=== PATIENT | female | born 1945 | race Caucasian/White ===

== ENCOUNTER 2017-08-25 03:32 | Inpatient (IN) | payer MEDICARE ==
[2017-08-25 04:12] LABS: BASO % 0.3 % (0.0-1.0); EOS # 0.1 10^3/uL (0.0-0.50); EOS % 0.5 % (0.0-3.0); HEMATOCRIT 39.1 % (36.0-47.0); HEMOGLOBIN 13.8 g/dl (12.0-15.5); IMMATURE GRANULOCYTE % 0.3 % (0-3.0); LYMPH # 2.1 10^3/uL (1.5-4.5); MEAN CORPUSCULAR HEMOGLOBIN 30.8 pg (27.0-33.0); MEAN CORPUSCULAR HGB CONC 35.3 g/dl (32.0-36.5); MEAN CORPUSCULAR VOLUME 87.3 fl (80.0-96.0); MONO # 0.8 10^3/uL (0.0-0.8); MONO % 8.3 % (0.0-5.0); NEUTROPHILS # 6.7 10^3/uL (1.8-7.7); NEUTROPHILS % 68.6 % (36.0-66.0); PLATELET COUNT, AUTOMATED 292 10^3/uL (150-450); RED BLOOD COUNT 4.48 10^6/uL (4.00-5.40); RED CELL DISTRIBUTION WIDTH 12.1 % (11.5-14.5); WHITE BLOOD COUNT 9.7 10^3/uL (4.0-10.0)
[2017-08-25 04:22] LABS: INR 0.88
[2017-08-25 04:23] LABS: PARTIAL THROMBOPLASTIN TIME 26.7 SECONDS (26.8-37.9)
[2017-08-25 04:47] LABS: ALBUMIN 3.5 GM/DL (3.2-5.2); ALBUMIN/GLOBULIN RATIO 1.21 (1.00-1.93); ALKALINE PHOSPHATASE 103 U/L (45-117); ALT/SGPT 22 U/L (12-78); ANION GAP 10 MEQ/L (8-16); AST/SGOT 11 U/L (7-37); BILIRUBIN,DIRECT 0.2 MG/DL (0.0-0.2); BILIRUBIN,TOTAL 0.5 MG/DL (0.2-1.0); BLOOD UREA NITROGEN 14 MG/DL (7-18); CALCIUM LEVEL 8.7 MG/DL (8.8-10.2); CARBON DIOXIDE LEVEL 26 MEQ/L (21-32); CHLORIDE LEVEL 102 MEQ/L (98-107); CK-MB VALUE MASS 1.1 NG/ML (<3.6); CPK CREATINE PHOSPHOKINASE 25 U/L (26-192); CREATININE FOR GFR 0.54 MG/DL (0.55-1.30); GLOMERULAR FILTRATION RATE > 60.0 (>39); GLUCOSE, FASTING 168 MG/DL (70-100); LIPASE 92 U/L (73-393); POTASSIUM SERUM 3.8 MEQ/L (3.5-5.1); SODIUM LEVEL 138 MEQ/L (136-145); TOTAL PROTEIN 6.4 GM/DL (6.4-8.2); TROPONIN I < 0.02 NG/ML (< 0.10)
[2017-08-25] MEDS: ONDANSETRON 4MG/2ML VIAL (J2405) IV ×2 (05:34→08:42)
[2017-08-25] MEDS: QUINAPRIL 20 MG TAB PO (06:45)
[2017-08-25] MEDS: NS 1,000 ML IV (06:45)
[2017-08-25 07:08] LABS: FREE T4 1.55 NG/DL (0.76-1.46)
[2017-08-25 07:39] LABS: KETONE, URINE AUTO RFX 1+ mg/dL (NEGATIVE); LEUKOCYTE ESTERASE UR AUTO RFX NEGATIVE (NEGATIVE); MUCUS, URINE RFX SMALL (NEGATIVE); NITRITE, URINE AUTO RFX NEGATIVE (NEGATIVE); RBC, URINE AUTO RFX 0 /HPF (0-3); SPECIFIC GRAVITY UR AUTO RFX 1.014 (1.002-1.035); SQUAM EPITHELIAL CELL UR AURFX 0 /HPF (0-6); WBC, URINE AUTO RFX 2 /HPF (0-3)
[2017-08-25 08:35] LABS: CPK CREATINE PHOSPHOKINASE 41 U/L (26-192); TROPONIN I < 0.02 NG/ML (< 0.10)
[2017-08-25 08:36] LABS: CK-MB VALUE MASS < 1.0 NG/ML (<3.6); MB/CK RELATIVE INDEX 2.43 (< OR =4)
[2017-08-25] MEDS: GABAPENTIN 300 MG CAP PO (08:42)
[2017-08-25] MEDS ORDERED: GLIMEPIRIDE 2 MG TAB PO (09:00)
[2017-08-25] MEDS: diltiaZEM **CD** 180 MG CAP PO (09:38)
[2017-08-25] MEDS: cloNIDine 0.2 MG TAB PO (09:38)
[2017-08-25] MEDS ORDERED: GLUCOSE 4 GM CHEW TABLET PO (12:15)
[2017-08-25] MEDS ORDERED: GLUCAGON FOR INJ 1 MG VIAL (J1610) SC (12:15)
[2017-08-25] MEDS ORDERED: DEXTROSE 50% 50 ML SYRINGE IV (12:15)
[2017-08-25] MEDS ORDERED: SLF 3 ML SYR IV (12:45)
[2017-08-25] MEDS ORDERED: ISOVUE-370 76% 100ML VIAL (Q9967) As Ordered (13:08)
[2017-08-25 13:12] LABS: CPK CREATINE PHOSPHOKINASE 23 U/L (26-192); TROPONIN I < 0.02 NG/ML (< 0.10)
[2017-08-25 13:13] LABS: CK-MB VALUE MASS < 1.0 NG/ML (<3.6); MB/CK RELATIVE INDEX 4.34 (< OR =4)
[2017-08-25 13:19] LABS: TOTAL 25(OH) VITAMIN D 63.1 NG/ML (30.0-100.0); VITAMIN B12 LEVEL 743 PG/ML
[2017-08-25 13:22] LABS: FOLATE 15.1 NG/ML
[2017-08-25 13:37] LABS: ESTIMATED AVERAGE GLUCOSE 183 MG/DL (60-110)
[2017-08-25 14:18] LABS: BEDSIDE GLUCOSE 192 MG/DL (83-110)
[2017-08-25] MEDS: HEPARIN SOD (PORCINE) 5000 UNITS/ML VIAL SC ×2 (14:25→21:06)
[2017-08-25] MEDS: OCUVITE 1 TAB PO (14:25)
[2017-08-25] MEDS: CALCIUM/VITAMIN D 500 MG TAB PO ×2 (14:25→21:06)
[2017-08-25] MEDS: SLF 3 ML SYR IV ×2 (14:26→21:13)
[2017-08-25] MEDS: LEVOTHYROXINE 75MCG TABLET (0.075MG) PO (14:26)
[2017-08-25] MEDS: HumaLOG INSULIN (NovoLOG) PER UNIT SC ×3 (14:26→20:22)
[2017-08-25 17:03] LABS: BEDSIDE GLUCOSE 183 MG/DL (83-110)
[2017-08-25] MEDS ORDERED: HumaLOG INSULIN (NovoLOG) PER UNIT SC (17:30)
[2017-08-25] MEDS: KETOROLAC 30 MG/ML VIAL (J1885) IV (17:50)
[2017-08-25 18:40] LABS: CPK CREATINE PHOSPHOKINASE 24 U/L (26-192); TROPONIN I < 0.02 NG/ML (< 0.10)
[2017-08-25 18:42] LABS: CK-MB VALUE MASS < 1.0 NG/ML (<3.6); MB/CK RELATIVE INDEX 4.16 (< OR =4)
[2017-08-25 20:19] LABS: BEDSIDE GLUCOSE 80 MG/DL (83-110)
[2017-08-25] MEDS ORDERED: GABAPENTIN 100 MG CAP PO (21:00)
[2017-08-25] MEDS: ANALGESIC BALM CRM 120 GM TOP (21:05)
[2017-08-25] MEDS: LATANOPROST 0.005% OPHTH SOLN 2.5 ML OU (21:06)
[2017-08-25] MEDS: GABAPENTIN 100 MG CAP PO (21:06)
[2017-08-26 00:35] LABS: CK-MB VALUE MASS < 1.0 NG/ML (<3.6); CPK CREATINE PHOSPHOKINASE 23 U/L (26-192); MB/CK RELATIVE INDEX 4.34 (< OR =4); TROPONIN I < 0.02 NG/ML (< 0.10)
[2017-08-26] MEDS: KETOROLAC 30 MG/ML VIAL (J1885) IV ×3 (03:08→20:08)
[2017-08-26 05:36] LABS: BASO % 0.4 % (0.0-1.0); EOS # 0.1 10^3/uL (0.0-0.50); EOS % 0.7 % (0.0-3.0); HEMATOCRIT 39.2 % (36.0-47.0); HEMOGLOBIN 13.5 g/dl (12.0-15.5); IMMATURE GRANULOCYTE % 0.4 % (0-3.0); LYMPH # 1.9 10^3/uL (1.5-4.5); LYMPH % 21.5 % (24.0-44.0); MEAN CORPUSCULAR HEMOGLOBIN 30.7 pg (27.0-33.0); MEAN CORPUSCULAR HGB CONC 34.4 g/dl (32.0-36.5); MEAN CORPUSCULAR VOLUME 89.1 fl (80.0-96.0); MONO # 0.8 10^3/uL (0.0-0.8); MONO % 8.8 % (0.0-5.0); NEUTROPHILS # 6.1 10^3/uL (1.8-7.7); NEUTROPHILS % 68.2 % (36.0-66.0); PLATELET COUNT, AUTOMATED 268 10^3/uL (150-450); RED CELL DISTRIBUTION WIDTH 12.3 % (11.5-14.5)
[2017-08-26] MEDS: LEVOTHYROXINE 75MCG TABLET (0.075MG) PO (05:42)
[2017-08-26] MEDS: HEPARIN SOD (PORCINE) 5000 UNITS/ML VIAL SC ×3 (05:43→21:01)
[2017-08-26] MEDS: SLF 3 ML SYR IV ×3 (05:43→21:01)
[2017-08-26 05:57] LABS: ANION GAP 7 MEQ/L (8-16); BLOOD UREA NITROGEN 15 MG/DL (7-18); CARBON DIOXIDE LEVEL 29 MEQ/L (21-32); CHLORIDE LEVEL 105 MEQ/L (98-107); CREATININE FOR GFR 0.59 MG/DL (0.55-1.30); GLOMERULAR FILTRATION RATE > 60.0 (>39); GLUCOSE, FASTING 82 MG/DL (70-100); POTASSIUM SERUM 3.8 MEQ/L (3.5-5.1); SODIUM LEVEL 141 MEQ/L (136-145)
[2017-08-26] MEDS: HumaLOG INSULIN (NovoLOG) PER UNIT SC ×4 (07:30→21:00)
[2017-08-26] MEDS ORDERED: tiZANidine 4 MG TAB PO (08:45)
[2017-08-26] MEDS: tiZANidine 4 MG TAB PO (08:59)
[2017-08-26] MEDS: OCUVITE 1 TAB PO (09:00)
[2017-08-26] MEDS ORDERED: PILL CRUSHER/CUTTER 1 EACH XX (09:00)
[2017-08-26] MEDS: GABAPENTIN 100 MG CAP PO ×2 (09:01→20:07)
[2017-08-26] MEDS: diltiaZEM **CD** 180 MG CAP PO (09:01)
[2017-08-26] MEDS: CALCIUM/VITAMIN D 500 MG TAB PO ×2 (09:01→20:07)
[2017-08-26] MEDS: ANALGESIC BALM CRM 120 GM TOP ×5 (09:01→20:11)
[2017-08-26 11:52] LABS: BEDSIDE GLUCOSE 197 MG/DL (83-110)
[2017-08-26] MEDS: ONDANSETRON 4MG/2ML VIAL (J2405) IV (15:34)
[2017-08-26 17:14] LABS: BEDSIDE GLUCOSE 130 MG/DL (83-110)
[2017-08-26] MEDS: SENOKOT S TAB PO (20:07)
[2017-08-26] MEDS: BISACODYL 5 MG TAB PO (20:07)
[2017-08-26] MEDS: LATANOPROST 0.005% OPHTH SOLN 2.5 ML OU (20:10)
[2017-08-26] MEDS: QUINAPRIL 20 MG TAB PO (20:10)
[2017-08-26 20:25] LABS: BEDSIDE GLUCOSE 197 MG/DL (83-110)
[2017-08-26] MEDS: traMADol 50 MG TAB PO (22:43)
[2017-08-27] MEDS: ACETAMINOPHEN TAB 650MG DOSE (2X325MG) PO ×2 (01:22→15:45)
[2017-08-27] MEDS: LEVOTHYROXINE 75MCG TABLET (0.075MG) PO (05:12)
[2017-08-27] MEDS: SLF 3 ML SYR IV ×3 (05:12→22:01)
[2017-08-27] MEDS: HEPARIN SOD (PORCINE) 5000 UNITS/ML VIAL SC ×3 (05:12→22:00)
[2017-08-27] MEDS: KETOROLAC 30 MG/ML VIAL (J1885) IV ×3 (05:12→22:00)
[2017-08-27 06:41] LABS: BEDSIDE GLUCOSE 151 MG/DL (83-110)
[2017-08-27] MEDS: DULoxetine 30 MG CAP (CYMBALTA) PO (07:19)
[2017-08-27] MEDS: ALPRAZolam 0.25 MG TAB PO (07:19)
[2017-08-27 07:54] LABS: ANION GAP 10 MEQ/L (8-16); BLOOD UREA NITROGEN 16 MG/DL (7-18); CALCIUM LEVEL 10.1 MG/DL (8.8-10.2); CARBON DIOXIDE LEVEL 29 MEQ/L (21-32); CHLORIDE LEVEL 101 MEQ/L (98-107); CREATININE FOR GFR 0.58 MG/DL (0.55-1.30); GLOMERULAR FILTRATION RATE > 60.0 (>39); GLUCOSE, FASTING 153 MG/DL (70-100); POTASSIUM SERUM 3.8 MEQ/L (3.5-5.1); SODIUM LEVEL 140 MEQ/L (136-145)
[2017-08-27] MEDS: HumaLOG INSULIN (NovoLOG) PER UNIT SC ×4 (08:47→21:00)
[2017-08-27] MEDS: OCUVITE 1 TAB PO (08:47)
[2017-08-27] MEDS: CALCIUM/VITAMIN D 500 MG TAB PO ×2 (08:47→21:59)
[2017-08-27] MEDS: GABAPENTIN 100 MG CAP PO ×2 (08:47→21:57)
[2017-08-27] MEDS: ANALGESIC BALM CRM 120 GM TOP ×4 (08:51→21:59)
[2017-08-27 11:45] LABS: BEDSIDE GLUCOSE 297 MG/DL (83-110)
[2017-08-27] MEDS: **hydrALAZINE** 10 MG TAB PO (17:42)
[2017-08-27 17:51] LABS: BEDSIDE GLUCOSE 92 MG/DL (83-110)
[2017-08-27] MEDS: traMADol 50 MG TAB PO (18:13)
[2017-08-27 20:45] LABS: BEDSIDE GLUCOSE 191 MG/DL (83-110)
[2017-08-27] MEDS: QUINAPRIL 20 MG TAB PO (21:58)
[2017-08-27] MEDS: LATANOPROST 0.005% OPHTH SOLN 2.5 ML OU (21:59)
[2017-08-28] MEDS: **hydrALAZINE** 10 MG TAB PO ×2 (00:41→05:18)
[2017-08-28] MEDS: LEVOTHYROXINE 75MCG TABLET (0.075MG) PO (05:18)
[2017-08-28] MEDS: SLF 3 ML SYR IV (05:19)
[2017-08-28] MEDS: HEPARIN SOD (PORCINE) 5000 UNITS/ML VIAL SC (05:19)
[2017-08-28 05:34] LABS: ANION GAP 9 MEQ/L (8-16); BLOOD UREA NITROGEN 20 MG/DL (7-18); CALCIUM LEVEL 9.3 MG/DL (8.8-10.2); CARBON DIOXIDE LEVEL 29 MEQ/L (21-32); CHLORIDE LEVEL 103 MEQ/L (98-107); CREATININE FOR GFR 0.54 MG/DL (0.55-1.30); GLOMERULAR FILTRATION RATE > 60.0 (>39); GLUCOSE, FASTING 124 MG/DL (70-100); POTASSIUM SERUM 3.6 MEQ/L (3.5-5.1); SODIUM LEVEL 141 MEQ/L (136-145)
[2017-08-28] MEDS: ONDANSETRON 4MG/2ML VIAL (J2405) IV (07:44)
[2017-08-28] MEDS: HumaLOG INSULIN (NovoLOG) PER UNIT SC ×2 (07:45→12:56)
[2017-08-28] MEDS: CALCIUM/VITAMIN D 500 MG TAB PO (09:08)
[2017-08-28] MEDS: GABAPENTIN 100 MG CAP PO (09:08)
[2017-08-28] MEDS: OCUVITE 1 TAB PO (09:09)
[2017-08-28] MEDS: DULoxetine 30 MG CAP (CYMBALTA) PO (09:09)
[2017-08-28] MEDS: **hydrALAZINE HCL** 25 MG TAB PO (09:10)
[2017-08-28] MEDS: ANALGESIC BALM CRM 120 GM TOP (09:11)
[2017-08-28 12:24] LABS: BEDSIDE GLUCOSE 232 MG/DL (83-110)
[2017-08-28] MEDS: traMADol 50 MG TAB PO (12:56)
== END 2017-08-28 13:45 | disposition home health service (06) | DRG 305 ==
LOC: M ED 03:32 → M ED INP 09:31 → M PCU 11:55
DX: I16.0 Hypertensive urgency (principal); M79.7 Fibromyalgia; E11.40 Type 2 diabetes mellitus with diabetic neuropathy, unspecified; M54.9 Dorsalgia, unspecified; K59.00 Constipation, unspecified; R63.4 Abnormal weight loss; G89.29 Other chronic pain; M81.0 Age-related osteoporosis without current pathological fracture; R94.31 Abnormal electrocardiogram [ECG] [EKG]; E03.9 Hypothyroidism, unspecified; I10 Essential (primary) hypertension; H40.9 Unspecified glaucoma; M94.0 Chondrocostal junction syndrome [Tietze]; Z79.84 Long term (current) use of oral hypoglycemic drugs; Z79.899 Other long term (current) drug therapy; Z88.0 Allergy status to penicillin; Z88.5 Allergy status to narcotic agent

== ENCOUNTER 2017-08-30 08:46 | Emergency (ER) | payer MEDICARE ==
[2017-08-30 09:59] LABS: BASO % 0.2 % (0.0-1.0); EOS % 0.2 % (0.0-3.0); HEMATOCRIT 37.9 % (36.0-47.0); IMMATURE GRANULOCYTE % 0.5 % (0-3.0); LYMPH # 1.3 10^3/uL (1.5-4.5); LYMPH % 10.1 % (24.0-44.0); MEAN CORPUSCULAR HEMOGLOBIN 30.7 pg (27.0-33.0); MEAN CORPUSCULAR HGB CONC 34.3 g/dl (32.0-36.5); MEAN CORPUSCULAR VOLUME 89.6 fl (80.0-96.0); MONO # 0.8 10^3/uL (0.0-0.8); MONO % 5.8 % (0.0-5.0); NEUTROPHILS # 10.7 10^3/uL (1.8-7.7); NEUTROPHILS % 83.2 % (36.0-66.0); PLATELET COUNT, AUTOMATED 258 10^3/uL (150-450); RED BLOOD COUNT 4.23 10^6/uL (4.00-5.40); WHITE BLOOD COUNT 12.9 10^3/uL (4.0-10.0)
[2017-08-30 10:17] LABS: INR 0.85; PROTHROMBIN TIME 11.7 SECONDS (12.1-14.4)
[2017-08-30 10:18] LABS: PARTIAL THROMBOPLASTIN TIME 26.2 SECONDS (25.4-37.6)
[2017-08-30 10:22] LABS: ALBUMIN 3.2 GM/DL (3.2-5.2); ALKALINE PHOSPHATASE 95 U/L (45-117); ALT/SGPT 56 U/L (12-78); ANION GAP 11 MEQ/L (8-16); AST/SGOT 46 U/L (7-37); BILIRUBIN,DIRECT 0.1 MG/DL (0.0-0.2); BILIRUBIN,TOTAL 0.5 MG/DL (0.2-1.0); BLOOD UREA NITROGEN 11 MG/DL (7-18); CALCIUM LEVEL 8.8 MG/DL (8.8-10.2); CARBON DIOXIDE LEVEL 27 MEQ/L (21-32); CHLORIDE LEVEL 99 MEQ/L (98-107); CK-MB VALUE MASS < 1.0 NG/ML (<3.6); CPK CREATINE PHOSPHOKINASE 38 U/L (26-192); CREATININE FOR GFR 0.55 MG/DL (0.55-1.30); GLOMERULAR FILTRATION RATE > 60.0 (>39); GLUCOSE, FASTING 178 MG/DL (70-100); LIPASE 58 U/L (73-393); MB/CK RELATIVE INDEX 2.63 (< OR =4); SODIUM LEVEL 137 MEQ/L (136-145); TOTAL PROTEIN 6.1 GM/DL (6.4-8.2); TROPONIN I < 0.02 NG/ML (< 0.10)
[2017-08-30] MEDS: ONDANSETRON 4MG/2ML VIAL (J2405) IV (11:26)
[2017-08-30] MEDS: GABAPENTIN 100 MG CAP PO (11:33)
[2017-08-30] MEDS: traMADol 50 MG TAB PO (11:34)
[2017-08-30] MEDS: NS 500 ML IV (12:00)
== END 2017-08-30 14:40 | disposition home or self-care (01) ==
LOC: M ED 08:46
DX: R11.10 Vomiting, unspecified (principal); R53.1 Weakness; E11.9 Type 2 diabetes mellitus without complications; I10 Essential (primary) hypertension; G62.9 Polyneuropathy, unspecified; M79.7 Fibromyalgia; M81.0 Age-related osteoporosis without current pathological fracture; H40.9 Unspecified glaucoma; G89.29 Other chronic pain; M54.9 Dorsalgia, unspecified; Z79.899 Other long term (current) drug therapy; Z79.890 Hormone replacement therapy; Z88.0 Allergy status to penicillin; Z88.5 Allergy status to narcotic agent
CPT/HCPCS: J2405

== ENCOUNTER 2017-09-04 19:00 | Inpatient (IN) | payer MEDICARE ==
[2017-09-04 21:21] LABS: BASO # 0.1 10^3/uL (0.0-0.2); BASO % 0.2 % (0.0-1.0); HEMATOCRIT 44.1 % (36.0-47.0); HEMOGLOBIN 15.3 g/dl (12.0-15.5); IMMATURE GRANULOCYTE % 0.7 % (0-3.0); LYMPH # 1.6 10^3/uL (1.5-4.5); LYMPH % 6.4 % (24.0-44.0); MEAN CORPUSCULAR HEMOGLOBIN 31.5 pg (27.0-33.0); MEAN CORPUSCULAR HGB CONC 34.7 g/dl (32.0-36.5); MEAN CORPUSCULAR VOLUME 90.7 fl (80.0-96.0); MONO # 1.7 10^3/uL (0.0-0.8); MONO % 6.9 % (0.0-5.0); NEUTROPHILS # 20.6 10^3/uL (1.8-7.7); NEUTROPHILS % 85.8 % (36.0-66.0); PLATELET COUNT, AUTOMATED 331 10^3/uL (150-450); RED BLOOD COUNT 4.86 10^6/uL (4.00-5.40); RED CELL DISTRIBUTION WIDTH 12.4 % (11.5-14.5); WHITE BLOOD COUNT 24.1 10^3/uL (4.0-10.0)
[2017-09-04 21:37] LABS: LACTIC ACID SEPSIS PROTOCOL 1.3 MMOL/L (0.4-2.0)
[2017-09-04 21:37] LABS: ALBUMIN 3.8 GM/DL (3.2-5.2); ALBUMIN/GLOBULIN RATIO 1.06 (1.00-1.93); ALKALINE PHOSPHATASE 119 U/L (45-117); ALT/SGPT 58 U/L (12-78); ANION GAP 11 MEQ/L (8-16); AST/SGOT 21 U/L (7-37); BILIRUBIN,DIRECT 0.2 MG/DL (0.0-0.2); BILIRUBIN,TOTAL 0.7 MG/DL (0.2-1.0); BLOOD UREA NITROGEN 20 MG/DL (7-18); CALCIUM LEVEL 9.8 MG/DL (8.8-10.2); CARBON DIOXIDE LEVEL 27 MEQ/L (21-32); CHLORIDE LEVEL 95 MEQ/L (98-107); CK-MB VALUE MASS < 1.0 NG/ML (<3.6); CPK CREATINE PHOSPHOKINASE 31 U/L (26-192); CREATININE FOR GFR 0.85 MG/DL (0.55-1.30); GLOMERULAR FILTRATION RATE > 60.0 (>39); GLUCOSE, FASTING 201 MG/DL (70-100); LIPASE 71 U/L (73-393); MB/CK RELATIVE INDEX 3.22 (< OR =4); POTASSIUM SERUM 3.4 MEQ/L (3.5-5.1); SODIUM LEVEL 133 MEQ/L (136-145); TOTAL PROTEIN 7.4 GM/DL (6.4-8.2); TROPONIN I < 0.02 NG/ML (< 0.10)
[2017-09-04] MEDS: NS 500 ML IV (21:49)
[2017-09-04 22:04] LABS: INR 0.81; PROTHROMBIN TIME 11.3 SECONDS (12.1-14.4)
[2017-09-04 22:05] LABS: PARTIAL THROMBOPLASTIN TIME 25.2 SECONDS (25.4-37.6)
[2017-09-04 22:45] LABS: BEDSIDE GLUCOSE 226 MG/DL (83-110)
[2017-09-05] MEDS: SENOKOT S TAB PO (00:42)
[2017-09-05] MEDS: ACETAMINOPHEN TAB 650MG DOSE (2X325MG) PO (01:22)
[2017-09-05] MEDS: NS 1,000 ML IV (01:22)
[2017-09-05] MEDS ORDERED: ACETAMINOPHEN 325 MG TAB PO (02:15)
[2017-09-05] MEDS: QUINAPRIL 20 MG TAB PO ×2 (04:38→20:42)
[2017-09-05] MEDS: LATANOPROST 0.005% OPHTH SOLN 2.5 ML OU ×2 (04:38→20:42)
[2017-09-05] MEDS: traMADol 50 MG TAB PO ×2 (04:39→19:06)
[2017-09-05] MEDS ORDERED: DEXTROSE 50% 50 ML SYRINGE IV (05:15)
[2017-09-05] MEDS ORDERED: GLUCOSE 4 GM CHEW TABLET PO (05:15)
[2017-09-05] MEDS ORDERED: GLUCAGON FOR INJ 1 MG VIAL (J1610) SC (05:15)
[2017-09-05] MEDS: ONDANSETRON 4 MG TAB (S0181) PO (05:56)
[2017-09-05 07:56] LABS: BEDSIDE GLUCOSE 175 MG/DL (83-110)
[2017-09-05] MEDS: HumaLOG INSULIN (NovoLOG) PER UNIT SC ×3 (09:12→19:02)
[2017-09-05] MEDS: GABAPENTIN 100 MG CAP PO ×2 (09:12→20:41)
[2017-09-05] MEDS: LEVOTHYROXINE 75MCG TABLET (0.075MG) PO (09:12)
[2017-09-05] MEDS: DULoxetine 30 MG CAP (CYMBALTA) PO (09:12)
[2017-09-05] MEDS: **hydrALAZINE HCL** 25 MG TAB PO ×2 (09:13→20:41)
[2017-09-05 09:34] LABS: HEMATOCRIT 38.5 % (36.0-47.0); HEMOGLOBIN 13.2 g/dl (12.0-15.5); MEAN CORPUSCULAR HEMOGLOBIN 31.1 pg (27.0-33.0); MEAN CORPUSCULAR HGB CONC 34.3 g/dl (32.0-36.5); MEAN CORPUSCULAR VOLUME 90.8 fl (80.0-96.0); PLATELET COUNT, AUTOMATED 285 10^3/uL (150-450); RED BLOOD COUNT 4.24 10^6/uL (4.00-5.40); RED CELL DISTRIBUTION WIDTH 12.4 % (11.5-14.5); WHITE BLOOD COUNT 13.4 10^3/uL (4.0-10.0)
[2017-09-05 09:59] LABS: URIC ACID 3.9 MG/DL (2.6-6.0)
[2017-09-05 10:09] LABS: ERYTHROCYTE SEDIMENTATION RATE 15 mm/hr (0-30)
[2017-09-05 12:26] LABS: BEDSIDE GLUCOSE 114 MG/DL (83-110)
[2017-09-05 17:26] LABS: BEDSIDE GLUCOSE 150 MG/DL (83-110)
[2017-09-05] MEDS: BISACODYL 5 MG TAB PO (19:06)
[2017-09-05 21:43] LABS: BEDSIDE GLUCOSE 87 MG/DL (83-110)
[2017-09-06 06:20] LABS: BEDSIDE GLUCOSE 79 MG/DL (83-110)
[2017-09-06] MEDS: HumaLOG INSULIN (NovoLOG) PER UNIT SC ×3 (07:30→18:31)
[2017-09-06] MEDS: **hydrALAZINE HCL** 25 MG TAB PO ×2 (08:36→20:24)
[2017-09-06] MEDS: LEVOTHYROXINE 75MCG TABLET (0.075MG) PO (08:37)
[2017-09-06] MEDS: GABAPENTIN 100 MG CAP PO ×2 (08:37→20:23)
[2017-09-06] MEDS: DULoxetine 30 MG CAP (CYMBALTA) PO (08:37)
[2017-09-06 12:07] LABS: BEDSIDE GLUCOSE 172 MG/DL (83-110)
[2017-09-06 17:56] LABS: BEDSIDE GLUCOSE 115 MG/DL (83-110)
[2017-09-06] MEDS: ACETAMINOPHEN TAB 650MG DOSE (2X325MG) PO (20:23)
[2017-09-06] MEDS: LATANOPROST 0.005% OPHTH SOLN 2.5 ML OU (20:23)
[2017-09-06] MEDS: BISACODYL 5 MG TAB PO (20:23)
[2017-09-06] MEDS: QUINAPRIL 20 MG TAB PO (20:53)
[2017-09-06] MEDS: traMADol 50 MG TAB PO (23:17)
[2017-09-07] MEDS: traMADol 50 MG TAB PO ×3 (05:18→22:19)
[2017-09-07 06:15] LABS: BEDSIDE GLUCOSE 119 MG/DL (83-110)
[2017-09-07] MEDS: HumaLOG INSULIN (NovoLOG) PER UNIT SC ×3 (07:30→18:43)
[2017-09-07] MEDS: GABAPENTIN 100 MG CAP PO ×2 (08:43→22:19)
[2017-09-07] MEDS: IBUPROFEN 400 MG TAB PO (08:43)
[2017-09-07] MEDS: DULoxetine 30 MG CAP (CYMBALTA) PO (08:44)
[2017-09-07] MEDS: **hydrALAZINE HCL** 25 MG TAB PO ×2 (08:44→22:20)
[2017-09-07] MEDS: LEVOTHYROXINE 75MCG TABLET (0.075MG) PO (08:44)
[2017-09-07 11:31] LABS: BEDSIDE GLUCOSE 116 MG/DL (83-110)
[2017-09-07 11:37] LABS: BEDSIDE GLUCOSE 183 MG/DL (83-110)
[2017-09-07 16:53] LABS: BEDSIDE GLUCOSE 135 MG/DL (83-110)
[2017-09-07 19:50] LABS: BEDSIDE GLUCOSE 175 MG/DL (83-110)
[2017-09-07] MEDS: QUINAPRIL 20 MG TAB PO (22:18)
[2017-09-07] MEDS: LATANOPROST 0.005% OPHTH SOLN 2.5 ML OU (22:19)
[2017-09-08 07:25] LABS: BEDSIDE GLUCOSE 148 MG/DL (83-110)
[2017-09-08] MEDS: HumaLOG INSULIN (NovoLOG) PER UNIT SC ×3 (08:54→18:11)
[2017-09-08] MEDS: **hydrALAZINE HCL** 25 MG TAB PO ×2 (08:55→20:27)
[2017-09-08] MEDS: GABAPENTIN 100 MG CAP PO ×2 (08:56→20:27)
[2017-09-08] MEDS: LEVOTHYROXINE 75MCG TABLET (0.075MG) PO (08:56)
[2017-09-08] MEDS: DULoxetine 30 MG CAP (CYMBALTA) PO (08:56)
[2017-09-08 11:34] LABS: BEDSIDE GLUCOSE 187 MG/DL (83-110)
[2017-09-08] MEDS: traMADol 50 MG TAB PO ×2 (11:58→18:11)
[2017-09-08] MEDS: BISACODYL 5 MG TAB PO (12:30)
[2017-09-08 16:58] LABS: BEDSIDE GLUCOSE 131 MG/DL (83-110)
[2017-09-08 20:20] LABS: BEDSIDE GLUCOSE 212 MG/DL (83-110)
[2017-09-08] MEDS: QUINAPRIL 20 MG TAB PO (20:27)
[2017-09-08] MEDS: ACETAMINOPHEN TAB 650MG DOSE (2X325MG) PO (20:28)
[2017-09-08] MEDS: LATANOPROST 0.005% OPHTH SOLN 2.5 ML OU (20:30)
[2017-09-09] MEDS: traMADol 50 MG TAB PO ×2 (02:23→19:41)
[2017-09-09 05:39] LABS: BEDSIDE GLUCOSE 161 MG/DL (83-110)
[2017-09-09] MEDS: ONDANSETRON 4 MG TAB (S0181) PO (08:23)
[2017-09-09] MEDS: HumaLOG INSULIN (NovoLOG) PER UNIT SC ×3 (08:28→17:20)
[2017-09-09 08:32] LABS: HEMATOCRIT 35.7 % (36.0-47.0); HEMOGLOBIN 12.4 g/dl (12.0-15.5); MEAN CORPUSCULAR HGB CONC 34.7 g/dl (32.0-36.5); MEAN CORPUSCULAR VOLUME 89.3 fl (80.0-96.0); PLATELET COUNT, AUTOMATED 295 10^3/uL (150-450); RED CELL DISTRIBUTION WIDTH 12.4 % (11.5-14.5); WHITE BLOOD COUNT 7.5 10^3/uL (4.0-10.0)
[2017-09-09 09:00] LABS: ANION GAP 11 MEQ/L (8-16); BLOOD UREA NITROGEN 9 MG/DL (7-18); CALCIUM LEVEL 8.8 MG/DL (8.8-10.2); CARBON DIOXIDE LEVEL 25 MEQ/L (21-32); CHLORIDE LEVEL 103 MEQ/L (98-107); CREATININE FOR GFR 0.45 MG/DL (0.55-1.30); GLOMERULAR FILTRATION RATE > 60.0 (>39); GLUCOSE, FASTING 173 MG/DL (70-100); MAGNESIUM LEVEL 1.6 MG/DL (1.8-2.4); POTASSIUM SERUM 3.7 MEQ/L (3.5-5.1); SODIUM LEVEL 139 MEQ/L (136-145)
[2017-09-09] MEDS: LEVOTHYROXINE 75MCG TABLET (0.075MG) PO (09:38)
[2017-09-09] MEDS: GABAPENTIN 100 MG CAP PO ×2 (09:38→20:54)
[2017-09-09] MEDS: DULoxetine 30 MG CAP (CYMBALTA) PO (09:38)
[2017-09-09] MEDS: **hydrALAZINE HCL** 25 MG TAB PO ×2 (09:39→20:54)
[2017-09-09] MEDS: BISACODYL 5 MG TAB PO (09:39)
[2017-09-09] MEDS: MOM 30ML SUSPENSION UDC PO (09:40)
[2017-09-09] MEDS: FLEET ENEMA PR (09:41)
[2017-09-09 11:41] LABS: BEDSIDE GLUCOSE 228 MG/DL (83-110)
[2017-09-09] MEDS: MAG SULF 1GM/100ML (MAG RUN) 1 GM in APPROPRIATE DILUENT 1 EA IV (13:48)
[2017-09-09 17:03] LABS: BEDSIDE GLUCOSE 125 MG/DL (83-110)
[2017-09-09 20:23] LABS: BEDSIDE GLUCOSE 182 MG/DL (83-110)
[2017-09-09] MEDS: ENOXAPARIN 40 MG/0.4 ML SYRINGE (J1650) SC (20:55)
[2017-09-09] MEDS: QUINAPRIL 20 MG TAB PO (20:55)
[2017-09-09] MEDS: LATANOPROST 0.005% OPHTH SOLN 2.5 ML OU (20:55)
[2017-09-09] MEDS: ACETAMINOPHEN TAB 650MG DOSE (2X325MG) PO (20:59)
[2017-09-10] MEDS: traMADol 50 MG TAB PO ×3 (03:53→23:25)
[2017-09-10] MEDS: ONDANSETRON 4 MG TAB (S0181) PO (06:02)
[2017-09-10 06:55] LABS: BEDSIDE GLUCOSE 214 MG/DL (83-110)
[2017-09-10] MEDS: HumaLOG INSULIN (NovoLOG) PER UNIT SC ×3 (08:55→17:19)
[2017-09-10] MEDS: **hydrALAZINE HCL** 25 MG TAB PO (08:57)
[2017-09-10] MEDS: GABAPENTIN 100 MG CAP PO (08:58)
[2017-09-10] MEDS: DULoxetine 30 MG CAP (CYMBALTA) PO (08:58)
[2017-09-10] MEDS: LEVOTHYROXINE 75MCG TABLET (0.075MG) PO (08:58)
[2017-09-10] MEDS: MAGNESIUM CITRATE 300 ML BTL PO ×2 (08:59→12:34)
[2017-09-10 10:19] LABS: HEMATOCRIT 36.4 % (36.0-47.0); HEMOGLOBIN 12.4 g/dl (12.0-15.5); MEAN CORPUSCULAR HEMOGLOBIN 31.2 pg (27.0-33.0); MEAN CORPUSCULAR HGB CONC 34.1 g/dl (32.0-36.5); MEAN CORPUSCULAR VOLUME 91.5 fl (80.0-96.0); PLATELET COUNT, AUTOMATED 300 10^3/uL (150-450); RED BLOOD COUNT 3.98 10^6/uL (4.00-5.40); RED CELL DISTRIBUTION WIDTH 12.6 % (11.5-14.5); WHITE BLOOD COUNT 6.2 10^3/uL (4.0-10.0)
[2017-09-10 10:44] LABS: ALBUMIN 2.8 GM/DL (3.2-5.2); ALBUMIN/GLOBULIN RATIO 0.93 (1.00-1.93); ALKALINE PHOSPHATASE 103 U/L (45-117); ALT/SGPT 26 U/L (12-78); ANION GAP 9 MEQ/L (8-16); AST/SGOT 11 U/L (7-37); BILIRUBIN,TOTAL 0.3 MG/DL (0.2-1.0); BLOOD UREA NITROGEN 8 MG/DL (7-18); CALCIUM LEVEL 8.6 MG/DL (8.8-10.2); CARBON DIOXIDE LEVEL 30 MEQ/L (21-32); CHLORIDE LEVEL 102 MEQ/L (98-107); CREATININE FOR GFR 0.73 MG/DL (0.55-1.30); GLUCOSE, FASTING 228 MG/DL (70-100); POTASSIUM SERUM 3.8 MEQ/L (3.5-5.1); SODIUM LEVEL 141 MEQ/L (136-145); TOTAL PROTEIN 5.8 GM/DL (6.4-8.2)
[2017-09-10 10:45] LABS: GLOMERULAR FILTRATION RATE > 60.0 (>39)
[2017-09-10 11:29] LABS: BEDSIDE GLUCOSE 159 MG/DL (83-110)
[2017-09-10] MEDS: DOCUSATE SODIUM 100 MG CAP PO ×2 (15:30→20:10)
[2017-09-10 16:51] LABS: BEDSIDE GLUCOSE 137 MG/DL (83-110)
[2017-09-10 20:03] LABS: BEDSIDE GLUCOSE 156 MG/DL (83-110)
[2017-09-10] MEDS: ENOXAPARIN 40 MG/0.4 ML SYRINGE (J1650) SC (20:11)
[2017-09-10] MEDS: LATANOPROST 0.005% OPHTH SOLN 2.5 ML OU (20:12)
[2017-09-10] MEDS: QUINAPRIL 20 MG TAB PO (20:12)
[2017-09-10] MEDS: ACETAMINOPHEN TAB 650MG DOSE (2X325MG) PO (21:02)
[2017-09-11 07:40] LABS: BEDSIDE GLUCOSE 185 MG/DL (83-110)
[2017-09-11] MEDS: HumaLOG INSULIN (NovoLOG) PER UNIT SC ×3 (09:23→16:48)
[2017-09-11] MEDS: ACETAMINOPHEN TAB 650MG DOSE (2X325MG) PO (09:24)
[2017-09-11] MEDS: DULoxetine 30 MG CAP (CYMBALTA) PO (09:24)
[2017-09-11] MEDS: amLODIPine 5 MG TAB PO ×2 (09:24→12:39)
[2017-09-11] MEDS: LEVOTHYROXINE 75MCG TABLET (0.075MG) PO (09:30)
[2017-09-11 11:36] LABS: HEMATOCRIT 40.6 % (36.0-47.0); HEMOGLOBIN 13.3 g/dl (12.0-15.5); MEAN CORPUSCULAR HEMOGLOBIN 30.5 pg (27.0-33.0); MEAN CORPUSCULAR HGB CONC 32.8 g/dl (32.0-36.5); MEAN CORPUSCULAR VOLUME 93.1 fl (80.0-96.0); PLATELET COUNT, AUTOMATED 349 10^3/uL (150-450); RED BLOOD COUNT 4.36 10^6/uL (4.00-5.40); RED CELL DISTRIBUTION WIDTH 12.6 % (11.5-14.5); WHITE BLOOD COUNT 9.2 10^3/uL (4.0-10.0)
[2017-09-11 11:47] LABS: BEDSIDE GLUCOSE 237 MG/DL (83-110)
[2017-09-11 11:59] LABS: ANION GAP 8 MEQ/L (8-16); BLOOD UREA NITROGEN 10 MG/DL (7-18); CALCIUM LEVEL 9.1 MG/DL (8.8-10.2); CARBON DIOXIDE LEVEL 34 MEQ/L (21-32); CHLORIDE LEVEL 99 MEQ/L (98-107); CREATININE FOR GFR 0.87 MG/DL (0.55-1.30); GLOMERULAR FILTRATION RATE > 60.0 (>39); GLUCOSE, FASTING 212 MG/DL (70-100); POTASSIUM SERUM 3.8 MEQ/L (3.5-5.1); SODIUM LEVEL 141 MEQ/L (136-145)
[2017-09-11] MEDS: IBUPROFEN 400 MG TAB PO ×2 (12:37→21:34)
[2017-09-11] MEDS: traMADol 50 MG TAB PO ×2 (15:02→23:12)
[2017-09-11 16:36] LABS: BEDSIDE GLUCOSE 137 MG/DL (83-110)
[2017-09-11] MEDS: GABAPENTIN 100 MG CAP PO (17:30)
[2017-09-11 20:57] LABS: BEDSIDE GLUCOSE 155 MG/DL (83-110)
[2017-09-11] MEDS: ENOXAPARIN 40 MG/0.4 ML SYRINGE (J1650) SC (21:33)
[2017-09-11] MEDS: QUINAPRIL 20 MG TAB PO (21:36)
[2017-09-11] MEDS: LATANOPROST 0.005% OPHTH SOLN 2.5 ML OU (21:36)
[2017-09-12 06:29] LABS: BEDSIDE GLUCOSE 167 MG/DL (83-110)
[2017-09-12] MEDS: GABAPENTIN 100 MG CAP PO ×2 (07:49→21:16)
[2017-09-12] MEDS: ACETAMINOPHEN TAB 650MG DOSE (2X325MG) PO ×2 (07:49→16:14)
[2017-09-12] MEDS: BISACODYL 5 MG TAB PO (07:49)
[2017-09-12] MEDS: DULoxetine 30 MG CAP (CYMBALTA) PO (07:49)
[2017-09-12] MEDS: LEVOTHYROXINE 75MCG TABLET (0.075MG) PO (07:49)
[2017-09-12] MEDS: traMADol 50 MG TAB PO ×2 (07:50→16:14)
[2017-09-12] MEDS: amLODIPine 10 MG TAB PO (07:51)
[2017-09-12] MEDS: HumaLOG INSULIN (NovoLOG) PER UNIT SC ×3 (07:52→18:06)
[2017-09-12 09:35] LABS: HEMATOCRIT 36.1 % (36.0-47.0); HEMOGLOBIN 12.1 g/dl (12.0-15.5); MEAN CORPUSCULAR HGB CONC 33.5 g/dl (32.0-36.5); MEAN CORPUSCULAR VOLUME 92.6 fl (80.0-96.0); PLATELET COUNT, AUTOMATED 311 10^3/uL (150-450); RED CELL DISTRIBUTION WIDTH 12.7 % (11.5-14.5); WHITE BLOOD COUNT 6.4 10^3/uL (4.0-10.0)
[2017-09-12 10:00] LABS: ANION GAP 8 MEQ/L (8-16); BLOOD UREA NITROGEN 8 MG/DL (7-18); CALCIUM LEVEL 8.7 MG/DL (8.8-10.2); CARBON DIOXIDE LEVEL 31 MEQ/L (21-32); CHLORIDE LEVEL 101 MEQ/L (98-107); CREATININE FOR GFR 0.67 MG/DL (0.55-1.30); GLOMERULAR FILTRATION RATE > 60.0 (>39); GLUCOSE, FASTING 205 MG/DL (70-100); MAGNESIUM LEVEL 1.6 MG/DL (1.8-2.4); POTASSIUM SERUM 3.5 MEQ/L (3.5-5.1); SODIUM LEVEL 140 MEQ/L (136-145)
[2017-09-12 11:31] LABS: BEDSIDE GLUCOSE 143 MG/DL (83-110)
[2017-09-12] MEDS: MAG SULF 1GM/100ML (MAG RUN) 1 GM in APPROPRIATE DILUENT 1 EA IV (12:33)
[2017-09-12] MEDS: IBUPROFEN 400 MG TAB PO (12:35)
[2017-09-12 17:07] LABS: BEDSIDE GLUCOSE 236 MG/DL (83-110)
[2017-09-12 20:05] LABS: BEDSIDE GLUCOSE 101 MG/DL (83-110)
[2017-09-12] MEDS: ENOXAPARIN 40 MG/0.4 ML SYRINGE (J1650) SC (21:00)
[2017-09-12] MEDS: QUINAPRIL 20 MG TAB PO (21:16)
[2017-09-12] MEDS: LATANOPROST 0.005% OPHTH SOLN 2.5 ML OU (21:17)
[2017-09-13] MEDS: traMADol 50 MG TAB PO ×2 (00:13→09:19)
[2017-09-13] MEDS: HumaLOG INSULIN (NovoLOG) PER UNIT SC ×2 (07:30→13:23)
[2017-09-13 07:40] LABS: HEMATOCRIT 38.5 % (36.0-47.0); HEMOGLOBIN 12.6 g/dl (12.0-15.5); MEAN CORPUSCULAR HEMOGLOBIN 30.6 pg (27.0-33.0); MEAN CORPUSCULAR HGB CONC 32.7 g/dl (32.0-36.5); MEAN CORPUSCULAR VOLUME 93.4 fl (80.0-96.0); PLATELET COUNT, AUTOMATED 313 10^3/uL (150-450); RED BLOOD COUNT 4.12 10^6/uL (4.00-5.40); RED CELL DISTRIBUTION WIDTH 12.6 % (11.5-14.5)
[2017-09-13 07:57] LABS: ANION GAP 7 MEQ/L (8-16); BLOOD UREA NITROGEN 10 MG/DL (7-18); CALCIUM LEVEL 8.6 MG/DL (8.8-10.2); CARBON DIOXIDE LEVEL 32 MEQ/L (21-32); CHLORIDE LEVEL 101 MEQ/L (98-107); CREATININE FOR GFR 0.57 MG/DL (0.55-1.30); GLOMERULAR FILTRATION RATE > 60.0 (>39); GLUCOSE, FASTING 160 MG/DL (70-100); POTASSIUM SERUM 3.6 MEQ/L (3.5-5.1); SODIUM LEVEL 140 MEQ/L (136-145)
[2017-09-13] MEDS: DULoxetine 30 MG CAP (CYMBALTA) PO (09:18)
[2017-09-13] MEDS: LEVOTHYROXINE 75MCG TABLET (0.075MG) PO (09:19)
[2017-09-13] MEDS: BISACODYL 5 MG TAB PO (09:20)
[2017-09-13] MEDS: GABAPENTIN 100 MG CAP PO (09:20)
[2017-09-13] MEDS: amLODIPine 10 MG TAB PO (09:20)
[2017-09-13] MEDS: IBUPROFEN 400 MG TAB PO (11:03)
[2017-09-13 11:39] LABS: BEDSIDE GLUCOSE 221 MG/DL (83-110)
== END 2017-09-13 16:00 | disposition home health service (06) | DRG 392 ==
LOC: M ED INP 09-05 02:02 → M MS5PR 09-05 13:20 → M ED 19:00
DX: K59.03 Drug induced constipation (principal); M81.0 Age-related osteoporosis without current pathological fracture; M79.7 Fibromyalgia; E03.9 Hypothyroidism, unspecified; E11.9 Type 2 diabetes mellitus without complications; T40.2X5A Adverse effect of other opioids, initial encounter; M19.90 Unspecified osteoarthritis, unspecified site; R42 Dizziness and giddiness; I10 Essential (primary) hypertension; Z79.84 Long term (current) use of oral hypoglycemic drugs; Z86.79 Personal history of other diseases of the circulatory system; Z79.899 Other long term (current) drug therapy; Z95.828 Presence of other vascular implants and grafts; Z88.0 Allergy status to penicillin; Z88.5 Allergy status to narcotic agent

== ENCOUNTER 2017-09-17 10:00 | Observation (INO) | payer MEDICARE ==
[2017-09-17] MEDS: NS 1,000 ML IV ×4 (10:04)
[2017-09-17 10:38] LABS: BASO % 0.5 % (0.0-1.0); EOS % 0.1 % (0.0-3.0); HEMATOCRIT 39.8 % (36.0-47.0); HEMOGLOBIN 13.6 g/dl (12.0-15.5); IMMATURE GRANULOCYTE % 0.2 % (0-3.0); LYMPH # 1.5 10^3/uL (1.5-4.5); LYMPH % 18.7 % (24.0-44.0); MEAN CORPUSCULAR HEMOGLOBIN 31.1 pg (27.0-33.0); MEAN CORPUSCULAR HGB CONC 34.2 g/dl (32.0-36.5); MEAN CORPUSCULAR VOLUME 91.1 fl (80.0-96.0); MONO # 0.7 10^3/uL (0.0-0.8); NEUTROPHILS % 72.5 % (36.0-66.0); PLATELET COUNT, AUTOMATED 288 10^3/uL (150-450); RED BLOOD COUNT 4.37 10^6/uL (4.00-5.40); RED CELL DISTRIBUTION WIDTH 12.5 % (11.5-14.5); WHITE BLOOD COUNT 8.2 10^3/uL (4.0-10.0)
[2017-09-17 10:48] LABS: INR 0.85; PROTHROMBIN TIME 11.7 SECONDS (12.1-14.4)
[2017-09-17] MEDS: KETOROLAC 30 MG/ML VIAL (J1885) IV ×8 (11:02→21:10)
[2017-09-17 11:32] LABS: ALBUMIN/GLOBULIN RATIO 1.07 (1.00-1.93); ALKALINE PHOSPHATASE 135 U/L (45-117); ALT/SGPT 28 U/L (12-78); ANION GAP 11 MEQ/L (8-16); AST/SGOT 17 U/L (7-37); BILIRUBIN,DIRECT 0.1 MG/DL (0.0-0.2); BILIRUBIN,TOTAL 0.4 MG/DL (0.2-1.0); BLOOD UREA NITROGEN 8 MG/DL (7-18); CALCIUM LEVEL 8.5 MG/DL (8.8-10.2); CARBON DIOXIDE LEVEL 26 MEQ/L (21-32); CHLORIDE LEVEL 104 MEQ/L (98-107); CK-MB VALUE MASS < 1.0 NG/ML (<3.6); CPK CREATINE PHOSPHOKINASE 18 U/L (26-192); GLOMERULAR FILTRATION RATE > 60.0 (>39); GLUCOSE, FASTING 191 MG/DL (70-100); LIPASE 83 U/L (73-393); MB/CK RELATIVE INDEX 5.55 (< OR =4); POTASSIUM SERUM 3.5 MEQ/L (3.5-5.1); SODIUM LEVEL 141 MEQ/L (136-145); TOTAL PROTEIN 5.8 GM/DL (6.4-8.2); TROPONIN I < 0.02 NG/ML (< 0.10)
[2017-09-17] MEDS ORDERED: ISOVUE-370 76% 100ML VIAL (Q9967) As Ordered ×4 (13:26)
[2017-09-17] MEDS ORDERED: BISACODYL 5 MG TAB PO ×4 (15:00)
[2017-09-17] MEDS ORDERED: GLUCAGON FOR INJ 1 MG VIAL (J1610) SC ×4 (15:30)
[2017-09-17] MEDS ORDERED: DEXTROSE 50% 50 ML SYRINGE IV ×4 (15:30)
[2017-09-17] MEDS ORDERED: GLUCOSE 4 GM CHEW TABLET PO ×4 (15:30)
[2017-09-17] MEDS ORDERED: traMADol 50 MG TAB PO ×4 (15:30)
[2017-09-17] MEDS: HumaLOG INSULIN (NovoLOG) PER UNIT SC ×8 (17:30→21:20)
[2017-09-17] MEDS: MIRALAX *UNIT DOSE* 17GM PACKET PO ×4 (17:53)
[2017-09-17] MEDS: DULoxetine 30 MG CAP (CYMBALTA) PO ×4 (17:53)
[2017-09-17] MEDS: PANTOPRAZOLE 40MG INJ (PROTONIX) (C9113) IV ×4 (17:53)
[2017-09-17] MEDS: amLODIPine 10 MG TAB PO ×4 (17:53)
[2017-09-17] MEDS: CelecoXIB (CeleBREX) 100 MG CAP PO ×4 (17:54)
[2017-09-17 20:31] LABS: BEDSIDE GLUCOSE 267 MG/DL (83-110)
[2017-09-17] MEDS: SENOKOT S TAB PO ×4 (21:07)
[2017-09-17] MEDS: GABAPENTIN 100 MG CAP PO ×4 (21:08)
[2017-09-17] MEDS: QUINAPRIL 20 MG TAB PO ×4 (21:08)
[2017-09-17 22:46] LABS: CPK CREATINE PHOSPHOKINASE 19 U/L (26-192); TROPONIN I < 0.02 NG/ML (< 0.10)
[2017-09-17 22:47] LABS: CK-MB VALUE MASS < 1.0 NG/ML (<3.6); MB/CK RELATIVE INDEX 5.26 (< OR =4)
[2017-09-18] MEDS: LEVOTHYROXINE 75MCG TABLET (0.075MG) PO ×4 (06:15)
[2017-09-18 06:38] LABS: BASO # 0.1 10^3/uL (0.0-0.2); BASO % 0.7 % (0.0-1.0); EOS # 0.1 10^3/uL (0.0-0.50); HEMOGLOBIN 12.2 g/dl (12.0-15.5); IMMATURE GRANULOCYTE % 0.2 % (0-3.0); LYMPH # 1.6 10^3/uL (1.5-4.5); LYMPH % 18.8 % (24.0-44.0); MEAN CORPUSCULAR HEMOGLOBIN 30.7 pg (27.0-33.0); MEAN CORPUSCULAR HGB CONC 33.9 g/dl (32.0-36.5); MEAN CORPUSCULAR VOLUME 90.7 fl (80.0-96.0); MONO # 0.9 10^3/uL (0.0-0.8); MONO % 10.5 % (0.0-5.0); NEUTROPHILS # 5.7 10^3/uL (1.8-7.7); NEUTROPHILS % 68.8 % (36.0-66.0); PLATELET COUNT, AUTOMATED 289 10^3/uL (150-450); RED BLOOD COUNT 3.97 10^6/uL (4.00-5.40); RED CELL DISTRIBUTION WIDTH 12.7 % (11.5-14.5); WHITE BLOOD COUNT 8.3 10^3/uL (4.0-10.0)
[2017-09-18] MEDS: KETOROLAC 30 MG/ML VIAL (J1885) IV ×8 (06:48→16:58)
[2017-09-18 06:57] LABS: ANION GAP 9 MEQ/L (8-16); BLOOD UREA NITROGEN 16 MG/DL (7-18); CARBON DIOXIDE LEVEL 27 MEQ/L (21-32); CHLORIDE LEVEL 104 MEQ/L (98-107); GLOMERULAR FILTRATION RATE > 60.0 (>39); GLUCOSE, FASTING 134 MG/DL (70-100); POTASSIUM SERUM 3.6 MEQ/L (3.5-5.1); SODIUM LEVEL 140 MEQ/L (136-145)
[2017-09-18] MEDS: PANTOPRAZOLE 40MG INJ (PROTONIX) (C9113) IV ×4 (08:55)
[2017-09-18] MEDS: ONDANSETRON 4MG/2ML VIAL (J2405) IV ×4 (08:56)
[2017-09-18] MEDS: ENOXAPARIN 40 MG/0.4 ML SYRINGE (J1650) SC ×4 (08:56)
[2017-09-18] MEDS: HumaLOG INSULIN (NovoLOG) PER UNIT SC ×16 (08:57→21:00)
[2017-09-18] MEDS ORDERED: DULoxetine 30 MG CAP (CYMBALTA) PO ×4 (09:00)
[2017-09-18] MEDS: MIRALAX *UNIT DOSE* 17GM PACKET PO ×4 (09:00)
[2017-09-18] MEDS: predniSONE 10 MG TAB PO ×4 (10:59)
[2017-09-18] MEDS: DULoxetine 30 MG CAP (CYMBALTA) PO ×4 (11:00)
[2017-09-18] MEDS: CelecoXIB (CeleBREX) 100 MG CAP PO ×4 (11:01)
[2017-09-18] MEDS: GLIMEPIRIDE 2 MG TAB PO ×4 (11:02)
[2017-09-18] MEDS: SENOKOT S TAB PO ×8 (11:03→21:01)
[2017-09-18] MEDS: GABAPENTIN 100 MG CAP PO ×8 (11:03→21:01)
[2017-09-18] MEDS: amLODIPine 10 MG TAB PO ×4 (11:03)
[2017-09-18 11:43] LABS: BEDSIDE GLUCOSE 244 MG/DL (83-110)
[2017-09-18 16:57] LABS: BEDSIDE GLUCOSE 277 MG/DL (83-110)
[2017-09-18] MEDS: QUINAPRIL 20 MG TAB PO ×4 (21:02)
[2017-09-18] MEDS: traMADol 50 MG TAB PO ×4 (21:03)
[2017-09-18] MEDS: PILL CRUSHER/CUTTER 1 EACH XX ×4 (21:03)
[2017-09-18 21:04] LABS: BEDSIDE GLUCOSE 245 MG/DL (83-110)
[2017-09-19] MEDS: traMADol 50 MG TAB PO ×8 (04:30→21:28)
[2017-09-19] MEDS: LEVOTHYROXINE 75MCG TABLET (0.075MG) PO ×4 (04:31)
[2017-09-19 06:54] LABS: BASO % 0.2 % (0.0-1.0); EOS % 0.1 % (0.0-3.0); HEMATOCRIT 35.2 % (36.0-47.0); HEMOGLOBIN 12.2 g/dl (12.0-15.5); IMMATURE GRANULOCYTE % 0.4 % (0-3.0); LYMPH # 2.2 10^3/uL (1.5-4.5); LYMPH % 18.1 % (24.0-44.0); MEAN CORPUSCULAR HGB CONC 34.7 g/dl (32.0-36.5); MEAN CORPUSCULAR VOLUME 89.6 fl (80.0-96.0); MONO # 1.1 10^3/uL (0.0-0.8); MONO % 8.8 % (0.0-5.0); NEUTROPHILS # 8.9 10^3/uL (1.8-7.7); NEUTROPHILS % 72.4 % (36.0-66.0); PLATELET COUNT, AUTOMATED 297 10^3/uL (150-450); RED BLOOD COUNT 3.93 10^6/uL (4.00-5.40); RED CELL DISTRIBUTION WIDTH 12.6 % (11.5-14.5); WHITE BLOOD COUNT 12.3 10^3/uL (4.0-10.0)
[2017-09-19 07:13] LABS: ANION GAP 9 MEQ/L (8-16); BLOOD UREA NITROGEN 19 MG/DL (7-18); CALCIUM LEVEL 9.3 MG/DL (8.8-10.2); CARBON DIOXIDE LEVEL 27 MEQ/L (21-32); CHLORIDE LEVEL 103 MEQ/L (98-107); CREATININE FOR GFR 0.61 MG/DL (0.55-1.30); GLOMERULAR FILTRATION RATE > 60.0 (>39); GLUCOSE, FASTING 155 MG/DL (70-100); POTASSIUM SERUM 3.7 MEQ/L (3.5-5.1); SODIUM LEVEL 139 MEQ/L (136-145)
[2017-09-19] MEDS: ENOXAPARIN 40 MG/0.4 ML SYRINGE (J1650) SC ×4 (09:08)
[2017-09-19] MEDS: HumaLOG INSULIN (NovoLOG) PER UNIT SC ×16 (09:09→21:00)
[2017-09-19] MEDS: MIRALAX *UNIT DOSE* 17GM PACKET PO ×4 (09:09)
[2017-09-19] MEDS: CelecoXIB (CeleBREX) 100 MG CAP PO ×4 (09:10)
[2017-09-19] MEDS: amLODIPine 10 MG TAB PO ×4 (09:11)
[2017-09-19] MEDS: DULoxetine 30 MG CAP (CYMBALTA) PO ×4 (09:12)
[2017-09-19] MEDS: GLIMEPIRIDE 2 MG TAB PO ×4 (09:12)
[2017-09-19] MEDS: PANTOPRAZOLE 40MG TAB (PROTONIX) PO ×4 (09:13)
[2017-09-19] MEDS: GABAPENTIN 100 MG CAP PO ×8 (09:13→21:26)
[2017-09-19] MEDS: predniSONE 10 MG TAB PO ×4 (09:13)
[2017-09-19] MEDS: SENOKOT S TAB PO ×8 (09:14→21:00)
[2017-09-19] MEDS: BISACODYL 10 MG SUPP PR ×4 (13:24)
[2017-09-19 21:02] LABS: BEDSIDE GLUCOSE 208 MG/DL (83-110)
[2017-09-19] MEDS: QUINAPRIL 20 MG TAB PO ×4 (21:26)
[2017-09-20 02:21] LABS: BEDSIDE GLUCOSE 291 MG/DL (83-110)
[2017-09-20 02:21] LABS: BEDSIDE GLUCOSE 120 MG/DL (83-110)
[2017-09-20] MEDS: LEVOTHYROXINE 75MCG TABLET (0.075MG) PO ×4 (05:24)
[2017-09-20] MEDS: traMADol 50 MG TAB PO ×8 (05:24→16:40)
[2017-09-20 06:05] LABS: BASO % 0.1 % (0.0-1.0); EOS % 0.1 % (0.0-3.0); HEMATOCRIT 35.1 % (36.0-47.0); IMMATURE GRANULOCYTE % 0.4 % (0-3.0); LYMPH # 2.2 10^3/uL (1.5-4.5); LYMPH % 19.4 % (24.0-44.0); MEAN CORPUSCULAR HEMOGLOBIN 31.3 pg (27.0-33.0); MEAN CORPUSCULAR HGB CONC 34.2 g/dl (32.0-36.5); MEAN CORPUSCULAR VOLUME 91.4 fl (80.0-96.0); NEUTROPHILS # 7.9 10^3/uL (1.8-7.7); PLATELET COUNT, AUTOMATED 271 10^3/uL (150-450); RED BLOOD COUNT 3.84 10^6/uL (4.00-5.40); RED CELL DISTRIBUTION WIDTH 12.8 % (11.5-14.5); WHITE BLOOD COUNT 11.1 10^3/uL (4.0-10.0)
[2017-09-20 06:20] LABS: ANION GAP 7 MEQ/L (8-16); CALCIUM LEVEL 9.2 MG/DL (8.8-10.2); CARBON DIOXIDE LEVEL 29 MEQ/L (21-32); CHLORIDE LEVEL 103 MEQ/L (98-107); CREATININE FOR GFR 0.61 MG/DL (0.55-1.30); GLOMERULAR FILTRATION RATE > 60.0 (>39); GLUCOSE, FASTING 137 MG/DL (70-100); POTASSIUM SERUM 3.8 MEQ/L (3.5-5.1); SODIUM LEVEL 139 MEQ/L (136-145)
[2017-09-20 06:28] LABS: BLOOD UREA NITROGEN 29 MG/DL (7-18)
[2017-09-20] MEDS ORDERED: SENOKOT S TAB PO ×4 (08:00)
[2017-09-20] MEDS ORDERED: MIRALAX *UNIT DOSE* 17GM PACKET PO ×4 (08:00)
[2017-09-20] MEDS: ENOXAPARIN 40 MG/0.4 ML SYRINGE (J1650) SC ×4 (09:30)
[2017-09-20] MEDS: DULoxetine 30 MG CAP (CYMBALTA) PO ×4 (09:31)
[2017-09-20] MEDS: HumaLOG INSULIN (NovoLOG) PER UNIT SC ×16 (09:31→21:17)
[2017-09-20] MEDS: CelecoXIB (CeleBREX) 100 MG CAP PO ×4 (09:31)
[2017-09-20] MEDS: GLIMEPIRIDE 2 MG TAB PO ×4 (09:32)
[2017-09-20] MEDS: GABAPENTIN 100 MG CAP PO ×8 (09:32→21:18)
[2017-09-20] MEDS: predniSONE 10 MG TAB PO ×4 (09:32)
[2017-09-20] MEDS: PANTOPRAZOLE 40MG TAB (PROTONIX) PO ×4 (09:32)
[2017-09-20] MEDS: amLODIPine 10 MG TAB PO ×4 (09:33)
[2017-09-20 11:42] LABS: BEDSIDE GLUCOSE 154 MG/DL (83-110)
[2017-09-20 16:52] LABS: BEDSIDE GLUCOSE 258 MG/DL (83-110)
[2017-09-20 20:32] LABS: BEDSIDE GLUCOSE 235 MG/DL (83-110)
[2017-09-20] MEDS: QUINAPRIL 20 MG TAB PO ×4 (21:00)
[2017-09-21] MEDS: LEVOTHYROXINE 75MCG TABLET (0.075MG) PO ×4 (05:34)
[2017-09-21 07:03] LABS: BASO % 0.2 % (0.0-1.0); HEMATOCRIT 33.8 % (36.0-47.0); HEMOGLOBIN 11.6 g/dl (12.0-15.5); IMMATURE GRANULOCYTE % 0.4 % (0-3.0); LYMPH # 2.6 10^3/uL (1.5-4.5); LYMPH % 25.2 % (24.0-44.0); MEAN CORPUSCULAR HEMOGLOBIN 30.8 pg (27.0-33.0); MEAN CORPUSCULAR HGB CONC 34.3 g/dl (32.0-36.5); MEAN CORPUSCULAR VOLUME 89.7 fl (80.0-96.0); MONO # 1.1 10^3/uL (0.0-0.8); MONO % 10.3 % (0.0-5.0); NEUTROPHILS # 6.7 10^3/uL (1.8-7.7); NEUTROPHILS % 63.9 % (36.0-66.0); PLATELET COUNT, AUTOMATED 280 10^3/uL (150-450); RED BLOOD COUNT 3.77 10^6/uL (4.00-5.40); RED CELL DISTRIBUTION WIDTH 12.6 % (11.5-14.5); WHITE BLOOD COUNT 10.5 10^3/uL (4.0-10.0)
[2017-09-21 07:24] LABS: ANION GAP 7 MEQ/L (8-16); BLOOD UREA NITROGEN 25 MG/DL (7-18); CALCIUM LEVEL 8.8 MG/DL (8.8-10.2); CARBON DIOXIDE LEVEL 28 MEQ/L (21-32); CHLORIDE LEVEL 104 MEQ/L (98-107); CREATININE FOR GFR 0.56 MG/DL (0.55-1.30); GLOMERULAR FILTRATION RATE > 60.0 (>39); GLUCOSE, FASTING 131 MG/DL (70-100); POTASSIUM SERUM 3.6 MEQ/L (3.5-5.1); SODIUM LEVEL 139 MEQ/L (136-145)
[2017-09-21] MEDS: ENOXAPARIN 40 MG/0.4 ML SYRINGE (J1650) SC ×4 (08:38)
[2017-09-21] MEDS: traMADol 50 MG TAB PO ×8 (08:38→17:17)
[2017-09-21] MEDS: HumaLOG INSULIN (NovoLOG) PER UNIT SC ×16 (08:41→21:00)
[2017-09-21] MEDS: GLIMEPIRIDE 2 MG TAB PO ×4 (08:42)
[2017-09-21] MEDS: CelecoXIB (CeleBREX) 100 MG CAP PO ×4 (08:49)
[2017-09-21] MEDS: DULoxetine 30 MG CAP (CYMBALTA) PO ×4 (08:49)
[2017-09-21] MEDS: amLODIPine 10 MG TAB PO ×4 (08:50)
[2017-09-21] MEDS: predniSONE 10 MG TAB PO ×4 (08:50)
[2017-09-21] MEDS: GABAPENTIN 100 MG CAP PO ×8 (08:50→21:00)
[2017-09-21] MEDS: PANTOPRAZOLE 40MG TAB (PROTONIX) PO ×4 (08:50)
[2017-09-21 11:51] LABS: BEDSIDE GLUCOSE 228 MG/DL (83-110)
[2017-09-21 16:42] LABS: BEDSIDE GLUCOSE 300 MG/DL (83-110)
[2017-09-21] MEDS: QUINAPRIL 20 MG TAB PO ×4 (20:59)
[2017-09-22 03:28] LABS: BEDSIDE GLUCOSE 210 MG/DL (83-110)
[2017-09-22] MEDS: traMADol 50 MG TAB PO ×4 (05:26)
[2017-09-22] MEDS: LEVOTHYROXINE 75MCG TABLET (0.075MG) PO ×4 (05:27)
[2017-09-22 06:55] LABS: BASO % 0.1 % (0.0-1.0); EOS % 0.1 % (0.0-3.0); HEMATOCRIT 35.4 % (36.0-47.0); IMMATURE GRANULOCYTE % 0.5 % (0-3.0); LYMPH # 2.4 10^3/uL (1.5-4.5); LYMPH % 25.5 % (24.0-44.0); MEAN CORPUSCULAR HEMOGLOBIN 31.3 pg (27.0-33.0); MEAN CORPUSCULAR HGB CONC 33.9 g/dl (32.0-36.5); MEAN CORPUSCULAR VOLUME 92.4 fl (80.0-96.0); MONO # 1.1 10^3/uL (0.0-0.8); MONO % 11.6 % (0.0-5.0); NEUTROPHILS # 5.9 10^3/uL (1.8-7.7); NEUTROPHILS % 62.2 % (36.0-66.0); PLATELET COUNT, AUTOMATED 272 10^3/uL (150-450); RED BLOOD COUNT 3.83 10^6/uL (4.00-5.40); RED CELL DISTRIBUTION WIDTH 12.7 % (11.5-14.5); WHITE BLOOD COUNT 9.4 10^3/uL (4.0-10.0)
[2017-09-22 07:13] LABS: ANION GAP 6 MEQ/L (8-16); BLOOD UREA NITROGEN 21 MG/DL (7-18); CALCIUM LEVEL 8.9 MG/DL (8.8-10.2); CARBON DIOXIDE LEVEL 30 MEQ/L (21-32); CHLORIDE LEVEL 105 MEQ/L (98-107); CREATININE FOR GFR 0.56 MG/DL (0.55-1.30); GLOMERULAR FILTRATION RATE > 60.0 (>39); GLUCOSE, FASTING 124 MG/DL (70-100); POTASSIUM SERUM 3.4 MEQ/L (3.5-5.1); SODIUM LEVEL 141 MEQ/L (136-145)
[2017-09-22] MEDS: HumaLOG INSULIN (NovoLOG) PER UNIT SC ×4 (08:48)
[2017-09-22] MEDS: ENOXAPARIN 40 MG/0.4 ML SYRINGE (J1650) SC ×4 (08:49)
[2017-09-22] MEDS: PANTOPRAZOLE 40MG TAB (PROTONIX) PO ×4 (08:51)
[2017-09-22] MEDS: GLIMEPIRIDE 2 MG TAB PO ×4 (08:52)
[2017-09-22] MEDS: CelecoXIB (CeleBREX) 100 MG CAP PO ×4 (08:52)
[2017-09-22] MEDS: DULoxetine 30 MG CAP (CYMBALTA) PO ×4 (08:52)
[2017-09-22] MEDS: GABAPENTIN 100 MG CAP PO ×4 (08:53)
[2017-09-22] MEDS: predniSONE 10 MG TAB PO ×4 (08:53)
[2017-09-22] MEDS: amLODIPine 10 MG TAB PO ×4 (08:53)
== END 2017-09-22 11:28 ==
LOC: M MS5PR 09-20 12:00 → M ED 10:00 → M ED INP 14:55 → M MS5PR 16:20
PROVIDERS: Internal Medicine Nephrology
DX: G89.29 Other chronic pain (principal); M54.14 Radiculopathy, thoracic region; M43.12 Spondylolisthesis, cervical region; R53.83 Other fatigue; M81.0 Age-related osteoporosis without current pathological fracture; Z86.73 Personal history of transient ischemic attack (TIA), and cerebral infarction without residual deficits; Z88.0 Allergy status to penicillin; Z88.8 Allergy status to other drugs, medicaments and biological substances; R07.89 Other chest pain; I10 Essential (primary) hypertension; E11.21 Type 2 diabetes mellitus with diabetic nephropathy; E03.9 Hypothyroidism, unspecified; Z79.899 Other long term (current) drug therapy
CPT/HCPCS: C9113

== ENCOUNTER → 2017-09-28 | Outpatient (REF) ==
[2017-09-28 10:10] LABS: HEMATOCRIT 38.1 % (36.0-47.0); HEMOGLOBIN 12.8 g/dl (12.0-15.5); MEAN CORPUSCULAR HEMOGLOBIN 31.1 pg (27.0-33.0); MEAN CORPUSCULAR HGB CONC 33.6 g/dl (32.0-36.5); MEAN CORPUSCULAR VOLUME 92.7 fl (80.0-96.0); PLATELET COUNT, AUTOMATED 307 10^3/uL (150-450); RED BLOOD COUNT 4.11 10^6/uL (4.00-5.40); RED CELL DISTRIBUTION WIDTH 12.7 % (11.5-14.5); WHITE BLOOD COUNT 10.3 10^3/uL (4.0-10.0)
[2017-09-28 11:10] LABS: ANION GAP 10 MEQ/L (8-16); BLOOD UREA NITROGEN 23 MG/DL (7-18); CALCIUM LEVEL 8.9 MG/DL (8.8-10.2); CARBON DIOXIDE LEVEL 29 MEQ/L (21-32); CHLORIDE LEVEL 100 MEQ/L (98-107); CREATININE FOR GFR 0.72 MG/DL (0.55-1.30); GLOMERULAR FILTRATION RATE > 60.0 (>39); GLUCOSE, FASTING 263 MG/DL (70-100); POTASSIUM SERUM 3.8 MEQ/L (3.5-5.1); SODIUM LEVEL 139 MEQ/L (136-145)
== END ==
DX: I10 Essential (primary) hypertension (principal)

== ENCOUNTER 2017-11-22 08:57 | Inpatient (IN) | payer MEDICARE, OTHER ==
[2017-11-22] MEDS: NS 1,000 ML IV (09:50)
[2017-11-22 10:00] LABS: BASO # 0.1 10^3/uL (0.0-0.2); BASO % 0.8 % (0.0-1.0); EOS % 0.1 % (0.0-3.0); HEMATOCRIT 44.2 % (36.0-47.0); HEMOGLOBIN 15.1 g/dl (12.0-15.5); IMMATURE GRANULOCYTE % 0.1 % (0-3.0); LYMPH # 1.6 10^3/uL (1.5-4.5); MEAN CORPUSCULAR HEMOGLOBIN 31.4 pg (27.0-33.0); MEAN CORPUSCULAR HGB CONC 34.2 g/dl (32.0-36.5); MEAN CORPUSCULAR VOLUME 91.9 fl (80.0-96.0); MONO # 0.5 10^3/uL (0.0-0.8); MONO % 6.9 % (0.0-5.0); NEUTROPHILS # 5.5 10^3/uL (1.8-7.7); NEUTROPHILS % 71.1 % (36.0-66.0); PLATELET COUNT, AUTOMATED 267 10^3/uL (150-450); RED BLOOD COUNT 4.81 10^6/uL (4.00-5.40); RED CELL DISTRIBUTION WIDTH 12.3 % (11.5-14.5); WHITE BLOOD COUNT 7.8 10^3/uL (4.0-10.0)
[2017-11-22 10:01] LABS: BEDSIDE GLUCOSE 186 MG/DL (83-110)
[2017-11-22 10:17] LABS: INR 0.89; PROTHROMBIN TIME 12.1 SECONDS (12.1-14.4)
[2017-11-22 10:18] LABS: PARTIAL THROMBOPLASTIN TIME 28.7 SECONDS (25.4-37.6)
[2017-11-22 10:19] LABS: LACTIC ACID SEPSIS PROTOCOL 1.4 MMOL/L (0.4-2.0)
[2017-11-22 11:21] LABS: KETONE, URINE AUTO RFX 1+ mg/dL (NEGATIVE); LEUKOCYTE ESTERASE UR AUTO RFX NEGATIVE (NEGATIVE); MUCUS, URINE RFX SMALL (NEGATIVE); NITRITE, URINE AUTO RFX NEGATIVE (NEGATIVE); RBC, URINE AUTO RFX 0 /HPF (0-3); SPECIFIC GRAVITY UR AUTO RFX 1.003 (1.002-1.035); SQUAM EPITHELIAL CELL UR AURFX 0 /HPF (0-6); WBC, URINE AUTO RFX 4 /HPF (0-3)
[2017-11-22 11:37] LABS: BEDSIDE GLUCOSE 177 MG/DL (83-110)
[2017-11-22 11:59] LABS: ANION GAP 8 MEQ/L (8-16); BLOOD UREA NITROGEN 10 MG/DL (7-18); CALCIUM LEVEL 8.7 MG/DL (8.8-10.2); CARBON DIOXIDE LEVEL 29 MEQ/L (21-32); CHLORIDE LEVEL 104 MEQ/L (98-107); CK-MB VALUE MASS < 1.0 NG/ML (<3.6); CPK CREATINE PHOSPHOKINASE 18 U/L (26-192); FREE T4 1.43 NG/DL (0.76-1.46); GLOMERULAR FILTRATION RATE > 60.0 (>39); GLUCOSE, FASTING 180 MG/DL (70-100); MAGNESIUM LEVEL 1.5 MG/DL (1.8-2.4); MB/CK RELATIVE INDEX 5.56 (< OR =4); POTASSIUM SERUM 3.6 MEQ/L (3.5-5.1); SODIUM LEVEL 141 MEQ/L (136-145); TROPONIN I < 0.02 NG/ML (< 0.10)
[2017-11-22] MEDS: MORPHINE 2 MG/ML 1ML SYRINGE (J2270) IV (12:02)
[2017-11-22] MEDS: MAG SULF 1GM/100ML (MAG RUN) 1 GM in APPROPRIATE DILUENT 1 EA IV (14:06)
[2017-11-22] MEDS ORDERED: GLUCAGON FOR INJ 1 MG VIAL (J1610) SC (16:00)
[2017-11-22] MEDS ORDERED: DEXTROSE 50% 50 ML SYRINGE IV (16:00)
[2017-11-22] MEDS ORDERED: GLUCOSE 4 GM CHEW TABLET PO (16:00)
[2017-11-22 18:04] LABS: BEDSIDE GLUCOSE 181 MG/DL (83-110)
[2017-11-22] MEDS: amLODIPine 5 MG TAB PO (18:09)
[2017-11-22] MEDS: traMADol 50 MG TAB PO (18:10)
[2017-11-22] MEDS: hydrALAZINE INJ 20 MG/ML VIAL IV (18:10)
[2017-11-22] MEDS: HumaLOG INSULIN (NovoLOG) PER UNIT SC ×2 (18:14→21:18)
[2017-11-22] MEDS ORDERED: E-Z-PAQUE 96% w/w SUSP 176GM BTL As Ordered (18:29)
[2017-11-22] MEDS ORDERED: E-Z-GAS II EFFERVESCENT PACKET (SODIUM BICARB./CITRIC ACID/SIMETHICONE) As Ordered (18:29)
[2017-11-22] MEDS ORDERED: E-Z-HD 98% w/w 340GM SUSP BTL As Ordered (18:30)
[2017-11-22] MEDS: LABETALOL HCL 100 MG/20 ML VIAL IV (20:00)
[2017-11-22] MEDS: **hydrALAZINE HCL** 25 MG TAB PO (20:00)
[2017-11-22 20:24] LABS: ERYTHROCYTE SEDIMENTATION RATE 5 mm/hr (0-30)
[2017-11-22 20:26] LABS: CPK CREATINE PHOSPHOKINASE 19 U/L (26-192)
[2017-11-22] MEDS: QUINAPRIL 20 MG TAB PO (21:17)
[2017-11-22] MEDS: GABAPENTIN 100 MG CAP PO (21:18)
[2017-11-22] MEDS: LATANOPROST 0.005% OPHTH SOLN 2.5 ML OU (21:18)
[2017-11-22] MEDS: DULoxetine 30 MG CAP (CYMBALTA) PO (21:18)
[2017-11-22 21:20] LABS: BEDSIDE GLUCOSE 208 MG/DL (83-110)
[2017-11-22] MEDS: ACETAMINOPHEN TAB 650MG DOSE (2X325MG) PO (21:22)
[2017-11-23] MEDS: traMADol 50 MG TAB PO (05:54)
[2017-11-23] MEDS: LEVOTHYROXINE 75MCG TABLET (0.075MG) PO (05:55)
[2017-11-23 07:05] LABS: HEMATOCRIT 45.4 % (36.0-47.0); HEMOGLOBIN 14.9 g/dl (12.0-15.5); MEAN CORPUSCULAR HEMOGLOBIN 30.8 pg (27.0-33.0); MEAN CORPUSCULAR HGB CONC 32.8 g/dl (32.0-36.5); MEAN CORPUSCULAR VOLUME 93.8 fl (80.0-96.0); PLATELET COUNT, AUTOMATED 298 10^3/uL (150-450); RED BLOOD COUNT 4.84 10^6/uL (4.00-5.40); RED CELL DISTRIBUTION WIDTH 12.3 % (11.5-14.5); WHITE BLOOD COUNT 9.8 10^3/uL (4.0-10.0)
[2017-11-23 07:21] LABS: ANION GAP 11 MEQ/L (8-16); BLOOD UREA NITROGEN 7 MG/DL (7-18); CALCIUM LEVEL 9.5 MG/DL (8.8-10.2); CARBON DIOXIDE LEVEL 26 MEQ/L (21-32); CHLORIDE LEVEL 104 MEQ/L (98-107); CREATININE FOR GFR 0.55 MG/DL (0.55-1.30); GLOMERULAR FILTRATION RATE > 60.0 (>39); GLUCOSE, FASTING 179 MG/DL (70-100); MAGNESIUM LEVEL 1.7 MG/DL (1.8-2.4); POTASSIUM SERUM 3.3 MEQ/L (3.5-5.1); SODIUM LEVEL 141 MEQ/L (136-145)
[2017-11-23] MEDS: HumaLOG INSULIN (NovoLOG) PER UNIT SC ×4 (08:10→20:51)
[2017-11-23] MEDS: VITAMIN D 1,000 INTERNATIONAL UNITS TABLET PO (08:10)
[2017-11-23] MEDS: DULoxetine 30 MG CAP (CYMBALTA) PO (08:10)
[2017-11-23] MEDS: MIRALAX *UNIT DOSE* 17GM PACKET PO (08:11)
[2017-11-23] MEDS: ENOXAPARIN 40 MG/0.4 ML SYRINGE (J1650) SC (08:11)
[2017-11-23] MEDS: OCUVITE 1 TAB PO (08:11)
[2017-11-23 11:53] LABS: BEDSIDE GLUCOSE 185 MG/DL (83-110)
[2017-11-23] MEDS: POTASSIUM CHLORIDE 10 MEQ SR TABLET PO (12:04)
[2017-11-23] MEDS: ONDANSETRON 4MG/2ML VIAL (J2405) IV (12:27)
[2017-11-23] MEDS: MAG SULF 1GM/100ML (MAG RUN) 1 GM in APPROPRIATE DILUENT 1 EA IV (12:27)
[2017-11-23] MEDS: CARBAMIDE PEROXIDE 6.5% OTIC SOLN 15ML AU ×2 (12:43→20:49)
[2017-11-23 17:12] LABS: BEDSIDE GLUCOSE 188 MG/DL (83-110)
[2017-11-23] MEDS: ACETAMINOPHEN TAB 650MG DOSE (2X325MG) PO (17:34)
[2017-11-23 20:08] LABS: BEDSIDE GLUCOSE 298 MG/DL (83-110)
[2017-11-23] MEDS: QUINAPRIL 20 MG TAB PO (20:50)
[2017-11-23] MEDS: GABAPENTIN 100 MG CAP PO (20:50)
[2017-11-23] MEDS: LATANOPROST 0.005% OPHTH SOLN 2.5 ML OU (20:50)
[2017-11-23] MEDS: MECLIZINE 12.5 MG TAB PO (21:05)
[2017-11-24] MEDS: traMADol 50 MG TAB PO ×2 (00:25→17:13)
[2017-11-24] MEDS: LEVOTHYROXINE 75MCG TABLET (0.075MG) PO (05:52)
[2017-11-24 05:57] LABS: HEMATOCRIT 40.5 % (36.0-47.0); HEMOGLOBIN 13.2 g/dl (12.0-15.5); MEAN CORPUSCULAR HEMOGLOBIN 30.9 pg (27.0-33.0); MEAN CORPUSCULAR HGB CONC 32.6 g/dl (32.0-36.5); MEAN CORPUSCULAR VOLUME 94.8 fl (80.0-96.0); PLATELET COUNT, AUTOMATED 244 10^3/uL (150-450); RED BLOOD COUNT 4.27 10^6/uL (4.00-5.40); RED CELL DISTRIBUTION WIDTH 12.5 % (11.5-14.5); WHITE BLOOD COUNT 7.1 10^3/uL (4.0-10.0)
[2017-11-24 06:26] LABS: ANION GAP 8 MEQ/L (8-16); BLOOD UREA NITROGEN 11 MG/DL (7-18); CALCIUM LEVEL 9.3 MG/DL (8.8-10.2); CARBON DIOXIDE LEVEL 30 MEQ/L (21-32); CHLORIDE LEVEL 105 MEQ/L (98-107); CREATININE FOR GFR 0.55 MG/DL (0.55-1.30); GLOMERULAR FILTRATION RATE > 60.0 (>39); GLUCOSE, FASTING 131 MG/DL (70-100); POTASSIUM SERUM 4.2 MEQ/L (3.5-5.1); SODIUM LEVEL 143 MEQ/L (136-145)
[2017-11-24] MEDS: DULoxetine 30 MG CAP (CYMBALTA) PO (07:50)
[2017-11-24] MEDS: VITAMIN D 1,000 INTERNATIONAL UNITS TABLET PO (07:50)
[2017-11-24] MEDS: OCUVITE 1 TAB PO (07:50)
[2017-11-24] MEDS: HumaLOG INSULIN (NovoLOG) PER UNIT SC ×4 (07:50→21:00)
[2017-11-24] MEDS: ENOXAPARIN 40 MG/0.4 ML SYRINGE (J1650) SC (07:50)
[2017-11-24] MEDS: MIRALAX *UNIT DOSE* 17GM PACKET PO (07:51)
[2017-11-24] MEDS: CARBAMIDE PEROXIDE 6.5% OTIC SOLN 15ML AU ×2 (07:51→20:48)
[2017-11-24 08:01] LABS: MAGNESIUM LEVEL 1.8 MG/DL (1.8-2.4)
[2017-11-24] MEDS: MECLIZINE 12.5 MG TAB PO ×2 (11:08→20:47)
[2017-11-24 12:54] LABS: BEDSIDE GLUCOSE 356 MG/DL (83-110)
[2017-11-24 12:54] LABS: BEDSIDE GLUCOSE 366 MG/DL (83-110)
[2017-11-24 17:15] LABS: BEDSIDE GLUCOSE 127 MG/DL (83-110)
[2017-11-24] MEDS: QUINAPRIL 20 MG TAB PO (20:45)
[2017-11-24] MEDS: GABAPENTIN 100 MG CAP PO (20:46)
[2017-11-24 20:49] LABS: BEDSIDE GLUCOSE 191 MG/DL (83-110)
[2017-11-24] MEDS: LATANOPROST 0.005% OPHTH SOLN 2.5 ML OU (20:49)
[2017-11-25] MEDS: LEVOTHYROXINE 75MCG TABLET (0.075MG) PO (06:14)
[2017-11-25 06:30] LABS: HEMATOCRIT 40.5 % (36.0-47.0); HEMOGLOBIN 13.3 g/dl (12.0-15.5); MEAN CORPUSCULAR HEMOGLOBIN 30.6 pg (27.0-33.0); MEAN CORPUSCULAR HGB CONC 32.8 g/dl (32.0-36.5); MEAN CORPUSCULAR VOLUME 93.3 fl (80.0-96.0); PLATELET COUNT, AUTOMATED 222 10^3/uL (150-450); RED BLOOD COUNT 4.34 10^6/uL (4.00-5.40); RED CELL DISTRIBUTION WIDTH 12.3 % (11.5-14.5); WHITE BLOOD COUNT 6.4 10^3/uL (4.0-10.0)
[2017-11-25 06:53] LABS: ANION GAP 8 MEQ/L (8-16); BLOOD UREA NITROGEN 17 MG/DL (7-18); CALCIUM LEVEL 9.3 MG/DL (8.8-10.2); CARBON DIOXIDE LEVEL 27 MEQ/L (21-32); CHLORIDE LEVEL 106 MEQ/L (98-107); CREATININE FOR GFR 0.55 MG/DL (0.55-1.30); GLOMERULAR FILTRATION RATE > 60.0 (>39); GLUCOSE, FASTING 149 MG/DL (70-100); POTASSIUM SERUM 3.8 MEQ/L (3.5-5.1); SODIUM LEVEL 141 MEQ/L (136-145)
[2017-11-25] MEDS: HumaLOG INSULIN (NovoLOG) PER UNIT SC ×4 (07:42→21:30)
[2017-11-25] MEDS: DULoxetine 30 MG CAP (CYMBALTA) PO (07:43)
[2017-11-25] MEDS: MECLIZINE 12.5 MG TAB PO ×2 (07:43→21:30)
[2017-11-25] MEDS: VITAMIN D 1,000 INTERNATIONAL UNITS TABLET PO (07:43)
[2017-11-25] MEDS: OCUVITE 1 TAB PO (07:43)
[2017-11-25] MEDS: ENOXAPARIN 40 MG/0.4 ML SYRINGE (J1650) SC (07:44)
[2017-11-25] MEDS: traMADol 50 MG TAB PO ×2 (07:44→17:33)
[2017-11-25] MEDS: MIRALAX *UNIT DOSE* 17GM PACKET PO (07:44)
[2017-11-25] MEDS: CARBAMIDE PEROXIDE 6.5% OTIC SOLN 15ML AU ×2 (07:45→21:31)
[2017-11-25 11:28] LABS: BEDSIDE GLUCOSE 288 MG/DL (83-110)
[2017-11-25] MEDS: SODIUM CHLORIDE NASAL 0.65% SPRAY BTL (OCEAN) ×2 (14:44→17:58)
[2017-11-25 16:24] LABS: BEDSIDE GLUCOSE 216 MG/DL (83-110)
[2017-11-25 21:16] LABS: BEDSIDE GLUCOSE 108 MG/DL (83-110)
[2017-11-25] MEDS: GABAPENTIN 100 MG CAP PO (21:30)
[2017-11-25] MEDS: QUINAPRIL 20 MG TAB PO (21:30)
[2017-11-25] MEDS: LATANOPROST 0.005% OPHTH SOLN 2.5 ML OU (21:31)
[2017-11-26] MEDS: SODIUM CHLORIDE NASAL 0.65% SPRAY BTL (OCEAN) ×3 (00:02→07:53)
[2017-11-26 03:58] LABS: BEDSIDE GLUCOSE 144 MG/DL (83-110)
[2017-11-26] MEDS: LEVOTHYROXINE 75MCG TABLET (0.075MG) PO (05:26)
[2017-11-26 06:49] LABS: HEMATOCRIT 40.3 % (36.0-47.0); HEMOGLOBIN 13.2 g/dl (12.0-15.5); MEAN CORPUSCULAR HEMOGLOBIN 30.9 pg (27.0-33.0); MEAN CORPUSCULAR HGB CONC 32.8 g/dl (32.0-36.5); MEAN CORPUSCULAR VOLUME 94.4 fl (80.0-96.0); PLATELET COUNT, AUTOMATED 231 10^3/uL (150-450); RED BLOOD COUNT 4.27 10^6/uL (4.00-5.40); RED CELL DISTRIBUTION WIDTH 12.4 % (11.5-14.5); WHITE BLOOD COUNT 7.4 10^3/uL (4.0-10.0)
[2017-11-26 07:00] LABS: ANION GAP 8 MEQ/L (8-16); BLOOD UREA NITROGEN 18 MG/DL (7-18); CALCIUM LEVEL 9.1 MG/DL (8.8-10.2); CARBON DIOXIDE LEVEL 28 MEQ/L (21-32); CHLORIDE LEVEL 104 MEQ/L (98-107); CREATININE FOR GFR 0.63 MG/DL (0.55-1.30); GLOMERULAR FILTRATION RATE > 60.0 (>39); GLUCOSE, FASTING 162 MG/DL (70-100); POTASSIUM SERUM 4.1 MEQ/L (3.5-5.1); SODIUM LEVEL 140 MEQ/L (136-145)
[2017-11-26] MEDS: VITAMIN D 1,000 INTERNATIONAL UNITS TABLET PO (07:50)
[2017-11-26] MEDS: OCUVITE 1 TAB PO (07:50)
[2017-11-26] MEDS: HumaLOG INSULIN (NovoLOG) PER UNIT SC ×2 (07:51→11:24)
[2017-11-26] MEDS: MECLIZINE 12.5 MG TAB PO (07:51)
[2017-11-26] MEDS: DULoxetine 30 MG CAP (CYMBALTA) PO (07:51)
[2017-11-26] MEDS: MIRALAX *UNIT DOSE* 17GM PACKET PO (07:52)
[2017-11-26] MEDS: CARBAMIDE PEROXIDE 6.5% OTIC SOLN 15ML AU (07:52)
[2017-11-26] MEDS: ENOXAPARIN 40 MG/0.4 ML SYRINGE (J1650) SC (07:52)
[2017-11-26 11:18] LABS: BEDSIDE GLUCOSE 233 MG/DL (83-110)
[2017-11-26] MEDS: traMADol 50 MG TAB PO (14:54)
== END 2017-11-26 15:43 | disposition home health service (06) | DRG 305 ==
LOC: M MSPAV 11-23 12:16 → M ED 08:57 → M ED INP 17:57
DX: I16.0 Hypertensive urgency (principal); M81.0 Age-related osteoporosis without current pathological fracture; E11.40 Type 2 diabetes mellitus with diabetic neuropathy, unspecified; E03.9 Hypothyroidism, unspecified; M79.7 Fibromyalgia; K59.03 Drug induced constipation; T40.4X5A Adverse effect of other synthetic narcotics, initial encounter; M19.90 Unspecified osteoarthritis, unspecified site; R13.10 Dysphagia, unspecified; M47.892 Other spondylosis, cervical region; I10 Essential (primary) hypertension; E83.42 Hypomagnesemia; M51.34 Other intervertebral disc degeneration, thoracic region; M94.0 Chondrocostal junction syndrome [Tietze]; E87.6 Hypokalemia; R53.1 Weakness; Z79.84 Long term (current) use of oral hypoglycemic drugs; Z79.891 Long term (current) use of opiate analgesic; Z79.899 Other long term (current) drug therapy; Z88.0 Allergy status to penicillin

== ENCOUNTER 2018-02-09 13:49 | Inpatient (IN) | payer MEDICARE ==
[2018-02-09 14:53] LABS: BASO % 0.4 % (0.0-1.0); EOS % 0.1 % (0.0-3.0); HEMATOCRIT 41.6 % (36.0-47.0); HEMOGLOBIN 14.1 g/dl (12.0-15.5); IMMATURE GRANULOCYTE % 0.5 % (0-3.0); LYMPH # 1.4 10^3/uL (1.5-4.5); LYMPH % 14.6 % (24.0-44.0); MEAN CORPUSCULAR HEMOGLOBIN 30.5 pg (27.0-33.0); MEAN CORPUSCULAR HGB CONC 33.9 g/dl (32.0-36.5); MONO # 0.5 10^3/uL (0.0-0.8); NEUTROPHILS # 7.8 10^3/uL (1.8-7.7); NEUTROPHILS % 79.4 % (36.0-66.0); PLATELET COUNT, AUTOMATED 217 10^3/uL (150-450); RED BLOOD COUNT 4.62 10^6/uL (4.00-5.40); RED CELL DISTRIBUTION WIDTH 11.7 % (11.5-14.5); WHITE BLOOD COUNT 9.8 10^3/uL (4.0-10.0)
[2018-02-09 15:29] LABS: ANION GAP 11 MEQ/L (8-16); BLOOD UREA NITROGEN 15 MG/DL (7-18); CALCIUM LEVEL 9.3 MG/DL (8.8-10.2); CARBON DIOXIDE LEVEL 25 MEQ/L (21-32); CHLORIDE LEVEL 103 MEQ/L (98-107); CK-MB VALUE MASS < 1.0 NG/ML (<3.6); CPK CREATINE PHOSPHOKINASE 27 U/L (26-192); CREATININE FOR GFR 0.62 MG/DL (0.55-1.30); FREE T4 1.49 NG/DL (0.76-1.46); GLOMERULAR FILTRATION RATE > 60.0 (>39); GLUCOSE, FASTING 212 MG/DL (70-100); MAGNESIUM LEVEL 1.5 MG/DL (1.8-2.4); POTASSIUM SERUM 3.4 MEQ/L (3.5-5.1); SODIUM LEVEL 139 MEQ/L (136-145); TROPONIN I < 0.02 NG/ML (< 0.10)
[2018-02-09] MEDS: ONDANSETRON 4MG/2ML VIAL (J2405) IV (16:17)
[2018-02-09] MEDS: MECLIZINE 25 MG TABLET PO (16:17)
[2018-02-09] MEDS: MAG SULF 1GM/100ML (MAG RUN) 1 GM in APPROPRIATE DILUENT 1 EA IV (16:44)
[2018-02-09] MEDS: POTASSIUM CHLORIDE 10 MEQ SR TABLET PO (16:44)
[2018-02-09] MEDS: LORazepam 0.5 MG TAB PO (17:13)
[2018-02-09 18:31] LABS: BEDSIDE GLUCOSE 187 MG/DL (83-110)
[2018-02-09] MEDS ORDERED: ISOVUE-370 76% 100ML VIAL (Q9967) As Ordered (20:19)
[2018-02-09] MEDS ORDERED: ONDANSETRON 4MG/2ML VIAL (J2405) IV (21:45)
[2018-02-09] MEDS: SENOKOT S TAB PO (22:22)
[2018-02-09] MEDS: QUINAPRIL 20 MG TAB PO (22:35)
[2018-02-09] MEDS: ACETAMINOPHEN TAB 650MG DOSE (2X325MG) PO (22:35)
[2018-02-10] MEDS: LEVOTHYROXINE 75MCG TABLET (0.075MG) PO (05:23)
[2018-02-10] MEDS: HEPARIN SOD (PORCINE) 5000 UNITS/ML VIAL SC ×3 (05:24→21:15)
[2018-02-10] MEDS: OCUVITE 1 TAB PO ×2 (09:51→20:41)
[2018-02-10] MEDS: VITAMIN D 1,000 INTERNATIONAL UNITS TABLET PO (09:52)
[2018-02-10] MEDS: GLIMEPIRIDE 2 MG TAB PO (09:52)
[2018-02-10] MEDS: SENOKOT S TAB PO ×2 (09:53→20:41)
[2018-02-10 11:10] LABS: ANION GAP 8 MEQ/L (8-16); BLOOD UREA NITROGEN 14 MG/DL (7-18); CARBON DIOXIDE LEVEL 29 MEQ/L (21-32); CHLORIDE LEVEL 103 MEQ/L (98-107); CREATININE FOR GFR 0.76 MG/DL (0.55-1.30); GLOMERULAR FILTRATION RATE > 60.0 (>39); GLUCOSE, FASTING 199 MG/DL (70-100); MAGNESIUM LEVEL 1.8 MG/DL (1.8-2.4); POTASSIUM SERUM 3.7 MEQ/L (3.5-5.1); SODIUM LEVEL 140 MEQ/L (136-145)
[2018-02-10] MEDS: QUINAPRIL 20 MG TAB PO (20:40)
[2018-02-10] MEDS: LATANOPROST 0.005% OPHTH SOLN 2.5 ML OU (21:27)
[2018-02-11] MEDS: HEPARIN SOD (PORCINE) 5000 UNITS/ML VIAL SC ×3 (05:44→22:13)
[2018-02-11] MEDS: LEVOTHYROXINE 75MCG TABLET (0.075MG) PO (05:44)
[2018-02-11 06:26] LABS: BEDSIDE GLUCOSE 102 MG/DL (83-110)
[2018-02-11 07:17] LABS: BASO % 0.6 % (0.0-1.0); EOS # 0.1 10^3/uL (0.0-0.50); EOS % 0.7 % (0.0-3.0); HEMATOCRIT 42.2 % (36.0-47.0); HEMOGLOBIN 14.1 g/dl (12.0-15.5); IMMATURE GRANULOCYTE % 0.1 % (0-3.0); LYMPH # 2.9 10^3/uL (1.5-4.5); LYMPH % 43.1 % (24.0-44.0); MEAN CORPUSCULAR HEMOGLOBIN 30.7 pg (27.0-33.0); MEAN CORPUSCULAR HGB CONC 33.4 g/dl (32.0-36.5); MEAN CORPUSCULAR VOLUME 91.7 fl (80.0-96.0); MONO # 0.6 10^3/uL (0.0-0.8); MONO % 9.2 % (0.0-5.0); NEUTROPHILS # 3.1 10^3/uL (1.8-7.7); NEUTROPHILS % 46.3 % (36.0-66.0); PLATELET COUNT, AUTOMATED 235 10^3/uL (150-450); RED CELL DISTRIBUTION WIDTH 11.9 % (11.5-14.5); WHITE BLOOD COUNT 6.8 10^3/uL (4.0-10.0)
[2018-02-11 07:47] LABS: ALBUMIN 3.3 GM/DL (3.2-5.2); ALKALINE PHOSPHATASE 107 U/L (45-117); ALT/SGPT 16 U/L (12-78); ANION GAP 5 MEQ/L (8-16); AST/SGOT 14 U/L (7-37); BILIRUBIN,TOTAL 0.4 MG/DL (0.2-1.0); BLOOD UREA NITROGEN 18 MG/DL (7-18); CALCIUM LEVEL 9.1 MG/DL (8.8-10.2); CARBON DIOXIDE LEVEL 31 MEQ/L (21-32); CHLORIDE LEVEL 104 MEQ/L (98-107); CREATININE FOR GFR 0.67 MG/DL (0.55-1.30); GLOMERULAR FILTRATION RATE > 60.0 (>39); GLUCOSE, FASTING 108 MG/DL (70-100); POTASSIUM SERUM 3.9 MEQ/L (3.5-5.1); SODIUM LEVEL 140 MEQ/L (136-145); TOTAL PROTEIN 6.3 GM/DL (6.4-8.2)
[2018-02-11] MEDS: GLIMEPIRIDE 2 MG TAB PO (07:52)
[2018-02-11] MEDS: OCUVITE 1 TAB PO ×2 (07:52→20:09)
[2018-02-11] MEDS: VITAMIN D 1,000 INTERNATIONAL UNITS TABLET PO (07:52)
[2018-02-11] MEDS: SENOKOT S TAB PO ×2 (07:53→20:10)
[2018-02-11] MEDS: MECLIZINE 12.5 MG TAB PO (14:23)
[2018-02-11] MEDS: LATANOPROST 0.005% OPHTH SOLN 2.5 ML OU (20:09)
[2018-02-11] MEDS: QUINAPRIL 20 MG TAB PO (20:09)
[2018-02-11] MEDS: ACETAMINOPHEN TAB 650MG DOSE (2X325MG) PO (20:15)
[2018-02-12] MEDS: ACETAMINOPHEN TAB 650MG DOSE (2X325MG) PO ×3 (01:17→20:43)
[2018-02-12] MEDS: HEPARIN SOD (PORCINE) 5000 UNITS/ML VIAL SC ×3 (05:25→20:41)
[2018-02-12] MEDS: LEVOTHYROXINE 75MCG TABLET (0.075MG) PO (05:25)
[2018-02-12] MEDS: OCUVITE 1 TAB PO ×2 (08:17→20:41)
[2018-02-12] MEDS: GLIMEPIRIDE 2 MG TAB PO (08:17)
[2018-02-12] MEDS: VITAMIN D 1,000 INTERNATIONAL UNITS TABLET PO (08:17)
[2018-02-12] MEDS: MECLIZINE 12.5 MG TAB PO (08:22)
[2018-02-12] MEDS: SENOKOT S TAB PO ×2 (09:00→20:43)
[2018-02-12] MEDS: QUINAPRIL 20 MG TAB PO (20:42)
[2018-02-12] MEDS: LATANOPROST 0.005% OPHTH SOLN 2.5 ML OU (20:43)
[2018-02-13] MEDS: ACETAMINOPHEN TAB 650MG DOSE (2X325MG) PO (02:43)
[2018-02-13] MEDS: HEPARIN SOD (PORCINE) 5000 UNITS/ML VIAL SC ×3 (05:39→20:29)
[2018-02-13] MEDS: LEVOTHYROXINE 75MCG TABLET (0.075MG) PO (05:39)
[2018-02-13] MEDS: MECLIZINE 12.5 MG TAB PO (06:30)
[2018-02-13] MEDS: VITAMIN D 1,000 INTERNATIONAL UNITS TABLET PO (08:12)
[2018-02-13] MEDS: OCUVITE 1 TAB PO ×2 (08:13→20:29)
[2018-02-13] MEDS: GLIMEPIRIDE 2 MG TAB PO (08:13)
[2018-02-13] MEDS: SENOKOT S TAB PO ×2 (08:13→20:31)
[2018-02-13] MEDS: LATANOPROST 0.005% OPHTH SOLN 2.5 ML OU (20:29)
[2018-02-13] MEDS: QUINAPRIL 20 MG TAB PO (20:30)
[2018-02-14] MEDS: ACETAMINOPHEN TAB 650MG DOSE (2X325MG) PO ×2 (00:04→05:37)
[2018-02-14] MEDS: HEPARIN SOD (PORCINE) 5000 UNITS/ML VIAL SC (05:36)
[2018-02-14] MEDS: LEVOTHYROXINE 75MCG TABLET (0.075MG) PO (05:37)
[2018-02-14] MEDS: SENOKOT S TAB PO (09:00)
[2018-02-14] MEDS: VITAMIN D 1,000 INTERNATIONAL UNITS TABLET PO (09:03)
[2018-02-14] MEDS: OCUVITE 1 TAB PO (09:04)
[2018-02-14] MEDS: GLIMEPIRIDE 2 MG TAB PO (09:04)
[2018-02-14 21:44] LABS: BEDSIDE GLUCOSE 188 MG/DL (83-110)
[2018-02-14 21:44] LABS: BEDSIDE GLUCOSE 144 MG/DL (83-110)
[2018-02-14 21:44] LABS: BEDSIDE GLUCOSE 156 MG/DL (83-110)
[2018-02-14 21:44] LABS: BEDSIDE GLUCOSE 90 MG/DL (83-110)
[2018-02-14 21:44] LABS: BEDSIDE GLUCOSE 178 MG/DL (83-110)
[2018-02-14 21:44] LABS: BEDSIDE GLUCOSE 95 MG/DL (83-110)
== END 2018-02-14 12:48 | disposition home or self-care (01) | DRG 74 ==
LOC: M ED 13:49 → M ED INP 21:41 → M MSPAV 23:27
DX: G90.01 Carotid sinus syncope (principal); M79.7 Fibromyalgia; M19.90 Unspecified osteoarthritis, unspecified site; E11.9 Type 2 diabetes mellitus without complications; I10 Essential (primary) hypertension; E03.9 Hypothyroidism, unspecified; G89.29 Other chronic pain; R42 Dizziness and giddiness; M54.2 Cervicalgia; M94.0 Chondrocostal junction syndrome [Tietze]; H40.9 Unspecified glaucoma; Z88.0 Allergy status to penicillin; Z88.5 Allergy status to narcotic agent

== ENCOUNTER 2018-07-31 14:27 | Emergency (ER) | payer MEDICARE ==
[~2018-07-31 14:27] MED LIST: AMLO10TA5 PO; ASPE10LO TOP; BENG1CRE EX; CALC1TAB21 PO; CARD120C3 PO; CART120C PO; CELE100C PO; CELE1CAP7 PO; COMB0.2S OU; CYMB1CAP5 PO; Combigan; D 50CAP PO; DILT1CAP3 PO; DULO30CA9 PO; GABA-1171 PO; GABA-843 PO; GLIM4TAB PO; HYDR-3910 PO; HYDR25TA PO; IBUP200T45 PO; LATA0.0013; LATA0.0013 OU; LEVO75TA4 PO; MECL12.575 PO; MIRA3350 PO; OCUVTAB PO; PRED10TA2 PO; PRESCAP PO; PRESCAP4 PO; QUIN1TAB4 PO; TRAM50TA2 PO; TYLE325T5 PO; XALA0.007 OU; ZOFR4TAB14 PO
[2018-07-31] MEDS ORDERED: JARD1TAB PO (14:51)
[2018-07-31] MEDS ORDERED: SERT-155 PO (14:51)
[2018-07-31 16:40] LABS: BASO % 0.5 % (0.0-1.0); EOS % 0.1 % (0.0-3.0); HEMOGLOBIN 15.1 g/dl (12.0-15.5); LYMPH # 2.3 10^3/uL (1.5-4.5); LYMPH % 26.6 % (24.0-44.0); MEAN CORPUSCULAR HEMOGLOBIN 30.3 pg (27.0-33.0); MEAN CORPUSCULAR HGB CONC 33.6 g/dl (32.0-36.5); MEAN CORPUSCULAR VOLUME 90.4 fl (80.0-96.0); MONO # 0.6 10^3/uL (0.0-0.8); MONO % 7.6 % (0.0-5.0); NEUTROPHILS # 5.5 10^3/uL (1.8-7.7); NEUTROPHILS % 64.8 % (36.0-66.0); PLATELET COUNT, AUTOMATED 271 10^3/uL (150-450); RED BLOOD COUNT 4.98 10^6/uL (4.00-5.40); WHITE BLOOD COUNT 8.5 10^3/uL (4.0-10.0)
[2018-07-31 17:08] LABS: BLOOD UREA NITROGEN 17 MG/DL (7-18); CALCIUM LEVEL 9.7 MG/DL (8.8-10.2); CARBON DIOXIDE LEVEL 24 MEQ/L (21-32); CHLORIDE LEVEL 104 MEQ/L (98-107); CK-MB VALUE MASS < 1.0 NG/ML (<3.6); CPK CREATINE PHOSPHOKINASE 20 U/L (26-192); CREATININE FOR GFR 0.49 MG/DL (0.55-1.30); GLOMERULAR FILTRATION RATE > 60.0 (>39); GLUCOSE, FASTING 78 MG/DL (70-100); POTASSIUM SERUM 4.1 MEQ/L (3.5-5.1); SODIUM LEVEL 142 MEQ/L (136-145); TROPONIN I < 0.02 NG/ML (< 0.10)
[2018-07-31] MEDS ORDERED: NS 500 ML IV ONE (17:30)
[2018-07-31] MEDS ORDERED: ACETAMINOPHEN 325 MG TAB PO ONE (18:30)
[2018-07-31 19:33] VITALS: BP 159/70
--- NOTE | 2018-07-31 19:47 | ECGEPIP ---
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
== END 2018-07-31 19:34 | disposition home or self-care (01) ==
LOC: M ED 14:27 → EDBD 14:27 → M ED 19:34
DX: M79.10 Myalgia, unspecified site (principal); F33.9 Major depressive disorder, recurrent, unspecified; F41.9 Anxiety disorder, unspecified; M79.7 Fibromyalgia; Z79.899 Other long term (current) drug therapy; Z88.0 Allergy status to penicillin; Z88.5 Allergy status to narcotic agent; Z87.891 Personal history of nicotine dependence

== ENCOUNTER → 2018-08-05 | Outpatient (REF) | payer MEDICARE ==
[~2018-08-05] MED LIST changes: +JARD1TAB PO; +SERT-155 PO
== END ==
LOC: M LAB REF 12:50
PROVIDERS: ATTEND Nurse Practitioner Adult Health
DX: E11.65 Type 2 diabetes mellitus with hyperglycemia (principal); E83.52 Hypercalcemia

== ENCOUNTER → 2018-08-22 | Outpatient (REF) | payer MEDICARE ==
[~2018-08-22] MED LIST changes: +ACET-907 PO; +ASPE16CR TOP; +CALC1TAB74 PO; +LYRI75CA PO
[2018-09-06 10:06] LABS: ACETYLCHOLINE RCPTOR BINDING A < 0.03 nmol/L (0.00-0.24); ACETYLCHOLINE RCPTOR BLOCK AB 18 % (0-25); ACETYLCHOLINE RCPTOR MODULATIN <12 % (0-20)
== END ==
LOC: M LAB REF 12:58
PROVIDERS: ATTEND Nurse Practitioner Adult Health
DX: E83.10 Disorder of iron metabolism, unspecified (principal)

== ENCOUNTER 2018-08-24 09:25 | Inpatient (IN) | payer MEDICARE ==
[~2018-08-24] VITALS: Ht 165.1 cm; Wt 50.0 kg
[~2018-08-24 09:25] MED LIST changes: -ACET-907 PO; -ASPE16CR TOP; -CALC1TAB74 PO; -LYRI75CA PO
[2018-08-24 11:02] LABS: BASO % 0.3 % (0.0-1.0); EOS % 0.1 % (0.0-3.0); HEMATOCRIT 42.1 % (36.0-47.0); HEMOGLOBIN 14.2 g/dl (12.0-15.5); LYMPH # 1.6 10^3/uL (1.5-4.5); LYMPH % 20.4 % (24.0-44.0); MEAN CORPUSCULAR HEMOGLOBIN 31.3 pg (27.0-33.0); MEAN CORPUSCULAR HGB CONC 33.7 g/dl (32.0-36.5); MEAN CORPUSCULAR VOLUME 92.7 fl (80.0-96.0); MONO # 0.6 10^3/uL (0.0-0.8); MONO % 7.7 % (0.0-5.0); NEUTROPHILS # 5.6 10^3/uL (1.8-7.7); NEUTROPHILS % 71.2 % (36.0-66.0); PLATELET COUNT, AUTOMATED 246 10^3/uL (150-450); RED BLOOD COUNT 4.54 10^6/uL (4.00-5.40); WHITE BLOOD COUNT 7.9 10^3/uL (4.0-10.0)
[2018-08-24 11:13] LABS: INR 0.87; PROTHROMBIN TIME 11.5 SECONDS (11.8-14.0)
[2018-08-24 11:14] LABS: PARTIAL THROMBOPLASTIN TIME 25.7 SECONDS (25.0-38.4)
[2018-08-24] MEDS ORDERED: ACETAMINOPHEN TAB 650MG DOSE (2X325MG) PO ONE (11:15)
[2018-08-24 11:31] LABS: ALBUMIN 3.5 GM/DL (3.2-5.2); ALT/SGPT 16 U/L (12-78); BILIRUBIN,DIRECT 0.2 MG/DL (0.0-0.2); BILIRUBIN,TOTAL 0.5 MG/DL (0.2-1.0); CK-MB VALUE MASS < 1.0 NG/ML (<3.6); CPK CREATINE PHOSPHOKINASE 30 U/L (26-192); MB/CK RELATIVE INDEX 3.33 (< OR =4); TOTAL PROTEIN 6.3 GM/DL (6.4-8.2); TROPONIN I < 0.02 NG/ML (< 0.10)
--- NOTE | 2018-08-24 11:59 | REP ---
Clinical: Chest pain . Comparison: 02/09/2018 . Technique: AP and lateral. Findings: The mediastinum and cardiac silhouette are normal. The lung loo are clear and without acute consolidation, effusion, or pneumothorax. The skeletal structures are intact and normal. Impression: 1. No acute cardiopulmonary process. Electronically Signed by Thompson Lopez MD 08/24/2018 11:50 A
[2018-08-24] MEDS ORDERED: KETOROLAC 30 MG/ML VIAL (J1885) As Ordered ONE (12:26)
[2018-08-24] MEDS ORDERED: KETOROLAC 30 MG/ML VIAL (J1885) IV ONE (12:30)
[2018-08-24] MEDS ORDERED: ASPE16CR TOP (16:37)
[2018-08-24] MEDS ORDERED: ACET-907 PO (16:37)
[2018-08-24] MEDS ORDERED: CALC1TAB74 PO (16:37)
[2018-08-24 18:33] VITALS: BP 170/84
[2018-08-24] MEDS: NS 1,000 ML IV SCH ×2 (18:51→20:14)
--- NOTE | 2018-08-24 19:03 | HPEPDOC ---
[facility] Medical History & Physical Date of Admission Aug 24, 2018 Date of Service: Aug 24, 2018 History and Physical CHIEF COMPLAINT: generalized body pain HISTORY OF PRESENT ILLNESS: Pt is 73 y/o F with Hx of fibromyalgia for 25 years, today she felt severe 8/10 generalized body pain that she can not distinguish originating from muscle, bone, joint or tendons. She presented to ED with depressed mood being tearful stating not able to return to home since she can not take care of herself. Upon my encounter, pt is AAOx3, no acute distress denies any headache or trauma. Denies any abdominal pain, chest pain or respiratory distress. She reports generalized weakness more on LE to the extend that she is not able to stand on her feet. Pt lives alone with no support at home. PAST MEDICAL HISTORY: 1. Fibromyalgia. 2. Osteoarthritis. 3. Type 2 diabetes. 4. Hypertension. 5. Hypothyroidism. 6. Chronic neck and back pain. 7. Costochondritis. 8. Glaucoma. 9. Old T11 compression fracture and degenerative disc disease. PAST SURGICAL HISTORY: 1. Colonoscopy. 2. Cervical surgery. ALLERGIES: Allergic to CODEINE and PENICILLIN. 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 She is a FULL CODE. She never . She does not have any children. FAMILY HISTORY: Mother from stroke and father from myocardial infarction. MEDICATIONS: Reviewed. ROS: 10 point negative except HPI PHYSICAL EXAMINATION: GENERAL: She is awake, alert and oriented x3. She is not in acute distress. HEENT: Atraumatic. Pupils equal, round, reactive to light. No jaundice. Extraocular muscles are intact. Ears, nose and throat normal. Mouth: Mucosa is dry. NECK: No jugular venous distention (JVD). No bruits. LUNGS: Clear. No wheezing, no crackles. HEART: S1, S2, regular, no murmur. ABDOMEN: Soft, positive bowel sounds, nontender. LOWER EXTREMITIES: No edema in bilateral lower extremities. NEUROLOGIC: Nonfocal. SKIN: No rash. PSYCHIATRIC: No acute psychosis. LABORATORY DATA: See below. IMAGING: Vital Signs Date Time Temp Pulse Resp B/P (MAP) Pulse Ox O2 Delivery O2 Flow Rate FiO2 08/24/18 22:49 160/80 08/24/18 18:33 96.9 87 17 170/84 (112) 99 08/24/18 18:21 97.8 08/24/18 17:29 70 18 161/80 (107) 99 Room Air 08/24/18 17:25 70 99 08/24/18 17:10 71 100 08/24/18 16:55 82 100 08/24/18 16:40 73 18 100 Room Air 08/24/18 16:25 74 99 08/24/18 16:10 80 99 08/24/18 15:55 79 100 08/24/18 15:40 89 08/24/18 15:25 90 08/24/18 15:10 76 100 08/24/18 15:00 133/64 (87) 08/24/18 14:55 82 100 08/24/18 14:40 83 99 08/24/18 14:30 153/68 (96) 08/24/18 14:10 78 98 08/24/18 14:01 155/68 (97) 08/24/18 13:55 84 100 08/24/18 13:40 71 100 08/24/18 13:30 98.0 08/24/18 13:30 174/74 (107) 08/24/18 13:25 73 100 08/24/18 13:10 75 99 08/24/18 13:00 166/75 (105) 08/24/18 12:55 75 100 08/24/18 12:52 175/76 (109) 08/24/18 12:40 71 100 08/24/18 12:25 74 99 08/24/18 12:10 76 99 08/24/18 11:55 72 99 08/24/18 11:54 165/73 (103) 08/24/18 11:40 76 08/24/18 11:25 73 08/24/18 11:10 76 97 08/24/18 10:55 72 99 08/24/18 10:40 74 98 08/24/18 10:30 157/71 (99) 08/24/18 10:25 72 99 08/24/18 10:15 141/62 (88) 08/24/18 10:10 75 99 08/24/18 10:00 150/67 (94) 08/24/18 09:55 73 99 08/24/18 09:45 167/70 (102) 08/24/18 09:40 74 99 08/24/18 09:36 98.3 81 17 168/71 (103) 100 Room Air 08/24/18 09:34 168/ (103) Laboratory Tests 08/24/18 10:46: White Blood Count 7.9, Red Blood Count 4.54, Hemoglobin 14.2, Hematocrit 42.1, Mean Corpuscular Volume 92.7, Mean Corpuscular Hemoglobin 31.3, Mean Corpuscular Hemoglobin Concent 33.7, Red Cell Distribution Width 14.0, Platelet Count 246, Neutrophils (%) (Auto) 71.2H, Lymphocytes (%) (Auto) 20.4L, Monocytes (%) (Auto) 7.7H, Eosinophils (%) (Auto) 0.1, Basophils (%) (Auto) 0.3, Neutrophils # (Auto) 5.6, Lymphocytes # (Auto) 1.6, Monocytes # (Auto) 0.6, Eosinophils # (Auto) 0.0, Basophils # (Auto) 0.0, Immature Granulocyte % (Auto) 0.3, Nucleated Red Blood Cells % (auto) 0.0, Prothrombin Time 11.5L, Prothromb Time International Ratio 0.87, Activated Partial Thromboplast Time 25.7, Aspartate Amino Transf (AST/SGOT) 15, Alanine Aminotransferase (ALT/SGPT) 16, Alkaline Phosphatase 99, Total Bilirubin 0.5, Direct Bilirubin 0.2, Total Creatine Kinase 30, Creatine Kinase MB < 1.0, Creatine Kinase MB Relative Index 3.33, Troponin I < 0.02, Total Protein 6.3L, Albumin 3.5, Albumin/Globulin Ratio 1.25 08/24/18 10:53: POC Glucose (Misc Panel) 135H, POC Sodium (Misc Panel) 140, POC Potassium (Misc Panel) 3.5, POC Chloride (Misc Panel) 100, POC Total CO2 (Misc Panel) 23.0, POC Blood Urea Nitrogen (Misc Panel 18, POC Ionized Calcium (Misc Panel) 4.8, POC Creatinine (Misc Panel) 0.5L, POC Hematocrit (Misc Panel) 42.0 08/24/18 21:00: Bedside Glucose (Misc Panel) 200H Current Medications Medications (Trade) Dose Ordered Sig/Julia Route PRN Reason Start Time Stop Time Status Last Admin Dose Admin Ketorolac Tromethamine (ToRADol) 15 mg Q6HP PRN IV Pain 08/24/18 16:15 08/29/18 16:14 08/24/18 20:14 15 MG Quinapril HCl (Accupril) 40 mg QPM PO 08/24/18 21:00 08/24/18 22:49 40 MG Sertraline HCl (Zoloft) 50 mg QHS PO 08/24/18 21:00 08/24/18 20:12 50 MG Sodium Chloride 1,000 ml @ 100 mls/hr Q10H IV 08/24/18 16:15 08/24/18 20:14 100 MLS/HR MICROBIOLOGY: Please see below. A/P 1-Admission for social reason pt not able to be independent at home refusing to be discharged from ED. 2-Generalized pain/weakness LE sec to fibromyalgia pain control on NSAIDS PRN 3-Hypothyroidism 4-T2DM 5-HTN SW/CM Consult in AM PT/OT Vital Signs Vital Signs Date Time Temp Pulse Resp B/P (MAP) Pulse Ox O2 Delivery O2 Flow Rate FiO2 08/24/18 18:33 96.9 87 17 170/84 (112) 99 08/24/18 17:29 Room Air Laboratory Data Labs 24H Laboratory Tests 2 08/24/18 10:46: Immature Granulocyte % (Auto) 0.3, White Blood Count 7.9, Red Blood Count 4.54, Hemoglobin 14.2, Hematocrit 42.1, Mean Corpuscular Volume 92.7, Mean Corpuscular Hemoglobin 31.3, Mean Corpuscular Hemoglobin Concent 33.7, Red Cell Distribution Width 14.0, Platelet Count 246, Neutrophils (%) (Auto) 71.2H, Lymphocytes (%) (Auto) 20.4L, Monocytes (%) (Auto) 7.7H, Eosinophils (%) (Auto) 0.1, Basophils (%) (Auto) 0.3, Neutrophils # (Auto) 5.6, Lymphocytes # (Auto) 1.6, Monocytes # (Auto) 0.6, Eosinophils # (Auto) 0.0, Basophils # (Auto) 0.0, Nucleated Red Blood Cells % (auto) 0.0, Prothrombin Time 11.5L, Prothromb Time International Ratio 0.87, Activated Partial Thromboplast Time 25.7, Aspartate Amino Transf (AST/SGOT) 15, Alanine Aminotransferase (ALT/SGPT) 16, Alkaline Phosphatase 99, Total Bilirubin 0.5, Direct Bilirubin 0.2, Total Creatine Kinase 30, Creatine Kinase MB < 1.0, Creatine Kinase MB Relative Index 3.33, Troponin I < 0.02, Total Protein 6.3L, Albumin 3.5, Albumin/Globulin Ratio 1.25 08/24/18 10:53: POC Glucose (Misc Panel) 135H, POC Sodium (Misc Panel) 140, POC Potassium (Misc Panel) 3.5, POC Chloride (Misc Panel) 100, POC Total CO2 (Misc Panel) 23.0, POC Blood Urea Nitrogen (Misc Panel 18, POC Ionized Calcium (Misc Panel) 4.8, POC Creatinine (Misc Panel) 0.5L, POC Hematocrit (Misc Panel) 42.0 CBC/BMP Laboratory Tests 08/24/18 10:46 Red Blood Count 4.54, Mean Corpuscular Volume 92.7, Mean Corpuscular Hemoglobin 31.3, Mean Corpuscular Hemoglobin Concent 33.7, Red Cell Distribution Width 14.0, Neutrophils (%) (Auto) 71.2 H, Lymphocytes (%) (Auto) 20.4 L, Monocytes (%) (Auto) 7.7 H, Eosinophils (%) (Auto) 0.1, Basophils (%) (Auto) 0.3, Neutrophils # (Auto) 5.6, Lymphocytes # (Auto) 1.6, Monocytes # (Auto) 0.6, Eosinophils # (Auto) 0.0, Basophils # (Auto) 0.0 Home Medications Scheduled Brimonidine Tartrate/Timolol (Combigan 0.2%-0.5% Eye Drops) 1 Shantelle Shantelle, 1 DROP OU BID PATIENT HAS BEEN OUT OF THIS MEDICATION FOR ABOUT 3 WEEKS. Calcium Carbonate/Vitamin D3 (Calcium 600-Vit D3 400 Tablet) 1 Each Tablet, 1 TAB PO BID Cholecalciferol (Vitamin D3) (Vitamin D3) 5,000 Unit Cap, 5,000 UNIT PO DAILY Empagliflozin (Jardiance) 10 Mg Tablet, 5 MG PO DAILY PATIENT STATES SHE CUTS IN HALF DEPENDING ON WHAT SHE EATS Glimepiride (Glimepiride) 4 Mg Tab, 4 MG PO DAILY PATIENT HAS NOT BEEN TAKING DUE TO POOR FOOD INTAKE Latanoprost (Xalatan) 0.005 % Shantelle, 1 DROP OU QHS Levothyroxine Sodium (Levothyroxine Sodium) 75 Mcg Tab, 75 MCG PO DAILY Quinapril Hcl (Quinapril HCl) 40 Mg Tab, 40 MG PO QPM Sertraline HCl (Sertraline HCl) 50 Mg Tablet, 50 MG PO QHS Vit A/Vit C/Vit E/Zinc/Copper (Preservision Areds Softgel) 1 Cap Cap, 1 CAP PO BID Scheduled PRN Acetaminophen (Tylenol) 325 Mg Tablet, 650 MG PO Q6H PRN for PAIN Lidocaine HCl (Aspercreme) 4% Cream..g., 1 DOSE TOP TID PRN for PAIN APPLY TO SHOULDERS AND NECK Allergies Coded Allergies: Penicillins (Verified Allergy, Intermediate, hives, 08/24/18) codeine (Verified Adverse Reaction, Mild, n/v, 08/24/18) A-FIB/CHADSVASC A-FIB History Current/History of A-Fib/PAF?: NANETTE Delcid MD Aug 24, 2018 19:03
[2018-08-24] MEDS: SERTRALINE HCL 50 MG TAB PO SCH (20:12)
[2018-08-24] MEDS: KETOROLAC 30 MG/ML VIAL (J1885) IV PRN (20:14)
--- NOTE | 2018-08-24 21:43 | ECGEPIP ---
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
[2018-08-24 22:00] VITALS: BP 150/72
[2018-08-24] MEDS: QUINAPRIL 20 MG TAB PO SCH (22:49)
[2018-08-25] MEDS: ALPRAZolam 0.5 MG TAB PO PRN (02:04)
[2018-08-25 06:00] VITALS: BP 130/62
[2018-08-25] MEDS: NS 1,000 ML IV SCH (06:37)
[2018-08-25] MEDS: LEVOTHYROXINE 75MCG TABLET (0.075MG) PO SCH (06:38)
[2018-08-25] MEDS: GLIMEPIRIDE 2 MG TAB PO SCH (08:49)
[2018-08-25] MEDS: KETOROLAC 30 MG/ML VIAL (J1885) IV PRN ×3 (08:51→22:51)
--- NOTE | 2018-08-25 11:29 | IPNPDOC ---
Text Note Date of Service The patient was seen on 08/25/18. NOTE Pt was seen and examined at bedside. Pt denies any acute distress. Pt states she is not able to stand on her feet and not possible for her to walk independent. Pt is fearful of being alone at home. Continues to complain of generalized body pain and aches. PHE: GENERAL: She is awake, alert and oriented x3. She is not in acute distress. HEENT: Atraumatic. Pupils equal, round, reactive to light. No jaundice. Extraocular muscles are intact. Ears, nose and throat normal. Mouth: Mucosa is dry. NECK: No jugular venous distention (JVD). No bruits. LUNGS: Clear. No wheezing, no crackles. HEART: S1, S2, regular, no murmur. ABDOMEN: Soft, positive bowel sounds, nontender. LOWER EXTREMITIES: No edema in bilateral lower extremities. NEUROLOGIC: Nonfocal. SKIN: No rash. PSYCHIATRIC: No acute psychosis. Vital Signs Date Time Temp Pulse Resp B/P (MAP) Pulse Ox O2 Delivery O2 Flow Rate FiO2 08/25/18 06:00 97.1 68 15 130/62 (84) 100 08/24/18 22:49 160/80 08/24/18 22:00 97.9 73 15 150/72 (98) 100 08/24/18 18:33 96.9 87 17 170/84 (112) 99 08/24/18 18:21 97.8 08/24/18 17:29 70 18 161/80 (107) 99 Room Air 08/24/18 17:25 70 99 08/24/18 17:10 71 100 08/24/18 16:55 82 100 08/24/18 16:40 73 18 100 Room Air 08/24/18 16:25 74 99 08/24/18 16:10 80 99 08/24/18 15:55 79 100 08/24/18 15:40 89 08/24/18 15:25 90 08/24/18 15:10 76 100 08/24/18 15:00 133/64 (87) 08/24/18 14:55 82 100 08/24/18 14:40 83 99 08/24/18 14:30 153/68 (96) 08/24/18 14:10 78 98 08/24/18 14:01 155/68 (97) 08/24/18 13:55 84 100 08/24/18 13:40 71 100 08/24/18 13:30 98.0 08/24/18 13:30 174/74 (107) 08/24/18 13:25 73 100 08/24/18 13:10 75 99 08/24/18 13:00 166/75 (105) 08/24/18 12:55 75 100 08/24/18 12:52 175/76 (109) 08/24/18 12:40 71 100 08/24/18 12:25 74 99 08/24/18 12:10 76 99 08/24/18 11:55 72 99 08/24/18 11:54 165/73 (103) 08/24/18 11:40 76 Intake & Output 08/25/18 06:00 Intake Total 520 ml Balance 520 ml Laboratory Tests 08/24/18 21:00: Bedside Glucose (Misc Panel) 200H Current Medications Medications (Trade) Dose Ordered Sig/Julia Route PRN Reason Start Time Stop Time Status Last Admin Dose Admin Alprazolam (Xanax) 0.5 mg TID PRN PO ANxiety 08/24/18 16:15 08/25/18 02:04 0.5 MG Glimepiride (Amaryl) 4 mg DAILY@0730 PO 08/25/18 07:30 08/25/18 08:49 4 MG Ketorolac Tromethamine (ToRADol) 15 mg Q6HP PRN IV Pain 08/24/18 16:15 08/29/18 16:14 08/25/18 08:51 15 MG Levothyroxine Sodium (Synthroid) 75 mcg DAILY@0600 PO 08/25/18 06:00 08/25/18 06:38 75 MCG Quinapril HCl (Accupril) 40 mg QPM PO 08/24/18 21:00 08/24/18 22:49 40 MG Sertraline HCl (Zoloft) 50 mg QHS PO 08/24/18 21:00 08/24/18 20:12 50 MG Sodium Chloride 1,000 ml @ 100 mls/hr Q10H IV 08/24/18 16:15 08/25/18 06:37 100 MLS/HR A/P 1-Admission for social reason pt not able to be independent at home refusing to be discharged from ED. 2-Generalized pain/weakness LE sec to fibromyalgia pain control on NSAIDS PRN 3-Hypothyroidism: cont levothyroxin 75 mcg 4-T2DM 5-HTN SW/CM Consult in AM PT/OT evaluation and treatment Disposition: Pt require intermediate placement secondary to incapable of performing activities of daily living independently. VS,Fishbone, I+O VS, Fishbone, I+O Vital Signs Date Time Temp Pulse Resp B/P (MAP) Pulse Ox O2 Delivery O2 Flow Rate FiO2 08/25/18 06:00 97.1 68 15 130/62 (84) 100 08/24/18 17:29 Room Air I&O- Last 24 Hours up to 6 AM 08/25/18 06:00 Intake Total 520 ml Balance 520 ml NANETTE IRVING MD Aug 25, 2018 11:29
[2018-08-25] MEDS ORDERED: ANALGESIC BALM CRM 120 GM TOP PRN (12:15)
[2018-08-25 14:00] VITALS: BP 147/75
[2018-08-25 22:00] VITALS: BP 155/75
[2018-08-25] MEDS: SERTRALINE HCL 50 MG TAB PO SCH (22:47)
[2018-08-25] MEDS: QUINAPRIL 20 MG TAB PO SCH (22:49)
[2018-08-26] MEDS: ALPRAZolam 0.5 MG TAB PO PRN ×2 (01:46→20:07)
[2018-08-26] MEDS: ACETAMINOPHEN TAB 650MG DOSE (2X325MG) PO PRN ×3 (01:50→20:07)
[2018-08-26 06:00] VITALS: BP 147/72
[2018-08-26] MEDS: LEVOTHYROXINE 75MCG TABLET (0.075MG) PO SCH (06:01)
[2018-08-26] MEDS: KETOROLAC 30 MG/ML VIAL (J1885) IV PRN ×3 (06:02→23:36)
[2018-08-26] MEDS: GLIMEPIRIDE 2 MG TAB PO SCH (08:15)
[2018-08-26 14:00] VITALS: BP 132/70
[2018-08-26] MEDS: SERTRALINE HCL 50 MG TAB PO SCH (20:06)
[2018-08-26] MEDS: QUINAPRIL 20 MG TAB PO SCH (20:06)
[2018-08-26 22:00] VITALS: BP 148/79
--- NOTE | 2018-08-26 22:31 | IPNPDOC ---
Text Note Date of Service The patient was seen on 08/26/18. NOTE Pt was seen and examined at bedside. No overnights events reported. Pt denies any new complaints. PHE: GENERAL: She is awake, alert and oriented x3. She is not in acute distress. HEENT: Atraumatic. Pupils equal, round, reactive to light. No jaundice. Extraocular muscles are intact. Ears, nose and throat normal. Mouth: Mucosa is dry. NECK: No jugular venous distention (JVD). No bruits. LUNGS: Clear. No wheezing, no crackles. HEART: S1, S2, regular, no murmur. ABDOMEN: Soft, positive bowel sounds, nontender. LOWER EXTREMITIES: No edema in bilateral lower extremities. NEUROLOGIC: Nonfocal. SKIN: No rash. PSYCHIATRIC: No acute psychosis. Vital Signs Date Time Temp Pulse Resp B/P (MAP) Pulse Ox O2 Delivery O2 Flow Rate FiO2 08/26/18 20:06 169/82 08/26/18 14:00 97.0 76 18 132/70 (90) 100 08/26/18 06:00 97.8 66 14 147/72 (97) 99 08/25/18 22:49 155/75 Intake & Output 08/26/18 06:00 Intake Total 1070 ml Balance 1070 ml Current Medications Medications (Trade) Dose Ordered Sig/Julia Route PRN Reason Start Time Stop Time Status Last Admin Dose Admin Acetaminophen (Tylenol Tab) 650 mg Q4HP PRN PO PAIN OR FEVER 08/26/18 00:00 08/26/18 20:07 650 MG Alprazolam (Xanax) 0.5 mg TID PRN PO ANxiety 08/24/18 16:15 08/26/18 20:07 0.5 MG Glimepiride (Amaryl) 4 mg DAILY@0730 PO 08/25/18 07:30 08/26/18 08:15 4 MG Ketorolac Tromethamine (ToRADol) 15 mg Q6HP PRN IV Pain 08/24/18 16:15 08/29/18 16:14 08/26/18 15:44 15 MG Levothyroxine Sodium (Synthroid) 75 mcg DAILY@0600 PO 08/25/18 06:00 08/26/18 06:01 75 MCG Quinapril HCl (Accupril) 40 mg QPM PO 08/24/18 21:00 08/26/18 20:06 40 MG Sertraline HCl (Zoloft) 50 mg QHS PO 08/24/18 21:00 08/26/18 20:06 50 MG A/P 1-Admission for social reason pt not able to be independent at home refusing to be discharged from ED. 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 VS,Fishbone, I+O VS, Fishbone, I+O Vital Signs Date Time Temp Pulse Resp B/P (MAP) Pulse Ox O2 Delivery O2 Flow Rate FiO2 08/26/18 20:06 169/82 08/26/18 14:00 97.0 76 18 100 08/24/18 17:29 Room Air I&O- Last 24 Hours up to 6 AM 08/26/18 06:00 Intake Total 1070 ml Balance 1070 ml NANETTE IRVING MD Aug 26, 2018 22:31
[2018-08-27] MEDS: ACETAMINOPHEN TAB 650MG DOSE (2X325MG) PO PRN ×2 (03:35→20:04)
[2018-08-27 06:00] VITALS: BP 152/78
[2018-08-27] MEDS: LEVOTHYROXINE 75MCG TABLET (0.075MG) PO SCH (06:26)
[2018-08-27] MEDS: HEPARIN SOD (PORCINE) 5000 UNITS/ML VIAL SQ SCH ×3 (06:26→21:19)
[2018-08-27] MEDS: KETOROLAC 30 MG/ML VIAL (J1885) IV PRN ×2 (06:26→14:40)
[2018-08-27] MEDS: GLIMEPIRIDE 2 MG TAB PO SCH (08:41)
[2018-08-27 14:00] VITALS: BP 180/80
[2018-08-27] MEDS: SERTRALINE HCL 50 MG TAB PO SCH (20:02)
[2018-08-27] MEDS: ALPRAZolam 0.5 MG TAB PO PRN (20:03)
[2018-08-27] MEDS: QUINAPRIL 20 MG TAB PO SCH (20:03)
[2018-08-27 22:00] VITALS: BP 155/81
--- NOTE | 2018-08-27 23:11 | IPNPDOC ---
Text Note Date of Service The patient was seen on 08/27/18. NOTE Pt was seen and examined at bedside. Pt complains of paresthesia and burning sensation around her epigastric and upper quadrants areas. Denies any N/V. Denies ay change in BM. PHE: GENERAL: She is awake, alert and oriented x3. She is not in acute distress. HEENT: Atraumatic. Pupils equal, round, reactive to light. No jaundice. Extraocular muscles are intact. Ears, nose and throat normal. Mouth: Mucosa is dry. NECK: No jugular venous distention (JVD). No bruits. LUNGS: Clear. No wheezing, no crackles. HEART: S1, S2, regular, no murmur. ABDOMEN: Soft, positive bowel sounds, nontender. LOWER EXTREMITIES: No edema in bilateral lower extremities. NEUROLOGIC:Nonfocal. SKIN: No rash. PSYCHIATRIC: No acute psychosis. Vital Signs Date Time Temp Pulse Resp B/P (MAP) Pulse Ox O2 Delivery O2 Flow Rate FiO2 08/26/18 20:06 169/82 08/26/18 14:00 97.0 76 18 132/70 (90) 100 08/26/18 06:00 97.8 66 14 147/72 (97) 99 08/25/18 22:49 155/75 Intake & Output 08/26/18 06:00 Intake Total 1070 ml Balance 1070 ml Current Medications Medications (Trade) Dose Ordered Sig/Julia Route PRN Reason Start Time Stop Time Status Last Admin Dose Admin Acetaminophen (Tylenol Tab) 650 mg Q4HP PRN PO PAIN OR FEVER 08/26/18 00:00 08/26/18 20:07 650 MG Alprazolam (Xanax) 0.5 mg TID PRN PO ANxiety 08/24/18 16:15 08/26/18 20:07 0.5 MG Glimepiride (Amaryl) 4 mg DAILY@0730 PO 08/25/18 07:30 08/26/18 08:15 4 MG Ketorolac Tromethamine (ToRADol) 15 mg Q6HP PRN IV Pain 08/24/18 16:15 08/29/18 16:14 08/26/18 15:44 15 MG Levothyroxine Sodium (Synthroid) 75 mcg DAILY@0600 PO 08/25/18 06:00 08/26/18 06:01 75 MCG Quinapril HCl (Accupril) 40 mg QPM PO 08/24/18 21:00 08/26/18 20:06 40 MG Sertraline HCl (Zoloft) 50 mg QHS PO 08/24/18 21:00 08/26/18 20:06 50 MG A/P 1-Admission for social reason pt not able to be independent at home refusing to be discharged from ED, signed paperwork. 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 VS,Fishbone, I+O VS, Fishbone, I+O Vital Signs Date Time Temp Pulse Resp B/P (MAP) Pulse Ox O2 Delivery O2 Flow Rate FiO2 08/27/18 22:00 97.3 70 18 155/81 (105) 99 08/24/18 17:29 Room Air I&O- Last 24 Hours up to 6 AM 08/27/18 06:00 Intake Total 750 ml Output Total 100 ml Balance 650 ml NANETTE IRVING MD Aug 27, 2018 23:11
[2018-08-28] MEDS: ACETAMINOPHEN TAB 650MG DOSE (2X325MG) PO PRN ×2 (01:17→05:30)
[2018-08-28] MEDS: KETOROLAC 30 MG/ML VIAL (J1885) IV PRN ×3 (03:55→17:52)
[2018-08-28] MEDS: LEVOTHYROXINE 75MCG TABLET (0.075MG) PO SCH (05:30)
[2018-08-28] MEDS: HEPARIN SOD (PORCINE) 5000 UNITS/ML VIAL SQ SCH ×3 (05:30→20:08)
[2018-08-28 06:00] VITALS: BP 154/81
[2018-08-28] MEDS: GLIMEPIRIDE 2 MG TAB PO SCH (08:17)
[2018-08-28] MEDS ORDERED: GABAPENTIN 100 MG CAP PO SCH (09:00)
[2018-08-28] MEDS: PREGABALIN 75 MG CAP(LYRICA) PO SCH ×2 (10:09→20:03)
[2018-08-28 14:00] VITALS: BP 170/74
--- NOTE | 2018-08-28 19:19 | IPNPDOC ---
Text Note Date of Service The patient was seen on 08/28/18. NOTE Pt was seen and examined at bedside. No overnights events. No new complaints. Continues to complain of generalized body aches and burning sensation. Pt walks with assistance to bathroom. No dizziness or lightheadedness. PHE: GENERAL: She is awake, alert and oriented x3. She is not in acute distress. HEENT: Atraumatic. Pupils equal, round, reactive to light. No jaundice. Extraocular muscles are intact. Ears, nose and throat normal. Mouth: Mucosa is dry. NECK: No jugular venous distention (JVD). No bruits. LUNGS: Clear. No wheezing, no crackles. HEART: S1, S2, regular, no murmur. ABDOMEN: Soft, positive bowel sounds, nontender. LOWER EXTREMITIES: No edema in bilateral lower extremities. NEUROLOGIC:Nonfocal. SKIN: No rash. PSYCHIATRIC: No acute psychosis. Vital Signs Date Time Temp Pulse Resp B/P (MAP) Pulse Ox O2 Delivery O2 Flow Rate FiO2 08/26/18 20:06 169/82 08/26/18 14:00 97.0 76 18 132/70 (90) 100 08/26/18 06:00 97.8 66 14 147/72 (97) 99 08/25/18 22:49 155/75 Intake & Output 08/26/18 06:00 Intake Total 1070 ml Balance 1070 ml Current Medications Medications (Trade) Dose Ordered Sig/Julia Route PRN Reason Start Time Stop Time Status Last Admin Dose Admin Acetaminophen (Tylenol Tab) 650 mg Q4HP PRN PO PAIN OR FEVER 08/26/18 00:00 08/26/18 20:07 650 MG Alprazolam (Xanax) 0.5 mg TID PRN PO ANxiety 08/24/18 16:15 08/26/18 20:07 0.5 MG Glimepiride (Amaryl) 4 mg DAILY@0730 PO 08/25/18 07:30 08/26/18 08:15 4 MG Ketorolac Tromethamine (ToRADol) 15 mg Q6HP PRN IV Pain 08/24/18 16:15 08/29/18 16:14 08/26/18 15:44 15 MG Levothyroxine Sodium (Synthroid) 75 mcg DAILY@0600 PO 08/25/18 06:00 08/26/18 06:01 75 MCG Quinapril HCl (Accupril) 40 mg QPM PO 08/24/18 21:00 08/26/18 20:06 40 MG Sertraline HCl (Zoloft) 50 mg QHS PO 08/24/18 21:00 08/26/18 20:06 50 MG A/P 1-Admission for social reason pt not able to be independent at home refusing to be discharged from ED. Pt has signed paperwork. 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 VS,Fishbone, I+O VS, Fishbone, I+O Vital Signs Date Time Temp Pulse Resp B/P (MAP) Pulse Ox O2 Delivery O2 Flow Rate FiO2 08/28/18 14:00 97.1 72 17 170/74 (106) 99 08/24/18 17:29 Room Air I&O- Last 24 Hours up to 6 AM 08/28/18 06:00 Intake Total 630 ml Output Total 300 ml Balance 330 ml NANETTE IRVING MD Aug 28, 2018 19:19
[2018-08-28 20:03] VITALS: BP 159/80
[2018-08-28] MEDS: SERTRALINE HCL 50 MG TAB PO SCH (20:03)
[2018-08-28] MEDS: QUINAPRIL 20 MG TAB PO SCH (20:03)
[2018-08-28] MEDS: ALPRAZolam 0.5 MG TAB PO PRN (20:03)
[2018-08-28 22:00] VITALS: BP 159/80
[2018-08-29] MEDS: LEVOTHYROXINE 75MCG TABLET (0.075MG) PO SCH (05:13)
[2018-08-29] MEDS: HEPARIN SOD (PORCINE) 5000 UNITS/ML VIAL SQ SCH (05:17)
[2018-08-29 06:00] VITALS: BP 154/82
[2018-08-29] MEDS: GLIMEPIRIDE 2 MG TAB PO SCH (08:57)
[2018-08-29] MEDS: PREGABALIN 75 MG CAP(LYRICA) PO SCH (08:57)
[2018-08-29] MEDS ORDERED: SENNA 8.6 MG TAB (SENOKOT) PO SCH (09:00)
[2018-08-29] MEDS ORDERED: DOCUSATE SODIUM 100 MG CAP PO SCH (09:00)
[2018-08-29] MEDS ORDERED: SENNA 8.6 MG TAB (SENOKOT) PO PRN (10:30)
[2018-08-29] MEDS ORDERED: BISACODYL 5 MG TAB PO SCH (10:30)
[2018-08-29] MEDS ORDERED: LYRI75CA PO (12:34)
--- NOTE | 2018-08-30 20:57 | DS.PDOC ---
Discharge Summary General Date of Admission Aug 24, 2018 at 16:06 Date of Discharge August, Attending Physician: NANETTE IRVING MD Discharge Summary PROCEDURES PERFORMED DURING STAY: None ADMITTING DIAGNOSES: 1. Admission for social reason 2. Generalized pain/weakness 3. Hypothyroidism 4. T2DM 5. HTN DISCHARGE DIAGNOSES: 1. As above COMPLICATIONS/CHIEF COMPLAINT: Myalgia. HISTORY OF PRESENT ILLNESS: [As per initial H&P]. Pt is 73 y/o F with Hx of fibromyalgia for 25 years, today she felt severe 8/10 generalized body pain that she can not distinguish originating from muscle, bone, joint or tendons. She presented to ED with depressed mood being tearful stating not able to return to home since she can not take care of herself. Upon my encounter, pt is AAOx3, no acute distress denies any headache or trauma. Denies any abdominal pain, chest pain or respiratory distress. She reports gen eralized weakness more on LE to the extend that she is not able to stand on her feet. Pt lives alone with no support at home. PAST MEDICAL HISTORY: 1. Fibromyalgia. 2. Osteoarthritis. 3. Type 2 diabetes. 4. Hypertension. 5. Hypothyroidism. 6. Chronic neck and back pain. 7. Costochondritis. 8. Glaucoma. 9. Old T11 compression fracture and degenerative disc disease. HOSPITAL COURSE: -Generalized pain/paresthesia sec to fibromyalgia , pain control on NSAIDS PRN, Lyrica was added, Pt refused Gabapentin since she states it gives her hallucinations. Pain was better controlled -Hypothyroidism:On levothyroxin 75 mcg -T2DM on home med Glimepiride 4mg daily -HTN on Quinapril DISCHARGE MEDICATIONS: Please see below. ALLERGIES: Please see below. PHYSICAL EXAMINATION ON DISCHARGE: VITAL SIGNS: Please see below. GENERAL: She is awake, alert and oriented x3. She is not in acute distress. HEENT: Atraumatic. Pupils equal, round, reactive to light. No jaundice. Extraocular muscles are intact. Ears, nose and throat normal. Mouth: Mucosa is dry. NECK: No jugular venous distention (JVD). No bruits. LUNGS: Clear. No wheezing, no crackles. HEART: S1, S2, regular, no murmur. ABDOMEN: Soft, positive bowel sounds, nontender. LOWER EXTREMITIES: No edema in bilateral lower extremities. NEUROLOGIC:Nonfocal. SKIN: No rash. PSYCHIATRIC: No acute psychosis. LABORATORY DATA: Please see below. IMAGING: CXR on 08/24/2018 Comparison: 02/09/2018 . Technique: AP and lateral. Findings: The mediastinum and cardiac silhouette are normal. The lung loo are clear and without acute consolidation, effusion, or pneumothorax. The skeletal structures are intact and normal. Impression: 1. No acute cardiopulmonary process. PROGNOSIS: Fair ACTIVITY: As tolerated,. DIET: Diabetic, low slat DISCHARGE PLAN: DISPOSITION: 01 Home, Self-Care. DISCHARGE INSTRUCTIONS: 1. Follow With PCP 2. Diabetic/low salt diet ITEMS TO FOLLOWUP ON ON OUTPATIENT: 1. Follow with PCP DISCHARGE CONDITION: Stable, afebrile, pain was better controlled with Lyrica TIME SPENT ON DISCHARGE: Greater than 20 minutes. Vital Signs/I&Os Vital Signs Date Time Temp Pulse Resp B/P (MAP) Pulse Ox O2 Delivery O2 Flow Rate FiO2 08/29/18 06:00 96.8 74 20 154/82 (106) 98 08/24/18 17:29 Room Air I&O- Last 24 Hours up to 6 AM 08/30/18 06:00 Intake Total 300 ml Balance 300 ml Discharge Medications Scheduled Brimonidine Tartrate/Timolol (Combigan 0.2%-0.5% Eye Drops) 1 Shantelle Shantelle, 1 DROP OU BID, (Reported) PATIENT HAS BEEN OUT OF THIS MEDICATION FOR ABOUT 3 WEEKS. Calcium Carbonate/Vitamin D3 (Calcium 600-Vit D3 400 Tablet) 1 Each Tablet, 1 TAB PO BID, (Reported) Cholecalciferol (Vitamin D3) (Vitamin D3) 5,000 Unit Cap, 5,000 UNIT PO DAILY, (Reported) Empagliflozin (Jardiance) 10 Mg Tablet, 5 MG PO DAILY, (Reported) PATIENT STATES SHE CUTS IN HALF DEPENDING ON WHAT SHE EATS Glimepiride (Glimepiride) 4 Mg Tab, 4 MG PO DAILY, (Reported) PATIENT HAS NOT BEEN TAKING DUE TO POOR FOOD INTAKE Latanoprost (Xalatan) 0.005 % Shantelle, 1 DROP OU QHS, (Reported) Levothyroxine Sodium (Levothyroxine Sodium) 75 Mcg Tab, 75 MCG PO DAILY, (Reported) Pregabalin (Lyrica) 75 Mg Capsule, 75 MG PO BID Quinapril Hcl (Quinapril HCl) 40 Mg Tab, 40 MG PO QPM, (Reported) Sertraline HCl (Sertraline HCl) 50 Mg Tablet, 50 MG PO QHS, (Reported) Vit A/Vit C/Vit E/Zinc/Copper (Preservision Areds Softgel) 1 Cap Cap, 1 CAP PO BID, (Reported) Scheduled PRN Acetaminophen (Tylenol) 325 Mg Tablet, 650 MG PO Q6H PRN for PAIN, (Reported) Lidocaine HCl (Aspercreme) 4% Cream..g., 1 DOSE TOP TID PRN for PAIN, (Reported) APPLY TO SHOULDERS AND NECK Allergies Coded Allergies: Penicillins (Verified Allergy, Intermediate, hives, 08/24/18) codeine (Verified Adverse Reaction, Mild, n/v, 08/24/18) NANETTE IRVING MD Aug 30, 2018 20:39
== END 2018-08-29 14:12 | disposition home or self-care (01) | DRG 556 ==
LOC: EDBD 09:25 → M ED 09:25 → M ED INP 16:06 → M MSPAV 18:22
PROVIDERS: ADMIT Hospitalist; ATTEND Hospitalist
DX: M79.7 Fibromyalgia (principal); E83.10 Disorder of iron metabolism, unspecified; M19.90 Unspecified osteoarthritis, unspecified site; E11.9 Type 2 diabetes mellitus without complications; I10 Essential (primary) hypertension; R53.1 Weakness; R52 Pain, unspecified; E03.9 Hypothyroidism, unspecified; H40.9 Unspecified glaucoma; Z74.2 Need for assistance at home and no other household member able to render care; Z88.0 Allergy status to penicillin; Z88.5 Allergy status to narcotic agent; Z79.84 Long term (current) use of oral hypoglycemic drugs; Z79.899 Other long term (current) drug therapy

== ENCOUNTER → 2018-09-06 | Outpatient (REF) | payer MEDICARE ==
[~2018-09-06] MED LIST changes: +ACET-907 PO; +ASPE16CR TOP; +CALC1TAB74 PO; +LYRI75CA PO
[2018-09-06 18:45] LABS: PERCENT SATURATION 20.2 % (13.2-45.0)
== END ==
LOC: M LAB REF 16:39
PROVIDERS: ATTEND Nurse Practitioner Adult Health
DX: E83.110 Hereditary hemochromatosis (principal)

== ENCOUNTER 2020-12-22 08:47 | Emergency (ER) | payer MEDICARE ==
[~2020-12-22 08:47] MED LIST changes: -AMLO10TA5 PO; +AMLO1TAB25 PO; +GABA-282 PO; -GABA-843 PO; -GLIM4TAB PO; +GLIM4TAB5 PO; -IBUP200T45 PO; +IBUP200T46 PO; +MECL-136 PO; -MECL12.575 PO; -SERT-155 PO; +SERT50TA29 PO
--- OUTSIDE RECORDS SUMMARY | 2020-12-22 08:52 | CCD | Continuity of Care Document ---
Author Author Yareli Perez Organization Unknown Address [address] [facility] [address] [place] [address] Phone [phone] Care Team Providers Care Price Changer Name Role Phone Cecilio JoaquinVeronica DO AUTM [phone] Mary Kay Edwards ANP AUTM [phone] Problems Active Problems Provider Date Type 2 diabetes mellitus Reny Ontiveros D.O. Onset: 0 11/24/2011 Osteoporosis Reny Ontiveros D.O. Onset: 2011 Essential hypertension Reny Ontiveros D.O. Onset: Hypothyroidism Reny Ontiveros D.O. Onset: 2011 Pain in thoracic spine Reny Ontiveros D.O. Onset: Therapeutic opioid induced constipation SAM Edwards Onset: 09/14/2017 Foot-drop SAM Edwards Onset: 09/14/2017 Social History Type Date Description Comments Sex Unknown ETOH Use Occasionally consumes wine Tobacco Use Start: Unknown Patient has never smoked Allergies, Adverse Reactions, Alerts Active Allergies Criticality Reaction | Severity Comments Date Penicillin Unable to assess criticality Hives 05/13/2010 Codeine Unable to assess criticality N/V 05/13/2010 Metformin Unable to assess criticality Diarrhea 09/28/2014 Medications Active Medications SIG Qnty Indications Ordering Provide r Date Sertraline HCL 50mg Tablets 1 by mouth every day 90tabs SAM Perez 11/15/2020 Lyrica 75mg Capsules one tab at 8:30 am, one at 2:30 pm and one at 8:30pm dx: m79.7 90caps Mary Kay Haddad, [facility] 11/15/2020 Freestyle Britney 2/Sensor/Flash Glucose M onitoring System 2Sensor Misc reapply every 2 weeks 6units A dianne Nadege Catie, [facility] 11/15/2020 Glipizide 5mg Tablets take 1 tablet by mouth before breakfast and dinner each day 90tabs Mary Kay Haddad [facility] 11/15/2020 Fluticasone Propionate Nasal [place] 50mcg/Act Suspension 2 sprays each nostril 2 hours before bedtime 29.7ml Mary Kay Ochoa, [facility] 07/16/2020 Rosuvastatin Calcium 10mg Tablets 1 by mouth every day 90tabs Mary Kay Ochoa [facility] 07/16/2020 Jardiance 25mg Tablets 1 by mouth every day 90tabs Mary Kay Ochoa [facility] 06/12/2020 Amlodipine Besylate 2.5mg Tablets 1 by mouth every day 90tabs Mary Kay Ochoa [facility] 04/11/2020 Loratadine 10mg Capsules daily for one week then as needed nasal stuffiness 90caps R09.81 Mary Kay Ochoa [facility] 01/04/2020 Quinapril HCL 40mg Tablets take 1 tablet every night. 90tabs Mary Kay Ochoa [facility] 10/03/2019 Levothyroxine Sodium 50mcg Tablets take 1 tablet daily 90tabs Mary Kay Ochoa [facility] 09/14/2019 Combigan 0.2-0.5% Solution Conor Hood MD 08/29/2018 Calcium + D3 600-200 Tablets 1 by mouth twice a day Bambi Vaughn DO 02/15/2018 Vitamin D-3 5000Unit Tablets one every day by mouth 90tabs Bambi Vaughn DO 11/02/2017 Polyethylene Glycol 1000 Powder 17 gram in H2o qd PO prn Armando Roger [facility] 09/14/2017 Preservision Areds Capsules 1 by mouth bid 90caps Bambi Vaughn DO 09/14/2017 Latanoprost 0.005% Solution 1 drop both eyes every night at bedtime Armando Roger [facility] Ge100 Blood Glucose Monitoring System Device Use as Directed 1units Penny Saleem 04/24/2016 Ge100 Blood Glucose Test Strips S trips test twice a day and as directed dx: e11.65 90unAisha CabanOVeronica 04/24/2016 Lancets 30G 30G Misc test twice a day and as needed e11.65 90units Aisha SaleemO. 04/02 Acetaminophen 325mg Tablets 2 tabs by mouth as needed every 4 hours for pain or fever mdd=3 grams Unknown Aspercreme W/Lidocaine 4% Cream 2-4x/d as directed Unknown Vitamin C 500mg Chewtabs 2 by mouth every day Unknown History Medications Lyrica 50mg Capsules one tab at 8:30 am, one at 2:30 pm and one at 8:30pm dx: m79.7 90caps SAM Ríos 10/01/2020 - 11/15/2020 Glimepiride 2mg Tablets 1 by mouth twice daily 180tabs SAM Perez 07/16/2020 - Medications Administered in Office Medication SIG Qnty Indications Ordering Provider Date Covid-19 vaccine, Unspecified Inj ection Unknown 04/05/2020 Administration Of Flu Vaccine Inj ection Conor Hood MD 12/20/2019 Administration Of Flu Vaccine Inj ection SAM Perez 02/17/2019 Administration Of Flu Vaccine Inj ection En Saleem.O. 12/22 Administration Of Flu Vaccine Inj ection SAM Perez 12/01/2012 Administration Of Flu Vaccine Inj ection En Saleem.O. 11/23 Administration Of Flu Vaccine Inj ection Conor Hood MD 12/27/2003 Administration Of Flu Vaccine Inj ection SUMMER Nelson 01/11/2003 Immunizations CPT Code Status Date Vaccine Lot # [id number] Given 11/28/2020 Influenza Vaccin e Quadrivalent Preser/Antibiotic Free Im Use [id number] 11970 Given 12/20/2019 Influenza Vaccin e Quadrivalent Preser/Antibiotic Free Im Use [id number] 41107 Given 02/17/2019 Influenza Vaccin e Quadrivalent Preser/Antibiotic Free Im Use [id number] U-Flu Given 11/12/2017 Influenza,Unspecified Q2037 Given 12/23/2015 Fluvirin Virus Vaccine 25382 01 41315 Given 12/22/2015 Zostavax U-PneuC Given 02/07/2015 Prevnar 13 Q2037 Given 12/01/2012 Fluvirin Virus Vaccine 75009 01 Q2037 Given 11/24/2011 Fluvirin Virus Vaccine 37752 Given 11/26/2010 Pneumovax 23 18566 Given 11/14/2010 Pneumovax 23 06536 Given 12/27/2003 Influenza Virus Vaccine 01036 Given 01/11/2003 Influenza Virus Vaccine 07165 Given 12/14/2001 Influenza Virus Vaccine 98848 Given 11/30/2000 Influenza Virus Vaccine 56394 Given 01/07/1999 Influenza Virus Vaccine 25077 Given 01/07/1998 Pneumovax 23 85694 Given 01/07/1998 Influenza Virus Vaccine Vital Signs Date Vital Result Comment 11/28/2020 1:50pm BP Systolic 154 mmHg BP Diastolic 82 mmHg Heart Rate 73 /min Height 64 inches 5'4" Weight 139.00 lb O2 % BldC Oximetry 97 % BMI (Body Mass Index) 23.9 kg/m2 11/15/2020 1:06pm BP Systolic 170 mmHg BP Diastolic 70 mmHg Heart Rate 60 /min Height 64 inches 5'4" Weight 140.00 lb O2 % BldC Oximetry 92 % BMI (Body Mass Index) 24.0 kg/m2 Results Test Acquired Date Facility Test Result H/L Range Note Complete Blood Count 11/15/2020 [facility] Patternmaker Hand: [place] [address] [phone] WBC 7.8 x10*3/UL 4.1 - 10.9 RBC 5.08 x10*6/UL 4.20 - 6.30 Hemoglobin 15.4 g/dL 12.0 - 18.0 Hematocrit 46.3 % 37.0 - 51.0 MCV 91.2 fL 80.0 - 97.0 MCH 30.4 pg 26.0 - 32.0 MCHC 33.3 g/dL 31.0 - 38.0 RDW 13.0 % 11.6 - 13.7 PLT 256 x10*3/UL 140 - 440 MPV 8.3 FL 7.8 - 11.0 Lymph % 21.7 % 10.0 - 58.5 Mid % 5.7 % 1.7 - 9.3 Neut % 72.6 % 37.0 - 92.0 Lymph # 1.7 x10*3/UL 0.6 - 4.1 Mid # 0.4 x10*3/UL 0.1 - 0.6 Neut # 5.7 x10*3/UL 2.0 - 7.8 A1c 11/15/2020 [facility] , Patternmaker Hand: Dr Conor Hood [place], [place] [id number] [phone] Hba1c 7.4 % High <5.7 1 Est Avg Glucose 166 mg/dL High 60 - 110 Comprehensive Chem Profile 11/15/2020 [facility], Patternmaker Hand: [place] [address] [phone] Glucose 161 mg/dL High 74 - 99 2 BUN 24 mg/dL High 7 - 18 Creatinine 0.8 mg/dL 0.6 - 1.3 Sodium 141 mEq/L 136 - 145 Potassium 3.9 mEq/L 3.5 - 5.1 Chloride 103 mEq/L 98 - 107 Carbon Dioxide 36 mEq/L High 21 - 32 Calcium 10.0 mg/dL 8.5 - 10.1 Alk. Phosphatase 100 mg/dL 46 - 116 Total Bilirubin 0.5 mg/dL 0.2 - 1.0 Ast (Sgot) 14 U/L Low 15 - 37 Alt (SGPT) 27 U/L 12 - 78 Albumin 4.0 g/dL 3.4 - 5.0 Total Protein 7.3 g/dL 6.4 - 8.2 A/G Ratio 1.21 CALC 1.00 - 1.90 GFR >= 60 mL/min >60 GFR >= 60 mL/min >60 3 Laboratory test finding 11/15/2020 [facility], Patternmaker Hand: [place] [address] [phone] Thyroid Stimulating Hormone 2.16 uIU/mL 0.3 6 - 3.74 A1c 07/16/2020 [facility] , Patternmaker Hand: Dr Conor Hood [place] [id number] [phone] Hba1c 7.8 % High <5.7 4 Est Avg Glucose 177 mg/dL High 60 - 110 Basic Metabolic Panel 07/16/2020 [facility] Pattern[facility] Hand: Dr Conor Hood [place] [id number] [phone] Glucose 129 mg/dL High 74 - 99 5 BUN 24 mg/dL High 7 - 18 Creatinine 0.7 mg/dL 0.6 - 1.3 Sodium 139 mEq/L 136 - 145 Potassium 3.6 mEq/L 3.5 - 5.1 Chloride 101 mEq/L 98 - 107 Carbon Dioxide 34 mEq/L High 21 - 32 Calcium 9.6 mg/dL 8.5 - 10.1 GFR >= 60 mL/min >60 GFR >= 60 mL/min >60 6 Lipid Profile 07/16/2020 [facility] Patternmaker Hand: [place] [address] [phone] Cholesterol 289 mg/dL High 131 - 200 Triglycerides 113 mg/dL 30 - 150 HDL Cholesterol 84 mg/dL High 35 - 60 LDL (Calculated) 182 CALC High 50 - 159 Laboratory test finding 07/16/2020 [facility] Patternmaker Hand: [place] [address] [phone] Thyroid Stimulating Hormone 2.95 uIU/mL 0.3 6 - 3.74 1 Lab Result Notes: Pre-Diabetes 5.7 - 6.4 % Diabetes = or > 6.5% 2 100-125 mg/dL PRE-DIABET ES/FASTING >126 mg/dL DIABETES/FASTING 3 CHRONIC KIDNEY DISEASE STAGI NG PER NKF STAGE I & II GFR >= 60 NORMAL TO MILDLY DECREASED STAGE III GFR 30-59 MODERATELY DECREASED STAGE IV GFR 15-29 SEVERELY DECREASED STAGE V GFR <15 VERY LITTLE GFR LEFT ESRD GFR <15 ON LINE WELDER 4 Lab Result Notes: Pre-Diabetes 5.7 - 6.4 % Diabetes = or > 6.5% 5 100-125 mg/dL PRE-DIABET ES/FASTING >126 mg/dL DIABETES/FASTING 6 CHRONIC KIDNEY DISEASE STAGI NG PER NKF STAGE I & II GFR >= 60 NORMAL TO MILDLY DECREASED STAGE III GFR 30-59 MODERATELY DECREASED STAGE IV GFR 15-29 SEVERELY DECREASED STAGE V GFR <15 VERY LITTLE GFR LEFT ESRD GFR <15 ON [address] WELDER Procedures Date Code Description Status 11/15/2020 97220 Office/Outpatient Established Mo d MDM 30-39 Min Completed 07/16/2020 14337 Office/Outpatient Established Mo d MDM 30-39 Min Completed 01/13/2017 764772392 Diabetic Retinal Eye Exam Comple vickie 01/02/2016 897393276 Bone Mineral Density Test Comple [facility] 04/24/2015 [id number] Mammogram Completed 12/16/2012 [id number] Bone Mineral Density Test Comple vickie 12/06/2012 [id number] Colonoscopy Completed 07/29/2010 [id number] Bone Mineral Density Test Comple vickie 07/29/2010 [id number] Mammogram Completed 03/27/2008 [id number] Mammogram Completed 07/07/2006 [id number] Bone Mineral Density Test Comple [facility] Medical Devices Description No Information Available Encounters Type Date Location Provider Dx Diagnosis Office Visit 11/15/2020 2:00p [facility] Mary Kay Islas, REFERENCE INVESTIGATOR E11.65 Type 2 diabetes mellitus with hyperglyce chelsy E11.42 Type 2 diabetes mellitus wit h diabetic polyneuropathy E03.9 Hypothyroidism, unspecified M79.7 Fibromyalgia F41.9 Anxiety disorder, unspecifie d I10 Essential (primary) hyperten alley E11.649 Type 2 diabetes mellitus wit h hypoglycemia without coma E83.110 Hereditary hemochromatosis Office Visit 07/16/2020 11:00a [facility] 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 F41.9 Anxiety disorder, unspecifie d M79.7 Fibromyalgia E78.00 Pure hypercholesterolemia, u nspecified Assessments Date Code Description Provider 11/28/2020 E11.65 Type 2 diabetes mellitus with hy perglycemia SAM Perez 11/15/2020 E11.65 Type 2 diabetes mellitus with hy perglycemia SAM Perez 11/15/2020 E11.42 Type 2 diabetes mellitus with di abetic polyneuropathy KARLA PerezP 11/15/2020 E03.9 Hypothyroidism, unspecified Mary Kay Le [place], [facility] 11/15/2020 M79.7 Fibromyalgia Mary Kay Le [place], [facility] 11/15/2020 F41.9 Anxiety disorder, unspecified An n Le [place], [facility] 11/15/2020 I10 Essential (primary) hypertension Mary Kay Nadege [place], [facility] 11/15/2020 E11.649 Type 2 diabetes mellitus with hy poglycemia without coma Mary Kay Nadege [place], [facility] 11/15/2020 E83.110 Hereditary hemochromatosis Mary Kay L e [place], [facility] 07/16/2020 E11.65 Type 2 diabetes mellitus with hy perglycemia Mary Kay Le [place], [facility] 07/16/2020 E11.42 Type 2 diabetes mellitus with di abetic polyneuropathy Mary Kay Nadege [place], [facility] 07/16/2020 J30.2 Other seasonal allergic rhinitis Mary Kay Light [place], [facility] 07/16/2020 E03.9 Hypothyroidism, unspecified Mary Kay Le [place], [facility] 07/16/2020 I10 Essential (primary) hypertension Mary Kay Nadege [place], [facility] 07/16/2020 E83.110 Hereditary hemochromatosis Mary Kay L e [place], [facility] 07/16/2020 F41.9 Anxiety disorder, unspecified An n Le [place], [facility] 07/16/2020 M79.7 Fibromyalgia Mary Kay Nadege [place], [facility] 07/16/2020 E78.00 Pure hypercholesterolemia, unspe cified Mary Kay Light [place], [facility] Plan of Treatment No Information Available Functional Status Description No Information Available Mental Status Description No Information Available Referrals Description No Information Available
--- OUTSIDE RECORDS SUMMARY | 2020-12-22 08:52 | CCD | Continuity of Care Document ---
Author Author Yraeli Perez Organization Unknown Address [address] [facility] [address] [place] [address] Phone [phone] Care Team Providers Care Skin Specialist Name Role Phone Cecilio JoaquinVeronica DO AUTM [phone] Mary Kay Edwards ANP AUTM [phone] Problems Active Problems Provider Date Type 2 [...] Use Start: Unknown Patient has never smoked Allergies and adverse reactions Active Allergies Criticality Reaction | Severity Comments [...] 8:30pm dx: m79.7 90caps Mary Kay Haddad, [facility] 11/15/2020 Freestyle Britney 2/Sensor/Flash Glucose M onitoring System 2Sensor Misc reapply every 2 weeks 6units A dianne Ochoa, [facility] 11/15/2020 Glipizide 5mg Tablets take 1 tablet by mouth before breakfast and lunch each day 90tabs Mary Kay Ochoa [facility] 11/15/2020 Fluticasone Propionate Nasal Elizabeth 50mcg/Act Suspension 2 sprays each nostril 2 hours before bedtime 29.7ml Mary Kay Ochoa [facility] 07/16/2020 Rosuvastatin Calcium 10mg Tablets 1 by mouth every day 90tabs Mray Kay Ochoa [facility] 07/16/2020 Jardiance 25mg Tablets 1 by mouth every day 90tabs Mary Kay Ochoa [facility] 06/12/2020 Amlodipine Besylate 2.5mg Tablets 1 by mouth every day 90tabs Mary Kay Ochoa [facility] 04/11/2020 Loratadine 10mg Capsules daily for one week then as needed nasal stuffiness 90caps R09.81 Mary Kay Ochoa [facility] 01/04/2020 Quinapril HCL 40mg Tablets take 1 tablet every night. 90tabs Mary Kay Ochoa [facility] 10/03/2019 Levothyroxine Sodium 50mcg Tablets take 1 tablet daily 90tabs Mary Kay Ochoa [facility] 09/14/2019 Combigan 0.2-0.5% Solution Conor Hood MD 08/29/2018 Calcium + D3 600-200 Tablets 1 by mouth twice a day Bambi Vaughn DO 02/15/2018 Vitamin D-3 5000Unit Tablets one every day by mouth 90tabs Bambi Vaughn DO 11/02/2017 Polyethylene Glycol 1000 Powder 17 gram in H2o qd PO prn Armando Roger [facility] 09/14/2017 Preservision Areds Capsules 1 by mouth bid 90caps Bambi Vaughn DO 09/14/2017 Latanoprost 0.005% Solution 1 drop both eyes every night at bedtime Armando Roger [facility] Ge100 Blood Glucose Monitoring System Device Use as Directed 1units Penny Saleem 04/24/2016 Ge100 Blood Glucose Test Strips S trips test twice a day and as directed dx: e11.65 90units Aisha SaleemOVeronica 04/24/2016 Lancets 30G 30G Misc test twice [...] 8:30pm dx: m79.7 90caps Mary Kay Haddad, [facility] 10/01/2020 - 11/15/2020 Glimepiride 2mg Tablets 1 by mouth twice daily 180tabs Mary Kay Ochoa [facility] 07/16/2020 - Medications Administered in Office Medication SIG Qnty Indications Ordering Provider Date Administration Of Flu Vaccine Inj ection Mary Kay Ochoa [facility] 11/28/2020 Covid-19 vaccine, Unspecified Inj ection Unknown 04/05/2020 Administration Of Flu Vaccine Inj ection Conor Hood MD 12/20/2019 Administration Of Flu Vaccine Inj ection Mary Kay Ochoa [facility] 02/17/2019 Administration Of Flu Vaccine Inj ection En Saleem.O. 12/22 Administration Of Flu Vaccine Inj ection Mary Kay Ochoa [facility] 12/01/2012 Administration Of Flu Vaccine Inj ection En Saleem.O. 11/23 Administration Of Flu Vaccine Inj ection Conor Hood MD 12/27/2003 Administration Of Flu Vaccine Inj ection SUMMER Nelson 01/11/2003 Immunizations CPT Code Status Date Vaccine Lot # 57659 Given 11/28/2020 Influenza Vaccin e Quadrivalent Preser/Antibiotic Free Im Use [id number] 37432 Given 12/20/2019 Influenza Vaccin e Quadrivalent Preser/Antibiotic Free Im Use 528320 60146 Given 02/17/2019 Influenza Vaccin e Quadrivalent Preser/Antibiotic Free Im Use [id number] U-Flu Given 11/12/2017 Influenza,Unspecified Q2037 Given 12/23/2015 Fluvirin Virus Vaccine 89978 01 12461 Given 12/22/2015 Zostavax U-PneuC Given 02/07/2015 Prevnar 13 Q2037 Given 12/01/2012 Fluvirin Virus Vaccine 49138 01 Q2037 Given 11/24/2011 Fluvirin Virus Vaccine 89522 Given 11/26/2010 Pneumovax 23 98688 Given 11/14/2010 Pneumovax 23 22737 Given 12/27/2003 Influenza Virus Vaccine 16212 Given 01/11/2003 Influenza Virus Vaccine 81059 Given 12/14/2001 Influenza Virus Vaccine 13934 Given 11/30/2000 Influenza Virus Vaccine 10045 Given 01/07/1999 Influenza Virus Vaccine 69419 Given 01/07/1998 Pneumovax 23 81784 Given 01/07/1998 Influenza Virus Vaccine Vital Signs [...] H/L Range Note Complete Blood Count 11/15/2020 [facility] Elevators Inspector: [place] [address] [phone] WBC 7.8 x10*3/UL 4.1 - 10.9 RBC [...] 5.7 x10*3/UL 2.0 - 7.8 A1c 11/15/2020 [facility] , Elevators Inspector: [place] [address] [phone] Hba1c 7.4 % High <5.7 1 Est Avg Glucose 166 mg/dL High 60 - 110 Comprehensive Chem Profile 11/15/2020 [facility], Elevators Inspector: [place] [address] [phone] Glucose 161 mg/dL High 74 - 99 [...] mL/min >60 3 Laboratory test finding 11/15/2020 [facility], Elevators Inspector: [place] [address] [phone] Thyroid Stimulating Hormone 2.16 uIU/mL 0.3 6 - 3.74 A1c 07/16/2020 [facility] Elevators Inspector: Dr Conor [place] [id number] [phone] Hba1c 7.8 % High <5.7 4 Est Avg Glucose 177 mg/dL High 60 - 110 Basic Metabolic Panel 07/16/2020 [facility] Elevators Inspector: Dr Conor [place] [id number] [phone] Glucose 129 mg/dL High 74 - 99 [...] 60 mL/min >60 6 Lipid Profile 07/16/2020 [facility] , Elevators Inspector: Dr Conor [place] [address] [phone] Cholesterol 289 mg/dL High 131 - 200 Triglycerides 113 mg/dL 30 - 150 HDL Cholesterol 84 mg/dL High 35 - 60 LDL (Calculated) 182 CALC High 50 - 159 Laboratory test finding 07/16/2020 [facility], Elevators Inspector: Dr Conor [place] [address] [phone] Thyroid Stimulating Hormone 2.95 uIU/mL 0.3 6 [...] LITTLE GFR LEFT ESRD GFR <15 ON GATE ATTENDANT 4 Lab Result Notes: Pre-Diabetes 5.7 - [...] LITTLE GFR LEFT ESRD GFR <15 ON GATE ATTENDANT Procedures Date Code Description Status 11/28/2020 91137 Office/Outpatient Established Lo w MDM 20-29 Min Completed 11/15/2020 89290 Office/Outpatient Established Mo d MDM 30-39 Min Completed 07/16/2020 13064 Office/Outpatient Established Mo d MDM 30-39 Min Completed 01/13/2017 [id number] Diabetic Retinal Eye Exam Comple vickie 01/02/2016 182403338 Bone Mineral Density Test Comple [facility] 04/24/2015 02776974 Mammogram Completed 12/16/2012 [id number] Bone Mineral Density Test Comple [facility] 12/06/2012 [id number] Colonoscopy Completed 07/29/2010 058475873 Bone Mineral Density Test Comple [facility] 07/29/2010 [id number] Mammogram Completed 03/27/2008 [id number] Mammogram Completed 07/07/2006 173387051 Bone Mineral Density Test Comple [facility] Medical Devices Description No Information Available Encounters Type Date Location Provider Dx Diagnosis Office Visit 11/28/2020 1:40p [facility] Mary Kay Welsh ne, HOT IRON WORKER E11.65 Type 2 diabetes mellitus with hyperglyce chelsy Z23 Encounter for immunization Office Visit 11/15/2020 2:00p [facility] Mary Kay Islas, H[employer] IRON WORKER E11.65 Type 2 diabetes mellitus with hyperglyce chelsy E11.42 Type 2 diabetes mellitus wit h diabetic polyneuropathy E03.9 Hypothyroidism, unspecified M79.7 Fibromyalgia F41.9 Anxiety disorder, unspecifie d I10 Essential (primary) hyperten alley E11.649 Type 2 diabetes mellitus wit h hypoglycemia without coma E83.110 Hereditary hemochromatosis Office Visit 07/16/2020 11:00a [facility] Mary Kay Welsh ne, HOT IRON WORKER E11.65 Type 2 diabetes mellitus with hyperglyce chelsy E11.42 Type 2 diabetes mellitus wit h diabetic polyneuropathy J30.2 Other seasonal allergic rhin itis E03.9 Hypothyroidism, unspecified I10 Essential (primary) hyperten alley E83.110 Hereditary hemochromatosis F41.9 Anxiety disorder, unspecifie d M79.7 Fibromyalgia E78.00 Pure hypercholesterolemia, u nspecified Assessments Date Code Description Provider 11/28/2020 E11.65 Type 2 diabetes mellitus with hy perglycemia Mary Kay Ochoa, [facility] 11/28/2020 Z23 Encounter for immunization Mary Kay Haddad, [facility] 11/15/2020 E11.65 Type 2 diabetes mellitus with hy perglycemia Mary Kay Ochoa, [facility] 11/15/2020 E11.42 Type 2 diabetes mellitus with di abetic polyneuropathy Mary Kay Ochoa, [facility] 11/15/2020 E03.9 Hypothyroidism, unspecified Mary Kay Ochoa, [facility] 11/15/2020 M79.7 Fibromyalgia Mary Kay Ochoa, [facility] 11/15/2020 F41.9 Anxiety disorder, unspecified An n Nade[place], [facility] 11/15/2020 I10 Essential (primary) hypertension Mary Kay Ochoa, [facility] 11/15/2020 E11.649 Type 2 diabetes mellitus with hy poglycemia without coma Mary Kay Ochoa, [facility] 11/15/2020 E83.110 Hereditary hemochromatosis Mary Kay Haddad, [facility] 07/16/2020 E11.65 Type 2 diabetes mellitus with hy perglycemia Mary Kay Ochoa, [facility] 07/16/2020 E11.42 Type 2 diabetes mellitus with di abetic polyneuropathy Mary Kay Ochoa, [facility] 07/16/2020 J30.2 Other seasonal allergic rhinitis Mary Kay Ochoa, [facility] 07/16/2020 E03.9 Hypothyroidism, unspecified Mary Kay Ochoa, [facility] 07/16/2020 I10 Essential (primary) hypertension Mary Kay Ochoa, [facility] 07/16/2020 E83.110 Hereditary hemochromatosis Mary Kay Haddad, [facility] 07/16/2020 F41.9 Anxiety disorder, unspecified An n Nadege Haddad, [facility] 07/16/2020 M79.7 Fibromyalgia Mary Kay Ochoa, [facility] 07/16/2020 E78.00 Pure hypercholesterolemia, unspe cified SAM Perez Plan of Treatment Future Appointment(s):* 12/31/2020 10:00 am - SAM Perez at [facility] 11/28/2020 - SAM Perez* E11.65 Type 2 diabetes mellitus with hyperglycemia* Comments:* will change the time of the Glipizide to before breakfast and before lunch as she has persistent highs in the afternoon. * Z23 Encounter for immunization Functional Status Description No Information Available Mental Status Description No Information Available Referrals Description No Information Available
--- OUTSIDE RECORDS SUMMARY | 2020-12-22 08:52 | CCD | Continuity of Care Document ---
Author Author Yareli Perez Organization Unknown Address [address] [facility] [address] [place] [address] Phone [phone] Care Team Providers Care Extra Gang Supervisor Name Role Phone Cecilio JoaquinVeronica DO AUTM [phone] Mary Kay Edwards ANP AUTM [phone] Problems Active Problems Provider Date Type 2 [...] 8:30pm dx: m79.7 90caps Mary Kay Haddad, [facility] 11/15/2020 Freestyle [place] 2/Sensor/Flash Glucose M onitoring System 2Sensor Misc reapply every 2 weeks 6units A dianne Ochoa, [facility] 11/15/2020 Glipizide 5mg Tablets take 1 tablet by mouth before breakfast and lunch each day 90tabs Mary Kay Ochoa [facility] 11/15/2020 Fluticasone Propionate Nasal [place] 50mcg/Act Suspension 2 sprays each nostril 2 hours before bedtime 29.7ml Mary Kay Ochoa [facility] 07/16/2020 Rosuvastatin Calcium 10mg Tablets 1 by mouth every day 90tabs Mary Kay Ochoa [facility] 07/16/2020 Jardiance 25mg Tablets 1 by mouth every day 90tabs Mary Kay Ochoa [facility] 06/12/2020 Amlodipine Besylate 2.5mg Tablets 1 by mouth every day 90tabs Mary Kay Ochoa [facility] 04/11/2020 Loratadine 10mg Capsules daily for one week then as needed nasal stuffiness 90caps R09.81 Mary Kay Ochoa [facility] 01/04/2020 Quinapril HCL 40mg Tablets take 1 tablet every night. 90tabs Mary Kay Ochoa [facility] 10/03/2019 Levothyroxine Sodium 50mcg Tablets take 1 tablet daily 90tabs Mary Kay Ochoa [facility] 09/14/2019 Combigan 0.2-0.5% Solution Conor Hood MD 08/29/2018 Calcium + D3 600-200 Tablets 1 by mouth twice a day Bambi Vaughn DO 02/15/2018 Vitamin D-3 5000Unit Tablets one every day by mouth 90tabs Bambi Vaughn DO 11/02/2017 Polyethylene Glycol 1000 Powder 17 gram in H2o qd PO prn Armando Roger [facility] 09/14/2017 Preservision Areds Capsules 1 by mouth bid 90caps Bambi Vaughn DO 09/14/2017 Latanoprost 0.005% Solution 1 drop both eyes every night at bedtime Armando Roger [facility] Ge100 Blood Glucose Monitoring System Device Use [...] 8:30pm dx: m79.7 90caps Mary Kay Haddad, [facility] 10/01/2020 - 11/15/2020 Glimepiride 2mg Tablets 1 by mouth twice daily 180tabs Mary Kay Ochoa [facility] 07/16/2020 - Medications Administered in Office Medication SIG Qnty Indications Ordering Provider Date Administration Of Flu Vaccine Inj ection Mary Kay Ochoa [facility] 11/28/2020 Covid-19 vaccine, Unspecified Inj ection Unknown 04/05/2020 Administration Of Flu Vaccine Inj ection Conor Hood MD 12/20/2019 Administration Of Flu Vaccine Inj ection Mary Kay Ochoa [facility] 02/17/2019 Administration Of Flu Vaccine Inj ection En Saleem.O. 12/22 Administration Of Flu Vaccine Inj ection Mary Kay Ochoa [facility] 12/01/2012 Administration Of Flu Vaccine Inj ection En Saleem.O. 11/23 Administration Of Flu Vaccine Inj ection Cnoor Hood MD 12/27/2003 Administration Of Flu Vaccine Inj ection [facility] Nelson 01/11/2003 Immunizations CPT Code Status Date Vaccine Lot # 35944 Given 11/28/2020 Influenza Vaccin e Quadrivalent Preser/Antibiotic Free Im Use 203168 81769 Given 12/20/2019 Influenza Vaccin e Quadrivalent Preser/Antibiotic Free Im Use [id number] 76609 Given 02/17/2019 Influenza Vaccin e Quadrivalent Preser/Antibiotic Free Im Use 685374 U-Flu Given 11/12/2017 Influenza,Unspecified Q2037 Given 12/23/2015 Fluvirin Virus Vaccine 64642 01 46365 Given 12/22/2015 Zostavax U-PneuC Given 02/07/2015 Prevnar 13 Q2037 Given 12/01/2012 Fluvirin Virus Vaccine 61741 01 Q2037 Given 11/24/2011 Fluvirin Virus Vaccine 31790 Given 11/26/2010 Pneumovax 23 92306 Given 11/14/2010 Pneumovax 23 70793 Given 12/27/2003 Influenza Virus Vaccine 58140 Given 01/11/2003 Influenza Virus Vaccine 06946 Given 12/14/2001 Influenza Virus Vaccine 20033 Given 11/30/2000 Influenza Virus Vaccine 71126 Given 01/07/1999 Influenza Virus Vaccine 51678 Given 01/07/1998 Pneumovax 23 12379 Given 01/07/1998 Influenza Virus Vaccine Vital Signs [...] H/L Range Note Complete Blood Count 11/15/2020 [facility] Barrel Lathe Operator: [place] [address] [phone] WBC 7.8 x10*3/UL 4.1 - 10.9 RBC [...] 5.7 x10*3/UL 2.0 - 7.8 A1c 11/15/2020 [facility] , Barrel Lathe Operator: [place] [address] [phone] Hba1c 7.4 % High <5.7 1 Est Avg Glucose 166 mg/dL High 60 - 110 Comprehensive Chem Profile 11/15/2020 [facility], Barrel Lathe Operator: [place] [address] [phone] Glucose 161 mg/dL High 74 - 99 [...] mL/min >60 3 Laboratory test finding 11/15/2020 [facility], Barrel Lathe Operator: [place] [address] [phone] Thyroid Stimulating Hormone 2.16 uIU/mL 0.3 6 - 3.74 A1c 07/16/2020 [facility] Barrel Lathe Operator: Dr Conor Hood [place], [place] [address] [phone] Hba1c 7.8 % High <5.7 4 Est Avg Glucose 177 mg/dL High 60 - 110 Basic Metabolic Panel 07/16/2020 [facility] Barrel Lathe Operator: Dr Conor Hood [place], [place] [address] [phone] Glucose 129 mg/dL High 74 - 99 [...] 60 mL/min >60 6 Lipid Profile 07/16/2020 [facility] , Barrel Lathe Operator: Dr Conor Hood [place], [place] [address] [phone] Cholesterol 289 mg/dL High 131 - 200 Triglycerides 113 mg/dL 30 - 150 HDL Cholesterol 84 mg/dL High 35 - 60 LDL (Calculated) 182 CALC High 50 - 159 Laboratory test finding 07/16/2020 [facility], Barrel Lathe Operator: Dr Conor Hood [place] [address] [phone] Thyroid Stimulating Hormone 2.95 uIU/mL 0.3 6 [...] LITTLE GFR LEFT ESRD GFR <15 ON TANGIBLE PERSONAL PROPERTY APPRAISER 4 Lab Result Notes: Pre-Diabetes 5.7 - [...] LITTLE GFR LEFT ESRD GFR <15 ON TANGIBLE PERSONAL PROPERTY APPRAISER Procedures Date Code Description Status 11/28/2020 76232 Office/Outpatient Established Lo w MDM 20-29 Min Completed 11/15/2020 96771 Office/Outpatient Established Mo d MDM 30-39 Min Completed 07/16/2020 47126 Office/Outpatient Established Mo d MDM 30-39 Min Completed 01/13/2017 [id number] Diabetic Retinal Eye Exam Comple vickie 01/02/2016 907763374 Bone Mineral Density Test Comple [facility] 04/24/2015 54806957 Mammogram Completed 12/16/2012 [id number] Bone Mineral Density Test Comple [facility] 12/06/2012 [id number] Colonoscopy Completed 07/29/2010 732013458 Bone Mineral Density Test Comple [facility] 07/29/2010 [id number] Mammogram Completed 03/27/2008 65017910 Mammogram Completed 07/07/2006 339432832 Bone Mineral Density Test Comple [facility] Medical Devices Description No Information Available Encounters Type Date Location Provider Dx Diagnosis Office Visit 11/28/2020 1:40p [facility] Mary Kay Welsh ne, TAX DIRECTOR E11.65 Type 2 diabetes mellitus with hyperglyce chelsy Z23 Encounter for immunization Office Visit 11/15/2020 2:00p [facility] Mary Kay Islas, TAX DIRECTOR E11.65 Type 2 diabetes mellitus with hyperglyce chelsy E11.42 Type 2 diabetes mellitus wit h diabetic polyneuropathy E03.9 Hypothyroidism, unspecified M79.7 Fibromyalgia F41.9 Anxiety disorder, unspecifie d I10 Essential (primary) hyperten alley E11.649 Type 2 diabetes mellitus wit h hypoglycemia without coma E83.110 Hereditary hemochromatosis Office Visit 07/16/2020 11:00a [facility] Mary Kay Welsh ne, TAX DIRECTOR E11.65 Type 2 diabetes mellitus with hyperglyce chelsy E11.42 Type 2 diabetes mellitus wit h diabetic polyneuropathy J30.2 Other seasonal allergic rhin itis E03.9 Hypothyroidism, unspecified I10 Essential (primary) hyperten alley E83.110 Hereditary hemochromatosis F41.9 Anxiety disorder, unspecifie d M79.7 Fibromyalgia E78.00 Pure hypercholesterolemia, u nspecified Assessments Date Code Description Provider 11/28/2020 E11.65 Type 2 diabetes mellitus with hy perglycemia Mary Kay Ochoa, [facility] 11/28/2020 Z23 Encounter for immunization Mary Kay Haddad, [facility] 11/15/2020 E11.65 Type 2 diabetes mellitus with hy perglycemia Mary Kay Ochoa, [facility] 11/15/2020 E11.42 Type 2 diabetes mellitus with di abetic polyneuropathy Mary Kay Ochoa, [facility] 11/15/2020 E03.9 Hypothyroidism, unspecified Mary Kay Ochoa, [facility] 11/15/2020 M79.7 Fibromyalgia Mary Kay Ochoa, [facility] 11/15/2020 F41.9 Anxiety disorder, unspecified An n Nadege [place], [facility] 11/15/2020 I10 Essential (primary) hypertension Mary Kay Ochoa, [facility] 11/15/2020 E11.649 Type 2 diabetes mellitus with hy poglycemia without coma Mary Kay Ochoa, [facility] 11/15/2020 E83.110 Hereditary hemochromatosis Mary Kay Haddad, [facility] 07/16/2020 E11.65 Type 2 diabetes mellitus with hy perglycemia Mary Kay Ochoa, [facility] 07/16/2020 E11.42 Type 2 diabetes mellitus with di abetic polyneuropathy Mary Kay Ochoa, [facility] 07/16/2020 J30.2 Other seasonal allergic rhinitis Mary Kay Ochoa, [facility] 07/16/2020 E03.9 Hypothyroidism, unspecified Mary Kay Ochoa, [facility] 07/16/2020 I10 Essential (primary) hypertension Mary Kay Ochoa, [facility] 07/16/2020 E83.110 Hereditary hemochromatosis Mary Kay Haddad, [facility] 07/16/2020 F41.9 Anxiety disorder, unspecified An n Nadege Haddad, [facility] 07/16/2020 M79.7 Fibromyalgia Mary Kay Ochoa, [facility] 07/16/2020 E78.00 Pure hypercholesterolemia, unspe cified SAM Perez Plan of Treatment Future Appointment(s):* 12/31/2020 10:00 am - SAM Perez at [facility] 11/28/2020 - SAM Perez* E11.65 [...]
--- OUTSIDE RECORDS SUMMARY | 2020-12-22 08:52 | CCD | Continuity of Care Document ---
Author Author Yareli ENRIQUEZ PA Organization Unknown Address [address] [facility] [address] [place] [address] Phone [phone] Care Team Providers Care Unit Leader Name Role Phone Cecilio JoaquinVeronica DO AUTM [phone] Mary Kay Edwards AUTM [phone] Problems Active Problems Provider Date Type 2 diabetes mellitus Reny Ontiveros D.O. Onset: 0 11/24/2011 Osteoporosis Reny Ontiveros D.O. Onset: 2011 Essential hypertension Reny Ontiverso D.O. Onset: Hypothyroidism Reny Ontiveros D.O. Onset: [...] Indications Ordering Provide r Date Sertraline HCL 25mg Tablets 1 by mouth every day JERICHO Figueroa JR 021 Glipizide 5mg Tablets take 1 tablet by mouth before breakfast and lunch each day 90tabs SAM Perez 11/15/2020 Lyrica 75mg Capsules one tab at 8:30 am, one at 2:30 pm and one at 8:30pm dx: m79.7 90caps Mary Kay Suggs alyssa Catie, [facility] 11/15/2020 Freestyle Britney 2/Sensor/Flash Glucose M onitoring System 2Sensor Misc reapply every 2 weeks please bill under Part B 6units Mary Kay Ochoa, [facility] 11/15/2020 Fluticasone Propionate Nasal [place] 50mcg/Act Suspension 2 sprays each nostril 2 hours before bedtime 29.7ml Mary Kay Ochoa, [facility] 07/16/2020 Rosuvastatin Calcium 10mg Tablets 1 by mouth every day 90tabs Mary Kay Ochoa [facility] 07/16/2020 Jardiance 25mg Tablets 1 by mouth every day 90tabs Mary Kay Ochoa [facility] 06/12/2020 Amlodipine Besylate 2.5mg Tablets 1 by mouth every day 90tabs Mar yKay Ochoa [facility] 04/11/2020 Loratadine 10mg Capsules daily for one week then as needed nasal stuffiness 90caps R09.81 Mary Kay Ochoa [facility] 01/04/2020 Quinapril HCL 40mg Tablets take 1 tablet every night. 90tabs Mary Kay Ochoa [facility] 10/03/2019 Levothyroxine Sodium 50mcg Tablets take 1 tablet daily 90tabs Mary Kay Ochoa [facility] 09/14/2019 Combigan 0.2-0.5% Solution Conor Hood MD 08/29/2018 Calcium + D3 600-200 Tablets 1 by mouth twice a day Bambi Vaughn DO 02/15/2018 Vitamin D-3 5000Unit Tablets one every day by mouth 90tabs Bambi Vaughn DO 11/02/2017 Polyethylene Glycol 1000 Powder 17 gram in H2o qd PO prn Armando Roger [facility] 09/14/2017 Preservision Areds Capsules 1 by mouth bid 90caps Bambi Vaughn DO 09/14/2017 Latanoprost 0.005% Solution 1 drop both eyes every night at bedtime Armando Roger [facility] Ge100 Blood Glucose Monitoring System Device Use [...] by mouth every day Unknown History Medications Sertraline HCL 50mg Tablets 1 by mouth every day 90tabs Mary Kay Ochoa [facility] 11/15/2020 - Lyrica 50mg Capsules one tab at 8:30 am, one at 2:30 pm and one at 8:30pm dx: m79.7 90caps Mary Kay Haddad [facility] 10/01/2020 - 11/15/2020 Glimepiride 2mg Tablets 1 by mouth twice daily 180tabs Mary Kay Ochoa [facility] 07/16/2020 - Medications Administered in Office Medication SIG Qnty Indications Ordering Provider Date Administration Of Flu Vaccine Inj ection Mary Kay Ochoa [facility] 11/28/2020 Covid-19 vaccine, Unspecified Inj ection Unknown 04/05/2020 Administration Of Flu Vaccine Inj ection Conor Hood MD 12/20/2019 Administration Of Flu Vaccine Inj ection Mary Kay Ochoa [facility] 02/17/2019 Administration Of Flu Vaccine Inj ection Reny Ontiveros D.O. 12/22 Administration Of Flu Vaccine Inj ection SAM Perez 12/01/2012 Administration Of Flu Vaccine Inj ection Reny Ontiveros D.O. 11/23 Administration Of Flu Vaccine Inj ection Conor Hood MD 12/27/2003 Administration Of Flu Vaccine Inj ection SUMMER Nelson 01/11/2003 Immunizations CPT Code Status Date Vaccine Lot # 20267 Given 11/28/2020 Influenza Vaccin e Quadrivalent Preser/Antibiotic Free Im Use 153193 99097 Given 12/20/2019 Influenza Vaccin e Quadrivalent Preser/Antibiotic Free Im Use [id number] 21874 Given 02/17/2019 Influenza Vaccin e Quadrivalent Preser/Antibiotic Free Im Use 370338 U-Flu Given 11/12/2017 Influenza,Unspecified Q2037 Given 12/23/2015 Fluvirin Virus Vaccine 08734 01 71673 Given 12/22/2015 Zostavax U-PneuC Given 02/07/2015 Prevnar 13 Q2037 Given 12/01/2012 Fluvirin Virus Vaccine 49953 01 Q2037 Given 11/24/2011 Fluvirin Virus Vaccine 15243 Given 11/26/2010 Pneumovax 23 91342 Given 11/14/2010 Pneumovax 23 84468 Given 12/27/2003 Influenza Virus Vaccine 75997 Given 01/11/2003 Influenza Virus Vaccine 21354 Given 12/14/2001 Influenza Virus Vaccine 14562 Given 11/30/2000 Influenza Virus Vaccine 07278 Given 01/07/1999 Influenza Virus Vaccine 74951 Given 01/07/1998 Pneumovax 23 69000 Given 01/07/1998 Influenza Virus Vaccine Vital Signs Date Vital Result Comment 12/06/2020 2:45pm BP Systolic 150 mmHg BP Diastolic 80 mmHg Heart Rate 95 /min Height 64 inches 5'4" Weight 133.00 lb BMI (Body Mass Index) 22.8 kg/m2 11/28/2020 1:50pm BP Systolic 154 mmHg BP Diastolic 82 mmHg Heart Rate 73 /min Height 64 inches 5'4" Weight 139.00 lb O2 % BldC Oximetry 97 % BMI (Body Mass Index) 23.9 kg/m2 Results Test Acquired Date Facility Test Result H/L Range Note Complete Blood Count 11/15/2020 [facility] Picking Machine Operator: [place] [address] [phone] WBC 7.8 x10*3/UL 4.1 - 10.9 RBC [...] 5.7 x10*3/UL 2.0 - 7.8 A1c 11/15/2020 [facility] , Picking Machine Operator: [place] [address] [phone] Hba1c 7.4 % High <5.7 1 Est Avg Glucose 166 mg/dL High 60 - 110 Comprehensive Chem Profile 11/15/2020 [facility], Picking Machine Operator: [place] [address] [phone] Glucose 161 mg/dL High 74 - 99 [...] mL/min >60 3 Laboratory test finding 11/15/2020 [facility], Picking Machine Operator: Dr [place] [address] [phone] Thyroid Stimulating Hormone 2.16 uIU/mL 0.3 6 - 3.74 A1c 07/16/2020 [facility] Picking Machine Operator: [place] [address] [phone] Hba1c 7.8 % High <5.7 4 Est Avg Glucose 177 mg/dL High 60 - 110 Basic Metabolic Panel 07/16/2020 [facility] Picking Machine Operator: Dr Con[place] [address] [phone] Glucose 129 mg/dL High 74 - 99 [...] 60 mL/min >60 6 Lipid Profile 07/16/2020 [facility] Picking Machine Operator: Dr [place] [address] [phone] Cholesterol 289 mg/dL High 131 - 200 Triglycerides 113 mg/dL 30 - 150 HDL Cholesterol 84 mg/dL High 35 - 60 LDL (Calculated) 182 CALC High 50 - 159 Laboratory test finding 07/16/2020 [facility] Picking Machine Operator: [place] [address] [phone] Thyroid Stimulating Hormone 2.95 uIU/mL 0.3 6 [...] LITTLE GFR LEFT ESRD GFR <15 ON TOLL SERVICE OBSERVER 4 Lab Result Notes: Pre-Diabetes 5.7 - [...] LITTLE GFR LEFT ESRD GFR <15 ON TOLL SERVICE OBSERVER Procedures Date Code Description Status 12/06/2020 69484 Office/Outpatient Established Mo d MDM 30-39 Min Completed 11/28/2020 27127 Office/Outpatient Established Lo w MDM 20-29 Min Completed 11/15/2020 37828 Office/Outpatient Established Mo d MDM 30-39 Min Completed 07/16/2020 62572 Office/Outpatient Established Mo d MDM 30-39 Min Completed 01/13/2017 [id number] Diabetic Retinal Eye Exam Comple [facility] 01/02/2016 [id number] Bone Mineral Density Test Comple [facility] 04/24/2015 [id number] Mammogram Completed 12/16/2012 [id number] Bone Mineral Density Test Comple [facility] 12/06/2012 [id number] Colonoscopy Completed 07/29/2010 [id number] Bone Mineral Density Test Comple [facility] 07/29/2010 [id number] Mammogram Completed 03/27/2008 [id number] Mammogram Completed 07/07/2006 [id number] Bone Mineral Density Test Comple [facility] Medical Devices Description No Information Available Encounters Type Date Location Provider Dx Diagnosis Office Visit 12/06/2020 3:00p [facility] 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 Mary Kay Islas, ELECTRICAL MANUFACTURING ENGINEER E11.65 Type 2 diabetes mellitus with hyperglyce chelsy Z23 Encounter for immunization Office Visit 11/15/2020 2:00p [facility], [employer]LECTR[employer] MANUFACTURING ENGINEER E11.65 Type 2 diabetes mellitus with hyperglyce chelsy E11.42 Type 2 diabetes mellitus wit h diabetic polyneuropathy E03.9 Hypothyroidism, unspecified M79.7 Fibromyalgia F41.9 Anxiety disorder, unspecifie d I10 Essential (primary) [place] E11.649 Type 2 diabetes mellitus wit h hypoglycemia without coma E83.110 Hereditary hemochromatosis Office Visit 07/16/2020 11:00a [facility] Mary Kay Welsh ne, [facility] E11.65 Type 2 diabetes mellitus with hyperglyce chelsy E11.42 Type 2 diabetes mellitus wit h diabetic polyneuropathy J30.2 Other seasonal allergic rhin itis E03.9 Hypothyroidism, unspecified I10 Essential (primary) hyper[place] E83.110 Hereditary hemochromatosis F41.9 Anxiety disorder, unspecifie d M79.7 Fibromyalgia E78.00 Pure hypercholesterolemia, u nspecified Assessments Date Code Description Provider 12/06/2020 E11.65 Type 2 diabetes mellitus with hy perglycemia JERICHO Figueroa JR 12/06/2020 E11.42 Type 2 diabetes mellitus with di abetic polyneuropathy JERICHO Figueroa JR 12/06/2020 E03.9 Hypothyroidism, unspecified Robe JERICHO Gasca JR 12/06/2020 M79.7 Fibromyalgia JERICHO Jay JR 12/06/2020 F41.9 Anxiety disorder, unspecified Ro JERICHO Jim JR 12/06/2020 R60.0 Localized edema JERICHO Jay JR 11/28/2020 E11.65 Type 2 diabetes mellitus with hy perglycemia MaryK ay Ochoa, [facility] 11/28/2020 Z23 Encounter for immunization Mary Kay Haddad, [facility] 11/15/2020 E11.65 Type 2 diabetes mellitus with hy perglycemia Mary Kay Ochoa [facility] 11/15/2020 E11.42 Type 2 diabetes mellitus with di abetic polyneuropathy Mary Kay Ochoa [facility] 11/15/2020 E03.9 Hypothyroidism, unspecified Mary Kay Ochoa [facility] 11/15/2020 M79.7 Fibromyalgia Mary Kay Ochoa, [facility] 11/15/2020 F41.9 Anxiety disorder, unspecified An romi Ochoa, [facility] 11/15/2020 I10 Essential (primary) hypertension Mary Kay Ochoa [facility] 11/15/2020 E11.649 Type 2 diabetes mellitus with hy poglycemia without coma Mary Kay Ochoa [facility] 11/15/2020 E83.110 Hereditary hemochromatosis Mary Kay Haddad, [facility] 07/16/2020 E11.65 Type 2 diabetes mellitus with hy perglycemia Mary Kay Ochoa, [facility] 07/16/2020 E11.42 Type 2 diabetes mellitus with di abetic polyneuropathy Mary Kay Ochoa, [facility] 07/16/2020 J30.2 Other seasonal allergic rhinitis Mary Kay Ochoa, [facility] 07/16/2020 E03.9 Hypothyroidism, unspecified Mary Kay Ochoa, [facility] 07/16/2020 I10 Essential (primary) hypertension Mary Kay Ochoa, [facility] 07/16/2020 E83.110 Hereditary hemochromatosis Mary Kay Haddad, [facility] 07/16/2020 F41.9 Anxiety disorder, unspecified An romi Ochoa, [facility] 07/16/2020 M79.7 Fibromyalgia Mary Kay Ochoa, [facility] 07/16/2020 E78.00 Pure hypercholesterolemia, unspe cified SAM Perez Plan of Treatment Future Appointment(s):* 12/31/2020 10:00 am - SAM Perez at [facility] 12/06/2020 - JERICHO Figueroa JR* E11.65 Type 2 diabetes mellitus with hyperglycemia * E11.42 Type 2 diabetes mellitus with diabetic polyneuropathy * E03.9 Hypothyroidism, unspecified * M79.7 Fibromyalgia * F41.9 Anxiety disorder, unspecified * R60.0 Localized edema * All * New Medication:* Sertraline HCL 25 mg - 1 by mouth every day * Comments:* Total time spent with patient was 38 minutes. Patient verbalized understanding and agreement with all plans. Majority of visit was spent counseling the patient. Functional Status Description No Information Available Mental Status Description No Information Available Referrals Description No Information Available
--- OUTSIDE RECORDS SUMMARY | 2020-12-22 08:52 | CCD | Continuity of Care Document ---
Author Author Yareli ENRIQUEZ PA Organization Unknown Address [address] [facility] [address] [place] [address] Phone [phone] Care Team Providers Care Network Controller Name Role Phone Cecilio JoaquinVeronica DO AUTM [phone] Mary Kay Edwards AUTM [phone] Problems Active Problems Provider Date Type 2 [...] at 8:30pm dx: m79.7 90caps Mary Kay Es shha Catie, [facility] 11/15/2020 Freestyle Britney 2/Sensor/Flash Glucose M onitoring System 2Sensor Misc reapply every 2 weeks 6units A dianne Nadege Catie, [facility] 11/15/2020 Fluticasone Propionate Nasal [place] 50mcg/Act Suspension 2 sprays each nostril 2 hours before bedtime 29.7ml Mary Kay Ochoa [facility] 07/16/2020 Rosuvastatin Calcium 10mg Tablets 1 by mouth every day 90tabs Mary Kay Ochoa [facility] 07/16/2020 Jardiance 25mg Tablets 1 by mouth every day 90tabs Mary Kay Ochoa [facility] 06/12/2020 Amlodipine Besylate 2.5mg Tablets 1 by mouth every day 90tabs Mary Kay Ochoa [facility] 04/11/2020 Loratadine 10mg Capsules daily for one week then as needed nasal stuffiness 90caps R09.81 Mary Kay Ochoa [facility] 01/04/2020 Quinapril HCL 40mg Tablets take 1 tablet every night. 90tabs Mary Kay Ochoa [facility] 10/03/2019 Levothyroxine Sodium 50mcg Tablets take 1 tablet daily 90tabs Mary Kay Ochoa [facility] 09/14/2019 Combigan 0.2-0.5% Solution Conor Hood MD 08/29/2018 Calcium + D3 600-200 Tablets 1 by mouth twice a day Bambi Vaughn DO 02/15/2018 Vitamin D-3 5000Unit Tablets one every day by mouth 90tabs Bambi Vaughn DO 11/02/2017 Polyethylene Glycol 1000 Powder 17 gram in H2o qd PO prn Armando Roger [facility] 09/14/2017 Preservision Areds Capsules 1 by mouth bid 90caps Bambi Vaughn DO 09/14/2017 Latanoprost 0.005% Solution 1 drop both eyes every night at bedtime Armando Roger [facility] Ge100 Blood Glucose Monitoring System Device Use as Directed 1units Penny Saleem 04/24/2016 Ge100 Blood Glucose Test Strips S trips test twice a day and as directed dx: e11.65 90units Aisha SaleemOVeronica 04/24/2016 Lancets 30G 30G Misc test twice a day and as needed e11.65 90units En Saleem.O. 04/02 Acetaminophen 325mg Tablets 2 tabs by mouth as needed every 4 hours for pain or fever mdd=3 grams Unknown Aspercreme W/Lidocaine 4% Cream 2-4x/d as directed Unknown Vitamin C 500mg Chewtabs 2 by mouth every day Unknown History Medications Sertraline HCL 50mg Tablets 1 by mouth every day 90tabs Mary Kay Ochoa [facility] 11/15/2020 - Lyrica 50mg Capsules one tab at 8:30 am, one at 2:30 pm and one at 8:30pm dx: m79.7 90caps Mary Kay Haddad [facility] 10/01/2020 - 11/15/2020 Glimepiride 2mg Tablets 1 by mouth twice daily 180tabs KARLA PerezP 07/16/2020 - Medications Administered in Office Medication SIG Qnty Indications Ordering Provider Date Administration Of Flu Vaccine Inj ection KARLA PerezP 11/28/2020 Covid-19 vaccine, Unspecified Inj ection Unknown 04/05/2020 Administration Of Flu Vaccine Inj ection Conor Hood MD 12/20/2019 Administration Of Flu Vaccine Inj ection KARLA PerezP 02/17/2019 Administration Of Flu Vaccine Inj ection Reny Ontiveros, D.O. 12/22 Administration Of Flu Vaccine Inj ection SAM Perez 12/01/2012 Administration Of Flu Vaccine Inj ection Reny Ontiveros D.O. 11/23 Administration Of Flu Vaccine Inj ection Conor Hood MD 12/27/2003 Administration Of Flu Vaccine Inj ection SUMMER Nelson 01/11/2003 Immunizations CPT Code Status Date Vaccine Lot # [id number] Given 11/28/2020 Influenza Vaccin e Quadrivalent Preser/Antibiotic Free Im Use [id number] 40965 Given 12/20/2019 Influenza Vaccin e Quadrivalent Preser/Antibiotic Free Im Use [id number] 68538 Given 02/17/2019 Influenza Vaccin e Quadrivalent Preser/Antibiotic Free Im Use 684661 U-Flu Given 11/12/2017 Influenza,Unspecified Q2037 Given 12/23/2015 Fluvirin Virus Vaccine 26276 01 35725 Given 12/22/2015 Zostavax U-PneuC Given 02/07/2015 Prevnar 13 Q2037 Given 12/01/2012 Fluvirin Virus Vaccine 84670 01 Q2037 Given 11/24/2011 Fluvirin Virus Vaccine 87090 Given 11/26/2010 Pneumovax 23 06282 Given 11/14/2010 Pneumovax 23 27555 Given 12/27/2003 Influenza Virus Vaccine 13654 Given 01/11/2003 Influenza Virus Vaccine 82978 Given 12/14/2001 Influenza Virus Vaccine 74380 Given 11/30/2000 Influenza Virus Vaccine 30912 Given 01/07/1999 Influenza Virus Vaccine 23463 Given 01/07/1998 Pneumovax 23 28443 Given 01/07/1998 Influenza Virus Vaccine Vital Signs [...] H/L Range Note Complete Blood Count 11/15/2020 [facility] Roller Leveler Operator: [place] [address] [phone] WBC 7.8 x10*3/UL 4.1 - 10.9 RBC [...] 5.7 x10*3/UL 2.0 - 7.8 A1c 11/15/2020 [facility] Roller Leveler Operator: [place] [address] [phone] Hba1c 7.4 % High <5.7 1 Est Avg Glucose 166 mg/dL High 60 - 110 Comprehensive Chem Profile 11/15/2020 [facility] Roller Leveler Operator: [place] [address] [phone] Glucose 161 mg/dL High 74 - 99 [...] mL/min >60 3 Laboratory test finding 11/15/2020 [facility] Roller Leveler Operator: [place] [address] [phone] Thyroid Stimulating Hormone 2.16 uIU/mL 0.3 6 - 3.74 A1c 07/16/2020 [facility] Roller Leveler Operator: [place] [address] [phone] Hba1c 7.8 % High <5.7 4 Est Avg Glucose 177 mg/dL High 60 - 110 Basic Metabolic Panel 07/16/2020 [facility] Roller Leveler Operator: [place] [address] [phone] Glucose 129 mg/dL High 74 - 99 [...] 60 mL/min >60 6 Lipid Profile 07/16/2020 [facility] , Roller Leveler Operator: [place] [address] [phone] Cholesterol 289 mg/dL High 131 - 200 Triglycerides 113 mg/dL 30 - 150 HDL Cholesterol 84 mg/dL High 35 - 60 LDL (Calculated) 182 CALC High 50 - 159 Laboratory test finding 07/16/2020 [facility], Roller Leveler Operator: Dr Cnoor Hood [place], [place] [address] [phone] Thyroid Stimulating Hormone 2.95 uIU/mL 0.3 6 [...] LITTLE GFR LEFT ESRD GFR <15 ON WALL AND FLOOR TILER 4 Lab Result Notes: Pre-Diabetes 5.7 - [...] LITTLE GFR LEFT ESRD GFR <15 ON WALL AND FLOOR TILER Procedures Date Code Description Status 11/28/2020 12434 Office/Outpatient Established Lo w MDM 20-29 Min Completed 11/15/2020 17097 Office/Outpatient Established Mo d MDM 30-39 Min Completed 07/16/2020 47645 Office/Outpatient Established Mo d MDM 30-39 Min Completed 01/13/2017 [id number] Diabetic Retinal Eye Exam Comple [facility] 01/02/2016 622971584 Bone Mineral Density Test Comple [facility] 04/24/2015 [id number] Mammogram Completed 12/16/2012 [id number] Bone Mineral Density Test Comple vickie 12/06/2012 [id number] Colonoscopy Completed 07/29/2010 896389079 Bone Mineral Density Test Comple [facility] 07/29/2010 [id number] Mammogram Completed 03/27/2008 [id number] Mammogram Completed 07/07/2006 [id number] Bone Mineral Density Test Comple [facility] Medical Devices Description No Information Available Encounters Type Date Location Provider Dx Diagnosis Office Visit 11/28/2020 1:40p [facility] Mary Kay Islas, MINE CAR DISPATCHER E11.65 Type 2 diabetes mellitus with hyperglyce chelsy Z23 Encounter for immunization Office Visit 11/15/2020 2:00p [facility] Mary Kay Islas, MINE CAR DISPATCHER E11.65 Type 2 diabetes mellitus with hyperglyce chelsy E11.42 Type 2 diabetes mellitus wit h diabetic polyneuropathy E03.9 Hypothyroidism, unspecified M79.7 Fibromyalgia F41.9 Anxiety disorder, unspecifie d I10 Essential (primary) hyperten alley E11.649 Type 2 diabetes mellitus wit h hypoglycemia without coma E83.110 Hereditary hemochromatosis Office Visit 07/16/2020 11:00a [facility] Mary Kay Islas, MINE CAR DISPATCHER E11.65 Type 2 diabetes mellitus with hyperglyce chelsy E11.42 Type 2 diabetes mellitus wit h diabetic polyneuropathy J30.2 Other seasonal allergic rhin itis E03.9 Hypothyroidism, unspecified I10 Essential (primary) hyperten alley E83.110 Hereditary hemochromatosis F41.9 Anxiety disorder, unspecifie d M79.7 Fibromyalgia E78.00 Pure hypercholesterolemia, u nspecified Assessments Date Code Description Provider 11/28/2020 E11.65 Type 2 diabetes mellitus with hy perglycemia Mary Kay Ochoa, [facility] 11/28/2020 Z23 Encounter for immunization Mary Kay Haddad, [facility] 11/15/2020 E11.65 Type 2 diabetes mellitus with hy perglycemia Mary Kay Nadege [place], [facility] 11/15/2020 E11.42 Type 2 diabetes mellitus with di abetic polyneuropathy Mary Kay Nadege [place], [facility] 11/15/2020 E03.9 Hypothyroidism, unspecified Mary Kay Nadege [place], [facility] 11/15/2020 M79.7 Fibromyalgia Mary Kay Nadege [place], [facility] 11/15/2020 F41.9 Anxiety disorder, unspecified An n Nadege Haddad, [facility] 11/15/2020 I10 Essential (primary) hypertension Mary Kay Ochoa, [facility] 11/15/2020 E11.649 Type 2 diabetes mellitus with hy poglycemia without coma Mary Kay Nadege Haddad, [facility] 11/15/2020 E83.110 Hereditary hemochromatosis Mary Kay shah [place], [facility] 07/16/2020 E11.65 Type 2 diabetes mellitus with hy perglycemia Mary Kay Nadege [place], [facility] 07/16/2020 E11.42 Type 2 diabetes mellitus with di abetic polyneuropathy Mary Kay Nadege H[place], [facility] 07/16/2020 J30.2 Other seasonal allergic rhinitis Mary Kay Ochoa, [facility] 07/16/2020 E03.9 Hypothyroidism, unspecified Mary Kay Light [place], [facility] 07/16/2020 I10 Essential (primary) hypertension Mary Kay Nadege [place], [facility] 07/16/2020 E83.110 Hereditary hemochromatosis Mary Kay Suggs alyssa [place], [facility] 07/16/2020 F41.9 Anxiety disorder, unspecified An n Nadege [place], [facility] 07/16/2020 M79.7 Fibromyalgia Mary Kay Ochoa, [facility] 07/16/2020 E78.00 Pure hypercholesterolemia, unspe cified Mary Kay Ochoa [facility] Plan of Treatment Future Appointment(s):* 12/31/2020 10:00 am - SAM Perez at [facility] 12/06/2020 - Tanvir Enriquez JR, PA* All * New Medication:* Sertraline HCL 25 mg - 1 by mouth every day Functional Status Description No Information Available Mental Status Description No Information Available Referrals Description No Information Available
--- OUTSIDE RECORDS SUMMARY | 2020-12-22 08:53 | CCD ---
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 Name Role Phone LePine, M Mary Kay GEOSPATIAL PROGRAM MANAGEMENT OFFICER Unavailable Unavailable LePine, M Mary Kay GEOSPATIAL PROGRAM MANAGEMENT OFFICER Unavailable Unavailable LePine, M Mary Kay GEOSPATIAL PROGRAM MANAGEMENT OFFICER Unavailable Unavailable LePine, M Mary Kay GEOSPATIAL PROGRAM MANAGEMENT OFFICER Unavailable Unavailable LePine, M Mary Kay GEOSPATIAL PROGRAM MANAGEMENT OFFICER Unavailable Unavailable LePine, M Mary Kay GEOSPATIAL PROGRAM MANAGEMENT OFFICER Unavailable Unavailable LePine, M Mary Kay GEOSPATIAL PROGRAM MANAGEMENT OFFICER Unavailable Unavailable LePine, M Mary Kay GEOSPATIAL PROGRAM MANAGEMENT OFFICER Unavailable Unavailable LePine, M Mary Kay GEOSPATIAL PROGRAM MANAGEMENT OFFICER Unavailable Unavailable LePine, M Mary Kay GEOSPATIAL PROGRAM MANAGEMENT OFFICER Unavailable Unavailable LePine, M Mary Kay GEOSPATIAL PROGRAM MANAGEMENT OFFICER Unavailable Unavailable LePine, M Mary Kay GEOSPATIAL PROGRAM MANAGEMENT OFFICER Unavailable Unavailable LePine, M Mary Kay GEOSPATIAL PROGRAM MANAGEMENT OFFICER Unavailable Unavailable LePine, M Mary Kay GEOSPATIAL PROGRAM MANAGEMENT OFFICER Unavailable Unavailable LePine, M Mary Kay GEOSPATIAL PROGRAM MANAGEMENT OFFICER Unavailable Unavailable LePine, M Mary Kay GEOSPATIAL PROGRAM MANAGEMENT OFFICER Unavailable Unavailable LePine, M Mary Kay GEOSPATIAL PROGRAM MANAGEMENT OFFICER Unavailable Unavailable LePine, M Mary Kay GEOSPATIAL PROGRAM MANAGEMENT OFFICER Unavailable Unavailable LePine, M Mary Kay GEOSPATIAL PROGRAM MANAGEMENT OFFICER Unavailable Unavailable LePine, M Mary Kay GEOSPATIAL PROGRAM MANAGEMENT OFFICER Unavailable Unavailable LePine, M Mary Kay GEOSPATIAL PROGRAM MANAGEMENT OFFICER Unavailable Unavailable LePine, M Mary Kay GEOSPATIAL PROGRAM MANAGEMENT OFFICER Unavailable Unavailable LePine, M Mary Kay GEOSPATIAL PROGRAM MANAGEMENT OFFICER Unavailable Unavailable LePine, M Mary Kay GEOSPATIAL PROGRAM MANAGEMENT OFFICER Unavailable Unavailable LePine, M Mary Kay GEOSPATIAL PROGRAM MANAGEMENT OFFICER Unavailable Unavailable LePine, M Mary Kay GEOSPATIAL PROGRAM MANAGEMENT OFFICER Unavailable Unavailable LePine, M Mary Kay GEOSPATIAL PROGRAM MANAGEMENT OFFICER Unavailable Unavailable LePine, M Mary Kay GEOSPATIAL PROGRAM MANAGEMENT OFFICER Unavailable Unavailable LePine, M Mary Kay GEOSPATIAL PROGRAM MANAGEMENT OFFICER Unavailable Unavailable LePine, M Mary Kay GEOSPATIAL PROGRAM MANAGEMENT OFFICER Unavailable Unavailable LePine, M Mary Kay GEOSPATIAL PROGRAM MANAGEMENT OFFICER Unavailable Unavailable LePine, M Mary Kay GEOSPATIAL PROGRAM MANAGEMENT OFFICER Unavailable Unavailable LePine, M Mary Kay GEOSPATIAL PROGRAM MANAGEMENT OFFICER Unavailable Unavailable LePine, M Mary Kay GEOSPATIAL PROGRAM MANAGEMENT OFFICER Unavailable Unavailable LePine, M Mary Kay GEOSPATIAL PROGRAM MANAGEMENT OFFICER Unavailable Unavailable LePine, M Mary Kay GEOSPATIAL PROGRAM MANAGEMENT OFFICER Unavailable Unavailable LePine, M Mary Kay GEOSPATIAL PROGRAM MANAGEMENT OFFICER Unavailable Unavailable LePine, M Mary Kay GEOSPATIAL PROGRAM MANAGEMENT OFFICER Unavailable Unavailable LePine, M Mary Kay GEOSPATIAL PROGRAM MANAGEMENT OFFICER Unavailable Unavailable LePine, M Mary Kay GEOSPATIAL PROGRAM MANAGEMENT OFFICER Unavailable Unavailable LePine, M Mary Kay GEOSPATIAL PROGRAM MANAGEMENT OFFICER Unavailable Unavailable LePine, M Mary Kay GEOSPATIAL PROGRAM MANAGEMENT OFFICER Unavailable Unavailable LePine, M Mary Kay GEOSPATIAL PROGRAM MANAGEMENT OFFICER Unavailable Unavailable LePine, M Mary Kay GEOSPATIAL PROGRAM MANAGEMENT OFFICER Unavailable Unavailable LePine, M Mary Kay GEOSPATIAL PROGRAM MANAGEMENT OFFICER Unavailable Unavailable LePine, M Mary Kay GEOSPATIAL PROGRAM MANAGEMENT OFFICER Unavailable Unavailable LePine, M Mary Kay GEOSPATIAL PROGRAM MANAGEMENT OFFICER Unavailable Unavailable LePine, M Mary Kay GEOSPATIAL PROGRAM MANAGEMENT OFFICER Unavailable Unavailable LePine, M Mary Kay GEOSPATIAL PROGRAM MANAGEMENT OFFICER Unavailable Unavailable LePine, M Mary Kay GEOSPATIAL PROGRAM MANAGEMENT OFFICER Unavailable Unavailable LePine, M Mary Kay GEOSPATIAL PROGRAM MANAGEMENT OFFICER Unavailable Unavailable LePine, M Mary Kay GEOSPATIAL PROGRAM MANAGEMENT OFFICER Unavailable Unavailable LePine, M Mary Kay GEOSPATIAL PROGRAM MANAGEMENT OFFICER Unavailable Unavailable LePine, M Mary Kay GEOSPATIAL PROGRAM MANAGEMENT OFFICER Unavailable Unavailable LePine, M Mary Kay GEOSPATIAL PROGRAM MANAGEMENT OFFICER Unavailable Unavailable LePine, M Mary Kay GEOSPATIAL PROGRAM MANAGEMENT OFFICER Unavailable Unavailable PICKERAL JR, J MATEO PA-C Unavailable Unavailable PICKERAL JR, J MATEO PA-C Unavailable Unavailable PICKERAL JR, J MATEO PA-C Unavailable Unavailable PICKERAL JR, J MATEO PA-C Unavailable Unavailable PICKERAL JR, J MATEO PA-C Unavailable Unavailable PICKERAL JR, J MATEO PA-C Unavailable Unavailable PICKERAL JR, J MATEO PA-C Unavailable Unavailable PICKERAL JR, J MATEO PA-C Unavailable Unavailable PICKERAL JR, J MATEO PA-C Unavailable Unavailable PICKERAL JR, J MATEO PA-C Unavailable Unavailable PICKERAL JR, J MATEO PA-C Unavailable Unavailable PICKERAL JR, J MATEO PA-C Unavailable Unavailable PICKERAL JR, J MATEO PA-C Unavailable Unavailable PICKERAL JR, J MATEO PA-C Unavailable Unavailable PICKERAL JR, J MATEO PA-C Unavailable Unavailable PICKERAL JR, J MATEO PA-C Unavailable Unavailable PICKERAL JR, J MATEO PA-C Unavailable Unavailable PICKERAL JR, J MATEO PA-C Unavailable Unavailable PICKERAL JR, J MATEO PA-C Unavailable Unavailable PICKERAL JR, J MATEO PA-C Unavailable Unavailable PICKERAL JR, J MATEO PA-C Unavailable Unavailable PICKERAL JR, J MATEO PA-C Unavailable Unavailable PICKERAL JR, J MATEO PA-C Unavailable Unavailable PICKERAL JR, J MATEO PA-C Unavailable Unavailable PICKERAL JR, J MATEO PA-C Unavailable Unavailable PICKERAL JR, J MATEO PA-C Unavailable Unavailable PICKERAL JR, J MATEO PA-C Unavailable Unavailable Re-disclosure Warning The records that you are about to access may contain information from federally-assisted alcohol or drug abuse programs. If such information is present, then the following federally mandated warning applies: This information has been disclosed to you from records protected by federal confidentiality rules (42 CFR part 2). The federal rules prohibit you from making any further disclosure of this information unless further disclosure is expressly permitted by the written consent of the person to whom it pertains or as otherwise permitted by 42 CFR part 2. A general authorization for the release of medical or other information is NOT sufficient for this purpose. The Federal rules restrict any use of the information to criminally investigate or prosecute any alcohol or drug abuse patient.The records that you are about to access may contain highly sensitive health information, the redisclosure of which is protected by Article 27-F of the [facility] Public Health law. If you continue you may have access to information: Regarding HIV / AIDS; Provided by facilities licensed or operated by the [facility] Office of Mental Health; or Provided by the [facility] Office for People With Developmental Disabilities. If such information is present, then the following [facility] mandated warning applies: This information has been disclosed to you from confidential records which are protected by state law. State law prohibits you from making any further disclosure of this information without the specific written consent of the person to whom it pertains, or as otherwise permitted by law. Any unauthorized further disclosure in violation of state law may result in a fine or senior living sentence or both. A general authorization for the release of medical or other information is NOT sufficient authorization for further disc losure. Family History Family Member Name Family Member Gender Family Member Status Date o f Status Description Data Source(s) Unknown Male Problem [facility] ([facility]) Encounters Encounter Providers Location Date Indications Data Source(s ) Outpatient Attender: MATEO Garcia 1 03:00:00 PM EDT [facility] ([facility] ) Outpatient Attender: Mary Kay Garcia 11/28 01:40:00 PM EDT [facility] ([facility] ) Outpatient Attender: Mary Kay Garcia 11/15 02:00:00 PM EDT [facility] ([facility] ) Outpatient Attender: Mary Kay Garcia 07/16 11:00:00 AM EDT [facility] ([facility] ) Outpatient Attender: MATEO Garcia 0 05/15/2020 01:20:00 PM EDT [facility] ([facility] ) Outpatient Attender: Mary Kay Donavon Garcia 04/11 10:00:00 AM EST [facility] ([facility] ) Outpatient Attender: Mary Kay Raphael DRE Garcia 01/03 12:40:00 PM EST [facility] ([facility] ) Immunizations Vaccine Date Status Description Data Source(s) Influenza, injectable, MDCK, preservative free, mahogany valent 11/28/2020 01:53:00 PM EDT completed [facility] COVID-19 VACCINE Unknown 04/05/2020 12:00:00 AM EST completed [facility] Vaccine Series Complete: YESThis Data wa s Submitted to [facility] Via [employer]. COVID-19 VACCINE Moderna 03/21/2020 12:00:00 AM EST completed [facility] Vaccine Series Complete: NOThis Data was Submitted to [facility] Via [employer]. Influenza, injectable, MDCK, preservative free, mahogany valent 12/20/2019 01:25:00 PM EDT completed [facility]) Influenza, injectable, MDCK, preservative free, mahogany valent 12/20/2019 11:19:00 AM EDT completed [facility] ([facility]) Medications Medication Brand Name Start Date Product Form Dose Route Admi nistrative Instructions Pharmacy Instructions Status Indications Reaction Description Data Source(s) Sertraline 25 MG Oral Tablet Sertraline HCL 12/06/2020 12:00:00 AM EDT ORAL active [facility] ([facility]) Administration Of Flu Vaccine 11/28/2020 12:00:00 AM EDT completed [facility]) Medication administered onsite Sertraline 50 MG Oral Tablet Sertraline HCL 11/15/2020 12:00:00 AM EDT ORAL completed [facility] ([facility]) Glipizide 5 MG Oral Tablet Glipizide 11/15/2020 12:00:00 AM EDT ORAL active [facility] ([facility]) pregabalin 75 MG Oral Capsule [Lyrica] Lyrica 11/15/2020 12:00:00 A M EDT active [facility] ([facility]) Freestyle Britney 2/Sensor/Flash Glucose Monitoring System 11/15/2020 12:00:00 AM EDT active [facility] ([facility]) pregabalin 50 MG Oral Capsule [Lyrica] Lyrica 10/01/2020 12:00:00 A M EDT completed [facility] ([facility]) Fluticasone Propionate Nasal [place] Fluticasone Propionate Na marquise [place] 07/16/2020 12:00:00 AM EDT active [facility] ([facility]) glimepiride 2 MG Oral Tablet Glimepiride 07/16/2020 12:00:00 AM EDT ORAL completed [facility] ([facility]) Rosuvastatin calcium 10 MG Oral Tablet Rosuvastatin Calcium 07/16/2020 12:00:00 AM EDT ORAL active [facility] ([facility]) empagliflozin 25 MG Oral Tablet [Jardiance] Jardiance 06/12/2020 12:00:00 AM EDT ORAL active [facility] ([facility]) empagliflozin 10 MG Oral Tablet [Jardiance] Jardiance 05/28/2020 12:00:00 AM EDT ORAL completed [facility] ([facility]) Azithromycin 250 MG Oral Tablet Azithromycin 05/15/2020 12:00:00 AM EDT completed [facility] ([facility]) empagliflozin 25 MG Oral Tablet [Jardiance] Jardiance 04/12/2020 12:00:00 AM EST ORAL completed [facility] ([facility]) Amlodipine 2.5 MG Oral Tablet Amlodipine Besylate 04/11/2020 12:00: 00 AM EST ORAL active [facility] ([facility]) Covid-19 vaccine, Unspecified 04/05/2020 12:00:00 AM EST completed [facility]) Medication administered onsite Loratadine 10 MG Oral Capsule Loratadine 01/04/2020 12:00:00 AM EST active [facility] ([facility]) Fluticasone Propionate Nasal [place] 24- Hour Fluticason e Propionate Nasal [place] 24- Hour 01/04/2020 12:00:00 AM EST RESPIRATORY active [facility] ([facility]) Administration Of Flu Vaccine 12/20/2019 12:00:00 AM EDT completed [facility]) Medication administered onsite Insurance Providers Payer name Policy type / Coverage type Policy ID Covered libertarian ID Covered libertarian's relationship to siegel Policy Siegel Plan Information Medicare Natl Govt Servic Medicare Primary [id number] Self 4 [id number] Medicare Natl Govt Servic Medicare Primary [id number] Self 0 [id number] Medicare Natl Govt Servic Medicare Primary [id number] Self 4 [id number] Medicare Natl Govt Servic Medicare Primary [id number] Self 0 [id number] Medicare Natl Govt Servic Medicare Primary [id number] Self [id number] Medicare Natl Govt Servic Medicare Primary [id number] Self 0 [id number] Medicare Natl Govt Servic Medicare Primary [id number] Self 4 [id number] Medicare Natl Govt Servic Medicare Primary [id number] Self 0 [id number] Medicare Natl Govt Servic Medicare Primary [id number] Self 0 [id number] Medicare Natl Govt Servic Medicare Primary [id number] Self 0 [id number] Medicare Natl Govt Servic Medicare Primary [id number] Self 4 [id number] Medicare Natl Govt Servic Medicare Primary [id number] Self 0 [id number] Medicare Natl Govt Servic Medicare Primary [id number] Self Medicare Natl Govt Servic Medicare Primary [id number] Self [id number] Medicare Natl Govt Servic Medicare Primary [id number] Self [id number] Medicare Natl Govt Servic Medicare Primary [id number] Self 0 [id number] [facility] Medigap Part B [id number] [facility] OPTIONS C [id number] O [id number] [facility] Medigap Part B [id number] Self 3 [id number] [facility] [employer] Medig[employer] Part B [id number] Self 3 [id number] [facility] [facility] OPTIONS [id number] SP [id number] MEDICARE [id number] SP [id number] [facility] [employer] Medig[employer] Part B [id number] Self 3 [id number] [facility] [employer] Part B [id number] Self 3 [id number] [facility] [employer] Part B [id number] Self 3 [id number] [facility] [employer] Part B [id number] Self 3 [id number] [facility] [employer] Med[employer] Part B [id number] Self 3 [id number] [employer] Medigap Part B [id number] Self [facility] Opt Medigap Part B [id number] Self AARP O [id number] S [id number] 1 [id number] A [facility] [facility] Opt Medigap Part B [id number] Self 3 [id number] [employer] OPTIONS [id number] SP [id number] MEDICARE C [id number] S [id number] AARP O [id number] S [id number] [facility] Opt Medigap Part B [id number] Self [id number] [employer] Medigap Part B [id number] Self [id number] MEDICARE [id number] A [facility] [employer] Medigap Part B [id number] Self [id number] [facility] Part B [id number] Self [id number] [facility] Part B [id number] Self 3 [id number] MEDICARE C [id number] S [id number] A [facility] Part B [id number] Self 3 [id number] [facility] Part B [id number] Self 3 [id number] [facility] PART B C [id number] O 0 [id number] [facility] [id number] SP [id number] [facility] [id number] SP [id number] Problems, Conditions, and Diagnoses No Information Surgeries/Procedures Procedure Description Date Indications Data Source(s) OFFICE OUTPATIENT VISIT 25 MINUTES 12/06/2020 12:00:00 AM EDT [facility] ([facility]) OFFICE OUTPATIENT VISIT 15 MINUTES 11/28/2020 12:00:00 AM EDT [facility] ([facility]) OFFICE OUTPATIENT VISIT 25 MINUTES 11/15/2020 12:00:00 AM EDT [facility] ([facility]) OFFICE OUTPATIENT VISIT 25 MINUTES 07/16/2020 12:00:00 AM EDT [facility] ([facility]) Results ID Date Data Source [id number] 11/15/2020 02:57:00 PM EDT [facility] ([facility]) Name Value Range Interpretation Code Description Data Sudha rce(s) Supporting Document(s) Thyrotropin [Units/volume] in Serum or Plasma by Detec tion limit <= 0.05 mIU/L 2.16 uIU/mL 0.36-3.74 [facility] ([facility] ) ID Date Data Source [id number] 11/15/2020 02:57:00 PM EDT [facility] ([facility]) Name Value Range Interpretation Code Description Data Sudha rce(s) Supporting Document(s) Glucose [Mass/volume] in Serum or Plasma 161 mg/dL 74-99 [facility] ([facility]) 100-125 mg/dL PRE-DIABETES/FASTING >126 mg/dL DIABETES/FASTING Creatinine 0.8 mg/dL 0.6-1.3 [facility]) Urea nitrogen [Mass/volume] in Serum or Plasma 24 mg/dL 7-18 [facility] ([facility]) Sodium [Moles/volume] in Serum or Plasma 141 meq/L 136-145 [facility] ([facility]) Chloride [Moles/volume] in Serum or Plasma 103 meq/L 98-107 [facility] ([facility]) Carbon dioxide, total [Moles/volume] in Serum or Plasma 36 meq/L 21 -32 [facility] ([facility]) Potassium [Moles/volume] in Serum or Plasma 3.9 meq/L 3.5-5.1 [facility] ([facility]) Calcium [Mass/volume] in Serum or Plasma 10.0 mg/dL 8.5-10.1 [facility] ([facility]) Aspartate aminotransferase [Enzymatic activity/volume] in Serum or Plasma 14 U/L 15-37 [facility] Total Bilirubin 0.5 mg/dL 0.2-1.0 [facility] Alkaline phosphatase isoenzyme [Units/volume] in Serum or Pl asma 100 mg/dL 46-116 [facility] ([facility]) Albumin [Mass/volume] in Serum or Plasma 4.0 g/dL 3.4-5.0 [facility] ([facility]) Alanine aminotransferase [Enzymatic activity/volume] in Seru m or Plasma 27 U/L 12-78 [facility] ([facility]) Proteinase 3 Ab [Units/volume] in Serum 7.3 g/dL 6.4-8.2 [facility] ([facility]) A/G Ratio 1.21 CALC 1.00-1.90 [facility] ([facility]) Glomerular filtration rate/1.73 sq M pre dicted among blacks [Volume Rate/Area] in Serum or Plasma by Creatinine-based formula (MDRD) Laboratory test result [facility] <content>CHRONIC KIDNEY DISEASE STAGING PER NKF</content>
<content></content>
<content>STAGE I & II GFR >= 60 NORMAL TO MILDLY DECREASED</content>
<content>STAGE III GFR 30-59 MODERATELY DECREASED</content>
<content>STAGE IV GFR 15-29 SEVERELY DECREASED</content>
<content>STAGE V GFR <15 VERY LITTLE GFR LEFT</content>
<content>ESRD GFR <15 ON POWER TRANSFORMER REPAIRER</content>
<content></content> Glomerular filtration rate/1.73 sq M pre dicted among non-blacks [Volume Rate/Area] in Serum or Plasma by Creatinine-based formula (MDRD) Laboratory test result [facility] ([facility] ) ID Date Data Source [id number] 11/15/2020 02:57:00 PM EDT [facility] ([facility]) Name Value Range Interpretation Code Description Data Sudha rce(s) Supporting Document(s) Glucose mean value [Mass/volume] in Blood Estimated fr om glycated hemoglobin 166 mg/dL 60-110 [facility] ([facility] ) Hemoglobin A1c/Hemoglobin.total in Blood 7.4 % [facility] ([facility]) Lab Result Notes: Pre-Diabetes 5.7 - 6.4 % Diabetes = or > 6.5% ID Date Data Source [id number] 11/15/2020 02:57:00 PM EDT [facility]) Name Value Range Interpretation Code Description Data Sudha rce(s) Supporting Document(s) Leukocytes [#/volume] in Blood by Automated count 7.8 x10*3/UL 4.1-10 .9 [facility] Erythrocytes [#/volume] in Blood by Automated count 5.08 x10*6/UL 4.2 0-6.30 [facility] ([facility]) Hemoglobin [Mass/volume] in Blood 15.4 g/dL 12.0-18.0 [facility] Hematocrit [Volume Fraction] of Blood by Automated count 46.3 % 3 7.0-51.0 [facility] MCV 91.2 fL 80.0-97.0 [facility] ([facility]) MCH 30.4 pg 26.0-32.0 [facility] ([facility]) Erythrocyte distribution width [Ratio] by Automated count 13.0 % 11.6-13.7 [facility] MCHC 33.3 g/dL 31.0-38.0 [facility] ([facility]) MPV 8.3 FL 7.8-11.0 [facility] ([facility]) Platelets [#/volume] in Blood by Automated count 256 x10*3/UL 140-440 [facility] ([facility]) Lymph % 21.7 % 10.0-58.5 [facility] ([facility]) Lymph # 1.7 x10*3/UL 0.6-4.1 [facility] ([facility]) Mid % 5.7 % 1.7-9.3 [facility] ([facility]) Neut % 72.6 % 37.0-92.0 [facility] ([facility]) Neut # 5.7 x10*3/UL 2.0-7.8 [facility] ([facility]) Mid # 0.4 x10*3/UL 0.1-0.6 [facility] ([facility]) ID Date Data Source [id number] 11/15/2020 02:57:00 PM EDT [facility]) Name Value Range Interpretation Code Description Data Sudha rce(s) Supporting Document(s) Hemoglobin A1c/Hemoglobin.total in Blood Laboratory test result [facility] ID Date Data Source [id number] 07/16/2020 11:36:00 AM EDT [facility] ([facility]) Name Value Range Interpretation Code Description Data Sudha rce(s) Supporting Document(s) Thyrotropin [Units/volume] in Serum or Plasma by Detec tion limit <= 0.05 mIU/L 2.95 uIU/mL 0.36-3.74 [facility] ([facility] ) ID Date Data Source [id number] 07/16/2020 11:36:00 AM EDT [facility] ([facility]) Name Value Range Interpretation Code Description Data Sudha rce(s) Supporting Document(s) Triglyceride [Mass/volume] in Serum or Plasma 113 mg/dL 30-150 [facility] ([facility]) Cholesterol [Mass/volume] in Serum or Plasma 289 mg/dL 131-200 [facility] ([facility]) Cholesterol in LDL [Mass/volume] in Serum or Plasma by calcu lation 182 CALC 50-159 [facility] ([facility]) Cholesterol in HDL [Mass/volume] in Serum or Plasma 84 mg/dL 35-60 [facility] ([facility]) ID Date Data Source [id number] 07/16/2020 11:36:00 AM EDT [facility]) Name Value Range Interpretation Code Description Data Sudha rce(s) Supporting Document(s) Creatinine 0.7 mg/dL 0.6-1.3 [facility] ([facility] Glucose [Mass/volume] in Serum or Plasma 129 mg/dL 74-99 [facility] ([facility]) 100-125 mg/dL PRE-DIABETES/FASTING >126 mg/dL DIABETES/FASTING Urea nitrogen [Mass/volume] in Serum or Plasma 24 mg/dL 7-18 [facility] ([facility]) Potassium [Moles/volume] in Serum or Plasma 3.6 meq/L 3.5-5.1 [facility] ([facility]) Sodium [Moles/volume] in Serum or Plasma 139 meq/L 136-145 [facility] ([facility]) Calcium [Mass/volume] in Serum or Plasma 9.6 mg/dL 8.5-10.1 [facility] ([facility]) Chloride [Moles/volume] in Serum or Plasma 101 meq/L 98-107 [facility] ([facility]) Carbon dioxide, total [Moles/volume] in Serum or Plasma 34 meq/L 21 -32 [facility] Glomerular filtration rate/1.73 sq M pre dicted among non-blacks [Volume Rate/Area] in Serum or Plasma by Creatinine-based formula (MDRD) Laboratory test result [facility] ([facility] ) Glomerular filtration rate/1.73 sq M pre dicted among blacks [Volume Rate/Area] in Serum or Plasma by Creatinine-based formula (MDRD) Laboratory test result [facility] ([facility]) <content>CHRONIC KIDNEY DISEASE STAGING PER NKF</content>
<content></content>
<content>STAGE I & II GFR >= 60 NORMAL TO MILDLY DECREASED</content>
<content>STAGE III GFR 30-59 MODERATELY DECREASED</content>
<content>STAGE IV GFR 15-29 SEVERELY DECREASED</content>
<content>STAGE V GFR <15 VERY LITTLE GFR LEFT</content>
<content>ESRD GFR <15 ON POWER TRANSFORMER REPAIRER</content>
<content></content> ID Date Data Source [id number] 07/16/2020 11:36:00 AM EDT [facility] Name Value Range Interpretation Code Description Data Sudha rce(s) Supporting Document(s) Hemoglobin A1c/Hemoglobin.total in Blood 7.8 % [facility] ([facility]) Lab Result Notes: Pre-Diabetes 5.7 - 6.4 % Diabetes = or > 6.5% Glucose mean value [Mass/volume] in Blood Estimated fr om glycated hemoglobin 177 mg/dL 60-110 [facility] ([facility] ) ID Date Data Source [id number] 05/15/2020 01:19:00 PM EDT [facility]) Name Value Range Interpretation Code Description Data Sudha rce(s) Supporting Document(s) Urine Color [facility] Urine PH 5.0 units 5.0-9.0 [facility]) Specific gravity of Urine 1.015 1.005-1.030 [facility] Urine Appearance Laboratory test result Abnormal (applies to non-numeric results) [facility] ([facility]) Urine Blood Laboratory test result Abnormal (applies to non-numeric results) [facility] ([facility]) Urine Leukocytes Laboratory test result [facility] Urine Protein Laboratory test result 0-0 [facility] Glucose [Presence] in Urine Laboratory test result Abnormal (applies to non- numeric results) [facility]) Urine Nitrite Laboratory test result [facility] Bilirubin.total [Mass/volume] in Serum or Plasma Laboratory test resu lt [facility]) Urine Ketone Laboratory test result Abnormal (applies to non-numeric results) [facility] Urine Urobilinogen 0.2 mg/dL 0.2-1.0 [facility] ID Date Data Source [id number] 04/11/2020 11:44:00 AM EST [facility] ([facility]) Name Value Range Interpretation Code Description Data Sudha rce(s) Supporting Document(s) Thyrotropin [Units/volume] in Serum or Plasma by Detec tion limit <= 0.05 mIU/L 3.53 uIU/mL 0.36-3.74 [facility] ([facility] ID Date Data Source [id number] 04/11/2020 11:44:00 AM EST [facility] Name Value Range Interpretation Code Description Data Sudha rce(s) Supporting Document(s) Glucose [Mass/volume] in Serum or Plasma 168 mg/dL 74-99 [facility] ([facility]) 100-125 mg/dL PRE-DIABETES/FASTING >126 mg/dL DIABETES/FASTING Creatinine 0.7 mg/dL 0.6-1.3 [facility] ([facility]) Sodium [Moles/volume] in Serum or Plasma 144 meq/L 136-145 [facility] ([facility]) Urea nitrogen [Mass/volume] in Serum or Plasma 17 mg/dL 7-18 [facility] ([facility]) Potassium [Moles/volume] in Serum or Plasma 4.5 meq/L 3.5-5.1 [facility] ([facility]) Chloride [Moles/volume] in Serum or Plasma 104 meq/L 98-107 [facility] ([facility]) Carbon dioxide, total [Moles/volume] in Serum or Plasma 30 meq/L 21 -32 [facility] ([facility]) Calcium [Mass/volume] in Serum or Plasma 9.7 mg/dL 8.5-10.1 [facility] ([facility] Glomerular filtration rate/1.73 sq M pre dicted among non-blacks [Volume Rate/Area] in Serum or Plasma by Creatinine-based formula (MDRD) Laboratory test result [facility] Glomerular filtration rate/1.73 sq M pre dicted among blacks [Volume Rate/Area] in Serum or Plasma by Creatinine-based formula (MDRD) Laboratory test result [facility] ([facility]) <content>CHRONIC KIDNEY DISEASE STAGING PER NKF</content>
<content></content>
<content>STAGE I & II GFR >= 60 NORMAL TO MILDLY DECREASED</content>
<content>STAGE III GFR 30-59 MODERATELY DECREASED</content>
<content>STAGE IV GFR 15-29 SEVERELY DECREASED</content>
<content>STAGE V GFR <15 VERY LITTLE GFR LEFT</content>
<content>ESRD GFR <15 ON POWER TRANSFORMER REPAIRER</content>
<content></content> ID Date Data Source [id number] 04/11/2020 11:44:00 AM EST [facility] ([facility]) Name Value Range Interpretation Code Description Data Sudha rce(s) Supporting Document(s) Magnesium 1.9 mg/dL 1.8-2.4 [facility]) ID Date Data Source [id number] 04/11/2020 11:44:00 AM EST [facility] ([facility]) Name Value Range Interpretation Code Description Data Sudha rce(s) Supporting Document(s) Hemoglobin A1c/Hemoglobin.total in Blood 7.8 % [facility] Lab Result Notes: Pre-Diabetes 5.7 - 6.4 % Diabetes = or > 6.5% Glucose mean value [Mass/volume] in Blood Estimated fr om glycated hemoglobin 177 mg/dL 60-110 [facility] ([facility] ) ID Date Data Source [id number] 04/11/2020 11:44:00 AM EST [facility] ([facility]) Name Value Range Interpretation Code Description Data Sudha rce(s) Supporting Document(s) Leukocytes [#/volume] in Blood by Automated count 6.4 x10*3/UL 4.1-10 .9 [facility] ([facility]) Hemoglobin [Mass/volume] in Blood 16.3 g/dL 12.0-18.0 [facility] Erythrocytes [#/volume] in Blood by Automated count 5.34 x10*6/UL 4.2 0-6.30 [facility] ([facility] Hematocrit [Volume Fraction] of Blood by Automated count 48.0 % 3 7.0-51.0 [facility] ([facility] MCV 89.9 fL 80.0-97.0 [facility] MCH 30.6 pg 26.0-32.0 [facility] ([facility]) Erythrocyte distribution width [Ratio] by Automated count 12.7 % 11.6-13.7 [facility] ([facility] MCHC 34.0 g/dL 31.0-38.0 [facility] ([facility]) MPV 8.8 FL 7.8-11.0 [facility] ([facility]) Platelets [#/volume] in Blood by Automated count 249 x10*3/UL 140-440 [facility] ([facility]) Lymph % 25.5 % 10.0-58.5 [facility] Neut % 68.0 % 37.0-92.0 [facility] Mid % 6.5 % 1.7-9.3 [facility] Lymph # 1.6 x10*3/UL 0.6-4.1 [facility] ([facility]) Neut # 4.4 x10*3/UL 2.0-7.8 [facility] ([facility]) Mid # 0.4 x10*3/UL 0.1-0.6 [facility] ([facility]) ID Date Data Source [id number] 12/20/2019 10:11:00 AM EDT [facility] ([facility]) Name Value Range Interpretation Code Description Data Sudha rce(s) Supporting Document(s) Thyrotropin [Units/volume] in Serum or Plasma by Detec tion limit <= 0.05 mIU/L 3.32 uIU/mL 0.36-3.74 [facility] ([facility] ) ID Date Data Source [id number] 12/20/2019 10:11:00 AM EDT [facility] ([facility]) Name Value Range Interpretation Code Description Data Sudha rce(s) Supporting Document(s) Urea nitrogen [Mass/volume] in Serum or Plasma 23 mg/dL 7-18 [facility] ([facility]) Glucose [Mass/volume] in Serum or Plasma 190 mg/dL 74-99 [facility] ([facility]) 100-125 mg/dL PRE-DIABETES/FASTING >126 mg/dL DIABETES/FASTING Sodium [Moles/volume] in Serum or Plasma 142 meq/L 136-145 [facility] ([facility]) Creatinine 0.8 mg/dL 0.6-1.3 [facility] ([facility]) Carbon dioxide, total [Moles/volume] in Serum or Plasma 33 meq/L 21 -32 [facility] ([facility]) Potassium [Moles/volume] in Serum or Plasma 4.1 meq/L 3.5-5.1 [facility] ([facility]) Chloride [Moles/volume] in Serum or Plasma 102 meq/L 98-107 [facility] ([facility]) Calcium [Mass/volume] in Serum or Plasma 9.4 mg/dL 8.5-10.1 [facility] ([facility]) Glomerular filtration rate/1.73 sq M pre dicted among non-blacks [Volume Rate/Area] in Serum or Plasma by Creatinine-based formula (MDRD) Laboratory test result [facility] ([facility] ) Glomerular filtration rate/1.73 sq M pre dicted among blacks [Volume Rate/Area] in Serum or Plasma by Creatinine-based formula (MDRD) Laboratory test result [facility] ([facility]) <content>CHRONIC KIDNEY DISEASE STAGING PER NKF</content>
<content></content>
<content>STAGE I & II GFR >= 60 NORMAL TO MILDLY DECREASED</content>
<content>STAGE III GFR 30-59 MODERATELY DECREASED</content>
<content>STAGE IV GFR 15-29 SEVERELY DECREASED</content>
<content>STAGE V GFR <15 VERY LITTLE GFR LEFT</content>
<content>ESRD GFR <15 ON POWER TRANSFORMER REPAIRER</content>
<content></content> Procedure Social History No Information Vital Signs ID Date Data Source UNK Name Value Range Interpretation Code Description Data Source(s) Heart rate 95 /min 95 /min [facility] ([facility]) Systolic blood pressure 150 mm[Hg] 150 mm[Hg] [facility] ([facility]) Body weight 133.00 [lb_av] 133.00 [lb_av] [facility] Body mass index (BMI) [Ratio] 22.8 kg/m2 22.8 k g/m2 [facility] ([facility]) Diastolic blood pressure 80 mm[Hg] 80 mm[Hg] [facility] ([facility]) Body height 64 [in_i] 64 [in_i] [facility] ([facility]) 5'4" Heart rate 73 /min 73 /min [facility] ([facility]) Systolic blood pressure 154 mm[Hg] 154 mm[Hg] [facility] ([facility]) Diastolic blood pressure 82 mm[Hg] 82 mm[Hg] [facility] ([facility]) Body height 64 [in_i] 64 [in_i] [facility] ([facility]) 5'4" Body weight 139.00 [lb_av] 139.00 [lb_av] [facility] ([facility]) Oxygen saturation in Arterial blood by Pulse oximetry 97 % 97 % [facility] ([facility]) Body mass index (BMI) [Ratio] 23.9 kg/m2 23.9 k g/m2 [facility] ([facility]) Heart rate 60 /min 60 /min [facility] ([facility]) Body height 64 [in_i] 64 [in_i] [facility] ([facility]) 5'4" Body weight 140.00 [lb_av] 140.00 [lb_av] [facility] ([facility]) Oxygen saturation in Arterial blood by Pulse oximetry 92 % 92 % [facility] ([facility]) Body mass index (BMI) [Ratio] 24.0 kg/m2 24.0 k g/m2 [facility] ([facility]) Diastolic blood pressure 70 mm[Hg] 70 mm[Hg] [facility] ([facility]) Systolic blood pressure 170 mm[Hg] 170 mm[Hg] [facility] ([facility]) Heart rate 60 /min 60 /min [facility] ([facility]) Body height 64 [in_i] 64 [in_i] [facility] ([facility]) 5'4" Body weight 140.00 [lb_av] 140.00 [lb_av] [facility] ([facility]) Oxygen saturation in Arterial blood by Pulse oximetry 92 % 92 % [facility] ([facility]) Body mass index (BMI) [Ratio] 24.0 kg/m2 24.0 k g/m2 [facility] ([facility]) Systolic blood pressure 158 mm[Hg] 158 mm[Hg] [facility] ([facility]) Diastolic blood pressure 84 mm[Hg] 84 mm[Hg] [facility] ([facility]) Heart rate 85 /min 85 /min [facility] ([facility]) Body weight 146.00 [lb_av] 146.00 [lb_av] [facility] ([facility]) Oxygen saturation in Arterial blood by Pulse oximetry 98 % 98 % [facility] ([facility]) Diastolic blood pressure 86 mm[Hg] 86 mm[Hg] [facility] ([facility]) Body mass index (BMI) [Ratio] 24.9 kg/m2 24.9 k g/m2 [facility] ([facility]) Systolic blood pressure 180 mm[Hg] 180 mm[Hg] [facility] ([facility]) Body height 64 [in_i] 64 [in_i] [facility] ([facility]) 5'4" Body weight 145.00 [lb_av] 145.00 [lb_av] [facility] ([facility]) Body height 64 [in_i] 64 [in_i] [facility] ([facility]) 5'4" Body weight 150.00 [lb_av] 150.00 [lb_av] [facility] ([facility]) Systolic blood pressure 180 mm[Hg] 180 mm[Hg] [facility] ([facility]) Diastolic blood pressure 80 mm[Hg] 80 mm[Hg] [facility] ([facility]) Systolic blood pressure 184 mm[Hg] 184 mm[Hg] [facility] ([facility]) Diastolic blood pressure 80 mm[Hg] 80 mm[Hg] [facility] ([facility]) Heart rate 85 /min 85 /min [facility] ([facility]) Oxygen saturation in Arterial blood by Pulse oximetry 95 % 95 % [facility] ([facility]) Body mass index (BMI) [Ratio] 25.7 kg/m2 25.7 k g/m2 [facility] ([facility]) Systolic blood pressure 178 mm[Hg] 178 mm[Hg] [facility] ([facility]) Diastolic blood pressure 88 mm[Hg] 88 mm[Hg] [facility] ([facility]) Systolic blood pressure 170 mm[Hg] 170 mm[Hg] [facility] ([facility]) Heart rate 78 /min 78 /min [facility] ([facility]) Diastolic blood pressure 88 mm[Hg] 88 mm[Hg] [facility] ([facility]) Body height 64 [in_i] 64 [in_i] [facility] ([facility]) 5'4" Body weight 148.00 [lb_av] 148.00 [lb_av] [facility] ([facility]) Body mass index (BMI) [Ratio] 25.4 kg/m2 25.4 k g/m2 [facility] ([facility]) Oxygen saturation in Arterial blood by Pulse oximetry 99 % 99 % [facility] ([facility]) Systolic blood pressure 130 mm[Hg] 130 mm[Hg] M [facility] ([facility]) Diastolic blood pressure 72 mm[Hg] 72 mm[Hg] [facility] ([facility]) Heart rate 70 /min 70 /min [facility] ([facility]) Body height 64 [in_i] 64 [in_i] [facility] ([facility]) 5'4" Body weight 144.38 [lb_av] 144.38 [lb_av] [facility] ([facility]) Oxygen saturation in Arterial blood by Pulse oximetry 95 % 95 % [facility] ([facility]) Air Body mass index (BMI) [Ratio] 24.8 kg/m2 24.8 k g/m2 [facility] ([facility])
--- OUTSIDE RECORDS SUMMARY | 2020-12-22 08:53 | CCD | Continuity of Care Document ---
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 Role Phone Cecilio JoaquinVeronica DO AUTM [phone] Mary Kay Edwards ANP AUTM [phone] Problems Active Problems Provider Date Type 2 [...] 8:30pm dx: m79.7 90caps Mary Kay Haddad, [facility] 11/15/2020 Freestyle Britney 2/Sensor/Flash Glucose M onitoring System 2Sensor Misc reapply every 2 weeks 2units A dianne Nadege Catie, [facility] 11/15/2020 Glipizide 5mg Tablets take 1 tablet by mouth before breakfast and dinner each day 90tabs Mary Kay Haddad [facility] 11/15/2020 Fluticasone Propionate Nasal [place] 50mcg/Act Suspension 2 sprays each nostril 2 hours before bedtime 29.7ml Mary Kay Ochoa, [facility] 07/16/2020 Rosuvastatin Calcium 10mg Tablets 1 by mouth every day 90tabs Mary Kay Ochoa [facility] 07/16/2020 Jardiance 25mg Tablets 1 by mouth every day 90tabs Mary Kay Ochoa [facility] 06/12/2020 Amlodipine Besylate 2.5mg Tablets 1 by mouth every day 90tabs Mary Kay Ochoa [facility] 04/11/2020 Loratadine 10mg Capsules daily for one week then as needed nasal stuffiness 90caps R09.81 Mary Kay Ochoa [facility] 01/04/2020 Quinapril HCL 40mg Tablets take 1 tablet every night. 90tabs Mary Kay Ochoa [facility] 10/03/2019 Levothyroxine Sodium 50mcg Tablets take 1 tablet daily 90tabs Mary Kay Ochoa [facility] 09/14/2019 Combigan 0.2-0.5% Solution Conor Hood MD 08/29/2018 Calcium + D3 600-200 Tablets 1 by mouth twice a day Bambi Vaughn DO 02/15/2018 Vitamin D-3 5000Unit Tablets one every day by mouth 90tabs Bambi Vaughn DO 11/02/2017 Polyethylene Glycol 1000 Powder 17 gram in H2o qd PO prn Armando Roger [facility] 09/14/2017 Preservision Areds Capsules 1 by mouth bid 90caps Bambi Vaughn DO 09/14/2017 Latanoprost 0.005% Solution 1 drop both eyes every night at bedtime Armando Roger [facility] Ge100 Blood Glucose Monitoring System Device Use as Directed 1units Penny Saleem 04/24/2016 Ge100 Blood Glucose Test Strips S trips test twice a day and as directed dx: e11.65 90units Aisha [facility] 04/24/2016 Lancets 30G 30G Misc test twice a day and as needed e11.65 90units Aisha [facility] 04/02 Acetaminophen 325mg Tablets 2 tabs by mouth as needed every 4 hours for pain or fever mdd=3 grams Unknown Aspercreme W/Lidocaine 4% Cream 2-4x/d as directed Unknown Vitamin C 500mg Chewtabs 2 by mouth every day Unknown History Medications Lyrica 50mg Capsules one tab at 8:30 am, one at 2:30 pm and one at 8:30pm dx: m79.7 90caps Mary Kay Haddad, [facility] 10/01/2020 - 11/15/2020 Glimepiride 2mg Tablets 1 by mouth twice daily 180tabs Mary Kay Ochoa [facility] 07/16/2020 - Jardiance 10mg Tablets 1 by mouth every day 90tabs Mary Kay Ochoa [facility] 05/28/2020 - Medications Administered in Office Medication SIG Qnty Indications Ordering Provider Date Covid-19 vaccine, Unspecified Inj ection Unknown 04/05/2020 Administration Of Flu Vaccine Inj ection Conor Hood MD 12/20/2019 Administration Of Flu Vaccine Inj ection KARLA PerezP 02/17/2019 Administration Of Flu Vaccine Inj ection En [facility] 12/22 Administration Of Flu Vaccine Inj ection SAM Perez 12/01/2012 Administration Of Flu Vaccine Inj ection Aisha [facility] 11/23 Administration Of Flu Vaccine Inj ection Conor Hood MD 12/27/2003 Administration Of Flu Vaccine Inj ection SUMMER Nelson 01/11/2003 Immunizations CPT Code Status Date Vaccine Lot # [id number] Given 12/20/2019 Influenza Vaccin e Quadrivalent Preser/Antibiotic Free Im Use [id number] 79103 Given 02/17/2019 Influenza Vaccin e Quadrivalent Preser/Antibiotic Free Im Use [id number] U-Flu Given 11/12/2017 Influenza,Unspecified Q2037 Given 12/23/2015 Fluvirin Virus Vaccine 09000 01 67687 Given 12/22/2015 Zostavax U-PneuC Given 02/07/2015 Prevnar 13 Q2037 Given 12/01/2012 Fluvirin Virus Vaccine 80535 01 Q2037 Given 11/24/2011 Fluvirin Virus Vaccine 97519 Given 11/26/2010 Pneumovax 23 85031 Given 11/14/2010 Pneumovax 23 32974 Given 12/27/2003 Influenza Virus Vaccine 57771 Given 01/11/2003 Influenza Virus Vaccine 33186 Given 12/14/2001 Influenza Virus Vaccine 86214 Given 11/30/2000 Influenza Virus Vaccine 48947 Given 01/07/1999 Influenza Virus Vaccine 48645 Given 01/07/1998 Pneumovax 23 46299 Given 01/07/1998 Influenza Virus Vaccine Vital Signs Date Vital Result Comment 11/15/2020 2:03pm Heart Rate 60 /min Height 64 inches 5'4" Weight 140.00 lb O2 % BldC Oximetry 92 % BMI (Body Mass Index) 24.0 kg/m2 07/16/2020 10:54am BP Systolic 158 mmHg BP Diastolic 84 mmHg Heart Rate 85 /min Weight 146.00 lb O2 % BldC Oximetry 98 % Results Test Acquired Date Facility Test Result H/L Range Note Laboratory test finding 11/15/2020 [facility] Engineer: JOSÉ LUIS Sheikh [id number] [phone] A1c <pending> Laboratory test finding 11/15/2020 [facility] [employer]ing Systems Engineer: JOSÉ LUIS Sheikh [id number] [phone] TSH <pending> A1c 07/16/2020 [facility] Consulting Systems Engineer: JOSÉ LUIS Sheikh 13227 [phone] Hba1c 7.8 % High <5.7 1 Est Avg Glucose 177 mg/dL High 60 - 110 Basic Metabolic Panel 07/16/2020 [facility] [employer]ing Systems Engineer: JOSÉ LUIS Sheikh [id number] [phone] Glucose 129 mg/dL High 74 - 99 2 BUN 24 mg/dL High 7 - 18 Creatinine 0.7 mg/dL 0.6 - 1.3 Sodium 139 mEq/L 136 - 145 Potassium 3.6 mEq/L 3.5 - 5.1 Chloride 101 mEq/L 98 - 107 Carbon Dioxide 34 mEq/L High 21 - 32 Calcium 9.6 mg/dL 8.5 - 10.1 GFR >= 60 mL/min >60 GFR >= 60 mL/min >60 3 Lipid Profile 07/16/2020 [facility] Consulting Systems Engineer: [place] [address] [phone] Cholesterol 289 mg/dL High 131 - 200 Triglycerides 113 mg/dL 30 - 150 HDL Cholesterol 84 mg/dL High 35 - 60 LDL (Calculated) 182 CALC High 50 - 159 Laboratory test finding 07/16/2020 [facility] Consulting Systems Engineer: [place] [address] [phone] Thyroid Stimulating Hormone 2.95 uIU/mL 0.3 6 [...] LITTLE GFR LEFT ESRD GFR <15 ON BRANCH CUSTOMER SERVICE REPRESENTATIVE Procedures Date Code Description Status 11/15/2020 52846 Office/Outpatient Established Mo d MDM 30-39 Min Completed 07/16/2020 35085 Office/Outpatient Established Mo d MDM 30-39 Min Completed 01/13/2017 [id number] Diabetic Retinal Eye Exam Comple [facility] 01/02/2016 [id number] Bone Mineral Density Test Comple [facility] 04/24/2015 [id number] Mammogram Completed 12/16/2012 [id number] Bone Mineral Density Test Comple [facility] 12/06/2012 [id number] Colonoscopy Completed 07/29/2010 [id number] Bone Mineral Density Test Comple [facility] 07/29/2010 [id number] Mammogram Completed 03/27/2008 [id number] Mammogram Completed 07/07/2006 [id number] Bone Mineral Density Test Comple [facility] Description No Information Available Encounters Type Date Location Provider Dx Diagnosis Office Visit 11/15/2020 2:00p [facility] Mary Kay Welsh ne, [facility] E11.65 Type 2 diabetes mellitus with hyperglyce chelsy E11.42 Type 2 diabetes mellitus wit h diabetic polyneuropathy E03.9 Hypothyroidism, unspecified M79.7 Fibromyalgia F41.9 Anxiety disorder, unspecifie d Office Visit 07/16/2020 11:00a [facility] [place], [facility] E11.65 Type 2 diabetes mellitus with hyperglyce chelsy E11.42 Type 2 diabetes mellitus wit h diabetic polyneuropathy J30.2 Other seasonal allergic rhin itis E03.9 Hypothyroidism, unspecified I10 Essential (primary) hyperten alley E83.110 Hereditary hemochromatosis F41.9 Anxiety disorder, unspecifie d M79.7 Fibromyalgia E78.00 Pure hypercholesterolemia, u nspecified Assessments Date Code Description Provider 11/15/2020 E11.65 Type 2 diabetes mellitus with hy perglycemia Mary Kay Nadege Clayton, [facility] 11/15/2020 E11.42 Type 2 diabetes mellitus with di abetic polyneuropathy Mary Kay Nadege Clayton, [facility] 11/15/2020 E03.9 Hypothyroidism, unspecified Mary Kay Le Clayton, [facility] 11/15/2020 M79.7 Fibromyalgia Mary Kay Le Clayton, [facility] 11/15/2020 F41.9 Anxiety disorder, unspecified An n Le Clayton, [facility] 07/16/2020 E11.65 Type 2 diabetes mellitus with hy perglycemia Mary Kay Le Clayton, [facility] 07/16/2020 E11.42 Type 2 diabetes mellitus with di abetic polyneuropathy Mary Kay Le Clayton, [facility] 07/16/2020 J30.2 Other seasonal allergic rhinitis Mary Kay Le Clayton, [facility] 07/16/2020 E03.9 Hypothyroidism, unspecified Mary Kay Le Clayton, [facility] 07/16/2020 I10 Essential (primary) hypertension Mary Kay Le Clayton, [facility] 07/16/2020 E83.110 Hereditary hemochromatosis Mary Kay shah Clayton, [facility] 07/16/2020 F41.9 Anxiety disorder, unspecified An n Le Clayton, [facility] 07/16/2020 M79.7 Fibromyalgia SAM Perez 07/16/2020 E78.00 Pure hypercholesterolemia, unspe cified SAM Perez Plan of Treatment 11/15/2020 - SAM Perez* E11.65 Type 2 diabetes mellitus with hyperglycemia* Comments:* Diet and exercise discussed. * E11.42 Type 2 diabetes mellitus with diabetic polyneuropathy * E03.9 Hypothyroidism, unspecified* Comments:* Clinically and chemically euthyroid. * M79.7 Fibromyalgia * F41.9 Anxiety disorder, unspecified * All * New Medication:* Glipizide 5 mg - take 1 tablet by mouth before breakfast and dinner each day * Sertraline HCL 50 mg - 1 by mouth every day * Lyrica 75 mg - one tab at 8:30 am, one at 2:30 pm and one at 8:30pm dx: m79.7 * Freestyle Britney 2/Sensor/Flash Glucose Monitoring System 2 Sensor - reapply every 2 weeks Functional Status Description No Information Available Mental Status Description No Information Available Referrals Description No Information Available
--- OUTSIDE RECORDS SUMMARY | 2020-12-22 08:53 | CCD | Continuity of Care Document ---
Author Author Yareli Perez Organization Unknown Address [address] [facility] [address] [place] [address] Phone [phone] Care Team Providers Care Event Technician Name Role Phone Cecilio JoaquinVeronica DO AUTM [phone] Mary Kay Edwards ANP AUTM [phone] Problems Active Problems Provider Date Type 2 [...] 8:30pm dx: m79.7 90caps Mary Kay Haddad, [facility] 11/15/2020 Freestyle Britney 2/Sensor/Flash Glucose M onitoring System 2Sensor Misc reapply every 2 weeks 2units A dianne Nadege Catie, [facility] 11/15/2020 Glipizide 5mg Tablets take 1 tablet by mouth before breakfast and dinner each day 90tabs Mary Kay Haddad [facility] 11/15/2020 Fluticasone Propionate Nasal [place] 50mcg/Act Suspension 2 sprays each nostril 2 hours before bedtime 29.7ml Mary Kay Ochoa, [facility] 07/16/2020 Rosuvastatin Calcium 10mg Tablets 1 by mouth every day 90tabs Mary Kay Ochoa [facility] 07/16/2020 Jardiance 25mg Tablets 1 by mouth every day 90tabs Mary Kay Ochoa [facility] 06/12/2020 Amlodipine Besylate 2.5mg Tablets 1 by mouth every day 90tabs Mary Kay Ochoa [facility] 04/11/2020 Loratadine 10mg Capsules daily for one week then as needed nasal stuffiness 90caps R09.81 Mary Kay Ochoa [facility] 01/04/2020 Quinapril HCL 40mg Tablets take 1 tablet every night. 90tabs Mary Kay Ochoa [facility] 10/03/2019 Levothyroxine Sodium 50mcg Tablets take 1 tablet daily 90tabs Mary Kay Ochoa [facility] 09/14/2019 Combigan 0.2-0.5% Solution Conor Hood MD 08/29/2018 Calcium + D3 600-200 Tablets 1 by mouth twice a day Bambi Vaughn DO 02/15/2018 Vitamin D-3 5000Unit Tablets one every day by mouth 90tabs Bambi Vaughn DO 11/02/2017 Polyethylene Glycol 1000 Powder 17 gram in H2o qd PO prn Armando Roger [facility] 09/14/2017 Preservision Areds Capsules 1 by mouth bid 90caps Bambi Vaughn DO 09/14/2017 Latanoprost 0.005% Solution 1 drop both eyes every night at bedtime Armando Roger [facility] Ge100 Blood Glucose Monitoring System Device [...] 8:30pm dx: m79.7 90caps Mary Kay Haddad, [facility] 10/01/2020 - 11/15/2020 Glimepiride 2mg Tablets 1 by mouth twice daily 180tabs Mary Kay Ochoa [facility] 07/16/2020 - Jardiance 10mg Tablets 1 by mouth every day 90tabs Mary Kay Ochoa [facility] 05/28/2020 - Medications Administered in Office Medication [...] CPT Code Status Date Vaccine Lot # [id number] Given 12/20/2019 Influenza Vaccin e Quadrivalent Preser/Antibiotic Free Im Use [id number] 68527 Given 02/17/2019 Influenza Vaccin e Quadrivalent Preser/Antibiotic Free Im Use 164631 U-Flu Given 11/12/2017 Influenza,Unspecified Q2037 Given 12/23/2015 Fluvirin Virus Vaccine 74051 01 89727 Given 12/22/2015 Zostavax U-PneuC Given 02/07/2015 Prevnar 13 Q2037 Given 12/01/2012 Fluvirin Virus Vaccine 53872 01 Q2037 Given 11/24/2011 Fluvirin Virus Vaccine 91402 Given 11/26/2010 Pneumovax 23 09159 Given 11/14/2010 Pneumovax 23 51018 Given 12/27/2003 Influenza Virus Vaccine 08356 Given 01/11/2003 Influenza Virus Vaccine 59310 Given 12/14/2001 Influenza Virus Vaccine 80258 Given 11/30/2000 Influenza Virus Vaccine 26781 Given 01/07/1999 Influenza Virus Vaccine 93827 Given 01/07/1998 Pneumovax 23 49212 Given 01/07/1998 Influenza Virus Vaccine Vital Signs [...] H/L Range Note Complete Blood Count 11/15/2020 [facility] Ambulance Assistant: [place] [address] [phone] WBC 7.8 x10*3/UL 4.1 - 10.9 RBC [...] 5.7 x10*3/UL 2.0 - 7.8 A1c 11/15/2020 [facility] , Ambulance Assistant: [place] [address] [phone] Hba1c 7.4 % High <5.7 1 Est Avg Glucose 166 mg/dL High 60 - 110 Comprehensive Chem Profile 11/15/2020 [facility] Ambulance Assistant: [place] [address] [phone] Glucose 161 mg/dL High 74 - 99 [...] mL/min >60 3 Laboratory test finding 11/15/2020 [facility] Ambulance Assistant: [place] [address] [phone] Thyroid Stimulating Hormone 2.16 uIU/mL 0.3 6 - 3.74 A1c 07/16/2020 [facility] , Ambulance Assistant: [place] [address] [phone] Hba1c 7.8 % High <5.7 4 Est Avg Glucose 177 mg/dL High 60 - 110 Basic Metabolic Panel 07/16/2020 [facility] Amb[facility] Assistant: [place] Con[place] [address] [phone] Glucose 129 mg/dL High 74 - 99 [...] 60 mL/min >60 6 Lipid Profile 07/16/2020 [facility] Amb[facility] Assistant: [place] [address] [phone] Cholesterol 289 mg/dL High 131 - 200 Triglycerides 113 mg/dL 30 - 150 HDL Cholesterol 84 mg/dL High 35 - 60 LDL (Calculated) 182 CALC High 50 - 159 Laboratory test finding 07/16/2020 [facility] Ambulance Assistant: [place] [address] [phone] Thyroid Stimulating Hormone 2.95 uIU/mL 0.3 6 [...] LITTLE GFR LEFT ESRD GFR <15 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 4 Lab Result Notes: Pre-Diabetes 5.7 - [...] LITTLE GFR LEFT ESRD GFR <15 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 Procedures Date Code Description Status 11/15/2020 48994 Office/Outpatient Established Mo d MDM 30-39 Min Completed 07/16/2020 71538 Office/Outpatient Established Mo d MDM 30-39 Min Completed 01/13/2017 [id number] Diabetic Retinal Eye Exam Comple [facility] 01/02/2016 [id number] Bone Mineral Density Test Comple vickie 04/24/2015 [id number] Mammogram Completed 12/16/2012 [id number] Bone Mineral Density Test Comple vickie 12/06/2012 [id number] Colonoscopy Completed 07/29/2010 [id number] Bone Mineral Density Test Comple vickie 07/29/2010 [id number] Mammogram Completed 03/27/2008 [id number] Mammogram Completed 07/07/2006 [id number] Bone Mineral Density Test Comple [employer] Description No Information Available Encounters Type Date Location Provider Dx Diagnosis Office Visit 11/15/2020 2:00p [facility] Mary Kay Islas, [facility] E11.65 Type 2 diabetes mellitus with hyperglyce chelsy E11.42 Type 2 diabetes mellitus wit h diabetic polyneuropathy E03.9 Hypothyroidism, unspecified M79.7 Fibromyalgia F41.9 Anxiety disorder, unspecifie d Office Visit 07/16/2020 11:00a [facility] Mary Kay Islas, [facility] E11.65 Type 2 diabetes mellitus with hyperglyce chelsy E11.42 Type 2 diabetes mellitus wit h diabetic polyneuropathy J30.2 Other seasonal allergic rhin itis E03.9 Hypothyroidism, unspecified I10 Essential (primary) hyperten alley E83.110 Hereditary hemochromatosis F41.9 Anxiety disorder, unspecifie d M79.7 Fibromyalgia E78.00 Pure hypercholesterolemia, u nspecified Assessments Date Code Description Provider 11/15/2020 E11.65 Type 2 diabetes mellitus with hy perglycemia Mary Kay Ochoa [facility] 11/15/2020 E11.42 Type 2 diabetes mellitus with di abetic polyneuropathy KARLA PerezP 11/15/2020 E03.9 Hypothyroidism, unspecified KARLA PerezP 11/15/2020 M79.7 Fibromyalgia KARLA PerezP 11/15/2020 F41.9 Anxiety disorder, unspecified An romi Ochoa [facility] 07/16/2020 E11.65 Type 2 diabetes mellitus with hy perglycemia Mary Kay Ochoa, [facility] 07/16/2020 E11.42 Type 2 diabetes mellitus with di abetic polyneuropathy Mary Kay Ochoa, [facility] 07/16/2020 J30.2 Other seasonal allergic rhinitis Mary Kay Ochoa, [facility] 07/16/2020 E03.9 Hypothyroidism, unspecified Mary Kay Ochoa, [facility] 07/16/2020 I10 Essential (primary) hypertension Mary Kay Ochoa, [facility] 07/16/2020 E83.110 Hereditary hemochromatosis Mary Kay Haddad, [facility] 07/16/2020 F41.9 Anxiety disorder, unspecified An romi Ochoa, [facility] 07/16/2020 M79.7 Fibromyalgia Mary Kay Ochoa, [facility] 07/16/2020 E78.00 Pure hypercholesterolemia, unspe cified SAM Perez Plan of Treatment Future Appointment(s):* 11/28/2020 1:40 pm - SAM Perez at [facility] 11/15/2020 - SAM Perez* E11.65 Type 2 [...]
[2020-12-22] MEDS ORDERED: LEVO50TA5 (08:58)
[2020-12-22] MEDS ORDERED: ROSU10TA6 (08:59)
[2020-12-22] MEDS ORDERED: GLIP5TAB8 (08:59)
[2020-12-22] MEDS ORDERED: QUIN40TA26 (08:59)
[2020-12-22] MEDS ORDERED: JARD1TAB3 (08:59)
[2020-12-22] MEDS ORDERED: AMLO2.5T3 (08:59)
[2020-12-22] MEDS ORDERED: NS 500 ML IV ONE ×2 (09:10→10:20)
[2020-12-22] MEDS ORDERED: ACETAMINOPHEN 500 MG TAB PO ONE (09:15)
[2020-12-22] MEDS: NS 1,000 ML IV SCH ×2 (09:23→10:14)
[2020-12-22 09:27] LABS: BASO % 0.4 % (0.0-1.0); EOS % 0.1 % (0.0-3.0); HEMATOCRIT 48.6 % (36.0-47.0); HEMOGLOBIN 15.6 g/dl (12.0-15.5); LYMPH # 1.7 10^3/uL (1.5-5.0); LYMPH % 22.9 % (24.0-44.0); MEAN CORPUSCULAR HEMOGLOBIN 30.5 pg (27.0-33.0); MEAN CORPUSCULAR HGB CONC 32.1 g/dl (32.0-36.5); MEAN CORPUSCULAR VOLUME 94.9 fl (80.0-96.0); MONO # 0.5 10^3/uL (0.0-0.8); MONO % 6.9 % (2.0-8.0); NEUTROPHILS % 69.3 % (36.0-66.0); PLATELET COUNT, AUTOMATED 235 10^3/uL (150-450); RED BLOOD COUNT 5.12 10^6/uL (4.00-5.40); WHITE BLOOD COUNT 7.2 10^3/uL (4.0-10.0)
--- OUTSIDE RECORDS SUMMARY | 2020-12-22 09:37 | CCD ---
Author Author [facility] Organization [facility] Address Unknown Phone Unavailable Care Team Providers Care Senior Instructor Name Role Phone LePine, M Mary Kay CUSTOMS APPRAISER Unavailable Unavailable LePine, M Mary Kay CUSTOMS APPRAISER Unavailable Unavailable LePine, M Mary Kay CUSTOMS APPRAISER Unavailable Unavailable LePine, M Mary Kay CUSTOMS APPRAISER Unavailable Unavailable LePine, M Mary Kay CUSTOMS APPRAISER Unavailable Unavailable LePine, M Mary Kay CUSTOMS APPRAISER Unavailable Unavailable LePine, M Mary Kay CUSTOMS APPRAISER Unavailable Unavailable LePine, M Mary Kay CUSTOMS APPRAISER Unavailable Unavailable LePine, M Mary Kay CUSTOMS APPRAISER Unavailable Unavailable LePine, M Mary Kay CUSTOMS APPRAISER Unavailable Unavailable LePine, M Mary Kay CUSTOMS APPRAISER Unavailable Unavailable LePine, M Mary Kay CUSTOMS APPRAISER Unavailable Unavailable LePine, M Mary Kay CUSTOMS APPRAISER Unavailable Unavailable LePine, M Mary Kay CUSTOMS APPRAISER Unavailable Unavailable LePine, M Mary Kay CUSTOMS APPRAISER Unavailable Unavailable LePine, M Mary Kay CUSTOMS APPRAISER Unavailable Unavailable LePine, M Mary Kay CUSTOMS APPRAISER Unavailable Unavailable LePine, M Mary Kay CUSTOMS APPRAISER Unavailable Unavailable LePine, M Mary Kay CUSTOMS APPRAISER Unavailable Unavailable LePine, M Mary Kay CUSTOMS APPRAISER Unavailable Unavailable LePine, M Mary Kay CUSTOMS APPRAISER Unavailable Unavailable LePine, M Mary Kay CUSTOMS APPRAISER Unavailable Unavailable LePine, M Mary Kay CUSTOMS APPRAISER Unavailable Unavailable LePine, M Mary Kay CUSTOMS APPRAISER Unavailable Unavailable LePine, M Mary Kay CUSTOMS APPRAISER Unavailable Unavailable LePine, M Mary Kay CUSTOMS APPRAISER Unavailable Unavailable LePine, M Mary Kay CUSTOMS APPRAISER Unavailable Unavailable LePine, M Mary Kay CUSTOMS APPRAISER Unavailable Unavailable LePine, M Mary Kay CUSTOMS APPRAISER Unavailable Unavailable LePine, M Mary Kay CUSTOMS APPRAISER Unavailable Unavailable LePine, M Mary Kay CUSTOMS APPRAISER Unavailable Unavailable LePine, M Mary Kay CUSTOMS APPRAISER Unavailable Unavailable LePine, M Mary Kay CUSTOMS APPRAISER Unavailable Unavailable LePine, M Mary Kay CUSTOMS APPRAISER Unavailable Unavailable LePine, M Mary Kay CUSTOMS APPRAISER Unavailable Unavailable LePine, M Mary Kay CUSTOMS APPRAISER Unavailable Unavailable LePine, M Mary Kay CUSTOMS APPRAISER Unavailable Unavailable LePine, M Mary Kay CUSTOMS APPRAISER Unavailable Unavailable LePine, M Mary Kay CUSTOMS APPRAISER Unavailable Unavailable LePine, M Mary Kay CUSTOMS APPRAISER Unavailable Unavailable LePine, M Mary Kay CUSTOMS APPRAISER Unavailable Unavailable LePine, M Mary Kay CUSTOMS APPRAISER Unavailable Unavailable LePine, M Mary Kay CUSTOMS APPRAISER Unavailable Unavailable LePine, M Mary Kay CUSTOMS APPRAISER Unavailable Unavailable LePine, M Mary Kay CUSTOMS APPRAISER Unavailable Unavailable LePine, M Mary Kay CUSTOMS APPRAISER Unavailable Unavailable LePine, M Mary Kay CUSTOMS APPRAISER Unavailable Unavailable LePine, M Mary Kay CUSTOMS APPRAISER Unavailable Unavailable LePine, M Mary Kay CUSTOMS APPRAISER Unavailable Unavailable LePine, M Mary Kay CUSTOMS APPRAISER Unavailable Unavailable LePine, M Mary Kay CUSTOMS APPRAISER Unavailable Unavailable LePine, M Mary Kay CUSTOMS APPRAISER Unavailable Unavailable LePine, M Mary Kay CUSTOMS APPRAISER Unavailable Unavailable LePine, M Mary Kay CUSTOMS APPRAISER Unavailable Unavailable LePine, M Mary Kay CUSTOMS APPRAISER Unavailable Unavailable LePine, M Mary Kay CUSTOMS APPRAISER Unavailable Unavailable PICKERAL JR, J MATEO PA-C [...] is protected by Article 27-F of the [facility] Public Health law. If you continue you may have access to information: Regarding HIV / AIDS; Provided by facilities licensed or operated by the [facility] Office of Mental Health; or Provided by the [facility] Office for People With Developmental Disabilities. If such information is present, then the following [facility] mandated warning applies: This information has been [...] law may result in a fine or retirement sentence or both. A general authorization for the release of medical or other information is NOT sufficient authorization for further disc losure. Family History Family Member Name Family Member Gender Family Member Status Date o f Status Description Data Source(s) Unknown Male Problem [facility] ([facility]) Encounters Encounter Providers Location Date Indications Data Source(s ) Outpatient Attender: MATEO Garcia 1 03:00:00 PM EDT [facility] ([facility] ) Outpatient Attender: Mary Kay Garcia 11/28 01:40:00 PM EDT [facility] ([facility] ) Outpatient Attender: Mary Kay Garcia 11/15 02:00:00 PM EDT [facility] ([facility] ) Outpatient Attender: Mary Kay Garcia 07/16 11:00:00 AM EDT [facility] ([facility] ) Outpatient Attender: MATEO Garcia 0 05/15/2020 01:20:00 PM EDT [facility] ([facility] ) Outpatient Attender: Mary Kay Donavon Garcia 04/11 10:00:00 AM EST [facility] ([facility] ) Outpatient Attender: Mary Kay Rapheal DRE Garcia 01/03 12:40:00 PM EST [facility] ([facility] ) Immunizations Vaccine Date Status Description Data Source(s) Influenza, injectable, MDCK, preservative free, mahogany valent 11/28/2020 01:53:00 PM EDT completed [facility]) COVID-19 VACCINE Unknown 04/05/2020 12:00:00 AM EST completed [facility] Vaccine Series Complete: YESThis Data wa s Submitted to [facility] Via [employer]. COVID-19 VACCINE Moderna 03/21/2020 12:00:00 AM EST completed [facility] Vaccine Series Complete: NOThis Data was Submitted to [facility] Via [employer]. Influenza, injectable, MDCK, preservative free, mahogany valent 12/20/2019 01:25:00 PM EDT completed [facility] ([facility]) Influenza, injectable, MDCK, preservative free, mahogany valent 12/20/2019 11:19:00 AM EDT completed [facility] ([facility]) Medications Medication Brand Name Start Date Product Form Dose Route Admi nistrative Instructions Pharmacy Instructions Status Indications Reaction Description Data Source(s) Sertraline 25 MG Oral Tablet Sertraline HCL 12/06/2020 12:00:00 AM EDT ORAL active [facility] ([facility]) Administration Of Flu Vaccine 11/28/2020 12:00:00 AM EDT completed [facility] ([facility]) Medication administered onsite Sertraline 50 MG Oral Tablet Sertraline HCL 11/15/2020 12:00:00 AM EDT ORAL completed [facility] ([facility]) Glipizide 5 MG Oral Tablet Glipizide 11/15/2020 12:00:00 AM EDT ORAL active [facility] ([facility]) pregabalin 75 MG Oral Capsule [Lyrica] Lyrica 11/15/2020 12:00:00 A M EDT active [facility] ([facility]) Freestyle Britney 2/Sensor/Flash Glucose Monitoring System 11/15/2020 12:00:00 AM EDT active [facility] ([facility]) pregabalin 50 MG Oral Capsule [Lyrica] Lyrica 10/01/2020 12:00:00 A M EDT completed [facility] ([facility]) Fluticasone Propionate Nasal [place] Fluticasone Propionate Na marquise [place] 07/16/2020 12:00:00 AM EDT active [facility] ([facility]) glimepiride 2 MG Oral Tablet Glimepiride 07/16/2020 12:00:00 AM EDT ORAL completed [facility] ([facility]) Rosuvastatin calcium 10 MG Oral Tablet Rosuvastatin Calcium 07/16/2020 12:00:00 AM EDT ORAL active [facility] ([facility]) empagliflozin 25 MG Oral Tablet [Jardiance] Jardiance 06/12/2020 12:00:00 AM EDT ORAL active [facility] ([facility]) empagliflozin 10 MG Oral Tablet [Jardiance] Jardiance 05/28/2020 12:00:00 AM EDT ORAL completed [facility] ([facility]) Azithromycin 250 MG Oral Tablet Azithromycin 05/15/2020 12:00:00 AM EDT completed [facility] ([facility]) empagliflozin 25 MG Oral Tablet [Jardiance] Jardiance 04/12/2020 12:00:00 AM EST ORAL completed [facility] ([facility]) Amlodipine 2.5 MG Oral Tablet Amlodipine Besylate 04/11/2020 12:00: 00 AM EST ORAL active [facility] ([facility]) Covid-19 vaccine, Unspecified 04/05/2020 12:00:00 AM EST completed [facility] Medication administered onsite Loratadine 10 MG Oral Capsule Loratadine 01/04/2020 12:00:00 AM EST active [facility] ([facility]) Fluticasone Propionate Nasal [place] 24- Hour Fluticason e Propionate Nasal [place] 24- Hour 01/04/2020 12:00:00 AM EST RESPIRATORY active [facility] ([facility]) Administration Of Flu Vaccine 12/20/2019 12:00:00 AM EDT completed [facility] ([facility]) Medication administered onsite Insurance Providers Payer name Policy type / Coverage type Policy ID Covered republican ID Covered republican's relationship to siegel Policy Siegel Plan Information Medicare Natl Govt Servic Medicare Primary [id number] Self 4 [id number] Medicare Natl Govt Servic Medicare Primary [id number] Self 0 [id number] Medicare Natl Govt Servic Medicare Primary [id number] Self 4 [id number] Medicare Natl Govt Servic Medicare Primary [id number] Self 0 [id number] Medicare Natl Govt Servic Medicare Primary [id number] Self [id number] Medicare Natl Govt Servic Medicare Primary [id number] Self 0 [id number] Medicare Natl Govt Servic Medicare Primary [id number] Self 4 [id number] Medicare Natl Govt Servic Medicare Primary [id number] Self 0 [id number] Medicare Natl Govt Servic Medicare Primary [id number] Self 0 [id number] Medicare Natl Govt Servic Medicare Primary [id number] Self 0 [id number] Medicare Natl Govt Servic Medicare Primary [id number] Self 4 [id number] Medicare Natl Govt Servic Medicare Primary [id number] Self 0 [id number] Medicare Natl Govt Servic Medicare Primary [id number] Self Medicare Natl Govt Servic Medicare Primary [id number] Self [id number] Medicare Natl Govt Servic Medicare Primary [id number] Self [id number] Medicare Natl Govt Servic Medicare Primary [id number] Self 0 [id number] [facility] [facility] [employer] Medigap Part B [id number] Self 3 [id number] OPTIONS C [id number] O [id number] [facility] [employer] Medig[employer] Part B [id number] Self 3 [id number] [facility] [facility] [employer] Medig[employer] Part B [id number] Self 3 [id number] [employer] OPTIONS [id number] SP [id number] MEDICARE [id number] SP [id number] [facility] [employer] Medigap Part B [id number] Self 3 [id number] [facility] [employer] Med[employer] Part B [id number] Self 3 [id number] [facility] [employer] Part B [id number] Self 3 [id number] [facility] [facility] [employer] Part B [id number] Self 3 [id number] [facility] [facility] [employer] Med[employer] Part B [id number] Self 3 [id number] [employer] Medigap Part B [id number] Self [facility] [facility] Opt Medigap Part B [id number] Self AARP O [id number] S [id number] 9 [id number] 1 [id number] A [facility] Medigap Part B [id number] Self 3 [id number] [employer] OPTIONS [id number] SP [id number] MEDICARE C [id number] S [id number] AARP O [id number] S [id number] [employer] [facility] [employer] Medigap Part B [id number] Self [id number] [employer] Medigap Part B [id number] Self [id number] MEDICARE [id number] A [employer] Medigap Part B [id number] Self [id number] [facility] Part B [id number] Self [id number] [facility] Part B [id number] Self 3 [id number] MEDICARE C [id number] S [id number] A [facility] Part B [id number] Self 3 [id number] [facility] Part B [id number] Self 3 [id number] [facility] PART B C [id number] O [id number] [facility] [id number] SP [id number] [facility] [id number] SP [id number] Problems, Conditions, and Diagnoses No Information Surgeries/Procedures Procedure Description Date Indications Data Source(s) OFFICE OUTPATIENT VISIT 25 MINUTES 12/06/2020 12:00:00 AM EDT [facility] ([facility]) OFFICE OUTPATIENT VISIT 15 MINUTES 11/28/2020 12:00:00 AM EDT [facility] ([facility]) OFFICE OUTPATIENT VISIT 25 MINUTES 11/15/2020 12:00:00 AM EDT [facility] ([facility]) OFFICE OUTPATIENT VISIT 25 MINUTES 07/16/2020 12:00:00 AM EDT [facility] ([facility]) Results ID Date Data Source [id number] 11/15/2020 02:57:00 PM EDT [facility] ([facility]) Name Value Range Interpretation Code Description Data Sudha rce(s) Supporting Document(s) Thyrotropin [Units/volume] in Serum or Plasma by Detec tion limit <= 0.05 mIU/L 2.16 uIU/mL 0.36-3.74 [facility] ([facility] ) ID Date Data Source [id number] 11/15/2020 02:57:00 PM EDT [facility] ([facility]) Name Value Range Interpretation Code Description Data Sudha rce(s) Supporting Document(s) Glucose [Mass/volume] in Serum or Plasma 161 mg/dL 74-99 [facility] ([facility]) 100-125 mg/dL PRE-DIABETES/FASTING >126 mg/dL DIABETES/FASTING Creatinine 0.8 mg/dL 0.6-1.3 [facility] ([facility]) Urea nitrogen [Mass/volume] in Serum or Plasma 24 mg/dL 7-18 [facility] ([facility]) Sodium [Moles/volume] in Serum or Plasma 141 meq/L 136-145 [facility] ([facility]) Chloride [Moles/volume] in Serum or Plasma 103 meq/L 98-107 [facility] ([facility]) Carbon dioxide, total [Moles/volume] in Serum or Plasma 36 meq/L 21 -32 [facility] ([facility]) Potassium [Moles/volume] in Serum or Plasma 3.9 meq/L 3.5-5.1 [facility] ([facility]) Calcium [Mass/volume] in Serum or Plasma 10.0 mg/dL 8.5-10.1 [facility] ([facility]) Aspartate aminotransferase [Enzymatic activity/volume] in Serum or Plasma 14 U/L 15-37 [facility] Total Bilirubin 0.5 mg/dL 0.2-1.0 [facility] Alkaline phosphatase isoenzyme [Units/volume] in Serum or Pl asma 100 mg/dL 46-116 [facility] ([facility]) Albumin [Mass/volume] in Serum or Plasma 4.0 g/dL 3.4-5.0 [facility] ([facility]) Alanine aminotransferase [Enzymatic activity/volume] in Seru m or Plasma 27 U/L 12-78 [facility] ([facility]) Proteinase 3 Ab [Units/volume] in Serum 7.3 g/dL 6.4-8.2 [facility] ([facility]) A/G Ratio 1.21 CALC 1.00-1.90 [facility] [facility]) Glomerular filtration rate/1.73 sq M pre dicted among blacks [Volume Rate/Area] in Serum or Plasma by Creatinine-based formula (MDRD) Laboratory test result [facility] <content>CHRONIC KIDNEY DISEASE STAGING PER NKF</content>
<content></content>
<content>STAGE I & II GFR >= 60 NORMAL TO MILDLY DECREASED</content>
<content>STAGE III GFR 30-59 MODERATELY DECREASED</content>
<content>STAGE IV GFR 15-29 SEVERELY DECREASED</content>
<content>STAGE V GFR <15 VERY LITTLE GFR LEFT</content>
<content>ESRD GFR <15 ON LAND CLASSIFIER</content>
<content></content> Glomerular filtration rate/1.73 sq M pre dicted among non-blacks [Volume Rate/Area] in Serum or Plasma by Creatinine-based formula (MDRD) Laboratory test result [facility] ([facility] ) ID Date Data Source [id number] 11/15/2020 02:57:00 PM EDT [facility] ([facility]) Name Value Range Interpretation Code Description Data Sudha rce(s) Supporting Document(s) Glucose mean value [Mass/volume] in Blood Estimated fr om glycated hemoglobin 166 mg/dL 60-110 [facility] ([facility] ) Hemoglobin A1c/Hemoglobin.total in Blood 7.4 % [facility] ([facility]) Lab Result Notes: Pre-Diabetes 5.7 - 6.4 % Diabetes = or > 6.5% ID Date Data Source [id number] 11/15/2020 02:57:00 PM EDT [facility]) Name Value Range Interpretation Code Description Data Sudha rce(s) Supporting Document(s) Leukocytes [#/volume] in Blood by Automated count 7.8 x10*3/UL 4.1-10 .9 [facility] Erythrocytes [#/volume] in Blood by Automated count 5.08 x10*6/UL 4.2 0-6.30 [facility] ([facility]) Hemoglobin [Mass/volume] in Blood 15.4 g/dL 12.0-18.0 [facility] Hematocrit [Volume Fraction] of Blood by Automated count 46.3 % 3 7.0-51.0 [facility] MCV 91.2 fL 80.0-97.0 [facility] ([facility]) MCH 30.4 pg 26.0-32.0 [facility] ([facility]) Erythrocyte distribution width [Ratio] by Automated count 13.0 % 11.6-13.7 [facility] MCHC 33.3 g/dL 31.0-38.0 [facility] ([facility]) MPV 8.3 FL 7.8-11.0 [facility] ([facility]) Platelets [#/volume] in Blood by Automated count 256 x10*3/UL 140-440 [facility] ([facility]) Lymph % 21.7 % 10.0-58.5 [facility] ([facility]) Lymph # 1.7 x10*3/UL 0.6-4.1 [facility] ([facility]) Mid % 5.7 % 1.7-9.3 [facility] ([facility]) Neut % 72.6 % 37.0-92.0 [facility] ([facility]) Neut # 5.7 x10*3/UL 2.0-7.8 [facility] ([facility]) Mid # 0.4 x10*3/UL 0.1-0.6 [facility] ([facility]) ID Date Data Source [id number] 11/15/2020 02:57:00 PM [facility] Name Value Range Interpretation Code Description Data Sudha rce(s) Supporting Document(s) Hemoglobin A1c/Hemoglobin.total in Blood Laboratory test result [facility] ID Date Data Source [id number] 07/16/2020 11:36:00 AM EDT [facility] ([facility]) Name Value Range Interpretation Code Description Data Sudha rce(s) Supporting Document(s) Thyrotropin [Units/volume] in Serum or Plasma by Detec tion limit <= 0.05 mIU/L 2.95 uIU/mL 0.36-3.74 [facility] ([facility] ) ID Date Data Source [id number] 07/16/2020 11:36:00 AM EDT [facility] ([facility]) Name Value Range Interpretation Code Description Data Sudha rce(s) Supporting Document(s) Triglyceride [Mass/volume] in Serum or Plasma 113 mg/dL 30-150 [facility] ([facility]) Cholesterol [Mass/volume] in Serum or Plasma 289 mg/dL 131-200 [facility] ([facility]) Cholesterol in LDL [Mass/volume] in Serum or Plasma by calcu lation 182 CALC 50-159 [facility] ([facility]) Cholesterol in HDL [Mass/volume] in Serum or Plasma 84 mg/dL 35-60 [facility] ([facility]) ID Date Data Source [id number] 07/16/2020 11:36:00 AM ED[facility] Name Value Range Interpretation Code Description Data Sudha rce(s) Supporting Document(s) Creatinine 0.7 mg/dL 0.6-1.3 [facility] Glucose [Mass/volume] in Serum or Plasma 129 mg/dL 74-99 [facility] ([facility]) 100-125 mg/dL PRE-DIABETES/FASTING >126 mg/dL DIABETES/FASTING Urea nitrogen [Mass/volume] in Serum or Plasma 24 mg/dL 7-18 [facility] ([facility]) Potassium [Moles/volume] in Serum or Plasma 3.6 meq/L 3.5-5.1 [facility] ([facility]) Sodium [Moles/volume] in Serum or Plasma 139 meq/L 136-145 [facility] ([facility]) Calcium [Mass/volume] in Serum or Plasma 9.6 mg/dL 8.5-10.1 [facility] ([facility]) Chloride [Moles/volume] in Serum or Plasma 101 meq/L 98-107 [facility] ([facility]) Carbon dioxide, total [Moles/volume] in Serum or Plasma 34 meq/L 21 -32 [facility] Glomerular filtration rate/1.73 sq M pre dicted among non-blacks [Volume Rate/Area] in Serum or Plasma by Creatinine-based formula (MDRD) Laboratory test result [facility] ([facility] ) Glomerular filtration rate/1.73 sq M pre dicted among blacks [Volume Rate/Area] in Serum or Plasma by Creatinine-based formula (MDRD) Laboratory test result [facility] ([facility]) <content>CHRONIC KIDNEY DISEASE STAGING PER NKF</content>
<content></content>
<content>STAGE I & II GFR >= 60 NORMAL TO MILDLY DECREASED</content>
<content>STAGE III GFR 30-59 MODERATELY DECREASED</content>
<content>STAGE IV GFR 15-29 SEVERELY DECREASED</content>
<content>STAGE V GFR <15 VERY LITTLE GFR LEFT</content>
<content>ESRD GFR <15 ON LAND CLASSIFIER</content>
<content></content> ID Date Data Source [id number] 07/16/2020 11:36:00 AM EDT [facility] Name Value Range Interpretation Code Description Data Sudha rce(s) Supporting Document(s) Hemoglobin A1c/Hemoglobin.total in Blood 7.8 % [facility] ([facility]) Lab Result Notes: Pre-Diabetes 5.7 - 6.4 % Diabetes = or > 6.5% Glucose mean value [Mass/volume] in Blood Estimated fr om glycated hemoglobin 177 mg/dL 60-110 [facility] ([facility] ) ID Date Data Source [id number] 05/15/2020 01:19:00 PM EDT [facility]) Name Value Range Interpretation Code Description Data Sudha rce(s) Supporting Document(s) [facility] Urine PH 5.0 units 5.0-9.0 [facility] Specific gravity of Urine 1.015 1.005-1.[address] [facility] Urine Appearance Laboratory test result Abnormal (applies to non-numeric results) [facility] ([facility]) Urine Blood Laboratory test result Abnormal (applies to non-numeric results) [facility] ([facility]) Urine Leukocytes Laboratory test result [facility] Urine Protein Laboratory test result 0-0 [facility] ([facility] Glucose [Presence] in Urine Laboratory test result Abnormal (applies to non- numeric results) [facility] Urine Nitrite Laboratory test result [facility] Bilirubin.total [Mass/volume] in Serum or Plasma Laboratory test resu lt [facility] ([facility]) Urine Ketone Laboratory test result Abnormal (applies to non-numeric results) [facility] Urine Urobilinogen 0.2 mg/dL 0.2-1.0 [facility] [facility]) ID Date Data Source [id number] 04/11/2020 11:44:00 AM EST [facility] ([facility]) Name Value Range Interpretation Code Description Data Sudha rce(s) Supporting Document(s) Thyrotropin [Units/volume] in Serum or Plasma by Detec tion limit <= 0.05 mIU/L 3.53 uIU/mL 0.36-3.74 [facility] ([facility] ) ID Date Data Source [id number] 04/11/2020 11:44:00 AM EST [facility] ([facility]) Name Value Range Interpretation Code Description Data Sudha rce(s) Supporting Document(s) Glucose [Mass/volume] in Serum or Plasma 168 mg/dL 74-99 [facility] ([facility]) 100-125 mg/dL PRE-DIABETES/FASTING >126 mg/dL DIABETES/FASTING Creatinine 0.7 mg/dL 0.6-1.3 [facility]) Sodium [Moles/volume] in Serum or Plasma 144 meq/L 136-145 [facility] ([facility]) Urea nitrogen [Mass/volume] in Serum or Plasma 17 mg/dL 7-18 [facility]) Potassium [Moles/volume] in Serum or Plasma 4.5 meq/L 3.5-5.1 [facility] ([facility]) Chloride [Moles/volume] in Serum or Plasma 104 meq/L 98-107 [facility] ([facility]) Carbon dioxide, total [Moles/volume] in Serum or Plasma 30 meq/L 21 -32 [facility] ([facility]) Calcium [Mass/volume] in Serum or Plasma 9.7 mg/dL 8.5-10.1 [facility] ([facility] [facility]) Glomerular filtration rate/1.73 sq M pre dicted among non-blacks [Volume Rate/Area] in Serum or Plasma by Creatinine-based formula (MDRD) Laboratory test result [facility] ([facility] [facility] ) Glomerular filtration rate/1.73 sq M pre dicted among blacks [Volume Rate/Area] in Serum or Plasma by Creatinine-based formula (MDRD) Laboratory test result [facility] ([facility]) <content>CHRONIC KIDNEY DISEASE STAGING PER NKF</content>
<content></content>
<content>STAGE I & II GFR >= 60 NORMAL TO MILDLY DECREASED</content>
<content>STAGE III GFR 30-59 MODERATELY DECREASED</content>
<content>STAGE IV GFR 15-29 SEVERELY DECREASED</content>
<content>STAGE V GFR <15 VERY LITTLE GFR LEFT</content>
<content>ESRD GFR <15 ON LAND CLASSIFIER</content>
<content></content> ID Date Data Source [id number] 04/11/2020 11:44:00 AM EST [facility] ([facility]) Name Value Range Interpretation Code Description Data Sudha rce(s) Supporting Document(s) Magnesium 1.9 mg/dL 1.8-2.4 [facility] ([place] [facility]) ID Date Data Source [id number] 04/11/2020 11:44:00 AM EST [facility] ([facility]) Name Value Range Interpretation Code Description Data Sudha rce(s) Supporting Document(s) Hemoglobin A1c/Hemoglobin.total in Blood 7.8 % [facility] ([place]) Lab Result Notes: Pre-Diabetes 5.7 - 6.4 % Diabetes = or > 6.5% Glucose mean value [Mass/volume] in Blood Estimated fr om glycated hemoglobin 177 mg/dL 60-110 [facility] ([facility] ) ID Date Data Source [id number] 04/11/2020 11:44:00 AM EST [facility] ([facility]) Name Value Range Interpretation Code Description Data Sudha rce(s) Supporting Document(s) Leukocytes [#/volume] in Blood by Automated count 6.4 x10*3/UL 4.1-10 .9 [facility] ([facility]) Hemoglobin [Mass/volume] in Blood 16.3 g/dL 12.0-18.0 [facility] ([facility] [facility]) Erythrocytes [#/volume] in Blood by Automated count 5.34 x10*6/UL 4.2 0-6.30 [facility] ([facility] [facility]) Hematocrit [Volume Fraction] of Blood by Automated count 48.0 % 3 7.0-51.0 [facility] ([facility] [facility]) MCV 89.9 fL 80.0-97.0 [facility] ([place] [facility]) MCH 30.6 pg 26.0-32.0 [facility] ([facility]) Erythrocyte distribution width [Ratio] by Automated count 12.7 % 11.6-13.7 [facility] ([facility] [facility]) MCHC 34.0 g/dL 31.0-38.0 [facility] ([facility]) MPV 8.8 FL 7.8-11.0 [facility] ([facility]) Platelets [#/volume] in Blood by Automated count 249 x10*3/UL 140-440 [facility] ([facility]) Lymph % 25.5 % 10.0-58.5 [facility] ([place] [facility]) Neut % 68.0 % 37.0-92.0 [facility] ([place] [facility]) Mid % 6.5 % 1.7-9.3 [facility] ([place] [facility]) Lymph # 1.6 x10*3/UL 0.6-4.1 [facility] ([facility]) Neut # 4.4 x10*3/UL 2.0-7.8 [facility] ([facility]) Mid # 0.4 x10*3/UL 0.1-0.6 [facility] ([facility]) ID Date Data Source [id number] 12/20/2019 10:11:00 AM EDT [facility] ([facility]) Name Value Range Interpretation Code Description Data Sudha rce(s) Supporting Document(s) Thyrotropin [Units/volume] in Serum or Plasma by Detec tion limit <= 0.05 mIU/L 3.32 uIU/mL 0.36-3.74 [facility] ([facility] ) ID Date Data Source [id number] 12/20/2019 10:11:00 AM EDT [facility] ([facility]) Name Value Range Interpretation Code Description Data Sudha rce(s) Supporting Document(s) Urea nitrogen [Mass/volume] in Serum or Plasma 23 mg/dL 7-18 [facility] ([facility]) Glucose [Mass/volume] in Serum or Plasma 190 mg/dL 74-99 [facility] ([facility]) 100-125 mg/dL PRE-DIABETES/FASTING >126 mg/dL DIABETES/FASTING Sodium [Moles/volume] in Serum or Plasma 142 meq/L 136-145 [facility] ([facility]) Creatinine 0.8 mg/dL 0.6-1.3 [facility] ([facility]) Carbon dioxide, total [Moles/volume] in Serum or Plasma 33 meq/L 21 -32 [facility] ([facility]) Potassium [Moles/volume] in Serum or Plasma 4.1 meq/L 3.5-5.1 [facility] ([facility]) Chloride [Moles/volume] in Serum or Plasma 102 meq/L 98-107 [facility] ([facility]) Calcium [Mass/volume] in Serum or Plasma 9.4 mg/dL 8.5-10.1 [facility] ([facility]) Glomerular filtration rate/1.73 sq M pre dicted among non-blacks [Volume Rate/Area] in Serum or Plasma by Creatinine-based formula (MDRD) Laboratory test result [facility] ([facility] ) Glomerular filtration rate/1.73 sq M pre dicted among blacks [Volume Rate/Area] in Serum or Plasma by Creatinine-based formula (MDRD) Laboratory test result [facility] ([facility]) <content>CHRONIC KIDNEY DISEASE STAGING PER NKF</content>
<content></content>
<content>STAGE I & II GFR >= 60 NORMAL TO MILDLY DECREASED</content>
<content>STAGE III GFR 30-59 MODERATELY DECREASED</content>
<content>STAGE IV GFR 15-29 SEVERELY DECREASED</content>
<content>STAGE V GFR <15 VERY LITTLE GFR LEFT</content>
<content>ESRD GFR <15 ON LAND CLASSIFIER</content>
<content></content> Procedure Social History No Information Vital Signs ID Date Data Source UNK Name Value Range Interpretation Code Description Data Source(s) Diastolic blood pressure 80 mm[Hg] 80 mm[Hg] [facility] ([facility]) Systolic blood pressure 150 mm[Hg] 150 mm[Hg] [facility] ([facility]) Heart rate 95 /min 95 /min [facility] ([facility]) Body height 64 [in_i] 64 [in_i] [facility] ([facility]) 5'4" Body weight 133.00 [lb_av] 133.00 [facility]_av] [facility] Body mass index (BMI) [Ratio] 22.8 kg/m2 22.8 k g/m2 [facility] ([facility]) Heart rate 73 /min 73 /min [facility] ([facility]) Systolic blood pressure 154 mm[Hg] 154 mm[Hg] [facility] ([facility]) Diastolic blood pressure 82 mm[Hg] 82 mm[Hg] [facility] ([facility]) Body height 64 [in_i] 64 [in_i] [facility] ([facility]) 5'4" Body weight 139.00 [lb_av] 139.00 [lb_av] [facility] Oxygen saturation in Arterial blood by Pulse oximetry 97 % 97 % [facility] ([facility]) Body mass index (BMI) [Ratio] 23.9 kg/m2 23.9 k g/m2 [facility] ([facility]) Heart rate 60 /min 60 /min [facility] ([facility]) Body height 64 [in_i] 64 [in_i] [facility] 5'4" Body weight 140.00 [lb_av] 140.00 [lb_av] [facility] ([facility]) Oxygen saturation in Arterial blood by Pulse oximetry 92 % 92 % [facility] ([facility]) Body mass index (BMI) [Ratio] 24.0 kg/m2 24.0 k g/m2 [facility] ([facility]) Diastolic blood pressure 70 mm[Hg] 70 mm[Hg] [facility] ([facility]) Systolic blood pressure 170 mm[Hg] 170 mm[Hg] [facility] ([facility]) Heart rate 60 /min 60 /min [facility] ([facility]) Body height 64 [in_i] 64 [in_i] [facility] ([facility]) 5'4" Body weight 140.00 [lb_av] 140.00 [lb_av] [facility] ([facility]) Oxygen saturation in Arterial blood by Pulse oximetry 92 % 92 % [facility] ([facility]) Body mass index (BMI) [Ratio] 24.0 kg/m2 24.0 k g/m2 [facility] ([facility]) Systolic blood pressure 158 mm[Hg] 158 mm[Hg] [facility] ([facility]) Diastolic blood pressure 84 mm[Hg] 84 mm[Hg] [facility] ([facility]) Heart rate 85 /min 85 /min [facility] ([facility]) Body weight 146.00 [lb_av] 146.00 [lb_av] [facility] ([facility]) Oxygen saturation in Arterial blood by Pulse oximetry 98 % 98 % [facility] ([facility]) Body mass index (BMI) [Ratio] 24.9 kg/m2 24.9 k g/m2 [facility] ([facility]) Diastolic blood pressure 86 mm[Hg] 86 mm[Hg] [facility] ([facility]) Systolic blood pressure 180 mm[Hg] 180 mm[Hg] [facility] ([facility]) Body height 64 [in_i] 64 [in_i] [facility] ([facility]) 5'4" Body weight 145.00 [lb_av] 145.00 [lb_av] [facility] ([facility]) Body height 64 [in_i] 64 [in_i] [facility] ([facility]) 5'4" Body weight 150.00 [lb_av] 150.00 [lb_av] [facility] ([facility]) Systolic blood pressure 180 mm[Hg] 180 mm[Hg] [facility] ([facility]) Diastolic blood pressure 80 mm[Hg] 80 mm[Hg] [facility] ([facility]) Systolic blood pressure 184 mm[Hg] 184 mm[Hg] [facility] ([facility]) Diastolic blood pressure 80 mm[Hg] 80 mm[Hg] [facility] ([facility]) Heart rate 85 /min 85 /min [facility] ([facility]) Oxygen saturation in Arterial blood by Pulse oximetry 95 % 95 % [facility] ([facility]) Body mass index (BMI) [Ratio] 25.7 kg/m2 25.7 k g/m2 [facility] ([facility]) Systolic blood pressure 178 mm[Hg] 178 mm[Hg] [facility] ([facility]) Diastolic blood pressure 88 mm[Hg] 88 mm[Hg] [facility] ([facility]) Heart rate 78 /min 78 /min [facility] ([facility]) Body height 64 [in_i] 64 [in_i] [facility] ([facility]) 5'4" Body weight 148.00 [lb_av] 148.00 [lb_av] [facility] ([facility]) Oxygen saturation in Arterial blood by Pulse oximetry 99 % 99 % [facility] ([facility]) Systolic blood pressure 170 mm[Hg] 170 mm[Hg] [facility] Diastolic blood pressure 88 mm[Hg] 88 mm[Hg] [facility] ([facility]) Body mass index (BMI) [Ratio] 25.4 kg/m2 25.4 k g/m2 [facility] ([facility]) Systolic blood pressure 130 mm[Hg] 130 mm[Hg] M [facility] ([facility]) Diastolic blood pressure 72 mm[Hg] 72 mm[Hg] [facility] ([facility]) Heart rate 70 /min 70 /min [facility] ([facility]) Body height 64 [in_i] 64 [in_i] [facility] ([facility]) 5'4" Body weight 144.38 [lb_av] 144.38 [lb_av] [facility] ([facility]) Oxygen saturation in Arterial blood by Pulse oximetry 95 % 95 % [facility] ([facility]) Air Body mass index (BMI) [Ratio] 24.8 kg/m2 24.8 k g/m2 [facility] ([facility])
[2020-12-22 09:57] LABS: ALBUMIN 3.8 GM/DL (3.2-5.2); ALT/SGPT 25 U/L (12-78); BILIRUBIN,DIRECT 0.2 MG/DL (0.0-0.2); BILIRUBIN,TOTAL 0.6 MG/DL (0.2-1.0); BLOOD UREA NITROGEN 21 MG/DL (7-18); CALCIUM LEVEL 9.5 MG/DL (8.8-10.2); CARBON DIOXIDE LEVEL 27 MEQ/L (21-32); CHLORIDE LEVEL 104 MEQ/L (98-107); CK-MB VALUE MASS < 1.0 NG/ML (<3.6); CPK CREATINE PHOSPHOKINASE 33 U/L (26-192); CREATININE FOR GFR 0.57 MG/DL (0.55-1.30); GLOMERULAR FILTRATION RATE > 60.0 (>39); GLUCOSE, FASTING 130 MG/DL (70-100); LIPASE 55 U/L (73-393); MB/CK RELATIVE INDEX 3.03 (< OR =4); POTASSIUM SERUM 4.1 MEQ/L (3.5-5.1); SODIUM LEVEL 141 MEQ/L (136-145); TOTAL PROTEIN 6.7 GM/DL (6.4-8.2); TROPONIN I < 0.02 NG/ML (< 0.10)
--- NOTE | 2020-12-22 13:23 | REP ---
INDICATION: abd pain. COMPARISON: CT abdomen and pelvis without contrast, 11/29/2012. TECHNIQUE: Imaging protocol: Computed tomography of the abdomen and pelvis without IV contrast. Contiguous 3 mm thick axial projection images were obtained through the abdomen and pelvis. 2D sagittal and coronal reconstructions were performed. Radiation optimization: All CT scans at this facility use at least one of these dose optimization techniques: automated exposure control; mA and/or kV adjustment per patient size (includes targeted exams where dose is matched to clinical indication); or iterative reconstruction. FINDINGS: Heart and lung bases: There is minimal gravity dependent atelectasis in both lung bases. The heart size is normal. There is no pericardial effusion. There is calcific vascular disease of the thoracic aorta and coronary arteries. Liver: Normal unenhanced appearance. Gallbladder: Suspect gallstones. Spleen: Normal unenhanced appearance. Pancreas: Normal unenhanced appearance. Adrenal glands: Normal unenhanced appearance. Kidneys/bladder: Normal unenhanced appearance. Pelvic structures: The uterus has a normal unenhanced appearance. There is no free fluid the pelvis. The ovaries are not well demonstrated. There is no pelvic or inguinal lymphadenopathy. GI tract: There is stool throughout the colon. There are few scattered colonic diverticuli without evidence of acute inflammation. There is a normal appendix demonstrated. Abdominal wall and mesentery: There are no abdominal wall defects. There is no mesenteric or retroperitoneal lymphadenopathy. Abdominal aorta and vascular structures: There is calcific vascular disease of the abdominal aorta. Bony structures: There is mild multilevel degenerative disc disease of the lower thoracic and lumbar spine. There is moderate dextroscoliosis of the thoracic spine and there is mild levoscoliosis of the lumbar spine. There is a lytic focus with sclerotic margin in the right iliac wing, not significantly changed. IMPRESSION: 1. Colonic diverticulosis without diverticulitis. 2. Mild constipation. 3. Suspect gallstones. 4. Calcific vascular disease of the thoracoabdominal aorta and coronary arteries. 5. Thoracolumbar degenerative disc disease with scoliosis. <Electronically signed by Mohsen Zamorano > 12/22/20 [id number]
[2020-12-22] MEDS ORDERED: COLA100C5 PO (13:43)
--- NOTE | 2020-12-22 13:51 | ECGEPIP ---
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
[2020-12-22 14:04] LABS: RSV AMPLIFICATION NEGATIVE (NEGATIVE)
[2020-12-22 14:16] VITALS: BP 144/72
== END 2020-12-22 14:27 | disposition home or self-care (01) ==
LOC: M ED 08:47
DX: E86.0 Dehydration (principal); K59.00 Constipation, unspecified; E11.9 Type 2 diabetes mellitus without complications; I10 Essential (primary) hypertension; E78.5 Hyperlipidemia, unspecified; E07.9 Disorder of thyroid, unspecified; M79.7 Fibromyalgia; M19.90 Unspecified osteoarthritis, unspecified site; Z79.899 Other long term (current) drug therapy; Z79.84 Long term (current) use of oral hypoglycemic drugs; Z88.0 Allergy status to penicillin; Z88.5 Allergy status to narcotic agent

== ENCOUNTER 2021-01-19 07:48 | Inpatient (IN) | payer MEDICARE ==
[~2021-01-19] VITALS: Ht 165.1 cm; Wt 58.6 kg
[~2021-01-19 07:48] MED LIST changes: +AMLO2.5T3 PO; +COLA100C5 PO; +GLIP5TAB8 PO; +JARD1TAB3 PO; +LEVO50TA5 PO; +QUIN40TA26 PO; +ROSU10TA6 PO
[2021-01-19] MEDS ORDERED: NS 1,000 ML IV ONE (08:30)
[2021-01-19] MEDS ORDERED: ACETAMINOPHEN 500 MG TAB PO ONE (08:30)
[2021-01-19 08:59] LABS: BASO % 0.5 % (0.0-1.0); EOS % 0.2 % (0.0-3.0); HEMATOCRIT 47.9 % (36.0-47.0); HEMOGLOBIN 15.7 g/dl (12.0-15.5); LYMPH # 1.6 10^3/uL (1.5-5.0); LYMPH % 26.9 % (24.0-44.0); MEAN CORPUSCULAR HEMOGLOBIN 30.8 pg (27.0-33.0); MEAN CORPUSCULAR HGB CONC 32.8 g/dl (32.0-36.5); MEAN CORPUSCULAR VOLUME 93.9 fl (80.0-96.0); MONO # 0.5 10^3/uL (0.0-0.8); MONO % 9.1 % (2.0-8.0); NEUTROPHILS # 3.7 10^3/uL (1.5-8.5); NEUTROPHILS % 63.1 % (36.0-66.0); PLATELET COUNT, AUTOMATED 248 10^3/uL (150-450); WHITE BLOOD COUNT 5.9 10^3/uL (4.0-10.0)
[2021-01-19] MEDS ORDERED: ISOVUE-370 76% 100ML VIAL As Ordered ONE (09:26)
[2021-01-19 09:30] LABS: ALBUMIN 3.6 GM/DL (3.2-5.2); BILIRUBIN,DIRECT 0.2 MG/DL (0.0-0.2); BILIRUBIN,TOTAL 0.8 MG/DL (0.2-1.0); TOTAL PROTEIN 7.1 GM/DL (6.4-8.2)
[2021-01-19] MEDS ORDERED: LIDOCAINE 2% 5ML JELLY UROJET TOP ONE (10:10)
[2021-01-19] MEDS ORDERED: METOCLOPRAMIDE INJ 10MG/2ML VIAL (J2765 PER 1) IV ONE (10:40)
[2021-01-19] MEDS ORDERED: DEXTROSE 50% 50 ML SYRINGE IV PRN (13:55)
[2021-01-19] MEDS ORDERED: GLUCOSE 4GM CHEW TABLET PO PRN (13:55)
[2021-01-19] MEDS ORDERED: GLUCAGON INJ 1MG VIAL SC PRN (13:55)
[2021-01-19 14:39] LABS: RSV AMPLIFICATION NEGATIVE (NEGATIVE)
[2021-01-19] MEDS ORDERED: LYRI75CA PO (14:57)
[2021-01-19] MEDS ORDERED: BISA10SU27 PR (14:57)
[2021-01-19] MEDS ORDERED: DOCU100C16 PO (14:57)
[2021-01-19] MEDS ORDERED: CHOL50002 PO (14:57)
[2021-01-19] MEDS ORDERED: HOME MED LIST COMPLETE! XX SCH (15:00)
[2021-01-19 16:30] VITALS: BP 137/73
[2021-01-19] MEDS: HumaLOG INSULIN (NovoLOG) PER UNIT SC SCH ×2 (17:16→21:00)
[2021-01-19] MEDS: PREGABALIN 75 MG CAP(LYRICA) PO SCH ×2 (17:49→21:39)
[2021-01-19] MEDS: ACETAMINOPHEN 500 MG TAB PO SCH (17:49)
[2021-01-19] MEDS: SENOKOT S TAB PO SCH (21:39)
[2021-01-19] MEDS: HEPARIN SOD (PORCINE) 5000UNITS/ML 1ML VIAL/SYRINGE SC SCH (21:39)
[2021-01-19 22:00] VITALS: BP 127/63
[2021-01-20] MEDS: ACETAMINOPHEN 500 MG TAB PO SCH ×4 (00:20→17:36)
[2021-01-20 06:00] VITALS: BP 124/62
[2021-01-20] MEDS: HEPARIN SOD (PORCINE) 5000UNITS/ML 1ML VIAL/SYRINGE SC SCH ×3 (06:11→20:30)
[2021-01-20] MEDS: LEVOTHYROXINE 50MCG TABLET (0.05MG) PO SCH (06:11)
[2021-01-20] MEDS: HumaLOG INSULIN (NovoLOG) PER UNIT SC SCH ×4 (07:30→20:20)
[2021-01-20 08:19] LABS: HEMOGLOBIN A1c 7.5 %
[2021-01-20] MEDS: SENOKOT S TAB PO SCH ×2 (08:19→20:29)
[2021-01-20] MEDS: PREGABALIN 75 MG CAP(LYRICA) PO SCH ×3 (08:20→20:29)
[2021-01-20 14:00] VITALS: BP 134/67
[2021-01-20 19:52] VITALS: BP 150/74
[2021-01-20] MEDS: ROSUVASTATIN 10 MG TAB (CRESTOR) PO SCH (20:29)
[2021-01-21] MEDS: ACETAMINOPHEN 500 MG TAB PO SCH ×4 (00:10→18:07)
[2021-01-21 05:14] VITALS: BP 118/74
[2021-01-21] MEDS: HEPARIN SOD (PORCINE) 5000UNITS/ML 1ML VIAL/SYRINGE SC SCH ×3 (06:19→20:37)
[2021-01-21] MEDS: LEVOTHYROXINE 50MCG TABLET (0.05MG) PO SCH (06:19)
[2021-01-21] MEDS: HumaLOG INSULIN (NovoLOG) PER UNIT SC SCH ×4 (07:30→20:26)
[2021-01-21] MEDS: PREGABALIN 75 MG CAP(LYRICA) PO SCH ×3 (08:17→20:37)
[2021-01-21] MEDS: SENOKOT S TAB PO SCH ×2 (08:17→20:36)
[2021-01-21 14:00] VITALS: BP 120/72
[2021-01-21] MEDS: MIRALAX *UNIT DOSE* 17GM PACKET PO SCH (18:08)
[2021-01-21] MEDS: ROSUVASTATIN 10 MG TAB (CRESTOR) PO SCH (20:37)
[2021-01-21 22:00] VITALS: BP 125/69
[2021-01-22] MEDS: ACETAMINOPHEN 500 MG TAB PO SCH ×3 (05:30→12:20)
[2021-01-22] MEDS: LEVOTHYROXINE 50MCG TABLET (0.05MG) PO SCH (05:30)
[2021-01-22] MEDS: HEPARIN SOD (PORCINE) 5000UNITS/ML 1ML VIAL/SYRINGE SC SCH (05:30)
[2021-01-22 06:00] VITALS: BP 122/67
[2021-01-22] MEDS ORDERED: MOM 30ML SUSPENSION UDC PO ONE (10:00)
[2021-01-22] MEDS: SENOKOT S TAB PO SCH (10:14)
[2021-01-22] MEDS: MIRALAX *UNIT DOSE* 17GM PACKET PO SCH (10:14)
[2021-01-22] MEDS: PREGABALIN 75 MG CAP(LYRICA) PO SCH (10:14)
[2021-01-22] MEDS: HumaLOG INSULIN (NovoLOG) PER UNIT SC SCH ×2 (10:15→12:17)
[2021-01-22 10:16] VITALS: BP 121/67
[2021-01-22] MEDS ORDERED: MIRA1POW3 PO (11:52)
[2021-01-22] MEDS ORDERED: METF500T13 PO (15:19)
== END 2021-01-22 15:05 | disposition home health service (06) | DRG 948 ==
LOC: M ED 07:48 → EDBD 07:48 → M ED INP 13:38 → ENRESERV 15:29 → M MS5PR 16:27
PROVIDERS: ADMIT Internal Medicine; ATTEND Internal Medicine
DX: R53.1 Weakness (principal); M79.7 Fibromyalgia; M19.90 Unspecified osteoarthritis, unspecified site; E11.9 Type 2 diabetes mellitus without complications; E03.9 Hypothyroidism, unspecified; I10 Essential (primary) hypertension; Z74.1 Need for assistance with personal care; Z20.822 Contact with and (suspected) exposure to COVID-19; Z79.84 Long term (current) use of oral hypoglycemic drugs; Z79.899 Other long term (current) drug therapy; Z88.0 Allergy status to penicillin; Z88.5 Allergy status to narcotic agent; K59.00 Constipation, unspecified; Z74.09 Other reduced mobility

== ENCOUNTER 2021-01-30 00:29 | Inpatient (IN) | payer MEDICARE ==
[~2021-01-30] VITALS: Ht 165.1 cm; Wt 54.0 kg
[~2021-01-30 00:29] MED LIST changes: +BISA10SU27 PR; +CHOL50002 PO; +DOCU100C16 PO; +METF500T13 PO; +MIRA1POW3 PO
[2021-01-30 01:33] LABS: BASO # 0.1 10^3/uL (0.0-0.2); BASO % 0.9 % (0.0-1.0); EOS % 0.4 % (0.0-3.0); HEMATOCRIT 44.1 % (36.0-47.0); HEMOGLOBIN 14.6 g/dl (12.0-15.5); LYMPH # 1.6 10^3/uL (1.5-5.0); MEAN CORPUSCULAR HEMOGLOBIN 31.2 pg (27.0-33.0); MEAN CORPUSCULAR HGB CONC 33.1 g/dl (32.0-36.5); MEAN CORPUSCULAR VOLUME 94.2 fl (80.0-96.0); MONO # 0.7 10^3/uL (0.0-0.8); MONO % 11.8 % (2.0-8.0); NEUTROPHILS # 3.3 10^3/uL (1.5-8.5); NEUTROPHILS % 58.5 % (36.0-66.0); PLATELET COUNT, AUTOMATED 238 10^3/uL (150-450); RED BLOOD COUNT 4.68 10^6/uL (4.00-5.40); WHITE BLOOD COUNT 5.7 10^3/uL (4.0-10.0)
[2021-01-30 02:05] LABS: BLOOD UREA NITROGEN 14 MG/DL (7-18); CALCIUM LEVEL 9.1 MG/DL (8.8-10.2); CARBON DIOXIDE LEVEL 27 MEQ/L (21-32); CHLORIDE LEVEL 103 MEQ/L (98-107); CREATININE FOR GFR 0.49 MG/DL (0.55-1.30); GLOMERULAR FILTRATION RATE > 60.0 (>39); GLUCOSE, FASTING 130 MG/DL (70-100); POTASSIUM SERUM 4.2 MEQ/L (3.5-5.1); SODIUM LEVEL 141 MEQ/L (136-145)
[2021-01-30 02:57] LABS: RSV AMPLIFICATION NEGATIVE (NEGATIVE)
[2021-01-30] MEDS ORDERED: MOM 30ML SUSPENSION UDC PO PRN (03:30)
[2021-01-30] MEDS ORDERED: GLUCOSE 4GM CHEW TABLET PO PRN (03:35)
[2021-01-30] MEDS ORDERED: DEXTROSE 50% 50 ML SYRINGE IV PRN (03:35)
[2021-01-30] MEDS ORDERED: GLUCAGON INJ 1MG VIAL SC PRN (03:35)
[2021-01-30] MEDS: ACETAMINOPHEN TAB 650MG DOSE (2X325MG) PO PRN ×3 (03:54→20:32)
[2021-01-30] MEDS ORDERED: MIRA1POW3 PO (04:14)
[2021-01-30] MEDS ORDERED: FLON1SPR (04:14)
[2021-01-30] MEDS ORDERED: HOME MED LIST COMPLETE! XX SCH (04:15)
[2021-01-30] MEDS: HumaLOG INSULIN (NovoLOG) PER UNIT SC SCH ×4 (07:21→20:24)
[2021-01-30] MEDS: ENOXAPARIN 40MG/0.4ML SYRINGE (J1650 PER 10MG) SC SCH (08:59)
[2021-01-30] MEDS: DOCUSATE SODIUM 100MG CAPSULE PO SCH ×2 (08:59→20:32)
[2021-01-30] MEDS ORDERED: FLUTICASONE PROP 0.05% NASAL SPRAY 16 GM (FLONASE) PRN (13:25)
[2021-01-30] MEDS ORDERED: DOCUSATE SODIUM 100MG CAPSULE PO PRN (13:25)
[2021-01-30] MEDS ORDERED: BISACODYL 10 MG SUPP PR PRN (13:25)
[2021-01-30 15:55] VITALS: BP 154/75
[2021-01-30] MEDS: PREGABALIN 75 MG CAP(LYRICA) PO SCH ×2 (16:30→20:32)
[2021-01-30] MEDS: LEVOTHYROXINE 50MCG TABLET (0.05MG) PO SCH (16:31)
[2021-01-30] MEDS: ROSUVASTATIN 10 MG TAB (CRESTOR) PO SCH (20:32)
[2021-01-30 22:00] VITALS: BP 146/74
[2021-01-31 06:00] VITALS: BP 144/73
[2021-01-31] MEDS: LEVOTHYROXINE 50MCG TABLET (0.05MG) PO SCH (06:07)
[2021-01-31 06:46] LABS: BASO % 0.7 % (0.0-1.0); EOS % 0.5 % (0.0-3.0); HEMATOCRIT 42.8 % (36.0-47.0); MEAN CORPUSCULAR HEMOGLOBIN 30.9 pg (27.0-33.0); MEAN CORPUSCULAR HGB CONC 32.7 g/dl (32.0-36.5); MEAN CORPUSCULAR VOLUME 94.5 fl (80.0-96.0); MONO # 0.7 10^3/uL (0.0-0.8); NEUTROPHILS # 2.8 10^3/uL (1.5-8.5); NEUTROPHILS % 50.4 % (36.0-66.0); PLATELET COUNT, AUTOMATED 240 10^3/uL (150-450); RED BLOOD COUNT 4.53 10^6/uL (4.00-5.40); WHITE BLOOD COUNT 5.5 10^3/uL (4.0-10.0)
[2021-01-31 07:14] LABS: BLOOD UREA NITROGEN 11 MG/DL (7-18); CALCIUM LEVEL 9.5 MG/DL (8.8-10.2); CARBON DIOXIDE LEVEL 25 MEQ/L (21-32); CHLORIDE LEVEL 105 MEQ/L (98-107); CREATININE FOR GFR 0.45 MG/DL (0.55-1.30); GLOMERULAR FILTRATION RATE > 60.0 (>39); GLUCOSE, FASTING 114 MG/DL (70-100); MAGNESIUM LEVEL 1.8 MG/DL (1.8-2.4); POTASSIUM SERUM 3.7 MEQ/L (3.5-5.1); SODIUM LEVEL 142 MEQ/L (136-145)
[2021-01-31] MEDS: HumaLOG INSULIN (NovoLOG) PER UNIT SC SCH ×4 (07:30→21:00)
[2021-01-31 08:00] VITALS: BP 129/64
[2021-01-31] MEDS: PREGABALIN 75 MG CAP(LYRICA) PO SCH ×3 (08:00→21:18)
[2021-01-31] MEDS: DOCUSATE SODIUM 100MG CAPSULE PO SCH ×2 (08:01→21:18)
[2021-01-31] MEDS: ENOXAPARIN 40MG/0.4ML SYRINGE (J1650 PER 10MG) SC SCH (08:02)
[2021-01-31 08:05] VITALS: BP 128/62
[2021-01-31 08:10] VITALS: BP 111/68
[2021-01-31] MEDS: NS 1,000 ML IV SCH ×2 (12:14→21:19)
[2021-01-31 14:00] VITALS: BP 132/63
[2021-01-31] MEDS: ACETAMINOPHEN TAB 650MG DOSE (2X325MG) PO PRN (15:05)
[2021-01-31 20:36] VITALS: BP 151/73
[2021-01-31] MEDS: ROSUVASTATIN 10 MG TAB (CRESTOR) PO SCH (21:18)
[2021-01-31] MEDS: MIRALAX *UNIT DOSE* 17GM PACKET PO PRN (21:18)
[2021-02-01 05:30] VITALS: BP_SYST 142; BP_SYST 160; BP_DIAS 80; BP_DIAS 85
[2021-02-01] MEDS: LEVOTHYROXINE 50MCG TABLET (0.05MG) PO SCH (05:30)
[2021-02-01 05:42] VITALS: BP 170/72
[2021-02-01 07:34] LABS: BASO % 0.8 % (0.0-1.0); EOS % 0.8 % (0.0-3.0); HEMATOCRIT 43.3 % (36.0-47.0); LYMPH # 1.6 10^3/uL (1.5-5.0); LYMPH % 33.4 % (24.0-44.0); MEAN CORPUSCULAR HEMOGLOBIN 30.8 pg (27.0-33.0); MEAN CORPUSCULAR HGB CONC 32.3 g/dl (32.0-36.5); MEAN CORPUSCULAR VOLUME 95.2 fl (80.0-96.0); MONO # 0.6 10^3/uL (0.0-0.8); MONO % 11.3 % (2.0-8.0); NEUTROPHILS # 2.6 10^3/uL (1.5-8.5); NEUTROPHILS % 53.5 % (36.0-66.0); PLATELET COUNT, AUTOMATED 237 10^3/uL (150-450); RED BLOOD COUNT 4.55 10^6/uL (4.00-5.40); WHITE BLOOD COUNT 4.9 10^3/uL (4.0-10.0)
[2021-02-01 07:51] LABS: BLOOD UREA NITROGEN 12 MG/DL (7-18); CALCIUM LEVEL 8.6 MG/DL (8.8-10.2); CARBON DIOXIDE LEVEL 25 MEQ/L (21-32); CHLORIDE LEVEL 108 MEQ/L (98-107); CREATININE FOR GFR 0.45 MG/DL (0.55-1.30); GLOMERULAR FILTRATION RATE > 60.0 (>39); GLUCOSE, FASTING 128 MG/DL (70-100); MAGNESIUM LEVEL 1.7 MG/DL (1.8-2.4); POTASSIUM SERUM 3.4 MEQ/L (3.5-5.1); SODIUM LEVEL 143 MEQ/L (136-145)
[2021-02-01] MEDS: ENOXAPARIN 40MG/0.4ML SYRINGE (J1650 PER 10MG) SC SCH (08:50)
[2021-02-01] MEDS: DOCUSATE SODIUM 100MG CAPSULE PO SCH ×2 (08:51→21:33)
[2021-02-01] MEDS: HumaLOG INSULIN (NovoLOG) PER UNIT SC SCH ×4 (08:51→21:00)
[2021-02-01] MEDS: PREGABALIN 75 MG CAP(LYRICA) PO SCH ×3 (08:52→21:33)
[2021-02-01] MEDS ORDERED: MAG SULF 1GM/100ML (MAG RUN) 1 GM in IV 1 EA IV ONE (10:00)
[2021-02-01] MEDS ORDERED: POTASSIUM CHLORIDE 10MEQ SR TABLET PO ONE (10:00)
[2021-02-01 14:00] VITALS: BP 122/57
[2021-02-01] MEDS: ROSUVASTATIN 10 MG TAB (CRESTOR) PO SCH (21:33)
[2021-02-01] MEDS: ACETAMINOPHEN TAB 650MG DOSE (2X325MG) PO PRN (21:35)
[2021-02-01 22:00] VITALS: BP 156/78
[2021-02-02] MEDS: ACETAMINOPHEN TAB 650MG DOSE (2X325MG) PO PRN ×2 (02:24→20:38)
[2021-02-02] MEDS: LEVOTHYROXINE 50MCG TABLET (0.05MG) PO SCH (05:06)
[2021-02-02 05:17] VITALS: BP_SYST 160; BP_SYST 166; BP_SYST 176; BP_DIAS 79; BP_DIAS 80; BP_DIAS 86
[2021-02-02 06:00] VITALS: BP 160/80
[2021-02-02 06:20] VITALS: BP 178/78
[2021-02-02 07:20] LABS: BASO % 0.7 % (0.0-1.0); EOS % 0.5 % (0.0-3.0); HEMATOCRIT 42.8 % (36.0-47.0); LYMPH # 1.6 10^3/uL (1.5-5.0); LYMPH % 28.6 % (24.0-44.0); MEAN CORPUSCULAR HGB CONC 32.7 g/dl (32.0-36.5); MEAN CORPUSCULAR VOLUME 94.7 fl (80.0-96.0); MONO # 0.6 10^3/uL (0.0-0.8); MONO % 11.7 % (2.0-8.0); NEUTROPHILS # 3.2 10^3/uL (1.5-8.5); NEUTROPHILS % 58.1 % (36.0-66.0); PLATELET COUNT, AUTOMATED 240 10^3/uL (150-450); RED BLOOD COUNT 4.52 10^6/uL (4.00-5.40); WHITE BLOOD COUNT 5.5 10^3/uL (4.0-10.0)
[2021-02-02 07:40] LABS: BLOOD UREA NITROGEN 11 MG/DL (7-18); CALCIUM LEVEL 9.9 MG/DL (8.8-10.2); CARBON DIOXIDE LEVEL 28 MEQ/L (21-32); CHLORIDE LEVEL 105 MEQ/L (98-107); CREATININE FOR GFR 0.44 MG/DL (0.55-1.30); GLOMERULAR FILTRATION RATE > 60.0 (>39); GLUCOSE, FASTING 170 MG/DL (70-100); POTASSIUM SERUM 3.9 MEQ/L (3.5-5.1); SODIUM LEVEL 140 MEQ/L (136-145)
[2021-02-02] MEDS: HumaLOG INSULIN (NovoLOG) PER UNIT SC SCH ×4 (09:07→21:00)
[2021-02-02] MEDS: DOCUSATE SODIUM 100MG CAPSULE PO SCH ×2 (09:08→20:38)
[2021-02-02] MEDS: ENOXAPARIN 40MG/0.4ML SYRINGE (J1650 PER 10MG) SC SCH (09:09)
[2021-02-02] MEDS: PREGABALIN 75 MG CAP(LYRICA) PO SCH ×3 (09:09→20:38)
[2021-02-02 14:00] VITALS: BP 116/65
[2021-02-02] MEDS: ROSUVASTATIN 10 MG TAB (CRESTOR) PO SCH (20:38)
[2021-02-03] MEDS: ACETAMINOPHEN TAB 650MG DOSE (2X325MG) PO PRN ×3 (04:49→22:29)
[2021-02-03] MEDS: LEVOTHYROXINE 50MCG TABLET (0.05MG) PO SCH (04:49)
[2021-02-03 06:00] VITALS: BP 133/72
[2021-02-03 07:01] LABS: BASO % 0.7 % (0.0-1.0); EOS % 0.6 % (0.0-3.0); HEMATOCRIT 40.5 % (36.0-47.0); HEMOGLOBIN 13.2 g/dl (12.0-15.5); LYMPH # 1.7 10^3/uL (1.5-5.0); LYMPH % 31.2 % (24.0-44.0); MEAN CORPUSCULAR HEMOGLOBIN 30.6 pg (27.0-33.0); MEAN CORPUSCULAR HGB CONC 32.6 g/dl (32.0-36.5); MONO # 0.5 10^3/uL (0.0-0.8); MONO % 9.9 % (2.0-8.0); NEUTROPHILS # 3.1 10^3/uL (1.5-8.5); NEUTROPHILS % 57.2 % (36.0-66.0); PLATELET COUNT, AUTOMATED 211 10^3/uL (150-450); RED BLOOD COUNT 4.31 10^6/uL (4.00-5.40); WHITE BLOOD COUNT 5.4 10^3/uL (4.0-10.0)
[2021-02-03 07:37] LABS: BLOOD UREA NITROGEN 18 MG/DL (7-18); CALCIUM LEVEL 8.6 MG/DL (8.8-10.2); CARBON DIOXIDE LEVEL 29 MEQ/L (21-32); CHLORIDE LEVEL 105 MEQ/L (98-107); CREATININE FOR GFR 0.43 MG/DL (0.55-1.30); GLOMERULAR FILTRATION RATE > 60.0 (>39); GLUCOSE, FASTING 154 MG/DL (70-100); POTASSIUM SERUM 3.7 MEQ/L (3.5-5.1); SODIUM LEVEL 140 MEQ/L (136-145)
[2021-02-03] MEDS: DOCUSATE SODIUM 100MG CAPSULE PO SCH ×2 (08:27→21:00)
[2021-02-03] MEDS: MIRALAX *UNIT DOSE* 17GM PACKET PO PRN (08:27)
[2021-02-03] MEDS: HumaLOG INSULIN (NovoLOG) PER UNIT SC SCH ×4 (08:27→21:00)
[2021-02-03] MEDS: ENOXAPARIN 40MG/0.4ML SYRINGE (J1650 PER 10MG) SC SCH (08:27)
[2021-02-03] MEDS: PREGABALIN 75 MG CAP(LYRICA) PO SCH ×3 (08:27→21:17)
[2021-02-03 13:31] VITALS: BP_SYST 118; BP_SYST 149; BP_SYST 153; BP_DIAS 71; BP_DIAS 73; BP_DIAS 76
[2021-02-03] MEDS ORDERED: NS 1,000 ML IV ONE (14:30)
[2021-02-03] MEDS: ROSUVASTATIN 10 MG TAB (CRESTOR) PO SCH (21:17)
[2021-02-04] MEDS: ACETAMINOPHEN TAB 650MG DOSE (2X325MG) PO PRN ×2 (04:35→20:12)
[2021-02-04 06:00] VITALS: BP 130/80
[2021-02-04 06:36] LABS: BASO % 0.8 % (0.0-1.0); EOS % 0.8 % (0.0-3.0); HEMATOCRIT 39.8 % (36.0-47.0); HEMOGLOBIN 13.3 g/dl (12.0-15.5); LYMPH # 1.8 10^3/uL (1.5-5.0); LYMPH % 37.2 % (24.0-44.0); MEAN CORPUSCULAR HEMOGLOBIN 31.4 pg (27.0-33.0); MEAN CORPUSCULAR HGB CONC 33.4 g/dl (32.0-36.5); MEAN CORPUSCULAR VOLUME 94.1 fl (80.0-96.0); MONO # 0.5 10^3/uL (0.0-0.8); MONO % 10.7 % (2.0-8.0); NEUTROPHILS # 2.4 10^3/uL (1.5-8.5); NEUTROPHILS % 50.3 % (36.0-66.0); PLATELET COUNT, AUTOMATED 215 10^3/uL (150-450); RED BLOOD COUNT 4.23 10^6/uL (4.00-5.40); WHITE BLOOD COUNT 4.8 10^3/uL (4.0-10.0)
[2021-02-04] MEDS: LEVOTHYROXINE 50MCG TABLET (0.05MG) PO SCH (06:43)
[2021-02-04 07:03] LABS: BLOOD UREA NITROGEN 15 MG/DL (7-18); CALCIUM LEVEL 9.4 MG/DL (8.8-10.2); CARBON DIOXIDE LEVEL 27 MEQ/L (21-32); CHLORIDE LEVEL 107 MEQ/L (98-107); CREATININE FOR GFR 0.39 MG/DL (0.55-1.30); GLOMERULAR FILTRATION RATE > 60.0 (>39); GLUCOSE, FASTING 151 MG/DL (70-100); POTASSIUM SERUM 3.8 MEQ/L (3.5-5.1); SODIUM LEVEL 141 MEQ/L (136-145)
[2021-02-04] MEDS: HumaLOG INSULIN (NovoLOG) PER UNIT SC SCH ×4 (07:30→20:23)
[2021-02-04] MEDS: DOCUSATE SODIUM 100MG CAPSULE PO SCH ×2 (09:00→20:23)
[2021-02-04] MEDS: PREGABALIN 75 MG CAP(LYRICA) PO SCH ×3 (09:49→20:11)
[2021-02-04] MEDS: ENOXAPARIN 40MG/0.4ML SYRINGE (J1650 PER 10MG) SC SCH (09:50)
[2021-02-04] MEDS: ROSUVASTATIN 10 MG TAB (CRESTOR) PO SCH (20:11)
[2021-02-05] MEDS: ACETAMINOPHEN TAB 650MG DOSE (2X325MG) PO PRN ×3 (04:03→20:23)
[2021-02-05 06:00] VITALS: BP 137/76
[2021-02-05] MEDS: LEVOTHYROXINE 50MCG TABLET (0.05MG) PO SCH (06:04)
[2021-02-05 06:32] LABS: BASO % 0.9 % (0.0-1.0); EOS % 0.7 % (0.0-3.0); HEMATOCRIT 40.6 % (36.0-47.0); HEMOGLOBIN 13.1 g/dl (12.0-15.5); LYMPH # 1.7 10^3/uL (1.5-5.0); LYMPH % 38.4 % (24.0-44.0); MEAN CORPUSCULAR HEMOGLOBIN 30.7 pg (27.0-33.0); MEAN CORPUSCULAR HGB CONC 32.3 g/dl (32.0-36.5); MEAN CORPUSCULAR VOLUME 95.1 fl (80.0-96.0); MONO # 0.5 10^3/uL (0.0-0.8); MONO % 10.6 % (2.0-8.0); NEUTROPHILS # 2.2 10^3/uL (1.5-8.5); PLATELET COUNT, AUTOMATED 213 10^3/uL (150-450); RED BLOOD COUNT 4.27 10^6/uL (4.00-5.40); WHITE BLOOD COUNT 4.5 10^3/uL (4.0-10.0)
[2021-02-05 06:51] LABS: BLOOD UREA NITROGEN 13 MG/DL (7-18); CALCIUM LEVEL 8.9 MG/DL (8.8-10.2); CARBON DIOXIDE LEVEL 30 MEQ/L (21-32); CHLORIDE LEVEL 106 MEQ/L (98-107); CREATININE FOR GFR 0.44 MG/DL (0.55-1.30); GLOMERULAR FILTRATION RATE > 60.0 (>39); GLUCOSE, FASTING 155 MG/DL (70-100); MAGNESIUM LEVEL 1.6 MG/DL (1.8-2.4); POTASSIUM SERUM 3.7 MEQ/L (3.5-5.1); SODIUM LEVEL 142 MEQ/L (136-145)
[2021-02-05] MEDS: PREGABALIN 75 MG CAP(LYRICA) PO SCH ×3 (08:12→20:23)
[2021-02-05] MEDS: DOCUSATE SODIUM 100MG CAPSULE PO SCH ×2 (08:12→20:24)
[2021-02-05] MEDS: HumaLOG INSULIN (NovoLOG) PER UNIT SC SCH ×4 (08:12→20:24)
[2021-02-05] MEDS: ENOXAPARIN 40MG/0.4ML SYRINGE (J1650 PER 10MG) SC SCH (08:13)
[2021-02-05] MEDS: ROSUVASTATIN 10 MG TAB (CRESTOR) PO SCH (20:23)
[2021-02-06] MEDS: LEVOTHYROXINE 50MCG TABLET (0.05MG) PO SCH (04:56)
[2021-02-06] MEDS: ACETAMINOPHEN TAB 650MG DOSE (2X325MG) PO PRN ×2 (04:57→17:46)
[2021-02-06 06:00] VITALS: BP 139/78
[2021-02-06 07:36] LABS: BASO % 0.6 % (0.0-1.0); EOS % 0.8 % (0.0-3.0); HEMATOCRIT 40.3 % (36.0-47.0); HEMOGLOBIN 13.4 g/dl (12.0-15.5); LYMPH # 1.5 10^3/uL (1.5-5.0); LYMPH % 31.7 % (24.0-44.0); MEAN CORPUSCULAR HEMOGLOBIN 31.3 pg (27.0-33.0); MEAN CORPUSCULAR HGB CONC 33.3 g/dl (32.0-36.5); MEAN CORPUSCULAR VOLUME 94.2 fl (80.0-96.0); MONO # 0.5 10^3/uL (0.0-0.8); MONO % 10.8 % (2.0-8.0); NEUTROPHILS # 2.6 10^3/uL (1.5-8.5); NEUTROPHILS % 55.9 % (36.0-66.0); PLATELET COUNT, AUTOMATED 223 10^3/uL (150-450); RED BLOOD COUNT 4.28 10^6/uL (4.00-5.40); WHITE BLOOD COUNT 4.7 10^3/uL (4.0-10.0)
[2021-02-06 07:56] LABS: BLOOD UREA NITROGEN 14 MG/DL (7-18); CALCIUM LEVEL 9.1 MG/DL (8.8-10.2); CARBON DIOXIDE LEVEL 30 MEQ/L (21-32); CHLORIDE LEVEL 105 MEQ/L (98-107); CREATININE FOR GFR 0.47 MG/DL (0.55-1.30); GLOMERULAR FILTRATION RATE > 60.0 (>39); GLUCOSE, FASTING 173 MG/DL (70-100); MAGNESIUM LEVEL 1.9 MG/DL (1.8-2.4); POTASSIUM SERUM 3.8 MEQ/L (3.5-5.1); SODIUM LEVEL 141 MEQ/L (136-145)
[2021-02-06] MEDS: ENOXAPARIN 40MG/0.4ML SYRINGE (J1650 PER 10MG) SC SCH (09:00)
[2021-02-06] MEDS: DOCUSATE SODIUM 100MG CAPSULE PO SCH ×2 (09:00→20:04)
[2021-02-06] MEDS: HumaLOG INSULIN (NovoLOG) PER UNIT SC SCH ×4 (10:10→20:04)
[2021-02-06] MEDS: PREGABALIN 75 MG CAP(LYRICA) PO SCH ×3 (10:10→20:04)
[2021-02-06] MEDS: ROSUVASTATIN 10 MG TAB (CRESTOR) PO SCH (20:04)
[2021-02-07] MEDS: ACETAMINOPHEN TAB 650MG DOSE (2X325MG) PO PRN ×2 (02:55→20:07)
[2021-02-07 05:40] VITALS: BP 125/69
[2021-02-07] MEDS: LEVOTHYROXINE 50MCG TABLET (0.05MG) PO SCH (05:59)
[2021-02-07] MEDS: HumaLOG INSULIN (NovoLOG) PER UNIT SC SCH ×4 (08:21→20:05)
[2021-02-07] MEDS: DOCUSATE SODIUM 100MG CAPSULE PO SCH ×3 (08:22→20:28)
[2021-02-07] MEDS: ENOXAPARIN 40MG/0.4ML SYRINGE (J1650 PER 10MG) SC SCH (08:22)
[2021-02-07] MEDS: PREGABALIN 75 MG CAP(LYRICA) PO SCH ×3 (08:22→20:08)
[2021-02-07 14:00] VITALS: BP 139/76
[2021-02-07] MEDS: ROSUVASTATIN 10 MG TAB (CRESTOR) PO SCH (20:08)
[2021-02-08 05:21] VITALS: BP 146/77
[2021-02-08] MEDS: LEVOTHYROXINE 50MCG TABLET (0.05MG) PO SCH (06:10)
[2021-02-08 06:14] VITALS: BP_SYST 146; BP_SYST 159; BP_DIAS 77; BP_DIAS 78; BP_DIAS 93
[2021-02-08 08:54] LABS: HEMATOCRIT 41.4 % (36.0-47.0); HEMOGLOBIN 13.6 g/dl (12.0-15.5); MEAN CORPUSCULAR HEMOGLOBIN 30.8 pg (27.0-33.0); MEAN CORPUSCULAR HGB CONC 32.9 g/dl (32.0-36.5); MEAN CORPUSCULAR VOLUME 93.9 fl (80.0-96.0); PLATELET COUNT, AUTOMATED 235 10^3/uL (150-450); RED BLOOD COUNT 4.41 10^6/uL (4.00-5.40); WHITE BLOOD COUNT 6.1 10^3/uL (4.0-10.0)
[2021-02-08] MEDS: DOCUSATE SODIUM 100MG CAPSULE PO SCH ×2 (09:00→19:59)
[2021-02-08 09:17] VITALS: BP 134/88
[2021-02-08] MEDS: PREGABALIN 75 MG CAP(LYRICA) PO SCH ×3 (09:17→19:58)
[2021-02-08] MEDS: HumaLOG INSULIN (NovoLOG) PER UNIT SC SCH ×4 (09:18→19:59)
[2021-02-08] MEDS: ENOXAPARIN 40MG/0.4ML SYRINGE (J1650 PER 10MG) SC SCH (09:18)
[2021-02-08 10:03] LABS: PREALBUMIN 18.9 MG/DL (20.0-40.0); THYROID STIMULATING HORMONE 2.46 uIU/ML (0.358-3.740)
[2021-02-08 14:00] VITALS: BP 108/62
[2021-02-08] MEDS: ACETAMINOPHEN TAB 650MG DOSE (2X325MG) PO PRN ×2 (14:55→19:58)
[2021-02-08] MEDS: ROSUVASTATIN 10 MG TAB (CRESTOR) PO SCH (19:58)
[2021-02-09 06:00] VITALS: BP 134/71
[2021-02-09] MEDS: LEVOTHYROXINE 50MCG TABLET (0.05MG) PO SCH (06:19)
[2021-02-09] MEDS: DOCUSATE SODIUM 100MG CAPSULE PO SCH ×2 (08:47→19:50)
[2021-02-09] MEDS: PREGABALIN 75 MG CAP(LYRICA) PO SCH ×3 (08:47→19:51)
[2021-02-09] MEDS: HumaLOG INSULIN (NovoLOG) PER UNIT SC SCH ×4 (08:48→19:51)
[2021-02-09] MEDS: ENOXAPARIN 40MG/0.4ML SYRINGE (J1650 PER 10MG) SC SCH (08:49)
[2021-02-09] MEDS: ROSUVASTATIN 10 MG TAB (CRESTOR) PO SCH (19:50)
[2021-02-09] MEDS: ACETAMINOPHEN TAB 650MG DOSE (2X325MG) PO PRN (19:51)
[2021-02-10] MEDS: ACETAMINOPHEN TAB 650MG DOSE (2X325MG) PO PRN (01:43)
[2021-02-10] MEDS: LEVOTHYROXINE 50MCG TABLET (0.05MG) PO SCH (05:35)
[2021-02-10 06:00] VITALS: BP 148/83
[2021-02-10] MEDS: ENOXAPARIN 40MG/0.4ML SYRINGE (J1650 PER 10MG) SC SCH (08:41)
[2021-02-10] MEDS: HumaLOG INSULIN (NovoLOG) PER UNIT SC SCH ×2 (08:41→12:28)
[2021-02-10] MEDS: PREGABALIN 75 MG CAP(LYRICA) PO SCH (08:41)
[2021-02-10] MEDS: DOCUSATE SODIUM 100MG CAPSULE PO SCH (08:41)
== END 2021-02-10 14:30 | disposition home health service (06) | DRG 948 ==
LOC: M ED 00:29 → M ED INP 03:30 → ENRESERV 13:28 → OBSVTOIN 15:36 → M MS5PR 15:40
PROVIDERS: ADMIT Family Medicine; ATTEND General Practice
DX: R53.1 Weakness (principal); E11.9 Type 2 diabetes mellitus without complications; I10 Essential (primary) hypertension; Z74.2 Need for assistance at home and no other household member able to render care; E03.9 Hypothyroidism, unspecified; R53.81 Other malaise; M79.7 Fibromyalgia; R42 Dizziness and giddiness; G89.29 Other chronic pain; M54.2 Cervicalgia; Z20.822 Contact with and (suspected) exposure to COVID-19; Z79.84 Long term (current) use of oral hypoglycemic drugs; Z79.899 Other long term (current) drug therapy

== ENCOUNTER → 2021-03-31 | Outpatient (REF) | payer MEDICARE ==
[~2021-03-31] MED LIST changes: +FLON1SPR
== END ==
LOC: M LAB REF 16:16
PROVIDERS: ATTEND Internal Medicine
DX: R63.4 Abnormal weight loss (principal)

== ENCOUNTER → 2021-04-16 | Outpatient (CLI) | payer MEDICARE | LOC: M RAD 13:33 | PROVIDERS: ATTEND Internal Medicine | DX: M79.605 Pain in left leg (principal) ==

== ENCOUNTER → 2021-05-14 | Outpatient (REF) | payer MEDICARE | LOC: M LAB REF 15:56 | PROVIDERS: ATTEND Internal Medicine | DX: N39.0 Urinary tract infection, site not specified (principal) ==

== ENCOUNTER → 2021-09-15 | Outpatient (REF) | payer MEDICARE ==
[2021-09-15 16:52] LABS: LDH LACTATE DEHYDROGENASE 157 U/L (84-246); LIPASE 49 U/L (73-393)
[2021-09-15 17:47] LABS: CA 125 < 2.0 U/ML (<30.2)
[2021-09-15 17:48] LABS: CA19-9 TUMOR MARKER,CARBOHYDRA 10.1 U/ML (<35.0)
== END ==
LOC: M LAB REF 16:11
PROVIDERS: ATTEND Internal Medicine
DX: R63.4 Abnormal weight loss (principal); R10.13 Epigastric pain

== ENCOUNTER 2021-09-26 10:48 | Inpatient (IN) | payer MEDICARE ==
[~2021-09-26] VITALS: Ht 165.1 cm; Wt 43.6 kg
[2021-09-26 14:22] LABS: BASO % 0.6 % (0.0-1.0); HEMATOCRIT 49.2 % (36.0-47.0); HEMOGLOBIN 16.2 g/dl (12.0-15.5); LYMPH # 1.8 10^3/uL (1.5-5.0); LYMPH % 29.3 % (24.0-44.0); MEAN CORPUSCULAR HEMOGLOBIN 30.7 pg (27.0-33.0); MEAN CORPUSCULAR HGB CONC 32.9 g/dl (32.0-36.5); MEAN CORPUSCULAR VOLUME 93.2 fl (80.0-96.0); MONO # 0.5 10^3/uL (0.0-0.8); MONO % 8.2 % (2.0-8.0); NEUTROPHILS # 3.8 10^3/uL (1.5-8.5); NEUTROPHILS % 61.6 % (36.0-66.0); PLATELET COUNT, AUTOMATED 289 10^3/uL (150-450); RED BLOOD COUNT 5.28 10^6/uL (4.00-5.40); WHITE BLOOD COUNT 6.2 10^3/uL (4.0-10.0)
[2021-09-26 14:50] LABS: BLOOD UREA NITROGEN 18 MG/DL (7-18); CREATININE FOR GFR 0.66 MG/DL (0.55-1.30); GLUCOSE, FASTING 168 MG/DL (70-100)
[2021-09-26 14:51] LABS: ALBUMIN 4.2 GM/DL (3.2-5.2); ALT/SGPT 22 U/L (12-78); BILIRUBIN,DIRECT 0.2 MG/DL (0.0-0.2); CALCIUM LEVEL 10.4 MG/DL (8.8-10.2); CARBON DIOXIDE LEVEL 27 MEQ/L (21-32); CHLORIDE LEVEL 103 MEQ/L (98-107); GLOMERULAR FILTRATION RATE > 60.0 (>39); LIPASE 51 U/L (73-393); NT-PRO BNP 20 PG/ML (<450); POTASSIUM SERUM 4.7 MEQ/L (3.5-5.1); SODIUM LEVEL 137 MEQ/L (136-145); TOTAL PROTEIN 7.4 GM/DL (6.4-8.2)
[2021-09-26] MEDS ORDERED: ISOVUE-370 76% 100ML VIAL As Ordered ONE (16:15)
[2021-09-26] MEDS ORDERED: NS 500 ML IV ONE (16:25)
[2021-09-26] MEDS: GASTROGRAFIN SOLUTION 30ML PO SCH ×2 (16:53→17:18)
[2021-09-26 17:14] LABS: INR 1.02; PROTHROMBIN TIME 13.8 SECONDS (12.7-14.5)
[2021-09-26 17:15] LABS: PARTIAL THROMBOPLASTIN TIME 31.4 SECONDS (25.9-37.0)
[2021-09-26 17:28] LABS: FREE THYROXINE INDEX 3.9 % (1.3-4.8); MAGNESIUM LEVEL 1.9 MG/DL (1.8-2.4); THYROID STIMULATING HORMONE 2.9 uIU/ML (0.358-3.740); THYROXINE (T4) 11.1 UG/DL (4.5-12.0)
[2021-09-26] MEDS ORDERED: ACETAMINOPHEN 500 MG TAB PO ONE (17:55)
[2021-09-26 20:07] LABS: RSV AMPLIFICATION NEGATIVE (NEGATIVE)
[2021-09-26] MEDS ORDERED: MIRTAZAPINE 7.5MG PER 1/2 TABLET PO SCH (21:00)
[2021-09-26] MEDS ORDERED: VITA100093 PO (22:00)
[2021-09-26] MEDS ORDERED: OMEP40CA5 PO (22:03)
[2021-09-26] MEDS ORDERED: GLIP5TAB8 PO (22:03)
[2021-09-26] MEDS ORDERED: MIRT-10 PO (22:03)
[2021-09-26] MEDS ORDERED: MAGN400T33 PO (22:03)
[2021-09-26] MEDS ORDERED: POTA-141 PO (22:03)
[2021-09-26] MEDS ORDERED: PREG75CA2 PO (22:03)
[2021-09-26] MEDS ORDERED: HOME MED LIST COMPLETE! XX SCH (22:05)
[2021-09-26] MEDS ORDERED: GLUCAGON INJ 1MG VIAL SC PRN (23:10)
[2021-09-26] MEDS ORDERED: GLUCOSE 4GM CHEW TABLET PO PRN (23:10)
[2021-09-26] MEDS ORDERED: DEXTROSE 50% 50 ML SYRINGE IV PRN (23:10)
[2021-09-27] MEDS: LEVOTHYROXINE 50MCG TABLET (0.05MG) PO SCH (05:58)
[2021-09-27 06:50] LABS: BLOOD UREA NITROGEN 13 MG/DL (7-18); CALCIUM LEVEL 9.6 MG/DL (8.8-10.2); CARBON DIOXIDE LEVEL 26 MEQ/L (21-32); CHLORIDE LEVEL 108 MEQ/L (98-107); CREATININE FOR GFR 0.49 MG/DL (0.55-1.30); GLOMERULAR FILTRATION RATE > 60.0 (>39); GLUCOSE, FASTING 137 MG/DL (70-100); POTASSIUM SERUM 4.3 MEQ/L (3.5-5.1); SODIUM LEVEL 142 MEQ/L (136-145)
[2021-09-27] MEDS: INSULIN LISPRO (NovoLOG) PER UNIT SC SCH ×4 (07:30→22:41)
[2021-09-27 08:37] VITALS: BP 119/69
[2021-09-27] MEDS: OMEPRAZOLE 20MG CAP PO SCH (09:34)
[2021-09-27] MEDS: HEPARIN SOD (PORCINE) 5000UNITS/ML 1ML VIAL/SYRINGE SC SCH ×2 (09:34→22:41)
[2021-09-27 12:00] VITALS: BP 139/63
[2021-09-27 20:13] VITALS: BP 124/58
[2021-09-27] MEDS: MIRTAZAPINE 15 MG TAB PO SCH (22:40)
[2021-09-27] MEDS: ACETAMINOPHEN TAB 650MG DOSE (2X325MG) PO PRN (23:22)
[2021-09-28] MEDS: LEVOTHYROXINE 50MCG TABLET (0.05MG) PO SCH (05:27)
[2021-09-28 05:29] VITALS: BP 140/72
[2021-09-28] MEDS: INSULIN LISPRO (NovoLOG) PER UNIT SC SCH ×6 (09:16→21:00)
[2021-09-28] MEDS: OMEPRAZOLE 20MG CAP PO SCH (09:18)
[2021-09-28] MEDS: HEPARIN SOD (PORCINE) 5000UNITS/ML 1ML VIAL/SYRINGE SC SCH ×2 (09:20→23:18)
[2021-09-28] MEDS ORDERED: ONDANSETRON 4MG TAB PO PRN (12:20)
[2021-09-28 20:09] VITALS: BP 149/65
[2021-09-28] MEDS: MIRTAZAPINE 15 MG TAB PO SCH (23:10)
[2021-09-28] MEDS: ACETAMINOPHEN TAB 650MG DOSE (2X325MG) PO PRN (23:12)
[2021-09-29] MEDS: LEVOTHYROXINE 50MCG TABLET (0.05MG) PO SCH (06:05)
[2021-09-29 06:09] VITALS: BP 162/73
[2021-09-29] MEDS: INSULIN LISPRO (NovoLOG) PER UNIT SC SCH ×4 (07:14→21:00)
[2021-09-29] MEDS: OMEPRAZOLE 20MG CAP PO SCH (09:11)
[2021-09-29] MEDS: HEPARIN SOD (PORCINE) 5000UNITS/ML 1ML VIAL/SYRINGE SC SCH ×2 (09:12→21:21)
[2021-09-29] MEDS: MIRTAZAPINE 15 MG TAB PO SCH (21:21)
[2021-09-30 04:00] VITALS: BP 125/66
[2021-09-30] MEDS: LEVOTHYROXINE 50MCG TABLET (0.05MG) PO SCH (05:40)
[2021-09-30] MEDS: INSULIN LISPRO (NovoLOG) PER UNIT SC SCH ×4 (08:32→20:58)
[2021-09-30] MEDS: OMEPRAZOLE 20MG CAP PO SCH (08:32)
[2021-09-30] MEDS: HEPARIN SOD (PORCINE) 5000UNITS/ML 1ML VIAL/SYRINGE SC SCH ×2 (08:32→20:57)
[2021-09-30 11:38] LABS: BASO % 0.7 % (0.0-1.0); EOS % 0.2 % (0.0-3.0); HEMATOCRIT 42.4 % (36.0-47.0); HEMOGLOBIN 13.9 g/dl (12.0-15.5); LYMPH # 1.7 10^3/uL (1.5-5.0); LYMPH % 37.6 % (24.0-44.0); MEAN CORPUSCULAR HGB CONC 32.8 g/dl (32.0-36.5); MEAN CORPUSCULAR VOLUME 94.6 fl (80.0-96.0); MONO # 0.4 10^3/uL (0.0-0.8); MONO % 8.2 % (2.0-8.0); NEUTROPHILS # 2.3 10^3/uL (1.5-8.5); NEUTROPHILS % 53.1 % (36.0-66.0); PLATELET COUNT, AUTOMATED 231 10^3/uL (150-450); RED BLOOD COUNT 4.48 10^6/uL (4.00-5.40); WHITE BLOOD COUNT 4.4 10^3/uL (4.0-10.0)
[2021-09-30 12:26] LABS: BLOOD UREA NITROGEN 21 MG/DL (7-18); CARBON DIOXIDE LEVEL 31 MEQ/L (21-32); CHLORIDE LEVEL 107 MEQ/L (98-107); CREATININE FOR GFR 0.67 MG/DL (0.55-1.30); GLOMERULAR FILTRATION RATE > 60.0 (>39); GLUCOSE, FASTING 182 MG/DL (70-100); MAGNESIUM LEVEL 1.7 MG/DL (1.8-2.4); POTASSIUM SERUM 4.2 MEQ/L (3.5-5.1); SODIUM LEVEL 141 MEQ/L (136-145)
[2021-09-30] MEDS ORDERED: MAG SULF 1GM/100ML (MAG RUN) 1 GM in IV 1 EA IV SCH (20:00)
[2021-09-30] MEDS ORDERED: MAGNESIUM OXIDE 400MG TAB (MAG-OX) PO ONE (20:35)
[2021-09-30] MEDS: MIRTAZAPINE 15 MG TAB PO SCH (20:58)
[2021-10-01] MEDS: LEVOTHYROXINE 50MCG TABLET (0.05MG) PO SCH (05:48)
[2021-10-01 06:00] VITALS: BP 148/78
[2021-10-01] MEDS: OMEPRAZOLE 20MG CAP PO SCH (08:01)
[2021-10-01] MEDS: HEPARIN SOD (PORCINE) 5000UNITS/ML 1ML VIAL/SYRINGE SC SCH ×2 (08:01→21:04)
[2021-10-01] MEDS: INSULIN LISPRO (NovoLOG) PER UNIT SC SCH ×4 (08:02→21:00)
[2021-10-01] MEDS: ACETAMINOPHEN TAB 650MG DOSE (2X325MG) PO PRN ×2 (15:57→21:05)
[2021-10-01 20:00] VITALS: BP 160/70
[2021-10-01] MEDS: MIRTAZAPINE 15 MG TAB PO SCH (21:03)
[2021-10-02 06:00] VITALS: BP 160/72
[2021-10-02] MEDS: LEVOTHYROXINE 50MCG TABLET (0.05MG) PO SCH (06:12)
[2021-10-02] MEDS: INSULIN LISPRO (NovoLOG) PER UNIT SC SCH ×4 (07:30→20:43)
[2021-10-02] MEDS: OMEPRAZOLE 20MG CAP PO SCH (08:59)
[2021-10-02] MEDS: HEPARIN SOD (PORCINE) 5000UNITS/ML 1ML VIAL/SYRINGE SC SCH ×2 (09:00→20:59)
[2021-10-02] MEDS: ACETAMINOPHEN TAB 650MG DOSE (2X325MG) PO PRN (09:05)
[2021-10-02] MEDS: MIRTAZAPINE 15 MG TAB PO SCH (20:59)
[2021-10-03 04:00] VITALS: BP 130/61
[2021-10-03] MEDS: LEVOTHYROXINE 50MCG TABLET (0.05MG) PO SCH (05:21)
[2021-10-03] MEDS: INSULIN LISPRO (NovoLOG) PER UNIT SC SCH ×4 (07:30→21:34)
[2021-10-03] MEDS: OMEPRAZOLE 20MG CAP PO SCH (09:18)
[2021-10-03] MEDS: HEPARIN SOD (PORCINE) 5000UNITS/ML 1ML VIAL/SYRINGE SC SCH ×2 (09:18→21:35)
[2021-10-03] MEDS: ACETAMINOPHEN TAB 650MG DOSE (2X325MG) PO PRN (17:39)
[2021-10-03] MEDS: MIRTAZAPINE 15 MG TAB PO SCH (21:35)
[2021-10-04 04:00] VITALS: BP 147/96
[2021-10-04] MEDS: LEVOTHYROXINE 50MCG TABLET (0.05MG) PO SCH (05:34)
[2021-10-04] MEDS: INSULIN LISPRO (NovoLOG) PER UNIT SC SCH ×4 (07:58→21:00)
[2021-10-04] MEDS: OMEPRAZOLE 20MG CAP PO SCH (07:58)
[2021-10-04] MEDS: HEPARIN SOD (PORCINE) 5000UNITS/ML 1ML VIAL/SYRINGE SC SCH ×2 (07:59→21:25)
[2021-10-04] MEDS: MIRTAZAPINE 15 MG TAB PO SCH (21:25)
[2021-10-05] MEDS: ACETAMINOPHEN TAB 650MG DOSE (2X325MG) PO PRN (02:58)
[2021-10-05 04:00] VITALS: BP 135/63
[2021-10-05] MEDS: LEVOTHYROXINE 50MCG TABLET (0.05MG) PO SCH (05:21)
[2021-10-05] MEDS: INSULIN LISPRO (NovoLOG) PER UNIT SC SCH ×4 (09:22→22:08)
[2021-10-05] MEDS: OMEPRAZOLE 20MG CAP PO SCH (09:23)
[2021-10-05] MEDS: HEPARIN SOD (PORCINE) 5000UNITS/ML 1ML VIAL/SYRINGE SC SCH ×2 (09:23→22:08)
[2021-10-05 11:44] VITALS: BP 118/65
[2021-10-05] MEDS: MIRTAZAPINE 15 MG TAB PO SCH (22:08)
[2021-10-06 04:00] VITALS: BP 139/69
[2021-10-06] MEDS: LEVOTHYROXINE 50MCG TABLET (0.05MG) PO SCH (05:35)
[2021-10-06] MEDS: ACETAMINOPHEN TAB 650MG DOSE (2X325MG) PO PRN ×3 (05:36→21:07)
[2021-10-06] MEDS: INSULIN LISPRO (NovoLOG) PER UNIT SC SCH ×4 (07:27→21:00)
[2021-10-06] MEDS: OMEPRAZOLE 20MG CAP PO SCH (09:17)
[2021-10-06] MEDS: HEPARIN SOD (PORCINE) 5000UNITS/ML 1ML VIAL/SYRINGE SC SCH ×2 (09:18→21:06)
[2021-10-06 12:00] VITALS: BP 127/61
[2021-10-06 17:29] LABS: BASO % 0.3 % (0.0-1.0); EOS # 0.1 10^3/uL (0.0-0.5); EOS % 0.8 % (0.0-3.0); HEMATOCRIT 37.5 % (36.0-47.0); HEMOGLOBIN 12.1 g/dl (12.0-15.5); LYMPH # 1.8 10^3/uL (1.5-5.0); MEAN CORPUSCULAR HEMOGLOBIN 30.8 pg (27.0-33.0); MEAN CORPUSCULAR HGB CONC 32.3 g/dl (32.0-36.5); MEAN CORPUSCULAR VOLUME 95.4 fl (80.0-96.0); MONO # 0.6 10^3/uL (0.0-0.8); MONO % 8.7 % (2.0-8.0); NEUTROPHILS # 4.1 10^3/uL (1.5-8.5); NEUTROPHILS % 61.9 % (36.0-66.0); PLATELET COUNT, AUTOMATED 208 10^3/uL (150-450); RED BLOOD COUNT 3.93 10^6/uL (4.00-5.40); WHITE BLOOD COUNT 6.5 10^3/uL (4.0-10.0)
[2021-10-06 20:00] VITALS: BP 143/67
[2021-10-06] MEDS: MIRTAZAPINE 15 MG TAB PO SCH (21:06)
[2021-10-06 21:18] LABS: ALBUMIN 3.1 GM/DL (3.2-5.2); ALT/SGPT 26 U/L (12-78); BILIRUBIN,TOTAL 0.3 MG/DL (0.2-1.0); BLOOD UREA NITROGEN 23 MG/DL (7-18); CALCIUM LEVEL 9.2 MG/DL (8.8-10.2); CARBON DIOXIDE LEVEL 31 MEQ/L (21-32); CHLORIDE LEVEL 105 MEQ/L (98-107); GLOMERULAR FILTRATION RATE > 60.0 (>39); GLUCOSE, FASTING 159 MG/DL (70-100); MAGNESIUM LEVEL 1.8 MG/DL (1.8-2.4); POTASSIUM SERUM 3.9 MEQ/L (3.5-5.1); SODIUM LEVEL 140 MEQ/L (136-145); TOTAL PROTEIN 5.8 GM/DL (6.4-8.2)
[2021-10-07] MEDS: LEVOTHYROXINE 50MCG TABLET (0.05MG) PO SCH (06:22)
[2021-10-07 06:24] VITALS: BP 129/91
[2021-10-07] MEDS: INSULIN LISPRO (NovoLOG) PER UNIT SC SCH ×4 (07:30→21:00)
[2021-10-07] MEDS: OMEPRAZOLE 20MG CAP PO SCH (09:14)
[2021-10-07] MEDS: HEPARIN SOD (PORCINE) 5000UNITS/ML 1ML VIAL/SYRINGE SC SCH ×2 (09:14→21:03)
[2021-10-07] MEDS: ACETAMINOPHEN TAB 650MG DOSE (2X325MG) PO PRN ×2 (09:15→21:07)
[2021-10-07 12:00] VITALS: BP 118/58
[2021-10-07 14:32] VITALS: BP 153/71
[2021-10-07] MEDS: MIRTAZAPINE 15 MG TAB PO SCH (21:03)
[2021-10-08 04:00] VITALS: BP 152/72
[2021-10-08] MEDS: LEVOTHYROXINE 50MCG TABLET (0.05MG) PO SCH (06:07)
[2021-10-08] MEDS: INSULIN LISPRO (NovoLOG) PER UNIT SC SCH ×4 (07:30→21:00)
[2021-10-08] MEDS: OMEPRAZOLE 20MG CAP PO SCH (08:39)
[2021-10-08] MEDS: HEPARIN SOD (PORCINE) 5000UNITS/ML 1ML VIAL/SYRINGE SC SCH ×2 (08:40→21:52)
[2021-10-08] MEDS: ACETAMINOPHEN TAB 650MG DOSE (2X325MG) PO PRN (08:53)
[2021-10-08] MEDS: MIRTAZAPINE 15 MG TAB PO SCH (21:51)
[2021-10-09 04:45] VITALS: BP 147/97
[2021-10-09] MEDS: LEVOTHYROXINE 50MCG TABLET (0.05MG) PO SCH (05:52)
[2021-10-09] MEDS: INSULIN LISPRO (NovoLOG) PER UNIT SC SCH ×4 (07:30→20:16)
[2021-10-09 08:00] VITALS: BP 140/70
[2021-10-09] MEDS: OMEPRAZOLE 20MG CAP PO SCH (08:35)
[2021-10-09] MEDS: HEPARIN SOD (PORCINE) 5000UNITS/ML 1ML VIAL/SYRINGE SC SCH ×2 (08:35→20:16)
[2021-10-09] MEDS: ACETAMINOPHEN TAB 650MG DOSE (2X325MG) PO PRN (08:45)
[2021-10-09 12:00] VITALS: BP 122/70
[2021-10-09 16:00] VITALS: BP 138/68
[2021-10-09] MEDS: MIRTAZAPINE 15 MG TAB PO SCH (20:16)
[2021-10-10] MEDS: LEVOTHYROXINE 50MCG TABLET (0.05MG) PO SCH (05:51)
[2021-10-10 06:00] VITALS: BP 114/55
[2021-10-10] MEDS: INSULIN LISPRO (NovoLOG) PER UNIT SC SCH ×5 (07:30→12:12)
[2021-10-10] MEDS: HEPARIN SOD (PORCINE) 5000UNITS/ML 1ML VIAL/SYRINGE SC SCH (08:29)
[2021-10-10] MEDS: OMEPRAZOLE 20MG CAP PO SCH (08:30)
[2021-10-10] MEDS: ACETAMINOPHEN TAB 650MG DOSE (2X325MG) PO PRN ×2 (08:30→15:48)
[2021-10-10 08:31] VITALS: BP 133/60
[2021-10-10] MEDS ORDERED: AMLO2.5T3 PO (10:08)
[2021-10-10] MEDS ORDERED: LEVO50TA5 PO (10:08)
[2021-10-10] MEDS ORDERED: VITA100093 PO (10:08)
[2021-10-10] MEDS ORDERED: ONDA-83 PO (10:08)
== END 2021-10-10 16:08 | DRG 557 ==
LOC: EDBD 10:48 → M ED 10:48 → M ED INP 23:07 → ENRESERV 09-27 08:15 → M 4MAIN 09-27 08:37 → M MSPAV 10-07 14:33
PROVIDERS: ADMIT Internal Medicine; ATTEND Family Medicine
DX: M62.84 Sarcopenia (principal); E43 Unspecified severe protein-calorie malnutrition; R64 Cachexia; Z68.1 Body mass index [BMI] 19.9 or less, adult; R53.1 Weakness; K52.9 Noninfective gastroenteritis and colitis, unspecified; R63.4 Abnormal weight loss; M79.7 Fibromyalgia; I10 Essential (primary) hypertension; E03.9 Hypothyroidism, unspecified; E11.9 Type 2 diabetes mellitus without complications; F32.A Depression, unspecified; Z88.0 Allergy status to penicillin; K21.9 Gastro-esophageal reflux disease without esophagitis; Z79.84 Long term (current) use of oral hypoglycemic drugs; Z79.890 Hormone replacement therapy; Z79.899 Other long term (current) drug therapy; Z88.5 Allergy status to narcotic agent; Z74.09 Other reduced mobility

== ENCOUNTER 2022-09-21 12:31 | Inpatient (IN) | payer MEDICARE ==
[~2022-09-21] VITALS: Ht 165.1 cm; Wt 49.1 kg
[~2022-09-21 12:31] MED LIST changes: -ASPE16CR TOP; +DILT180C38 PO; -DILT1CAP3 PO; +LIDO76.52 TOP; +MAGN400T33 PO; +MIRT-10 PO; +OMEP40CA5 PO; +ONDA-83 PO; +POTA-141 PO; +PREG75CA2 PO; +VITA100093 PO
[2022-09-21 13:28] LABS: BASO % 0.6 % (0.0-1.0); EOS % 0.3 % (0.0-3.0); HEMATOCRIT 41.9 % (36.0-47.0); HEMOGLOBIN 13.9 g/dl (12.0-15.5); LYMPH # 1.6 10^3/uL (1.5-5.0); LYMPH % 25.4 % (24.0-44.0); MEAN CORPUSCULAR HEMOGLOBIN 30.7 pg (27.0-33.0); MEAN CORPUSCULAR HGB CONC 33.2 g/dl (32.0-36.5); MEAN CORPUSCULAR VOLUME 92.5 fl (80.0-96.0); MONO # 0.6 10^3/uL (0.0-0.8); NEUTROPHILS % 63.5 % (36.0-66.0); PLATELET COUNT, AUTOMATED 236 10^3/uL (150-450); RED BLOOD COUNT 4.53 10^6/uL (4.00-5.40); WHITE BLOOD COUNT 6.2 10^3/uL (4.0-10.0)
[2022-09-21 13:54] LABS: ALBUMIN 3.7 G/DL (3.2-5.2); ALKALINE PHOSPHATASE 86 U/L (46-116); ALT/SGPT < 9 U/L (7.0-40); AST/SGOT 10 U/L (<34); BILIRUBIN,DIRECT 0.2 MG/DL (<0.4); BILIRUBIN,TOTAL 0.8 MG/DL (0.3-1.2); BLOOD UREA NITROGEN 13 MG/DL (9-23); CALCIUM LEVEL 9.4 MG/DL (8.3-10.6); CARBON DIOXIDE LEVEL 28 MMOL/L (20-31); CHLORIDE LEVEL 102 MMOL/L (98-107); CK-MB VALUE MASS < 1.0 NG/ML (<3.6); CPK CREATINE PHOSPHOKINASE 30 U/L (34-145); CREATININE FOR GFR 0.47 MG/DL (0.55-1.30); GLOMERULAR FILTRATION RATE > 60.0 (>39); GLUCOSE, FASTING 135 MG/DL (74-106); MB/CK RELATIVE INDEX 3.33 (< OR =4); POTASSIUM SERUM 3.3 MMOL/L (3.5-5.1); SODIUM LEVEL 139 MMOL/L (136-145); TOTAL PROTEIN 6.2 G/DL (5.7-8.2)
[2022-09-21 13:56] LABS: THYROID STIMULATING HORMONE 2.889 uIU/ML (0.55-4.78)
[2022-09-21 13:57] LABS: FREE T4 1.57 NG/DL (0.89-1.76)
[2022-09-21] MEDS ORDERED: LABETALOL 100MG/20ML VIAL IV STA ×3 (14:09→14:48)
[2022-09-21] MEDS ORDERED: ISOVUE-370 76% 100ML VIAL As Ordered ONE (14:20)
[2022-09-21 14:40] LABS: INR 0.88; PARTIAL THROMBOPLASTIN TIME 26.4 SECONDS (24.8-34.2); PROTHROMBIN TIME 12.1 SECONDS (12.5-14.5)
[2022-09-21] MEDS ORDERED: cloNIDine 0.1MG TABLET PO ONE (16:40)
[2022-09-21 16:41] LABS: RSV AMPLIFICATION NEGATIVE (NEGATIVE)
[2022-09-21] MEDS ORDERED: MIRALAX *UNIT DOSE* 17GM PACKET PO ONE (16:45)
[2022-09-21] MEDS ORDERED: MED REC IN PROGRESS XX SCH (16:50)
[2022-09-21] MEDS ORDERED: HOME MED LIST COMPLETE! XX SCH (17:15)
[2022-09-21] MEDS: ACETAMINOPHEN TAB 650MG DOSE (2X325MG) PO PRN (17:17)
[2022-09-21] MEDS ORDERED: LORazepam 2 MG/ML 1ML VIAL IV ONE (18:30)
[2022-09-21] MEDS ORDERED: LORazepam 2 MG/ML 1ML VIAL IV PRN (18:30)
[2022-09-21 18:43] LABS: CK-MB VALUE MASS < 1.0 NG/ML (<3.6)
[2022-09-21 18:45] LABS: CPK CREATINE PHOSPHOKINASE 28 U/L (34-145); MB/CK RELATIVE INDEX 3.57 (< OR =4)
[2022-09-21 18:58] LABS: HEMOGLOBIN A1c 7.7 % (4.0-6.0)
[2022-09-21] MEDS ORDERED: PILL CUTTER 1 EACH XX PRN (19:20)
[2022-09-21 20:58] VITALS: BP 113/55
[2022-09-21] MEDS: amLODIPine 5 MG TAB PO SCH (20:58)
[2022-09-21] MEDS: SENOKOT S TAB PO SCH (21:04)
[2022-09-21 23:23] VITALS: BP 130/60; TEMP 97.4; O2SAT 100
[2022-09-21] MEDS: cloNIDine 0.1MG TABLET PO SCH (23:32)
[2022-09-22] MEDS: ACETAMINOPHEN TAB 650MG DOSE (2X325MG) PO PRN (03:49)
[2022-09-22 03:50] VITALS: BP 120/57; TEMP 97; O2SAT 99
[2022-09-22 04:56] LABS: BASO % 0.7 % (0.0-1.0); EOS % 0.3 % (0.0-3.0); HEMATOCRIT 38.4 % (36.0-47.0); HEMOGLOBIN 12.7 g/dl (12.0-15.5); LYMPH % 32.2 % (24.0-44.0); MEAN CORPUSCULAR HEMOGLOBIN 30.3 pg (27.0-33.0); MEAN CORPUSCULAR HGB CONC 33.1 g/dl (32.0-36.5); MEAN CORPUSCULAR VOLUME 91.6 fl (80.0-96.0); MONO # 0.6 10^3/uL (0.0-0.8); MONO % 10.2 % (2.0-8.0); NEUTROPHILS # 3.4 10^3/uL (1.5-8.5); NEUTROPHILS % 56.3 % (36.0-66.0); PLATELET COUNT, AUTOMATED 225 10^3/uL (150-450); RED BLOOD COUNT 4.19 10^6/uL (4.00-5.40); WHITE BLOOD COUNT 6.1 10^3/uL (4.0-10.0)
[2022-09-22 05:14] LABS: BLOOD UREA NITROGEN 18 MG/DL (9-23); CALCIUM LEVEL 8.9 MG/DL (8.3-10.6); CARBON DIOXIDE LEVEL 28 MMOL/L (20-31); CHLORIDE LEVEL 101 MMOL/L (98-107); GLOMERULAR FILTRATION RATE > 60.0 (>39); GLUCOSE, FASTING 152 MG/DL (74-106); POTASSIUM SERUM 3.2 MMOL/L (3.5-5.1); SODIUM LEVEL 139 MMOL/L (136-145)
[2022-09-22] MEDS ORDERED: LEVOTHYROXINE 50MCG TABLET (0.05MG) PO SCH (06:00)
[2022-09-22 06:46] LABS: MAGNESIUM LEVEL 1.5 MG/DL (1.8-2.4)
[2022-09-22] MEDS ORDERED: POTASSIUM CHLORIDE 10MEQ SR TABLET PO ONE (07:00)
[2022-09-22 07:29] VITALS: BP 122/60; TEMP 97.7; O2SAT 100
[2022-09-22] MEDS ORDERED: glipiZIDE (GLUCOTROL) 5 MG TAB PO SCH (07:30)
[2022-09-22] MEDS ORDERED: MAG SULF 1GM/100ML (MAG RUN) 1 GM in IV 1 EA IV ONE (08:20)
[2022-09-22] MEDS: amLODIPine 5 MG TAB PO SCH (08:29)
[2022-09-22] MEDS: cloNIDine 0.1MG TABLET PO SCH (08:30)
[2022-09-22] MEDS: SENOKOT S TAB PO SCH (08:31)
[2022-09-22] MEDS ORDERED: MIRALAX *UNIT DOSE* 17GM PACKET PO SCH (09:00)
[2022-09-22] MEDS ORDERED: OMEPRAZOLE 20MG CAP PO SCH (09:00)
[2022-09-22 11:41] VITALS: BP 141/63; TEMP 97.4; O2SAT 100
[2022-09-22] MEDS ORDERED: CLONI1TA PO (11:56)
[2022-09-22] MEDS ORDERED: SENN-52 PO (11:56)
[2022-09-22] MEDS ORDERED: MIRA1POW3 PO (11:56)
[2022-09-22] MEDS ORDERED: AMLO1TAB24 PO (11:56)
== END 2022-09-22 14:41 | DRG 305 ==
LOC: EDBD 12:31 → M ED 12:31 → M ED INP 15:54 → M PCU 23:22
PROVIDERS: ADMIT Internal Medicine Nephrology; ATTEND Internal Medicine
DX: I16.0 Hypertensive urgency (principal); E46 Unspecified protein-calorie malnutrition; Z68.1 Body mass index [BMI] 19.9 or less, adult; E11.40 Type 2 diabetes mellitus with diabetic neuropathy, unspecified; E03.9 Hypothyroidism, unspecified; M79.7 Fibromyalgia; G89.29 Other chronic pain; K52.9 Noninfective gastroenteritis and colitis, unspecified; R63.4 Abnormal weight loss; K21.9 Gastro-esophageal reflux disease without esophagitis; F32.A Depression, unspecified; R53.81 Other malaise; K59.09 Other constipation; R42 Dizziness and giddiness; M81.0 Age-related osteoporosis without current pathological fracture; M62.84 Sarcopenia; H40.9 Unspecified glaucoma; Z79.890 Hormone replacement therapy; Z79.84 Long term (current) use of oral hypoglycemic drugs; Z79.899 Other long term (current) drug therapy; Z88.0 Allergy status to penicillin; Z88.5 Allergy status to narcotic agent

== ENCOUNTER 2022-09-22 12:06 | Inpatient (IN) | payer MEDICARE ==
[~2022-09-22] VITALS: Ht 165.1 cm; Wt 53.2 kg
[~2022-09-22 12:06] MED LIST changes: +AMLO1TAB24 PO; +CLONI1TA PO; +SENN-52 PO
[2022-09-22 14:45] VITALS: BP 145/80; TEMP 97.4; O2SAT 99
[2022-09-22] MEDS ORDERED: BISACODYL 10MG SUPP PR PRN (16:10)
[2022-09-22] MEDS ORDERED: DEXTROSE 50% 50ML SYRINGE IV PRN (16:10)
[2022-09-22] MEDS ORDERED: GLUCOSE 4GM CHEW TABLET PO PRN (16:10)
[2022-09-22] MEDS ORDERED: GLUCAGON INJ 1MG VIAL SC PRN (16:10)
[2022-09-22] MEDS: INSULIN LISPRO (NovoLOG) PER UNIT SC SCH ×2 (16:48→20:17)
[2022-09-22 20:00] VITALS: BP 160/70; TEMP 97.5; O2SAT 100
[2022-09-22] MEDS: REMEDY PHYTOPLEX Z-GUARD PASTE 113GM TUBE (FROM STOREROOM PRODUCT) TOP SCH (20:17)
[2022-09-22] MEDS: MAGNESIUM OXIDE 400MG TAB (MAG-OX) PO SCH (20:25)
[2022-09-22] MEDS: amLODIPine 5 MG TAB PO SCH (20:25)
[2022-09-22] MEDS: cloNIDine 0.1MG TABLET PO SCH (20:25)
[2022-09-22] MEDS: DOCUSATE SODIUM 100MG CAPSULE PO SCH (20:25)
[2022-09-22] MEDS: HEPARIN SOD (PORCINE) 5000UNITS/ML 1ML VIAL/SYRINGE SC SCH (20:26)
[2022-09-22] MEDS ORDERED: SENNA 8.6 MG TAB (SENOKOT) PO SCH (21:00)
[2022-09-23] MEDS: ACETAMINOPHEN TAB 650MG DOSE (2X325MG) PO PRN ×2 (02:07→20:41)
[2022-09-23] MEDS: LEVOTHYROXINE 50MCG TABLET (0.05MG) PO SCH (05:32)
[2022-09-23 05:51] LABS: BASO % 0.8 % (0.0-1.0); EOS % 0.6 % (0.0-3.0); HEMATOCRIT 39.9 % (36.0-47.0); HEMOGLOBIN 13.2 g/dl (12.0-15.5); LYMPH # 1.7 10^3/uL (1.5-5.0); LYMPH % 31.8 % (24.0-44.0); MEAN CORPUSCULAR HEMOGLOBIN 30.7 pg (27.0-33.0); MEAN CORPUSCULAR HGB CONC 33.1 g/dl (32.0-36.5); MEAN CORPUSCULAR VOLUME 92.8 fl (80.0-96.0); MONO # 0.5 10^3/uL (0.0-0.8); MONO % 9.6 % (2.0-8.0); PLATELET COUNT, AUTOMATED 237 10^3/uL (150-450); WHITE BLOOD COUNT 5.2 10^3/uL (4.0-10.0)
[2022-09-23 06:00] VITALS: BP 160/82; TEMP 97.4; O2SAT 99
[2022-09-23 06:11] LABS: ALBUMIN 3.4 G/DL (3.2-5.2); ALKALINE PHOSPHATASE 81 U/L (46-116); ALT/SGPT < 9 U/L (7.0-40); AST/SGOT 11 U/L (<34); BILIRUBIN,TOTAL 0.7 MG/DL (0.3-1.2); BLOOD UREA NITROGEN 13 MG/DL (9-23); CALCIUM LEVEL 8.9 MG/DL (8.3-10.6); CARBON DIOXIDE LEVEL 31 MMOL/L (20-31); CHLORIDE LEVEL 103 MMOL/L (98-107); GLOMERULAR FILTRATION RATE > 60.0 (>39); GLUCOSE, FASTING 138 MG/DL (74-106); MAGNESIUM LEVEL 1.8 MG/DL (1.8-2.4); SODIUM LEVEL 140 MMOL/L (136-145); TOTAL PROTEIN 5.7 G/DL (5.7-8.2)
[2022-09-23] MEDS ORDERED: HOME MED LIST COMPLETE! XX SCH (07:35)
[2022-09-23] MEDS: MAGNESIUM OXIDE 400MG TAB (MAG-OX) PO SCH (08:56)
[2022-09-23] MEDS: HEPARIN SOD (PORCINE) 5000UNITS/ML 1ML VIAL/SYRINGE SC SCH (08:56)
[2022-09-23] MEDS: INSULIN LISPRO (NovoLOG) PER UNIT SC SCH ×4 (08:57→20:43)
[2022-09-23] MEDS: OMEPRAZOLE 20MG CAP PO SCH (08:57)
[2022-09-23] MEDS: cloNIDine 0.1MG TABLET PO SCH ×2 (08:57→20:42)
[2022-09-23] MEDS: glipiZIDE *2.5MG* 1/2 TABLET PO SCH (08:57)
[2022-09-23] MEDS: amLODIPine 5 MG TAB PO SCH ×2 (08:58→20:43)
[2022-09-23] MEDS: REMEDY PHYTOPLEX Z-GUARD PASTE 113GM TUBE (FROM STOREROOM PRODUCT) TOP SCH ×3 (08:58→20:43)
[2022-09-23] MEDS: DOCUSATE SODIUM 100MG CAPSULE PO SCH (08:59)
[2022-09-23] MEDS ORDERED: MIRALAX *UNIT DOSE* 17GM PACKET PO SCH (09:00)
[2022-09-23] MEDS ORDERED: LACTULOSE 20GM/30ML SYRUP UDC PO ONE (09:00)
[2022-09-23 14:00] VITALS: BP 136/64; TEMP 97.8; O2SAT 99
[2022-09-23] MEDS: SIMETHICONE 80MG CHEW TAB PO SCH ×2 (16:51→20:42)
[2022-09-23 20:00] VITALS: BP 138/63; TEMP 97.8; O2SAT 100
[2022-09-23] MEDS: ENOXAPARIN 40MG/0.4ML SYRINGE (J1650 PER 10MG) SC SCH (20:42)
[2022-09-24] MEDS: ACETAMINOPHEN TAB 650MG DOSE (2X325MG) PO PRN ×3 (04:16→22:10)
[2022-09-24] MEDS: LEVOTHYROXINE 50MCG TABLET (0.05MG) PO SCH (05:25)
[2022-09-24 06:00] VITALS: BP 150/66; TEMP 97.4; O2SAT 100
[2022-09-24] MEDS: INSULIN LISPRO (NovoLOG) PER UNIT SC SCH ×4 (07:24→20:04)
[2022-09-24] MEDS: REMEDY PHYTOPLEX Z-GUARD PASTE 113GM TUBE (FROM STOREROOM PRODUCT) TOP SCH ×3 (09:00→20:25)
[2022-09-24] MEDS: SIMETHICONE 80MG CHEW TAB PO SCH ×3 (09:25→20:24)
[2022-09-24] MEDS: OMEPRAZOLE 20MG CAP PO SCH (09:25)
[2022-09-24] MEDS: glipiZIDE *2.5MG* 1/2 TABLET PO SCH (09:25)
[2022-09-24] MEDS: cloNIDine 0.1MG TABLET PO SCH ×2 (09:25→20:24)
[2022-09-24] MEDS: MAGNESIUM OXIDE 400MG TAB (MAG-OX) PO SCH (09:25)
[2022-09-24] MEDS: amLODIPine 5 MG TAB PO SCH ×2 (09:26→20:24)
[2022-09-24] MEDS: DULoxetine 20MG CAP (CYMBALTA) PO SCH (13:00)
[2022-09-24 14:00] VITALS: BP 126/60; TEMP 98.2; O2SAT 100
[2022-09-24 20:00] VITALS: BP 157/69; TEMP 97.6; O2SAT 98
[2022-09-24] MEDS: ENOXAPARIN 40MG/0.4ML SYRINGE (J1650 PER 10MG) SC SCH (20:25)
[2022-09-25] MEDS: ACETAMINOPHEN TAB 650MG DOSE (2X325MG) PO PRN ×4 (04:25→21:03)
[2022-09-25] MEDS: LEVOTHYROXINE 50MCG TABLET (0.05MG) PO SCH (05:50)
[2022-09-25 05:51] LABS: BASO % 0.8 % (0.0-1.0); EOS % 0.6 % (0.0-3.0); HEMATOCRIT 36.2 % (36.0-47.0); HEMOGLOBIN 12.1 g/dl (12.0-15.5); LYMPH # 2.1 10^3/uL (1.5-5.0); LYMPH % 40.4 % (24.0-44.0); MEAN CORPUSCULAR HGB CONC 33.4 g/dl (32.0-36.5); MEAN CORPUSCULAR VOLUME 92.8 fl (80.0-96.0); MONO # 0.6 10^3/uL (0.0-0.8); MONO % 11.4 % (2.0-8.0); NEUTROPHILS # 2.4 10^3/uL (1.5-8.5); NEUTROPHILS % 46.6 % (36.0-66.0); PLATELET COUNT, AUTOMATED 220 10^3/uL (150-450); WHITE BLOOD COUNT 5.1 10^3/uL (4.0-10.0)
[2022-09-25 06:00] VITALS: BP 146/70; TEMP 97.3; O2SAT 100
[2022-09-25 06:18] LABS: BLOOD UREA NITROGEN 18 MG/DL (9-23); CALCIUM LEVEL 9.2 MG/DL (8.3-10.6); CARBON DIOXIDE LEVEL 32 MMOL/L (20-31); CHLORIDE LEVEL 101 MMOL/L (98-107); CREATININE FOR GFR 0.53 MG/DL (0.55-1.30); GLOMERULAR FILTRATION RATE > 60.0 (>39); GLUCOSE, FASTING 146 MG/DL (74-106); POTASSIUM SERUM 3.9 MMOL/L (3.5-5.1); SODIUM LEVEL 139 MMOL/L (136-145)
[2022-09-25] MEDS: INSULIN LISPRO (NovoLOG) PER UNIT SC SCH ×4 (07:30→20:27)
[2022-09-25] MEDS: cloNIDine 0.1MG TABLET PO SCH ×2 (07:57→21:02)
[2022-09-25] MEDS: DULoxetine 20MG CAP (CYMBALTA) PO SCH (07:58)
[2022-09-25] MEDS: MAGNESIUM OXIDE 400MG TAB (MAG-OX) PO SCH (07:58)
[2022-09-25] MEDS: SIMETHICONE 80MG CHEW TAB PO SCH ×3 (07:58→21:02)
[2022-09-25] MEDS: amLODIPine 5 MG TAB PO SCH ×2 (07:58→21:02)
[2022-09-25] MEDS: OMEPRAZOLE 20MG CAP PO SCH (07:59)
[2022-09-25] MEDS: glipiZIDE *2.5MG* 1/2 TABLET PO SCH (08:03)
[2022-09-25] MEDS: REMEDY PHYTOPLEX Z-GUARD PASTE 113GM TUBE (FROM STOREROOM PRODUCT) TOP SCH ×3 (08:04→20:27)
[2022-09-25 13:00] VITALS: BP 151/66; TEMP 97.8; O2SAT 98
[2022-09-25 20:00] VITALS: BP 154/68; TEMP 97.8; O2SAT 79
[2022-09-25] MEDS: ENOXAPARIN 40MG/0.4ML SYRINGE (J1650 PER 10MG) SC SCH (21:03)
[2022-09-26] MEDS: LEVOTHYROXINE 50MCG TABLET (0.05MG) PO SCH (05:30)
[2022-09-26] MEDS: ACETAMINOPHEN TAB 650MG DOSE (2X325MG) PO PRN ×4 (05:31→21:52)
[2022-09-26 06:00] VITALS: BP 162/80; TEMP 98.1; O2SAT 98
[2022-09-26] MEDS: INSULIN LISPRO (NovoLOG) PER UNIT SC SCH ×4 (07:30→20:53)
[2022-09-26] MEDS: DULoxetine 20MG CAP (CYMBALTA) PO SCH (07:47)
[2022-09-26] MEDS: cloNIDine 0.1MG TABLET PO SCH ×2 (07:47→20:59)
[2022-09-26] MEDS: glipiZIDE *2.5MG* 1/2 TABLET PO SCH (07:47)
[2022-09-26] MEDS: MAGNESIUM OXIDE 400MG TAB (MAG-OX) PO SCH (07:47)
[2022-09-26] MEDS: OMEPRAZOLE 20MG CAP PO SCH (07:48)
[2022-09-26] MEDS: amLODIPine 5 MG TAB PO SCH ×2 (07:48→20:59)
[2022-09-26] MEDS: SIMETHICONE 80MG CHEW TAB PO SCH ×3 (07:48→20:58)
[2022-09-26] MEDS: REMEDY PHYTOPLEX Z-GUARD PASTE 113GM TUBE (FROM STOREROOM PRODUCT) TOP SCH ×3 (09:00→20:54)
[2022-09-26 14:00] VITALS: BP 150/80; TEMP 98.2; O2SAT 100
[2022-09-26 20:00] VITALS: BP 152/70; TEMP 98.6; O2SAT 98
[2022-09-26] MEDS: ENOXAPARIN 40MG/0.4ML SYRINGE (J1650 PER 10MG) SC SCH (20:59)
[2022-09-27] MEDS: ACETAMINOPHEN TAB 650MG DOSE (2X325MG) PO PRN ×4 (02:22→19:46)
[2022-09-27 06:00] VITALS: BP 131/65; TEMP 98.5; O2SAT 98
[2022-09-27] MEDS: LEVOTHYROXINE 50MCG TABLET (0.05MG) PO SCH (06:11)
[2022-09-27] MEDS: INSULIN LISPRO (NovoLOG) PER UNIT SC SCH ×4 (07:30→21:00)
[2022-09-27] MEDS: cloNIDine 0.1MG TABLET PO SCH ×2 (07:50→20:13)
[2022-09-27] MEDS: glipiZIDE *2.5MG* 1/2 TABLET PO SCH (07:50)
[2022-09-27] MEDS: MAGNESIUM OXIDE 400MG TAB (MAG-OX) PO SCH (07:51)
[2022-09-27] MEDS: DULoxetine 20MG CAP (CYMBALTA) PO SCH (07:51)
[2022-09-27] MEDS: REMEDY PHYTOPLEX Z-GUARD PASTE 113GM TUBE (FROM STOREROOM PRODUCT) TOP SCH ×3 (07:51→20:15)
[2022-09-27] MEDS: amLODIPine 5 MG TAB PO SCH ×2 (07:51→20:10)
[2022-09-27] MEDS: OMEPRAZOLE 20MG CAP PO SCH (07:51)
[2022-09-27] MEDS: SIMETHICONE 80MG CHEW TAB PO SCH ×3 (07:52→20:10)
[2022-09-27 14:00] VITALS: BP 140/80; TEMP 97.7; O2SAT 99
[2022-09-27 20:00] VITALS: BP_SYST 106; BP_SYST 118; BP_DIAS 53; BP_DIAS 59; TEMP 97.2; TEMP 97.8; O2SAT 94; O2SAT 97
[2022-09-27] MEDS: ENOXAPARIN 40MG/0.4ML SYRINGE (J1650 PER 10MG) SC SCH (20:10)
[2022-09-28] MEDS: ACETAMINOPHEN TAB 650MG DOSE (2X325MG) PO PRN ×3 (00:04→20:20)
[2022-09-28] MEDS: LEVOTHYROXINE 50MCG TABLET (0.05MG) PO SCH (05:24)
[2022-09-28 06:00] VITALS: BP 152/72; TEMP 97; O2SAT 98
[2022-09-28] MEDS ORDERED: traMADol 50 MG TAB PO ONE (06:00)
[2022-09-28 06:09] LABS: BASO % 0.4 % (0.0-1.0); EOS % 0.3 % (0.0-3.0); HEMATOCRIT 41.4 % (36.0-47.0); HEMOGLOBIN 13.7 g/dl (12.0-15.5); LYMPH # 1.8 10^3/uL (1.5-5.0); LYMPH % 24.6 % (24.0-44.0); MEAN CORPUSCULAR HEMOGLOBIN 30.9 pg (27.0-33.0); MEAN CORPUSCULAR HGB CONC 33.1 g/dl (32.0-36.5); MEAN CORPUSCULAR VOLUME 93.2 fl (80.0-96.0); MONO # 0.6 10^3/uL (0.0-0.8); MONO % 7.9 % (2.0-8.0); NEUTROPHILS % 66.4 % (36.0-66.0); PLATELET COUNT, AUTOMATED 280 10^3/uL (150-450); RED BLOOD COUNT 4.44 10^6/uL (4.00-5.40); WHITE BLOOD COUNT 7.5 10^3/uL (4.0-10.0)
[2022-09-28 06:34] LABS: BLOOD UREA NITROGEN 12 MG/DL (9-23); CALCIUM LEVEL 9.2 MG/DL (8.3-10.6); CARBON DIOXIDE LEVEL 27 MMOL/L (20-31); CHLORIDE LEVEL 100 MMOL/L (98-107); CREATININE FOR GFR 0.48 MG/DL (0.55-1.30); GLOMERULAR FILTRATION RATE > 60.0 (>39); GLUCOSE, FASTING 145 MG/DL (74-106); POTASSIUM SERUM 3.8 MMOL/L (3.5-5.1); SODIUM LEVEL 140 MMOL/L (136-145)
[2022-09-28] MEDS: INSULIN LISPRO (NovoLOG) PER UNIT SC SCH ×5 (07:30→21:00)
[2022-09-28] MEDS: DULoxetine 20MG CAP (CYMBALTA) PO SCH (07:53)
[2022-09-28] MEDS: amLODIPine 5 MG TAB PO SCH ×2 (07:53→20:12)
[2022-09-28] MEDS: SIMETHICONE 80MG CHEW TAB PO SCH ×3 (07:53→20:10)
[2022-09-28] MEDS: MAGNESIUM OXIDE 400MG TAB (MAG-OX) PO SCH (07:53)
[2022-09-28] MEDS: cloNIDine 0.1MG TABLET PO SCH ×2 (07:53→20:19)
[2022-09-28] MEDS: OMEPRAZOLE 20MG CAP PO SCH (07:54)
[2022-09-28] MEDS: glipiZIDE *2.5MG* 1/2 TABLET PO SCH (07:54)
[2022-09-28] MEDS: REMEDY PHYTOPLEX Z-GUARD PASTE 113GM TUBE (FROM STOREROOM PRODUCT) TOP SCH ×3 (07:58→21:00)
[2022-09-28 14:00] VITALS: BP 116/54; TEMP 97.7; O2SAT 100
[2022-09-28 20:00] VITALS: BP 134/63; TEMP 98; O2SAT 99
[2022-09-28] MEDS: ENOXAPARIN 40MG/0.4ML SYRINGE (J1650 PER 10MG) SC SCH (20:10)
[2022-09-29] MEDS: LEVOTHYROXINE 50MCG TABLET (0.05MG) PO SCH (05:35)
[2022-09-29 06:00] VITALS: BP 126/59; TEMP 97.5; O2SAT 99
[2022-09-29] MEDS: ACETAMINOPHEN TAB 650MG DOSE (2X325MG) PO PRN ×2 (06:06→18:38)
[2022-09-29] MEDS: REMEDY PHYTOPLEX Z-GUARD PASTE 113GM TUBE (FROM STOREROOM PRODUCT) TOP SCH ×3 (09:00→20:24)
[2022-09-29] MEDS: cloNIDine 0.1MG TABLET PO SCH ×2 (09:48→20:24)
[2022-09-29] MEDS: amLODIPine 5 MG TAB PO SCH ×2 (09:48→20:21)
[2022-09-29] MEDS: OMEPRAZOLE 20MG CAP PO SCH (09:48)
[2022-09-29] MEDS: MAGNESIUM OXIDE 400MG TAB (MAG-OX) PO SCH (09:48)
[2022-09-29] MEDS: SIMETHICONE 80MG CHEW TAB PO SCH ×3 (09:49→20:22)
[2022-09-29] MEDS: DULoxetine 20MG CAP (CYMBALTA) PO SCH (09:49)
[2022-09-29] MEDS: glipiZIDE *2.5MG* 1/2 TABLET PO SCH (09:49)
[2022-09-29] MEDS: INSULIN LISPRO (NovoLOG) PER UNIT SC SCH ×4 (09:49→19:53)
[2022-09-29] MEDS: DICLOFENAC EPOLAMINE 1.3% PATCH TOP SCH ×2 (12:54→20:25)
[2022-09-29 14:00] VITALS: BP 138/67; TEMP 97.9; O2SAT 98
[2022-09-29] MEDS ORDERED: traMADol 50 MG TAB PO ONE (19:40)
[2022-09-29 19:46] VITALS: BP 145/64; TEMP 98.7; O2SAT 98
[2022-09-29] MEDS: ENOXAPARIN 40MG/0.4ML SYRINGE (J1650 PER 10MG) SC SCH (20:22)
[2022-09-30 05:30] VITALS: BP 135/61; TEMP 98.3; O2SAT 97
[2022-09-30] MEDS: LEVOTHYROXINE 50MCG TABLET (0.05MG) PO SCH (06:14)
[2022-09-30] MEDS ORDERED: CLONI1TA PO (08:54)
[2022-09-30] MEDS ORDERED: HYDR-643 PO (08:54)
[2022-09-30] MEDS ORDERED: AMLO1TAB24 PO (08:54)
[2022-09-30] MEDS ORDERED: LEVO50TA5 PO (08:54)
[2022-09-30] MEDS ORDERED: CYMB1CAP4 PO (08:54)
[2022-09-30] MEDS ORDERED: OMEP40CA5 PO (08:54)
[2022-09-30] MEDS ORDERED: GLIP5TAB8 PO (08:54)
[2022-09-30] MEDS ORDERED: DICL20GE TP (08:56)
[2022-09-30] MEDS: REMEDY PHYTOPLEX Z-GUARD PASTE 113GM TUBE (FROM STOREROOM PRODUCT) TOP SCH (09:00)
[2022-09-30] MEDS: glipiZIDE *2.5MG* 1/2 TABLET PO SCH (09:19)
[2022-09-30] MEDS: cloNIDine 0.1MG TABLET PO SCH (09:19)
[2022-09-30] MEDS: INSULIN LISPRO (NovoLOG) PER UNIT SC SCH (09:19)
[2022-09-30] MEDS: DICLOFENAC EPOLAMINE 1.3% PATCH TOP SCH (09:19)
[2022-09-30] MEDS: MAGNESIUM OXIDE 400MG TAB (MAG-OX) PO SCH (09:20)
[2022-09-30] MEDS: OMEPRAZOLE 20MG CAP PO SCH (09:20)
[2022-09-30] MEDS: SIMETHICONE 80MG CHEW TAB PO SCH (09:20)
[2022-09-30] MEDS: DULoxetine 20MG CAP (CYMBALTA) PO SCH (09:20)
[2022-09-30 09:23] VITALS: BP 135/61
[2022-09-30] MEDS: amLODIPine 5 MG TAB PO SCH (09:23)
== END 2022-09-30 11:15 | disposition home health service (06) | DRG 74 ==
LOC: M PM&R 14:45
PROVIDERS: ADMIT Physical Medicine & Rehabilitation; ATTEND Physical Medicine & Rehabilitation
DX: E11.42 Type 2 diabetes mellitus with diabetic polyneuropathy (principal); E46 Unspecified protein-calorie malnutrition; Z68.1 Body mass index [BMI] 19.9 or less, adult; R53.1 Weakness; I10 Essential (primary) hypertension; M79.7 Fibromyalgia; G89.29 Other chronic pain; R53.81 Other malaise; I16.0 Hypertensive urgency; F32.A Depression, unspecified; E03.9 Hypothyroidism, unspecified; R26.89 Other abnormalities of gait and mobility; R42 Dizziness and giddiness; K59.09 Other constipation; M94.0 Chondrocostal junction syndrome [Tietze]; M62.84 Sarcopenia; E87.6 Hypokalemia; E83.42 Hypomagnesemia; Z74.09 Other reduced mobility; Z74.1 Need for assistance with personal care; Z79.890 Hormone replacement therapy; Z79.4 Long term (current) use of insulin; Z88.0 Allergy status to penicillin; Z88.5 Allergy status to narcotic agent

== ENCOUNTER 2022-10-17 09:00 | Observation (INO) | payer MEDICARE ==
[~2022-10-17] VITALS: Ht 165.1 cm; Wt 48.6 kg
[~2022-10-17 09:00] MED LIST changes: -CELE1CAP7 PO; +CELE1CAP8 PO; +CYMB1CAP4 PO; +DICL20GE TP; +HYDR-643 PO; -PREG75CA2 PO; +PREG75CA3 PO
[2022-10-17] MEDS ORDERED: traMADol 50 MG TAB PO ONE (12:15)
[2022-10-17 16:08] LABS: BASO # 0.1 10^3/uL (0.0-0.2); BASO % 0.8 % (0.0-1.0); EOS % 0.1 % (0.0-3.0); HEMATOCRIT 40.9 % (36.0-47.0); HEMOGLOBIN 13.9 g/dl (12.0-15.5); LYMPH # 1.8 10^3/uL (1.5-5.0); LYMPH % 23.1 % (24.0-44.0); MEAN CORPUSCULAR HEMOGLOBIN 31.2 pg (27.0-33.0); MEAN CORPUSCULAR VOLUME 91.9 fl (80.0-96.0); MONO # 0.7 10^3/uL (0.0-0.8); MONO % 9.4 % (2.0-8.0); NEUTROPHILS # 5.1 10^3/uL (1.5-8.5); NEUTROPHILS % 66.3 % (36.0-66.0); PLATELET COUNT, AUTOMATED 326 10^3/uL (150-450); RED BLOOD COUNT 4.45 10^6/uL (4.00-5.40); WHITE BLOOD COUNT 7.7 10^3/uL (4.0-10.0)
[2022-10-17 16:45] LABS: BLOOD UREA NITROGEN 21 MG/DL (9-23); CALCIUM LEVEL 9.4 MG/DL (8.3-10.6); CARBON DIOXIDE LEVEL 26 MMOL/L (20-31); CHLORIDE LEVEL 101 MMOL/L (98-107); GLOMERULAR FILTRATION RATE > 60.0 (>39); GLUCOSE, FASTING 220 MG/DL (74-106); POTASSIUM SERUM 3.7 MMOL/L (3.5-5.1); SODIUM LEVEL 137 MMOL/L (136-145)
[2022-10-17 16:47] LABS: THYROID STIMULATING HORMONE 3.731 uIU/ML (0.55-4.78)
[2022-10-17] MEDS ORDERED: DEXTROSE 50% 50ML SYRINGE IV PRN (17:05)
[2022-10-17] MEDS ORDERED: GLUCOSE 4GM CHEW TABLET PO PRN (17:05)
[2022-10-17] MEDS ORDERED: GLUCAGON INJ 1MG VIAL SC PRN (17:05)
[2022-10-17] MEDS ORDERED: GLIP5TAB8 PO (17:24)
[2022-10-17] MEDS ORDERED: LEVO50TA5 PO (17:24)
[2022-10-17] MEDS ORDERED: VITA100093 PO (17:24)
[2022-10-17] MEDS ORDERED: AMLO1TAB24 PO (17:24)
[2022-10-17] MEDS ORDERED: HYDR-643 PO (17:24)
[2022-10-17] MEDS ORDERED: CLON-412 PO (17:24)
[2022-10-17] MEDS ORDERED: DULO1CAP4 PO (17:24)
[2022-10-17] MEDS ORDERED: OMEP40CA5 PO (17:24)
[2022-10-17] MEDS ORDERED: HOME MED LIST COMPLETE! XX SCH (17:30)
[2022-10-17] MEDS: INSULIN LISPRO (NovoLOG) PER UNIT SC SCH ×2 (17:44→20:52)
[2022-10-17 19:55] VITALS: BP 160/68; TEMP 97.7; O2SAT 98
[2022-10-17] MEDS: DULoxetine 20MG CAP (CYMBALTA) PO SCH (20:58)
[2022-10-17] MEDS: cloNIDine 0.1MG TABLET PO SCH (20:58)
[2022-10-18] MEDS: IBUPROFEN 400MG TAB PO PRN ×2 (00:10→20:24)
[2022-10-18 04:16] VITALS: BP 159/73; TEMP 97.8; O2SAT 97
[2022-10-18] MEDS: LEVOTHYROXINE 50MCG TABLET (0.05MG) PO SCH (05:36)
[2022-10-18 07:43] VITALS: BP 132/72; TEMP 98; O2SAT 99
[2022-10-18 07:54] VITALS: BP 138/58
[2022-10-18] MEDS: INSULIN LISPRO (NovoLOG) PER UNIT SC SCH ×4 (07:55→20:10)
[2022-10-18] MEDS: ENOXAPARIN 40MG/0.4ML SYRINGE (J1650 PER 10MG) SC SCH (07:55)
[2022-10-18] MEDS: cloNIDine 0.1MG TABLET PO SCH ×2 (07:56→20:17)
[2022-10-18] MEDS: traMADol 50 MG TAB PO PRN ×2 (07:56→23:01)
[2022-10-18] MEDS: DULoxetine 20MG CAP (CYMBALTA) PO SCH ×2 (07:57→20:17)
[2022-10-18] MEDS: OMEPRAZOLE 20MG CAP PO PRN (07:57)
[2022-10-18] MEDS ORDERED: traMADol ER 100MG TABLET (ULTRAM ER) PO SCH (09:00)
[2022-10-18] MEDS: SENOKOT S TAB PO PRN (12:29)
[2022-10-18 19:52] VITALS: BP 131/62; TEMP 97.2; O2SAT 98
[2022-10-19] MEDS ORDERED: CYCLOBENZAPRINE 5MG TABLET PO ONE (02:00)
[2022-10-19] MEDS: ACETAMINOPHEN TAB 650MG DOSE (2X325MG) PO PRN ×3 (04:42→23:01)
[2022-10-19] MEDS: SENOKOT S TAB PO PRN ×2 (05:39→20:40)
[2022-10-19] MEDS: LEVOTHYROXINE 50MCG TABLET (0.05MG) PO SCH (05:39)
[2022-10-19] MEDS ORDERED: traMADol 50 MG TAB PO ONE (07:35)
[2022-10-19 07:40] VITALS: BP 137/63; TEMP 98.3; O2SAT 98
[2022-10-19 08:07] LABS: HEMATOCRIT 39.4 % (36.0-47.0); HEMOGLOBIN 13.3 g/dl (12.0-15.5); MEAN CORPUSCULAR HEMOGLOBIN 31.1 pg (27.0-33.0); MEAN CORPUSCULAR HGB CONC 33.8 g/dl (32.0-36.5); MEAN CORPUSCULAR VOLUME 92.3 fl (80.0-96.0); PLATELET COUNT, AUTOMATED 298 10^3/uL (150-450); RED BLOOD COUNT 4.27 10^6/uL (4.00-5.40); WHITE BLOOD COUNT 5.3 10^3/uL (4.0-10.0)
[2022-10-19] MEDS: DULoxetine 20MG CAP (CYMBALTA) PO SCH ×2 (08:15→20:38)
[2022-10-19] MEDS: ENOXAPARIN 40MG/0.4ML SYRINGE (J1650 PER 10MG) SC SCH (08:15)
[2022-10-19] MEDS: INSULIN LISPRO (NovoLOG) PER UNIT SC SCH ×4 (08:15→20:38)
[2022-10-19] MEDS: cloNIDine 0.1MG TABLET PO SCH ×2 (08:17→20:38)
[2022-10-19 08:33] LABS: BLOOD UREA NITROGEN 21 MG/DL (9-23); CALCIUM LEVEL 9.3 MG/DL (8.3-10.6); CARBON DIOXIDE LEVEL 29 MMOL/L (20-31); CHLORIDE LEVEL 100 MMOL/L (98-107); CREATININE FOR GFR 0.56 MG/DL (0.55-1.30); GLOMERULAR FILTRATION RATE > 60.0 (>39); GLUCOSE, FASTING 188 MG/DL (74-106); POTASSIUM SERUM 3.3 MMOL/L (3.5-5.1); SODIUM LEVEL 138 MMOL/L (136-145)
[2022-10-19] MEDS ORDERED: ACETAMINOPHEN 500 MG TAB PO ONE (09:00)
[2022-10-19 09:12] LABS: HEMOGLOBIN A1c 7.3 % (4.0-6.0)
[2022-10-19] MEDS: traMADol 50 MG TAB PO PRN (20:44)
[2022-10-20] MEDS: traMADol 50 MG TAB PO PRN ×3 (01:47→23:21)
[2022-10-20] MEDS: LEVOTHYROXINE 50MCG TABLET (0.05MG) PO SCH (06:20)
[2022-10-20 06:40] VITALS: BP 134/61; TEMP 97.4; O2SAT 97
[2022-10-20] MEDS: cloNIDine 0.1MG TABLET PO SCH ×2 (08:31→20:24)
[2022-10-20] MEDS: DULoxetine 20MG CAP (CYMBALTA) PO SCH ×2 (08:31→20:23)
[2022-10-20] MEDS: ENOXAPARIN 40MG/0.4ML SYRINGE (J1650 PER 10MG) SC SCH (08:31)
[2022-10-20] MEDS: INSULIN LISPRO (NovoLOG) PER UNIT SC SCH ×4 (08:33→21:00)
[2022-10-20] MEDS: ACETAMINOPHEN TAB 650MG DOSE (2X325MG) PO PRN ×2 (08:33→20:24)
[2022-10-21] MEDS: LEVOTHYROXINE 50MCG TABLET (0.05MG) PO SCH (05:41)
[2022-10-21 05:46] VITALS: BP 137/61; TEMP 98.3; O2SAT 98
[2022-10-21] MEDS: SENOKOT S TAB PO PRN (06:47)
[2022-10-21] MEDS: IBUPROFEN 400MG TAB PO PRN (06:49)
[2022-10-21] MEDS: INSULIN LISPRO (NovoLOG) PER UNIT SC SCH ×4 (08:44→20:31)
[2022-10-21] MEDS: cloNIDine 0.1MG TABLET PO SCH ×2 (08:45→20:57)
[2022-10-21] MEDS: ENOXAPARIN 40MG/0.4ML SYRINGE (J1650 PER 10MG) SC SCH (08:45)
[2022-10-21] MEDS: DULoxetine 20MG CAP (CYMBALTA) PO SCH ×2 (08:49→20:57)
[2022-10-21 14:00] VITALS: BP 134/61; TEMP 98.1; O2SAT 98
[2022-10-21] MEDS: traMADol 50 MG TAB PO PRN ×2 (17:05→23:55)
[2022-10-21] MEDS: ACETAMINOPHEN TAB 650MG DOSE (2X325MG) PO PRN (20:58)
[2022-10-22 05:45] VITALS: BP 130/63; TEMP 98.6; O2SAT 96
[2022-10-22] MEDS: LEVOTHYROXINE 50MCG TABLET (0.05MG) PO SCH (05:46)
[2022-10-22] MEDS: ENOXAPARIN 40MG/0.4ML SYRINGE (J1650 PER 10MG) SC SCH (07:55)
[2022-10-22] MEDS: INSULIN LISPRO (NovoLOG) PER UNIT SC SCH ×4 (07:55→21:00)
[2022-10-22] MEDS: DULoxetine 20MG CAP (CYMBALTA) PO SCH ×2 (07:55→21:19)
[2022-10-22] MEDS: cloNIDine 0.1MG TABLET PO SCH ×2 (07:56→21:20)
[2022-10-22] MEDS: SENOKOT S TAB PO PRN (07:57)
[2022-10-22] MEDS: ACETAMINOPHEN TAB 650MG DOSE (2X325MG) PO PRN (11:06)
[2022-10-22] MEDS ORDERED: MIRALAX *UNIT DOSE* 17GM PACKET PO PRN (14:05)
[2022-10-22] MEDS ORDERED: SENOKOT S TAB PO PRN (14:05)
[2022-10-22] MEDS: MOM 30ML SUSPENSION UDC PO PRN (16:31)
[2022-10-22] MEDS ORDERED: FLEET ENEMA PR PRN (18:30)
[2022-10-22] MEDS: traMADol 50 MG TAB PO PRN (21:20)
[2022-10-23] MEDS: LEVOTHYROXINE 50MCG TABLET (0.05MG) PO SCH (05:44)
[2022-10-23 05:46] VITALS: BP 126/84; TEMP 97.7; O2SAT 99
[2022-10-23] MEDS: INSULIN LISPRO (NovoLOG) PER UNIT SC SCH ×4 (07:30→20:33)
[2022-10-23] MEDS: DULoxetine 20MG CAP (CYMBALTA) PO SCH ×2 (08:58→20:42)
[2022-10-23] MEDS: cloNIDine 0.1MG TABLET PO SCH ×2 (08:58→20:43)
[2022-10-23] MEDS: ENOXAPARIN 40MG/0.4ML SYRINGE (J1650 PER 10MG) SC SCH (08:59)
[2022-10-23] MEDS: ACETAMINOPHEN TAB 650MG DOSE (2X325MG) PO PRN (16:16)
[2022-10-23] MEDS: traMADol 50 MG TAB PO PRN (20:46)
[2022-10-24] MEDS: LEVOTHYROXINE 50MCG TABLET (0.05MG) PO SCH (05:37)
[2022-10-24 05:56] VITALS: BP 146/70; TEMP 97.4; O2SAT 99
[2022-10-24] MEDS: cloNIDine 0.1MG TABLET PO SCH ×2 (09:31→21:35)
[2022-10-24] MEDS: ENOXAPARIN 40MG/0.4ML SYRINGE (J1650 PER 10MG) SC SCH (09:31)
[2022-10-24] MEDS: INSULIN LISPRO (NovoLOG) PER UNIT SC SCH ×4 (09:31→21:35)
[2022-10-24] MEDS: DULoxetine 20MG CAP (CYMBALTA) PO SCH ×2 (09:31→21:34)
[2022-10-24] MEDS: traMADol 50 MG TAB PO PRN (09:33)
[2022-10-24] MEDS: ACETAMINOPHEN TAB 650MG DOSE (2X325MG) PO PRN (21:37)
[2022-10-25] MEDS: traMADol 50 MG TAB PO PRN ×2 (03:26→21:09)
[2022-10-25] MEDS: LEVOTHYROXINE 50MCG TABLET (0.05MG) PO SCH (05:41)
[2022-10-25 06:00] VITALS: BP 149/67; TEMP 97.9; O2SAT 99
[2022-10-25] MEDS: INSULIN LISPRO (NovoLOG) PER UNIT SC SCH ×4 (09:09→21:00)
[2022-10-25] MEDS: cloNIDine 0.1MG TABLET PO SCH ×2 (09:10→21:09)
[2022-10-25] MEDS: DULoxetine 20MG CAP (CYMBALTA) PO SCH ×2 (09:10→21:08)
[2022-10-25] MEDS: ENOXAPARIN 40MG/0.4ML SYRINGE (J1650 PER 10MG) SC SCH (09:11)
[2022-10-25] MEDS: ACETAMINOPHEN TAB 650MG DOSE (2X325MG) PO PRN (19:30)
[2022-10-25 21:03] VITALS: BP 143/63; TEMP 98.2; O2SAT 99
[2022-10-26] MEDS: LEVOTHYROXINE 50MCG TABLET (0.05MG) PO SCH (05:24)
[2022-10-26 05:26] VITALS: BP 135/63; TEMP 98.4; O2SAT 96
[2022-10-26] MEDS: INSULIN LISPRO (NovoLOG) PER UNIT SC SCH ×4 (07:39→20:07)
[2022-10-26] MEDS: ENOXAPARIN 40MG/0.4ML SYRINGE (J1650 PER 10MG) SC SCH (07:39)
[2022-10-26] MEDS: DULoxetine 20MG CAP (CYMBALTA) PO SCH ×2 (07:40→20:06)
[2022-10-26] MEDS: cloNIDine 0.1MG TABLET PO SCH ×2 (07:40→20:06)
[2022-10-26] MEDS: ACETAMINOPHEN TAB 650MG DOSE (2X325MG) PO PRN (16:45)
[2022-10-26] MEDS: OMEPRAZOLE 20MG CAP PO PRN (23:58)
[2022-10-27] MEDS: traMADol 50 MG TAB PO PRN ×2 (00:04→23:54)
[2022-10-27 05:35] VITALS: BP 152/76; TEMP 98; O2SAT 100
[2022-10-27] MEDS: LEVOTHYROXINE 50MCG TABLET (0.05MG) PO SCH (05:35)
[2022-10-27] MEDS: MOM 30ML SUSPENSION UDC PO PRN (08:29)
[2022-10-27] MEDS: ENOXAPARIN 40MG/0.4ML SYRINGE (J1650 PER 10MG) SC SCH (08:33)
[2022-10-27] MEDS: INSULIN LISPRO (NovoLOG) PER UNIT SC SCH ×4 (08:33→21:00)
[2022-10-27] MEDS: DULoxetine 20MG CAP (CYMBALTA) PO SCH ×2 (08:34→21:11)
[2022-10-27] MEDS: cloNIDine 0.1MG TABLET PO SCH ×2 (08:34→21:11)
[2022-10-27] MEDS: ACETAMINOPHEN TAB 650MG DOSE (2X325MG) PO PRN (18:07)
[2022-10-28] MEDS: OMEPRAZOLE 20MG CAP PO PRN ×2 (00:09→23:58)
[2022-10-28 05:53] VITALS: BP 148/63; TEMP 97.5; O2SAT 98
[2022-10-28] MEDS: LEVOTHYROXINE 50MCG TABLET (0.05MG) PO SCH (05:53)
[2022-10-28] MEDS: ACETAMINOPHEN TAB 650MG DOSE (2X325MG) PO PRN ×3 (06:02→21:07)
[2022-10-28] MEDS: MOM 30ML SUSPENSION UDC PO PRN (06:33)
[2022-10-28] MEDS: cloNIDine 0.1MG TABLET PO SCH ×2 (09:15→21:04)
[2022-10-28] MEDS: DULoxetine 20MG CAP (CYMBALTA) PO SCH ×2 (09:15→21:03)
[2022-10-28] MEDS: ENOXAPARIN 40MG/0.4ML SYRINGE (J1650 PER 10MG) SC SCH (09:16)
[2022-10-28] MEDS: INSULIN LISPRO (NovoLOG) PER UNIT SC SCH ×4 (09:16→19:40)
[2022-10-28 10:09] LABS: ALBUMIN 3.8 G/DL (3.2-5.2); ALKALINE PHOSPHATASE 164 U/L (46-116); ALT/SGPT 16 U/L (7.0-40); AST/SGOT 15 U/L (<34); BILIRUBIN,TOTAL 0.7 MG/DL (0.3-1.2); BLOOD UREA NITROGEN 17 MG/DL (9-23); CALCIUM LEVEL 9.7 MG/DL (8.3-10.6); CARBON DIOXIDE LEVEL 28 MMOL/L (20-31); CHLORIDE LEVEL 95 MMOL/L (98-107); CREATININE FOR GFR 0.52 MG/DL (0.55-1.30); GLOMERULAR FILTRATION RATE > 60.0 (>39); GLUCOSE, FASTING 262 MG/DL (74-106); POTASSIUM SERUM 3.5 MMOL/L (3.5-5.1); SODIUM LEVEL 136 MMOL/L (136-145); TOTAL PROTEIN 6.6 G/DL (5.7-8.2)
[2022-10-28 11:25] LABS: MAGNESIUM LEVEL 1.9 MG/DL (1.8-2.4)
[2022-10-28] MEDS: traMADol 50 MG TAB PO PRN (23:35)
[2022-10-29] MEDS: ACETAMINOPHEN TAB 650MG DOSE (2X325MG) PO PRN ×2 (05:39→15:10)
[2022-10-29] MEDS: LEVOTHYROXINE 50MCG TABLET (0.05MG) PO SCH (05:39)
[2022-10-29 06:00] VITALS: BP 159/69; TEMP 97.8; O2SAT 98
[2022-10-29] MEDS: INSULIN LISPRO (NovoLOG) PER UNIT SC SCH ×4 (08:56→21:00)
[2022-10-29] MEDS: cloNIDine 0.1MG TABLET PO SCH ×2 (08:56→23:12)
[2022-10-29] MEDS: ENOXAPARIN 40MG/0.4ML SYRINGE (J1650 PER 10MG) SC SCH (08:56)
[2022-10-29] MEDS: DULoxetine 20MG CAP (CYMBALTA) PO SCH ×2 (08:56→23:13)
[2022-10-29 17:40] VITALS: BP 143/75; TEMP 98.2; O2SAT 99
[2022-10-29 19:59] VITALS: BP 145/75; TEMP 98.2; O2SAT 98
[2022-10-29] MEDS: traMADol 50 MG TAB PO PRN (23:10)
[2022-10-30] MEDS: ACETAMINOPHEN TAB 650MG DOSE (2X325MG) PO PRN ×2 (01:20→20:55)
[2022-10-30] MEDS: LEVOTHYROXINE 50MCG TABLET (0.05MG) PO SCH (05:12)
[2022-10-30] MEDS: traMADol 50 MG TAB PO PRN ×2 (05:12→23:22)
[2022-10-30 05:49] VITALS: BP 120/62; TEMP 97.8; O2SAT 98
[2022-10-30] MEDS: cloNIDine 0.1MG TABLET PO SCH ×2 (08:22→20:56)
[2022-10-30] MEDS: DULoxetine 20MG CAP (CYMBALTA) PO SCH ×2 (08:22→20:55)
[2022-10-30] MEDS: ENOXAPARIN 40MG/0.4ML SYRINGE (J1650 PER 10MG) SC SCH (08:23)
[2022-10-30] MEDS: INSULIN LISPRO (NovoLOG) PER UNIT SC SCH ×4 (08:23→20:22)
[2022-10-30] MEDS: OMEPRAZOLE 20MG CAP PO PRN ×2 (17:53→23:24)
[2022-10-31 06:00] VITALS: BP 148/65; TEMP 98.2; O2SAT 98
[2022-10-31] MEDS: LEVOTHYROXINE 50MCG TABLET (0.05MG) PO SCH (06:01)
[2022-10-31] MEDS: INSULIN LISPRO (NovoLOG) PER UNIT SC SCH ×4 (08:08→21:00)
[2022-10-31] MEDS: OMEPRAZOLE 20MG CAP PO PRN (08:09)
[2022-10-31] MEDS: DULoxetine 20MG CAP (CYMBALTA) PO SCH ×2 (08:09→21:18)
[2022-10-31] MEDS: cloNIDine 0.1MG TABLET PO SCH ×2 (08:10→21:16)
[2022-10-31] MEDS: ENOXAPARIN 40MG/0.4ML SYRINGE (J1650 PER 10MG) SC SCH (08:11)
[2022-10-31] MEDS: ACETAMINOPHEN TAB 650MG DOSE (2X325MG) PO PRN ×2 (15:46→23:33)
[2022-10-31] MEDS ORDERED: FAMOTIDINE 20 MG TAB PO ONE (21:00)
[2022-10-31] MEDS: traMADol 50 MG TAB PO PRN (21:18)
[2022-11-01] MEDS: LEVOTHYROXINE 50MCG TABLET (0.05MG) PO SCH (05:43)
[2022-11-01 06:21] VITALS: BP 130/67; TEMP 98.4; O2SAT 98
[2022-11-01] MEDS: INSULIN LISPRO (NovoLOG) PER UNIT SC SCH ×4 (07:36→20:29)
[2022-11-01] MEDS: ACETAMINOPHEN TAB 650MG DOSE (2X325MG) PO PRN ×3 (08:14→21:08)
[2022-11-01] MEDS: DULoxetine 20MG CAP (CYMBALTA) PO SCH ×2 (08:17→21:08)
[2022-11-01] MEDS: ENOXAPARIN 40MG/0.4ML SYRINGE (J1650 PER 10MG) SC SCH (08:17)
[2022-11-01] MEDS: cloNIDine 0.1MG TABLET PO SCH ×2 (08:18→21:07)
[2022-11-01] MEDS: BISACODYL 5MG TAB PO PRN (12:46)
[2022-11-01] MEDS: traMADol 50 MG TAB PO PRN ×2 (12:47→23:57)
[2022-11-01] MEDS: OMEPRAZOLE 20MG CAP PO PRN (23:56)
[2022-11-02] MEDS: LEVOTHYROXINE 50MCG TABLET (0.05MG) PO SCH (05:59)
[2022-11-02 06:00] VITALS: BP 157/80; TEMP 98.1; O2SAT 100
[2022-11-02] MEDS: INSULIN LISPRO (NovoLOG) PER UNIT SC SCH ×4 (08:25→20:08)
[2022-11-02] MEDS: ENOXAPARIN 40MG/0.4ML SYRINGE (J1650 PER 10MG) SC SCH (08:25)
[2022-11-02] MEDS: cloNIDine 0.1MG TABLET PO SCH ×2 (08:28→20:08)
[2022-11-02 08:29] VITALS: BP 148/80
[2022-11-02] MEDS: DULoxetine 20MG CAP (CYMBALTA) PO SCH ×2 (08:29→20:07)
[2022-11-02] MEDS: ACETAMINOPHEN TAB 650MG DOSE (2X325MG) PO PRN (12:37)
[2022-11-02] MEDS: OMEPRAZOLE 20MG CAP PO PRN (16:30)
[2022-11-02] MEDS: traMADol 50 MG TAB PO PRN (22:49)
[2022-11-03] MEDS: ACETAMINOPHEN TAB 650MG DOSE (2X325MG) PO PRN ×4 (00:41→20:16)
[2022-11-03 05:24] VITALS: BP 156/79; TEMP 98.4; O2SAT 99
[2022-11-03] MEDS: LEVOTHYROXINE 50MCG TABLET (0.05MG) PO SCH (05:24)
[2022-11-03] MEDS: ENOXAPARIN 40MG/0.4ML SYRINGE (J1650 PER 10MG) SC SCH (09:35)
[2022-11-03] MEDS: INSULIN LISPRO (NovoLOG) PER UNIT SC SCH ×5 (09:35→20:20)
[2022-11-03] MEDS: DULoxetine 20MG CAP (CYMBALTA) PO SCH ×2 (09:35→20:16)
[2022-11-03] MEDS: cloNIDine 0.1MG TABLET PO SCH ×2 (09:35→20:16)
[2022-11-03] MEDS ORDERED: AMLO1TAB25 PO (14:28)
[2022-11-03] MEDS: OMEPRAZOLE 20MG CAP PO PRN (18:10)
[2022-11-03] MEDS: BISACODYL 5MG TAB PO PRN (18:20)
[2022-11-03] MEDS: IBUPROFEN 400MG TAB PO PRN (21:42)
[2022-11-03 21:44] VITALS: BP 146/68
[2022-11-04] MEDS: traMADol 50 MG TAB PO PRN (00:41)
[2022-11-04] MEDS: MOM 30ML SUSPENSION UDC PO PRN (01:22)
[2022-11-04] MEDS: LEVOTHYROXINE 50MCG TABLET (0.05MG) PO SCH (05:06)
[2022-11-04 05:09] VITALS: BP 162/79; TEMP 98.1; O2SAT 97
[2022-11-04] MEDS: OMEPRAZOLE 20MG CAP PO PRN (06:33)
[2022-11-04] MEDS: INSULIN LISPRO (NovoLOG) PER UNIT SC SCH (07:30)
[2022-11-04 08:24] VITALS: BP 158/78
[2022-11-04] MEDS: ENOXAPARIN 40MG/0.4ML SYRINGE (J1650 PER 10MG) SC SCH (08:24)
[2022-11-04] MEDS: DULoxetine 20MG CAP (CYMBALTA) PO SCH (08:24)
[2022-11-04] MEDS: cloNIDine 0.1MG TABLET PO SCH (08:24)
[2022-11-04] MEDS ORDERED: TRAM50TA2 PO (08:59)
== END 2022-11-04 11:04 | disposition home health service (06) ==
LOC: EDBD 09:00 → M ED 09:00 → M ED INP 09:01 → M PCU 19:34 → M MS4PR 10-19 18:44 → M MSPAV 10-29 17:38
PROVIDERS: ADMIT Family Medicine; ATTEND General Practice
DX: Z75.1 Person awaiting admission to adequate facility elsewhere (principal); R53.1 Weakness; I10 Essential (primary) hypertension; E11.9 Type 2 diabetes mellitus without complications; E03.9 Hypothyroidism, unspecified; M79.7 Fibromyalgia; M54.9 Dorsalgia, unspecified; G89.29 Other chronic pain; Z74.1 Need for assistance with personal care; Z66 Do not resuscitate; Z79.890 Hormone replacement therapy; Z79.84 Long term (current) use of oral hypoglycemic drugs; Z79.899 Other long term (current) drug therapy; Z88.5 Allergy status to narcotic agent; Z20.822 Contact with and (suspected) exposure to COVID-19
CPT/HCPCS: 36415; 80048; 80053; 81001; 83036; 83735; 84443; 85025; 85027; 87086; 87635; 96372; 97116; 97161; 97165; 97166; 97530; 97535; 99284; G0378; J1650; J1815

== ENCOUNTER 2022-12-10 12:00 | Emergency (ER) | payer MEDICARE ==
[~2022-12-10] VITALS: Ht 152.4 cm; Wt 52.0 kg
[~2022-12-10 12:00] MED LIST changes: -CELE1CAP8 PO; +CELE1CAP99 PO; +CLON-412 PO; +DULO1CAP4 PO; +GLIP5TAB17 PO; -GLIP5TAB8 PO
[2022-12-10 12:54] LABS: BASO % 0.6 % (0.0-1.0); EOS % 0.2 % (0.0-3.0); HEMOGLOBIN 14.5 g/dl (12.0-15.5); LYMPH # 1.5 10^3/uL (1.5-5.0); LYMPH % 30.4 % (24.0-44.0); MEAN CORPUSCULAR HEMOGLOBIN 31.7 pg (27.0-33.0); MEAN CORPUSCULAR HGB CONC 33.7 g/dl (32.0-36.5); MEAN CORPUSCULAR VOLUME 94.1 fl (80.0-96.0); MONO # 0.4 10^3/uL (0.0-0.8); MONO % 8.4 % (2.0-8.0); NEUTROPHILS # 2.9 10^3/uL (1.5-8.5); NEUTROPHILS % 60.2 % (36.0-66.0); PLATELET COUNT, AUTOMATED 210 10^3/uL (150-450); RED BLOOD COUNT 4.57 10^6/uL (4.00-5.40); WHITE BLOOD COUNT 4.8 10^3/uL (4.0-10.0)
[2022-12-10 13:25] LABS: THYROID STIMULATING HORMONE 5.006 uIU/ML (0.55-4.78)
[2022-12-10 13:27] LABS: ALBUMIN 3.4 G/DL (3.2-5.2); ALKALINE PHOSPHATASE 96 U/L (46-116); ALT/SGPT 14 U/L (7.0-40); AST/SGOT 38 U/L (<34); BILIRUBIN,DIRECT 0.3 MG/DL (<0.4); BILIRUBIN,TOTAL 0.9 MG/DL (0.3-1.2); CK-MB VALUE MASS < 1.0 NG/ML (<3.6); CPK CREATINE PHOSPHOKINASE 48 U/L (34-145); MB/CK RELATIVE INDEX 2.08 (< OR =4); TOTAL PROTEIN 5.7 G/DL (5.7-8.2)
[2022-12-10 13:50] LABS: RSV AMPLIFICATION NEGATIVE (NEGATIVE)
[2022-12-10 14:40] LABS: BLOOD UREA NITROGEN 12 MG/DL (9-23); CALCIUM LEVEL 8.9 MG/DL (8.3-10.6); CARBON DIOXIDE LEVEL 31 MMOL/L (20-31); CHLORIDE LEVEL 102 MMOL/L (98-107); CK-MB VALUE MASS < 1.0 NG/ML (<3.6); CPK CREATINE PHOSPHOKINASE 18 U/L (34-145); CREATININE FOR GFR 0.49 MG/DL (0.55-1.30); GLOMERULAR FILTRATION RATE > 60.0 (>39); GLUCOSE, FASTING 106 MG/DL (74-106); MAGNESIUM LEVEL 1.5 MG/DL (1.8-2.4); MB/CK RELATIVE INDEX 5.55 (< OR =4); POTASSIUM SERUM 3.2 MMOL/L (3.5-5.1); SODIUM LEVEL 143 MMOL/L (136-145)
[2022-12-10] MEDS ORDERED: MORPHINE 2 MG/ML 1ML VIAL IV ONE (14:40)
[2022-12-10] MEDS: GASTROGRAFIN SOLUTION 30ML PO SCH ×2 (15:00→15:30)
[2022-12-10] MEDS ORDERED: MAG SULF 1GM/100ML (MAG RUN) 1 GM in IV 1 EA IV ONE (15:40)
[2022-12-10] MEDS ORDERED: ISOVUE-370 76% 100ML VIAL As Ordered ONE (16:32)
[2022-12-10] MEDS ORDERED: GABAPENTIN 100 MG CAP PO ONE (17:55)
[2022-12-10] MEDS ORDERED: CALC20SPR (18:05)
[2022-12-10] MEDS ORDERED: NEUR100C PO (18:05)
[2022-12-10] MEDS ORDERED: MAGN400T2 PO (18:09)
[2022-12-10] MEDS ORDERED: KETOROLAC TROMETHAMINE 10 MG TAB PO ONE (18:30)
[2022-12-10] MEDS ORDERED: KETO10TAB PO (18:31)
[2022-12-10 18:38] VITALS: BP 156/97; TEMP 96.5; O2SAT 99
== END 2022-12-10 18:48 | disposition home or self-care (01) ==
LOC: M ED 12:00
DX: E83.42 Hypomagnesemia (principal); S22.080A Wedge compression fracture of T11-T12 vertebra, initial encounter for closed fracture; E11.9 Type 2 diabetes mellitus without complications; I10 Essential (primary) hypertension; M79.7 Fibromyalgia; Z79.899 Other long term (current) drug therapy; Z88.5 Allergy status to narcotic agent
CPT/HCPCS: 71275; 74177; 80047; 80048; 80076; 82550; 82553; 83735; 84443; 84484; 85025; 87631; 93005; 96374; 96375; 99284; J3475; Q9963; Q9967

== ENCOUNTER 2024-03-10 09:04 | Inpatient (IN) | payer MEDICARE ==
[~2024-03-10] VITALS: Ht 157.5 cm; Wt 36.1 kg
[~2024-03-10 09:04] MED LIST changes: +CALC20SPR; +GABA-1172 PO; -GABA-282 PO; -HYDR-3910 PO; -HYDR25TA PO; +HYDR25TA87 PO; +HYDR25TA88 PO; +KETO10TAB PO; +MAGN400T2 PO; -MIRA1POW3 PO; +MIRA33506 PO; +NEUR100C PO; -ROSU10TA6 PO; +ROSU10TA61 PO
[2024-03-10 10:40] LABS: VENOUS BASE EXCESS 2.9 (-2.0-2.0); VENOUS HCO3 29.6 MMOL/L (23.0-27.0); VENOUS O2 SATURATION 84.9 % (60.0-80.0); VENOUS PARTIAL PRESSURE CO2 53.5 mmHg (38.0-50.0); VENOUS PARTIAL PRESSURE O2 47.5 mmHg (30.0-50.0); VENOUS PH 7.361 UNITS (7.330-7.430); VENOUS STANDARD HCO3 26.7 MMOL/L; VENOUS TOTAL CO2 31.3 MMOL/L (24.0-28.0)
[2024-03-10 10:41] LABS: BASO % 0.4 % (0.0-1.0); HEMATOCRIT 40.8 % (36.0-47.0); LYMPH # 0.4 10^3/uL (1.5-5.0); LYMPH % 8.9 % (24.0-44.0); MEAN CORPUSCULAR HEMOGLOBIN 32.9 pg (27.0-33.0); MEAN CORPUSCULAR HGB CONC 34.3 g/dl (32.0-36.5); MEAN CORPUSCULAR VOLUME 95.8 fl (80.0-96.0); MONO # 0.3 10^3/uL (0.0-0.8); MONO % 6.9 % (2.0-8.0); NEUTROPHILS # 3.9 10^3/uL (1.5-8.5); NEUTROPHILS % 83.6 % (36.0-66.0); PLATELET COUNT, AUTOMATED 182 10^3/uL (150-450); RED BLOOD COUNT 4.26 10^6/uL (4.00-5.40); WHITE BLOOD COUNT 4.6 10^3/uL (4.0-10.0)
[2024-03-10 11:09] LABS: ALBUMIN 3.6 G/DL (3.2-5.2); ALKALINE PHOSPHATASE 110 U/L (35-104); ALT/SGPT 31 U/L (7.0-40); AST/SGOT 24 U/L (<34); BILIRUBIN,DIRECT 0.2 MG/DL (<0.4); BILIRUBIN,TOTAL 0.8 MG/DL (0.3-1.2); BLOOD UREA NITROGEN 20 MG/DL (9-23); CALCIUM LEVEL 8.9 MG/DL (8.3-10.6); CARBON DIOXIDE LEVEL 33 MMOL/L (20-31); CHLORIDE LEVEL 103 MMOL/L (98-107); GLOMERULAR FILTRATION RATE > 60.0 (>32); GLUCOSE, FASTING 114 MG/DL (74-106); POTASSIUM SERUM 3.8 MMOL/L (3.5-5.1); SODIUM LEVEL 139 MMOL/L (136-145); TOTAL PROTEIN 6.3 G/DL (5.7-8.2)
[2024-03-10 11:13] LABS: THYROID STIMULATING HORMONE 2.614 uIU/ML (0.55-4.78)
[2024-03-10] MEDS ORDERED: DEXTROSE 50% 50ML SYRINGE IV PRN (12:35)
[2024-03-10] MEDS ORDERED: GLUCOSE 4 GM CHEW PO PRN (12:35)
[2024-03-10] MEDS ORDERED: GLUCAGON INJ 1MG VIAL SC PRN (12:35)
[2024-03-10] MEDS ORDERED: HOME MED LIST COMPLETE! XX SCH (13:05)
[2024-03-10] MEDS ORDERED: **hydrALAZINE** 10 MG TAB PO PRN (14:00)
[2024-03-10] MEDS: cloNIDine 0.1MG TABLET PO SCH (14:08)
[2024-03-10] MEDS: OMEPRAZOLE 20MG CAP PO SCH (15:17)
[2024-03-10] MEDS: REMDESIVIR 200 MG in NS 250 ML IV ONE (15:17)
[2024-03-10 16:00] VITALS: BP 110/50; TEMP 97.7; O2SAT 99
[2024-03-10] MEDS: INSULIN LISPRO (NovoLOG) PER UNIT SC SCH (18:03)
[2024-03-10] MEDS: ACETAMINOPHEN 325 MG TAB PO ONE (19:38)
[2024-03-10 19:41] VITALS: BP 115/92; TEMP 98.4; O2SAT 97
[2024-03-11 04:00] VITALS: BP 123/52; TEMP 97.7; O2SAT 98
[2024-03-11 06:57] LABS: HEMATOCRIT 36.3 % (36.0-47.0); HEMOGLOBIN 12.5 g/dl (12.0-15.5); MEAN CORPUSCULAR HEMOGLOBIN 32.2 pg (27.0-33.0); MEAN CORPUSCULAR HGB CONC 34.4 g/dl (32.0-36.5); MEAN CORPUSCULAR VOLUME 93.6 fl (80.0-96.0); PLATELET COUNT, AUTOMATED 151 10^3/uL (150-450); RED BLOOD COUNT 3.88 10^6/uL (4.00-5.40); WHITE BLOOD COUNT 4.6 10^3/uL (4.0-10.0)
[2024-03-11 07:24] LABS: ALBUMIN 2.9 G/DL (3.2-5.2); ALKALINE PHOSPHATASE 102 U/L (35-104); ALT/SGPT 30 U/L (7.0-40); AST/SGOT 22 U/L (<34); BILIRUBIN,TOTAL 0.5 MG/DL (0.3-1.2); BLOOD UREA NITROGEN 25 MG/DL (9-23); CALCIUM LEVEL 9.1 MG/DL (8.3-10.6); CARBON DIOXIDE LEVEL 30 MMOL/L (20-31); CHLORIDE LEVEL 101 MMOL/L (98-107); CREATININE FOR GFR 0.47 MG/DL (0.55-1.30); GLOMERULAR FILTRATION RATE > 60.0 (>32); GLUCOSE, FASTING 105 MG/DL (74-106); POTASSIUM SERUM 3.6 MMOL/L (3.5-5.1); SODIUM LEVEL 137 MMOL/L (136-145); TOTAL PROTEIN 5.6 G/DL (5.7-8.2)
[2024-03-11 08:58] VITALS: BP 124/60; TEMP 98.6; O2SAT 97
[2024-03-11 12:00] VITALS: BP 142/73; TEMP 98.6; O2SAT 97
[2024-03-11 14:21] LABS: CHOLESTEROL LEVEL 184 MG/DL (<200); CHOLESTEROL RISK RATIO 2.73 (<5); HDL CHOLESTEROL 67.3 MG/DL (>40); LDL CHOLESTEROL 107.1 MG/DL (<100); NON-HDL-C 116.7 MG/DL; TRIGLYCERIDES LEVEL 48 MG/DL (<150)
[2024-03-11 14:24] LABS: FREE T4 0.91 NG/DL (0.89-1.76)
[2024-03-11 14:26] LABS: FREE T3 1.2 PG/ML (2.3-4.2)
[2024-03-11 14:33] LABS: HEMOGLOBIN A1c 7.7 % (4.0-6.0)
[2024-03-11] MEDS: REMDESIVIR 100 MG in NS 100 ML IV SCH (16:04)
[2024-03-11 19:38] VITALS: BP 130/60; TEMP 99; O2SAT 93
[2024-03-11] MEDS: ACETAMINOPHEN 325 MG TAB PO PRN (20:19)
[2024-03-12 04:25] VITALS: BP 90/44; TEMP 98.2; O2SAT 95
[2024-03-12 05:51] VITALS: BP 94/50
[2024-03-12 06:56] LABS: HEMATOCRIT 34.3 % (36.0-47.0); HEMOGLOBIN 11.8 g/dl (12.0-15.5); MEAN CORPUSCULAR HEMOGLOBIN 33.1 pg (27.0-33.0); MEAN CORPUSCULAR HGB CONC 34.4 g/dl (32.0-36.5); MEAN CORPUSCULAR VOLUME 96.1 fl (80.0-96.0); PLATELET COUNT, AUTOMATED 160 10^3/uL (150-450); RED BLOOD COUNT 3.57 10^6/uL (4.00-5.40); WHITE BLOOD COUNT 6.2 10^3/uL (4.0-10.0)
[2024-03-12 07:22] LABS: ALBUMIN 2.7 G/DL (3.2-5.2); ALKALINE PHOSPHATASE 91 U/L (35-104); ALT/SGPT 22 U/L (7.0-40); AST/SGOT 18 U/L (<34); BILIRUBIN,TOTAL 0.5 MG/DL (0.3-1.2); BLOOD UREA NITROGEN 34 MG/DL (9-23); CALCIUM LEVEL 8.4 MG/DL (8.3-10.6); CARBON DIOXIDE LEVEL 28 MMOL/L (20-31); CHLORIDE LEVEL 103 MMOL/L (98-107); GLOMERULAR FILTRATION RATE > 60.0 (>32); GLUCOSE, FASTING 122 MG/DL (74-106); POTASSIUM SERUM 3.5 MMOL/L (3.5-5.1); SODIUM LEVEL 138 MMOL/L (136-145)
[2024-03-12] MEDS: amLODIPine 5 MG TAB PO SCH (08:16)
[2024-03-12 08:21] VITALS: BP 90/45; TEMP 98.4
[2024-03-12 11:56] VITALS: BP 120/70; TEMP 98.2
[2024-03-12 19:42] VITALS: BP 134/60; TEMP 98.4; O2SAT 96
[2024-03-13 04:10] VITALS: BP 124/60; TEMP 97.7; O2SAT 96
[2024-03-13 06:15] LABS: HEMATOCRIT 34.7 % (36.0-47.0); HEMOGLOBIN 11.7 g/dl (12.0-15.5); MEAN CORPUSCULAR HEMOGLOBIN 32.2 pg (27.0-33.0); MEAN CORPUSCULAR HGB CONC 33.7 g/dl (32.0-36.5); MEAN CORPUSCULAR VOLUME 95.6 fl (80.0-96.0); PLATELET COUNT, AUTOMATED 167 10^3/uL (150-450); RED BLOOD COUNT 3.63 10^6/uL (4.00-5.40); WHITE BLOOD COUNT 6.8 10^3/uL (4.0-10.0)
[2024-03-13 06:50] LABS: ALBUMIN 2.7 G/DL (3.2-5.2); ALKALINE PHOSPHATASE 91 U/L (35-104); ALT/SGPT 24 U/L (7.0-40); AST/SGOT 18 U/L (<34); BILIRUBIN,TOTAL 0.5 MG/DL (0.3-1.2); BLOOD UREA NITROGEN 27 MG/DL (9-23); CALCIUM LEVEL 8.2 MG/DL (8.3-10.6); CARBON DIOXIDE LEVEL 29 MMOL/L (20-31); CHLORIDE LEVEL 106 MMOL/L (98-107); CREATININE FOR GFR 0.53 MG/DL (0.55-1.30); GLOMERULAR FILTRATION RATE > 60.0 (>32); GLUCOSE, FASTING 142 MG/DL (74-106); POTASSIUM SERUM 3.4 MMOL/L (3.5-5.1); SODIUM LEVEL 142 MMOL/L (136-145)
[2024-03-13 08:00] VITALS: BP 120/55; TEMP 97.8; O2SAT 94
[2024-03-13] MEDS: POTASSIUM CHLORIDE 10MEQ SR TABLET PO ONE (08:11)
[2024-03-13] MEDS: FLUBLOK(EGGFREE) TRIVAL(24-25) VACCINE PF 0.5ML SYRINGE 18YRS & OLDER IM.IMMUN ONE (09:00)
[2024-03-13 12:00] VITALS: BP 118/54; TEMP 98.4; O2SAT 95
[2024-03-13] MEDS: PREVNAR-20 VACCINE 0.5ML SYRINGE IM.IMMUN ONE (12:55)
[2024-03-13 20:33] VITALS: BP 136/75; TEMP 98.6; O2SAT 99
[2024-03-14 04:44] VITALS: BP 132/60; TEMP 97.9; O2SAT 97
[2024-03-14 06:56] LABS: HEMATOCRIT 34.4 % (36.0-47.0); HEMOGLOBIN 11.8 g/dl (12.0-15.5); MEAN CORPUSCULAR HEMOGLOBIN 33.1 pg (27.0-33.0); MEAN CORPUSCULAR HGB CONC 34.3 g/dl (32.0-36.5); MEAN CORPUSCULAR VOLUME 96.4 fl (80.0-96.0); PLATELET COUNT, AUTOMATED 181 10^3/uL (150-450); RED BLOOD COUNT 3.57 10^6/uL (4.00-5.40); WHITE BLOOD COUNT 5.4 10^3/uL (4.0-10.0)
[2024-03-14 07:38] LABS: ALBUMIN 2.5 G/DL (3.2-5.2); ALKALINE PHOSPHATASE 90 U/L (35-104); ALT/SGPT 21 U/L (7.0-40); AST/SGOT 15 U/L (<34); BILIRUBIN,TOTAL 0.3 MG/DL (0.3-1.2); BLOOD UREA NITROGEN 25 MG/DL (9-23); CALCIUM LEVEL 8.2 MG/DL (8.3-10.6); CARBON DIOXIDE LEVEL 28 MMOL/L (20-31); CHLORIDE LEVEL 107 MMOL/L (98-107); CREATININE FOR GFR 0.42 MG/DL (0.55-1.30); GLOMERULAR FILTRATION RATE > 60.0 (>32); GLUCOSE, FASTING 130 MG/DL (74-106); POTASSIUM SERUM 3.9 MMOL/L (3.5-5.1); SODIUM LEVEL 140 MMOL/L (136-145); TOTAL PROTEIN 4.9 G/DL (5.7-8.2)
[2024-03-14 11:57] VITALS: BP 118/70; TEMP 98.4; O2SAT 99
[2024-03-14 20:05] VITALS: BP 132/82; TEMP 98.1; O2SAT 97
[2024-03-15 04:13] VITALS: BP 140/70; TEMP 98.1; O2SAT 98
[2024-03-15 12:00] VITALS: BP 120/68; TEMP 97.5; O2SAT 97
[2024-03-15] MEDS: MAALOX 30 ML SUSP *UDC PO PRN (14:31)
[2024-03-15 20:21] VITALS: BP 118/62; TEMP 98.2; O2SAT 99
[2024-03-16 04:57] VITALS: BP 122/62; TEMP 97.9
[2024-03-16 12:00] VITALS: BP 184/62; TEMP 97.9; O2SAT 98
[2024-03-16 19:54] VITALS: BP 160/68; TEMP 97.9; O2SAT 96
[2024-03-17 04:00] VITALS: BP 158/60; TEMP 97.9; O2SAT 99
[2024-03-17 12:00] VITALS: BP 146/78; O2SAT 97
[2024-03-17 20:00] VITALS: BP 90/78; TEMP 97.5; O2SAT 100
[2024-03-18 04:00] VITALS: BP 158/60; TEMP 97.7; O2SAT 98
[2024-03-18] MEDS: DEXTROMETHORPHAN 60MG/10ML SUSP 90ML BTL(DELSYM) PO PRN (05:52)
[2024-03-19 03:24] VITALS: BP 140/86; TEMP 97.5; O2SAT 98
[2024-03-19] MEDS: MIRALAX *UNIT DOSE* 17GM PACKET PO PRN (08:34)
[2024-03-20 04:00] VITALS: BP 120/72; TEMP 97.7; O2SAT 93
[2024-03-20] MEDS: guaiFENesin DM LIQ 10ML UD PO PRN (23:26)
[2024-03-21 04:00] VITALS: BP 152/64; TEMP 97.9; O2SAT 97
[2024-03-22 04:18] VITALS: BP 148/76; TEMP 97.9; O2SAT 98
[2024-03-22 18:35] LABS: THYROID STIMULATING HORMONE 4.018 uIU/ML (0.55-4.78); THYROXINE (T4) 7.7 UG/DL (4.5-10.9)
[2024-03-22 18:37] LABS: FREE THYROXINE INDEX 2.9 % (1.3-4.8); T UPTAKE 38.3 % (22.5-37.0)
[2024-03-23 04:00] VITALS: BP 150/80; TEMP 97.5; O2SAT 98
[2024-03-23] MEDS ORDERED: SENOKOT S TAB PO PRN (13:20)
[2024-03-23] MEDS ORDERED: MOM 30ML SUSPENSION UDC PO PRN (13:20)
[2024-03-23] MEDS ORDERED: LACTULOSE 20GM/30ML SYRUP UDC PO PRN (13:20)
[2024-03-23] MEDS: SENOKOT S TAB PO ONE (13:30)
[2024-03-23] MEDS: LACTULOSE 20GM/30ML SYRUP UDC PO ONE (13:30)
[2024-03-24 04:18] VITALS: BP 142/60; TEMP 97.7; O2SAT 98
[2024-03-25 04:00] VITALS: BP 138/60; TEMP 97.7; O2SAT 97
[2024-03-26 04:00] VITALS: BP 180/58; TEMP 97.7; O2SAT 98
[2024-03-27 04:00] VITALS: BP 154/68; TEMP 96.4; O2SAT 98
[2024-03-28 04:00] VITALS: BP 130/62; TEMP 98.2; O2SAT 98
[2024-03-28] MEDS: MEGESTROL 40MG TAB PO SCH (09:00)
[2024-03-28 09:39] VITALS: BP 140/82
[2024-03-28] MEDS ORDERED: AMLO1TAB24 PO (11:23)
[2024-03-28] MEDS ORDERED: ACET32TAB PO (11:23)
[2024-03-28] MEDS ORDERED: HYDR-643 PO (11:23)
[2024-03-28] MEDS ORDERED: SENN-52 PO (11:23)
[2024-03-28] MEDS ORDERED: MEGE40TA3 PO (11:23)
[2024-03-28] MEDS ORDERED: GUAI10ELDM PO (11:23)
== END 2024-03-28 12:40 | DRG 177 ==
LOC: M ED 09:04 → M ED INP 13:58 → M MS5PR 15:50
PROVIDERS: ADMIT Internal Medicine; ATTEND Internal Medicine Nephrology
PROC: XW033E5 Introduction of Remdesivir Anti-infective into Peripheral Vein, Percutaneous Approach, New Technology Group 5 (ICD-10-PCS; principal; 2024-03-10)
DX: U07.1 COVID-19 (principal); E43 Unspecified severe protein-calorie malnutrition; Z68.1 Body mass index [BMI] 19.9 or less, adult; Z74.1 Need for assistance with personal care; Z66 Do not resuscitate; E11.42 Type 2 diabetes mellitus with diabetic polyneuropathy; I10 Essential (primary) hypertension; K21.9 Gastro-esophageal reflux disease without esophagitis; K58.9 Irritable bowel syndrome, unspecified; E03.9 Hypothyroidism, unspecified; M79.7 Fibromyalgia; G89.29 Other chronic pain; R19.7 Diarrhea, unspecified; F32.A Depression, unspecified; M81.0 Age-related osteoporosis without current pathological fracture; H40.9 Unspecified glaucoma; F17.200 Nicotine dependence, unspecified, uncomplicated; Z79.84 Long term (current) use of oral hypoglycemic drugs; Z79.890 Hormone replacement therapy; Z79.899 Other long term (current) drug therapy; Z88.5 Allergy status to narcotic agent; I95.9 Hypotension, unspecified; F41.9 Anxiety disorder, unspecified; R26.89 Other abnormalities of gait and mobility

== ENCOUNTER → 2024-04-03 | Outpatient (REF) ==
[~2024-04-03] MED LIST changes: +ACET32TAB PO; +GUAI10ELDM PO; +MEGE40TA3 PO
[2024-04-03 10:14] LABS: HEMATOCRIT 39.5 % (36.0-47.0); HEMOGLOBIN 13.1 g/dl (12.0-15.5); MEAN CORPUSCULAR HEMOGLOBIN 32.7 pg (27.0-33.0); MEAN CORPUSCULAR HGB CONC 33.2 g/dl (32.0-36.5); MEAN CORPUSCULAR VOLUME 98.5 fl (80.0-96.0); PLATELET COUNT, AUTOMATED 264 10^3/uL (150-450); RED BLOOD COUNT 4.01 10^6/uL (4.00-5.40); WHITE BLOOD COUNT 5.4 10^3/uL (4.0-10.0)
[2024-04-03 10:51] LABS: BLOOD UREA NITROGEN 29 MG/DL (9-23); CALCIUM LEVEL 8.9 MG/DL (8.3-10.6); CARBON DIOXIDE LEVEL 32 MMOL/L (20-31); CHLORIDE LEVEL 102 MMOL/L (98-107); CREATININE FOR GFR 0.48 MG/DL (0.55-1.30); GLOMERULAR FILTRATION RATE > 60.0 (>32); GLUCOSE, FASTING 196 MG/DL (74-106); POTASSIUM SERUM 4.3 MMOL/L (3.5-5.1); SODIUM LEVEL 138 MMOL/L (136-145)
[2024-04-03 10:52] LABS: THYROXINE (T4) 5.8 UG/DL (4.5-10.9)
[2024-04-03 10:53] LABS: FREE T4 1.06 NG/DL (0.89-1.76)
== END ==
PROVIDERS: ATTEND Internal Medicine
DX: I10 Essential (primary) hypertension (principal)

== ENCOUNTER → 2024-04-11 | Outpatient (REF) | PROVIDERS: ATTEND Internal Medicine | DX: R09.81 Nasal congestion (principal) ==

== ENCOUNTER → 2024-04-25 | Outpatient (REF) | payer MEDICARE | PROVIDERS: ATTEND Physician Assistant | DX: R22.42 Localized swelling, mass and lump, left lower limb (principal); M79.89 Other specified soft tissue disorders; M85.872 Other specified disorders of bone density and structure, left ankle and foot ==

== ENCOUNTER → 2024-05-08 | Outpatient (REF) ==
[2024-04-10 08:04] LABS: HEMATOCRIT 38.8 % (36.0-47.0); HEMOGLOBIN 12.8 g/dl (12.0-15.5); MEAN CORPUSCULAR HEMOGLOBIN 32.7 pg (27.0-33.0); PLATELET COUNT, AUTOMATED 267 10^3/uL (150-450); RED BLOOD COUNT 3.92 10^6/uL (4.00-5.40); WHITE BLOOD COUNT 4.7 10^3/uL (4.0-10.0)
[2024-04-10 08:30] LABS: BLOOD UREA NITROGEN 25 MG/DL (9-23); CALCIUM LEVEL 8.7 MG/DL (8.3-10.6); CARBON DIOXIDE LEVEL 28 MMOL/L (20-31); CHLORIDE LEVEL 103 MMOL/L (98-107); CREATININE FOR GFR 0.48 MG/DL (0.55-1.30); GLOMERULAR FILTRATION RATE > 60.0 (>32); GLUCOSE, FASTING 146 MG/DL (74-106); POTASSIUM SERUM 4.7 MMOL/L (3.5-5.1); SODIUM LEVEL 140 MMOL/L (136-145)
== END ==
PROVIDERS: ATTEND Internal Medicine
DX: I10 Essential (primary) hypertension (principal)

== ENCOUNTER → 2024-05-15 | Outpatient (REF) ==
[2024-05-15 07:33] LABS: HEMATOCRIT 38.2 % (36.0-47.0); HEMOGLOBIN 12.5 g/dl (12.0-15.5); MEAN CORPUSCULAR HEMOGLOBIN 32.5 pg (27.0-33.0); MEAN CORPUSCULAR HGB CONC 32.7 g/dl (32.0-36.5); MEAN CORPUSCULAR VOLUME 99.2 fl (80.0-96.0); PLATELET COUNT, AUTOMATED 241 10^3/uL (150-450); RED BLOOD COUNT 3.85 10^6/uL (4.00-5.40)
[2024-05-15 07:50] LABS: BLOOD UREA NITROGEN 24 MG/DL (9-23); CALCIUM LEVEL 8.6 MG/DL (8.3-10.6); CARBON DIOXIDE LEVEL 28 MMOL/L (20-31); CHLORIDE LEVEL 104 MMOL/L (98-107); CREATININE FOR GFR 0.42 MG/DL (0.55-1.30); GLOMERULAR FILTRATION RATE > 60.0 (>32); GLUCOSE, FASTING 179 MG/DL (74-106); POTASSIUM SERUM 4.3 MMOL/L (3.5-5.1); SODIUM LEVEL 140 MMOL/L (136-145)
== END ==
PROVIDERS: ATTEND Internal Medicine
DX: I10 Essential (primary) hypertension (principal)

== ENCOUNTER → 2024-06-02 | Outpatient (REF) | payer MEDICARE | PROVIDERS: ATTEND Internal Medicine | DX: R05.9 Cough, unspecified (principal) ==

== ENCOUNTER → 2024-10-06 | Outpatient (REF) | payer MEDICARE | PROVIDERS: ATTEND Physician Assistant | DX: Z79.899 Other long term (current) drug therapy (principal); R53.83 Other fatigue ==

== ENCOUNTER → 2024-10-09 | Outpatient (REF) | payer MEDICARE ==
[2024-10-09 18:08] LABS: ESTIMATED AVERAGE GLUCOSE 303.0 MG/DL (60-110)
== END ==
PROVIDERS: ATTEND Internal Medicine
DX: E11.9 Type 2 diabetes mellitus without complications (principal)

== ENCOUNTER → 2024-11-02 | Outpatient (REF) | payer MEDICARE | PROVIDERS: ATTEND Physician Assistant | DX: M25.531 Pain in right wrist (principal) ==

== ENCOUNTER → 2024-11-24 | Outpatient (REF) | payer MEDICARE ==
[~2024-11-24] MED LIST changes: -GUAI10ELDM PO; +GUAI1SYP10 PO
== END ==
PROVIDERS: ATTEND Internal Medicine
DX: E11.9 Type 2 diabetes mellitus without complications (principal); Z53.8 Procedure and treatment not carried out for other reasons

== ENCOUNTER → 2024-11-27 | Outpatient (REF) | payer MEDICARE ==
[2024-11-27 11:14] LABS: PLATELET COUNT, AUTOMATED 264 10^3/uL (150-450)
[2024-11-27 11:50] LABS: CALCIUM LEVEL 9.2 MG/DL (8.3-10.6); CARBON DIOXIDE LEVEL 26 MMOL/L (20-31); CHLORIDE LEVEL 99 MMOL/L (98-107); CREATININE FOR GFR 0.38 MG/DL (0.55-1.30); GLOMERULAR FILTRATION RATE > 90.0 (>32); POTASSIUM SERUM 4.0 MMOL/L (3.5-5.1); SODIUM LEVEL 133 MMOL/L (136-145)
== END ==
PROVIDERS: ATTEND Internal Medicine
DX: I10 Essential (primary) hypertension (principal)

== ENCOUNTER → 2024-11-27 | Outpatient (CLI) | payer MEDICARE, MEDICAID | LOC: M PLAIMG 13:01 | PROVIDERS: ATTEND Physician Assistant | DX: K08.89 Other specified disorders of teeth and supporting structures (principal); J32.8 Other chronic sinusitis; J34.2 Deviated nasal septum ==

== ENCOUNTER → 2024-12-30 | Outpatient (REF) | payer MEDICARE, MEDICAID ==
[~2024-12-30] MED LIST changes: -ROSU10TA61 PO; +ROSU10TA90 PO
[2024-12-30 15:34] LABS: APPEARANCE, URINE CLEAR (CLEAR); BACTERIA, URINE AUTO NEGATIVE (NEGATIVE); BILIRUBIN, URINE AUTO NEGATIVE (NEGATIVE); BLOOD, URINE BLOOD NEGATIVE (NEGATIVE); GLUCOSE, URINE (UA) AUTO 3+ mg/dL (NEGATIVE); KETONE, URINE AUTO NEGATIVE (NEGATIVE); LEUKOCYTE ESTERASE, URINE AUTO NEGATIVE (NEGATIVE); MUCUS, URINE SMALL (NEGATIVE); NITRITE, URINE AUTO NEGATIVE (NEGATIVE); PROTEIN, URINE AUTO NEGATIVE (NEGATIVE); RBC, URINE AUTO 0 /HPF (0-3); SPECIFIC GRAVITY URINE AUTO 1.038 (1.002-1.035); SQUAMOUS EPITHELIAL CELL UR AU 0 /HPF (0-6); UROBILINOGEN, URINE AUTO 0.2 mg/dL (0.0-2.0); WBC, URINE AUTO 0 /HPF (0-3)
== END ==
PROVIDERS: ATTEND Internal Medicine
DX: R30.9 Painful micturition, unspecified (principal); R82.998 Other abnormal findings in urine

== ENCOUNTER → 2025-01-22 | Outpatient (REF) | payer MEDICARE, MEDICAID ==
[2025-01-22 19:27] LABS: ALT/SGPT 69 U/L (7.0-40); AST/SGOT 37 U/L (<34); CALCIUM LEVEL 9.5 MG/DL (8.3-10.6); CARBON DIOXIDE LEVEL 28 MMOL/L (20-31); CHLORIDE LEVEL 100 MMOL/L (98-107); CREATININE FOR GFR 0.45 MG/DL (0.55-1.30); GLOMERULAR FILTRATION RATE > 90.0 (>32); MAGNESIUM LEVEL 1.7 MG/DL (1.8-2.4); POTASSIUM SERUM 4.6 MMOL/L (3.5-5.1); SODIUM LEVEL 137 MMOL/L (136-145)
[2025-01-22 19:47] LABS: ESTIMATED AVERAGE GLUCOSE 209.0 MG/DL (60-110)
== END ==
PROVIDERS: ATTEND Internal Medicine
DX: E11.9 Type 2 diabetes mellitus without complications (principal)

== ENCOUNTER → 2025-02-14 | Outpatient (REF) | payer MEDICARE, MEDICAID ==
[2025-02-14 13:22] LABS: PLATELET COUNT, AUTOMATED 312 10^3/uL (150-450)
[2025-02-14 13:54] LABS: CALCIUM LEVEL 9.1 MG/DL (8.3-10.6); CARBON DIOXIDE LEVEL 27 MMOL/L (20-31); CHLORIDE LEVEL 100 MMOL/L (98-107); CREATININE FOR GFR 0.40 MG/DL (0.55-1.30); GLOMERULAR FILTRATION RATE > 90.0 (>32); POTASSIUM SERUM 4.2 MMOL/L (3.5-5.1); SODIUM LEVEL 136 MMOL/L (136-145)
[2025-02-14 14:22] LABS: ESTIMATED AVERAGE GLUCOSE 194.0 MG/DL (60-110)
== END ==
PROVIDERS: ATTEND Internal Medicine
DX: E11.9 Type 2 diabetes mellitus without complications (principal)

== ENCOUNTER → 2025-02-27 | Outpatient (REF) | payer MEDICARE, MEDICAID | PROVIDERS: ATTEND Internal Medicine | DX: R05.9 Cough, unspecified (principal) ==